=== PATIENT | male | born 1960 | race Caucasian/White ===

== ENCOUNTER 2016-11-04 05:18 | Emergency (ER) | payer OTHER ==
--- NOTE | 2016-11-04 05:33 | PD ---
HPI Chief Complaint: right arm pain Time Seen by Provider: 05:29 Travel History International Travel<30 days: No Contact w/Intl Traveler<30days: No Traveled to known affect area: No History of Present Illness HPI 56-year-old male with history of alcohol abuse, presents to the ER today brought in by EMS because he was found at a park bench by the boarder machine, he states that he had fallen 2 weeks ago and has been having right arm pain. He did hit his head but denies any loss of consciousness. He denies any other issues or injuries. Modifying Factors: None Associated Signs & Symptoms: Right arm pain, head injury Risk Factors: Alcoholic PFSH Past Medical History Chest Pain: Yes (04/06/08 NEG STRESS TEST) Diminished Hearing: No Myocardial Infarction: Yes (X2) Seizures: Yes (ETOH SEIZURES) Past Surgical History Genitourinary Surgery: Yes (STS KIDNEY SURGERY.) Other Surgery: Yes (renal surgery as a child) Social History Alcohol Use: Yes ([facility] DAILY) Tobacco Use: Yes (1 PPD) Substance Use: No Allergies-Medications (Allergen,Severity, Reaction): Coded Allergies: No Known Allergies (Verified , 11/04/16) Reported Meds & Prescriptions Reported Meds & Active Scripts Active No Active Prescriptions or Reported Medications Review of Systems Except as stated in HPI: all other systems reviewed are Neg Physical Exam Narrative GENERAL: Well-nourished, well-developed middle age white male patient in no acute distress. Awake, alert, oriented 3. SKIN: Warm and dry. HEAD: Normocephalic. EYES: No scleral icterus. No injection or drainage. NECK: Supple, trachea midline. CARDIOVASCULAR: Regular rate and rhythm without murmurs, gallops, or rubs. RESPIRATORY: Breath sounds equal bilaterally. No accessory muscle use. GASTROINTESTINAL: Abdomen soft, non-tender, nondistended. MUSCULOSKELETAL: No cyanosis, or edema. BACK: Nontender without obvious deformity. No CVA tenderness. Right arm: There is notable edema over the entire right arm and humeral area ecchymosis. Tender to palpation over the entire arm without obvious deformities. Neurovascularly intact. Data Data Last Documented VS Vital Signs Date Time Temp Pulse Resp B/P Pulse Ox O2 Delivery O2 Flow Rate FiO2 11/04/16 06:46 72 18 97/67 97 11/04/16 05:[address] Brain W/O Iv Contrast(Rout) (11/04/16 05:29) Forearm (2vws) (11/04/16 05:29) Humerus (Min 2vws) (11/04/16 05:29) MDM Medical Decision Making Medical Screen Exam Complete: Yes Emergency Medical Condition: Yes Medical Record Reviewed: Yes Interpretation(s) CT brain did not show any signs of acute injuries. X-ray shows a humeral fracture. Differential Diagnosis Right arm pain, injury, head injuryfractures versus contusions versus concussion versus intracranial injuries Narrative Course X-ray shows right humeral fracture. At this point, my plan would be to place him in a splint and sling and have her follow-up with orthopedics Dr. Return for any worsening in pain or new symptoms as needed. The plan has discussed with patient and he states understanding. Diagnosis Primary Impression: Right humeral fracture Med/Other Pt SpecificInfo: Prescription(s) given Scripts Hydrocodone-Acetaminophen (Lortab)5-325 Mg Tab1 Tab PO Q6H PRN (PAIN) #12 TAB Ref 0 Prov:Zahraa Limon MD 11/04/16 Disposition: 01 DISCHARGE HOME Condition: Stable Zahraa Limon MD Nov 04, 2016 05:33
[2016-11-04 05:34] VITALS: BP 90/61; PULSE 70; RESP 18; TEMP 97.8; O2SAT 96
--- NOTE | 2016-11-04 06:10 | RADRPT ---
EXAM DATE/TIME: 11/04/2016 05:44 [facility] COMPARISON: No previous studies available for comparison. INDICATIONS : Entire right arm pain from a fall two weeks ago. MEDICAL HISTORY : None. SURGICAL HISTORY : None. ENCOUNTER: Initial ACUITY: 2 weeks PAIN SCORE: 10/10 LOCATION: Right arm FINDINGS: Two view examination of the right forearm demonstrates no evidence of fracture or dislocation. Bony mineralization is normal. The soft tissue structures are intact. CONCLUSION: 1. There is no evidence of acute fracture. Roby Lopez MD on November 04, 2016 at 6:09 Board Certified Radiologist. This report was verified electronically.
--- NOTE | 2016-11-04 06:10 | RADRPT ---
EXAM DATE/TIME: 11/04/2016 05:39 [facility] COMPARISON: No previous studies available for comparison. INDICATIONS : Entire right arm pain from a fall two weeks ago. MEDICAL HISTORY : None. SURGICAL HISTORY : None. ENCOUNTER: Initial ACUITY: 2 weeks PAIN SCORE: 10/10 LOCATION: Right arm FINDINGS: There is a fracture of the right humeral neck with one shafts width anterior displacement. Humeral he ad is not dislocated. The acromioclavicular joint is intact. Osseous structures are osteopenic. CONCLUSION: 1. Right humeral neck fracture as above Roby Lopez MD on November 04, 2016 at 6:08 Board Certified Radiologist. This report was verified electronically.
[2016-11-04 06:46] VITALS: BP 97/67; PULSE 72; RESP 18; O2SAT 97
--- NOTE | 2016-11-04 06:50 | RADRPT ---
EXAM DATE/TIME: 11/04/2016 06:01 [facility] COMPARISON: CT BRAIN W/O CONTRAST, November 18, 2014, 22:21. INDICATIONS : Trauma; fall. RADIATION DOSE: 56.35 CTDIvol (mGy) MEDICAL HISTORY : Non-responsive. SURGICAL HISTORY : Non-responsive. ENCOUNTER: Initial ACUITY: 1 day PAIN SCALE: Non-responsive LOCATION: cranial TECHNIQUE: Multiple contiguous axial images were obtained of the head. Using automated exposure control and adj ustment of the mA and/or kV according to patient size, radiation dose was kept as low as reasonably a chievable to obtain optimal diagnostic quality images. FINDINGS: Noncontrast axial head CT demonstrates the ventricles to be enlarged with a prominent sulcal pattern compatible with atrophy. No acute intracranial hemorrhage, acute cortical infarction, mass or midline shift is seen. Posterior fossa structures are unremarkable. Bone windows demonstrate no abnormality. There is sinus disease involving the maxillary antra right e thmoid air cells and frontal sinuses CONCLUSION: Atrophy. No evidence of acute intracranial pathology. Roby Lopez MD on November 04, 2016 at 6:47 Board Certified Radiologist. This report was verified electronically.
[2016-11-04] MEDS ORDERED: HYDR-3533 PO (06:54)
[2016-11-04] MEDS ORDERED: ACETAMINOPHEN/HYDROcodone 325 MG/5 MG TAB PO ONE (07:00)
== END 2016-11-04 07:49 | disposition home or self-care (01) ==
LOC: NEPC 05:18
DX: S42.201A Unspecified fracture of upper end of right humerus, initial encounter for closed fracture (principal); F17.210 Nicotine dependence, cigarettes, uncomplicated; F10.220 Alcohol dependence with intoxication, uncomplicated; I25.2 Old myocardial infarction; W19.XXXA Unspecified fall, initial encounter; Y93.89 Activity, other specified; Y92.89 Other specified places as the place of occurrence of the external cause; Y99.8 Other external cause status; Y90.9 Presence of alcohol in blood, level not specified
CPT/HCPCS: 70450; 73060; 73090; 99284

== ENCOUNTER 2016-11-04 17:36 | Emergency (ER) | payer OTHER ==
[~2016-11-04 17:36] MED LIST: HYDR-3533 PO
[2016-11-04 17:40] VITALS: BP 124/62; PULSE 86; RESP 20; TEMP 98.3; O2SAT 95
--- NOTE | 2016-11-04 18:11 | PD ---
HPI Chief Complaint: Injury Time Seen by Provider: 18:00 Travel History International Travel<30 days: No Contact w/Intl Traveler<30days: No Traveled to known affect area: No History of Present Illness HPI 56-year-old male came to the emergency room for right shoulder pain. Patient is disheveled and in extremely poor hygienic situation. He is intoxicated and is homeless. He was in the emergency room last night for a fall and right upper extremity injury and pain. X-ray was suggestive of possible humerus fracture. He was discharged home and not given a sling and that's why he came back. [facility] Past Medical History Narrative Medical List of his past medical history reviewed from the nursing note. Chest Pain: Yes (04/06/08 NEG STRESS TEST) Diminished Hearing: No Myocardial Infarction: Yes (X2) Seizures: Yes (ETOH SEIZURES) Past Surgical History Genitourinary Surgery: Yes (STS KIDNEY SURGERY.) Other Surgery: Yes (renal surgery as a child) Social History Alcohol Use: Yes ([facility] DA[facility]) Tobacco Use: Yes (2 PPD) Substance Use: No Allergies-Medications (Allergen,Severity, Reaction): Coded Allergies: No Known Allergies (Verified , 11/04/16) Comments No known drug allergies. Reported Meds & Prescriptions Reported Meds & Active Scripts Active Lortab (Hydrocodone-Acetaminophen) 5-325 Mg Tab 1 Tab PO Q6H PRN Narrative Medication List of his home medications reviewed from the nursing note. Review of Systems Except as stated in HPI: all other systems reviewed are Neg Physical Exam Narrative GENERAL: Intoxicated, poor personal hygiene, disheveled SKIN: Warm and dry. HEAD: Atraumatic. Normocephalic. EYES: Pupils equal and round. No scleral icterus. No injection or drainage. ENT: No nasal bleeding or discharge. Mucous membranes pink and moist. NECK: Trachea midline. No JVD. CARDIOVASCULAR: Regular rate and rhythm. No murmur appreciated. RESPIRATORY: No accessory muscle use. Clear to auscultation. Breath sounds equal bilaterally. GASTROINTESTINAL: Abdomen soft, non-tender, nondistended. Hepatic and splenic margins not palpable. MUSCULOSKELETAL: No obvious deformities. No clubbing. No cyanosis. No edema. Right upper extremity swelling and decreased range of motion due to pain NEUROLOGICAL: Awake and alert. No obvious cranial nerve deficits. Motor grossly within normal limits. Normal speech. PSYCHIATRIC: Appropriate mood and affect; insight and judgment normal. Data Data Last Documented VS Vital Signs Date Time Temp Pulse Resp B/P Pulse Ox O2 Delivery O2 Flow Rate FiO2 11/04/16 20:28 88 20 120/61 94 11/04/16 17:40 98.3 Orders Humerus (Min 2vws) (11/04/16 ) Sling Cradle Arm (11/04/16 ) Sling Cradle Arm (11/04/16 ) MDM Medical Decision Making Medical Screen Exam Complete: Yes Emergency Medical Condition: Yes Medical Record Reviewed: Yes Differential Diagnosis Proximal shoulder fracture, shoulder dislocation Narrative Course 7:15 PM x-ray shows the same proximal fracture. Patient has been given the sling. He'll be discharged home. Procedures EKG Prior to Arrival: No Diagnosis Primary Impression: Humerus fracture Qualified Code: S42.201S - Closed fracture of proximal end of right humerus, unspecified fracture morphology, sequela Additional Impression: Chronic alcohol abuse Referrals: Ean Duron MD 2 days Additional Instructions: Follow-up with the orthopedist name and number been given to you. Keep the sling on until he is seen orthopedist. Disposition: 01 DISCHARGE HOME Condition: Stable Julio Pantoja MD Nov 04, 2016 18:11
--- NOTE | 2016-11-04 19:09 | RADRPT ---
EXAM DATE/TIME: 11/04/2016 18:23 [facility] COMPARISON: HUMERUS RIGHT (MIN 2VWS), November 04, 2016, 5:39. INDICATIONS : Right proximal humerus pain, fell MEDICAL HISTORY : Fracture humerus SURGICAL HISTORY : None. ENCOUNTER: Initial ACUITY: 1 day PAIN SCORE: 8/10 LOCATION: Right Humerus FINDINGS: There is a fracture of the surgical neck of the humerus with moderate impaction. The humeral head is aligned with the glenoid. The clavicle is intact. CONCLUSION: Fracture surgical neck proximal humerus. Huber Aguilar MD FACR on November 04, 2016 at 19:01 Board Certified Radiologist. This report was verified electronically.
[2016-11-04 20:28] VITALS: BP 120/61
== END 2016-11-04 20:28 | disposition home or self-care (01) ==
LOC: NEPE 17:36
DX: S42.201A Unspecified fracture of upper end of right humerus, initial encounter for closed fracture (principal); F10.220 Alcohol dependence with intoxication, uncomplicated; Z59.0 Homelessness; W19.XXXA Unspecified fall, initial encounter; Y99.9 Unspecified external cause status
CPT/HCPCS: 73060; 99283

== ENCOUNTER 2016-11-09 11:42 | Emergency (ER) | payer OTHER ==
[~2016-11-09] VITALS: Ht 180.3 cm; Wt 88.0 kg
[2016-11-09 11:51] VITALS: BP 131/71; PULSE 80; RESP 16; TEMP 98.1; O2SAT 97
--- NOTE | 2016-11-09 11:58 | PD ---
HPI Chief Complaint: Injury Time Seen by Provider: 11:50 Travel History International Travel<30 days: No Contact w/Intl Traveler<30days: No Traveled to known affect area: No History of Present Illness HPI 56 years old male complains of pain swelling right arm and right hand. Patient was seen in emergency room 5 days ago with diagnosis of fracture right surgical neck humerus. Patient was given a sling and discharged to follow-up with orthopedist. Patient states that he fell on the right shoulder and right arm several days after that. Patient states that he has increased in pain and swelling on the right arm and right hand since then. Patient was arrested and was sent to the ED for medical clearance. Patient does not have a sling with him on presentation today. Patient denies any other problem. PFSH Past Medical History Chest Pain: Yes (04/06/08 NEG STRESS TEST) Diminished Hearing: No Myocardial Infarction: Yes (X2) Seizures: Yes (ETOH SEIZURES) Past Surgical History Genitourinary Surgery: Yes (STS KIDNEY SURGERY.) Other Surgery: Yes (renal surgery as a child) Social History Alcohol Use: Yes ([facility] DAILY) Tobacco Use: Yes (2 PPD) Substance Use: No Allergies-Medications (Allergen,Severity, Reaction): Coded Allergies: No Known Allergies (Verified , 11/09/16) Reported Meds & Prescriptions Reported Meds & Active Scripts Active Lortab (Hydrocodone-Acetaminophen) 5-325 Mg Tab 1 Tab PO Q6H PRN Review of Systems General / Constitutional: No: Fever Eyes: No: Visual changes HENT: No: Headaches Cardiovascular: No: Chest Pain or Discomfort Respiratory: No: Shortness of Breath Gastrointestinal: No: Abdominal Pain Genitourinary: No: Dysuria Musculoskeletal: No: Pain Skin: No Rash Neurologic: No: Weakness Psychiatric: No: Depression Endocrine: No: Polydipsia Hematologic/Lymphatic: No: Easy Bruising Physical Exam Narrative GENERAL: Well-nourished, well-developed patient. SKIN: Warm and dry. HEAD: Normocephalic. EYES: No scleral icterus. No injection or drainage. NECK: Supple, trachea midline. No JVD or lymphadenopathy. CARDIOVASCULAR: Regular rate and rhythm without murmurs, gallops, or rubs. RESPIRATORY: Breath sounds equal bilaterally. No accessory muscle use. GASTROINTESTINAL: Abdomen soft, non-tender, nondistended. MUSCULOSKELETAL: Patient has moderate diffuse tenderness of the right shoulder, right upper arm, right forearm and right hand. +2 pitting edema right hand. No redness no heat noted. Sensory function intact. Decrease in range of motion the right shoulder right elbow. Patient had ecchymosis diffusely over the right upper chest. BACK: Nontender without obvious deformity. No CVA tenderness. Neurologic exam: Patient's awake and alert oriented 3. No obvious focal neurological deficit. Data Data Last Documented VS Vital Signs Date Time Temp Pulse Resp B/P Pulse Ox O2 Delivery O2 Flow Rate FiO2 11/09/16 11:51 98.1 80 16 131/71 97 Orders Complete Blood Count With Diff (11/09/16 11:52) Basic Metabolic Panel (Bmp) (11/09/16 11:52) Chest, Single Ap (11/09/16 11:52) Forearm (2vws) (11/09/16 11:52) Hand, Complete ([id number]) (11/09/16 11:52) Humerus (Min 2vws) (11/09/16 11:52) Labs Laboratory Tests Test 11/09/16 12:08 White Blood Count 4.1 TH/MM3 Red Blood Count 3.52 MIL/MM3 Hemoglobin 11.7 GM/DL Hematocrit 35.2 % Mean Corpuscular Volume 100.0 FL Mean Corpuscular Hemoglobin 33.3 PG Mean Corpuscular Hemoglobin 33.3 % Concent Red Cell Distribution Width 12.9 % Platelet Count 257 TH/MM3 Mean Platelet Volume 7.0 FL Neutrophils (%) (Auto) 44.5 % Lymphocytes (%) (Auto) 44.9 % Monocytes (%) (Auto) 6.2 % Eosinophils (%) (Auto) 3.2 % Basophils (%) (Auto) 1.2 % Neutrophils # (Auto) 1.8 TH/MM3 Lymphocytes # (Auto) 1.9 TH/MM3 Monocytes # (Auto) 0.3 TH/MM3 Eosinophils # (Auto) 0.1 TH/MM3 Basophils # (Auto) 0.1 TH/MM3 CBC Comment DIFF FINAL Differential Comment Sodium Level 134 MEQ/L Potassium Level 4.0 MEQ/L Chloride Level 100 MEQ/L Carbon Dioxide Level 24.8 MEQ/L Anion Gap 9 MEQ/L Blood Urea Nitrogen 4 MG/DL Creatinine 0.55 MG/DL Estimat Glomerular Filtration 154 ML/MIN Rate Random Glucose 74 MG/DL Calcium Level 8.1 MG/DL MDM Medical Decision Making Medical Screen Exam Complete: Yes Emergency Medical Condition: Yes Medical Record Reviewed: Yes Interpretation(s) Last Impressions Radius/Ulna X-Ray 11/09/16 1152 Signed Impressions: Service Date/Time: Wednesday, November 09, 2016 12:36 - CONCLUSION: Negative for fracture. Huber Aguilar MD FACR Hand X-Ray 11/09/16 1152 Signed Impressions: Service Date/Time: Wednesday, November 09, 2016 12:31 - CONCLUSION: Marked soft tissue swelling. Followup examination in 7-10 days may be of benefit. Huber Aguilar MD FACR Chest X-Ray 11/09/16 1152 Signed Impressions: Service Date/Time: Wednesday, November 09, 2016 12:20 - CONCLUSION: Minimal bibasilar parietal changes. Huber Aguilar MD FACR Differential Diagnosis Differential diagnosis including fracture, dislocation, dependent edema. Narrative Course 56 years old male with diffuse tenderness of the right arm and right hand. History of fracture surgical neck right humerus recently. X-ray retaken again today. Patient has persistent fracture displacement surgical neck right humerus. I spoke with orthopedist photonics engineering technologist. Advised sling and swath and outpatient follow-up. 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 Follow-up with orthopedist. Med/Other Pt SpecificInfo: No Change to Meds Disposition: [address] LAW ENFORCEMNT Condition: Stable Chong Rosa MD Nov 09, 2016 11:58
[2016-11-09 12:20] LABS: AUTOMATED NEUTROPHIL # 1.8 TH/MM3 (1.8-7.7); BASOPHIL # 0.1 TH/MM3 (0-0.2); BASOPHIL % 1.2 % (0.0-2.0); EOSINOPHIL # 0.1 TH/MM3 (0-0.4); EOSINOPHIL % 3.2 % (0.0-4.0); HEMATOCRIT 35.2 % (39.0-51.0); HEMO FLAGS DIFF FINAL; LYMPH % 44.9 % (9.0-44.0); LYMPHOCYTE # 1.9 TH/MM3 (1.0-4.8); MEAN CORPUSCULAR HEMOGLOBIN 33.3 PG (27.0-34.0); MEAN CORPUSCULAR HGB CONC 33.3 % (32.0-36.0); MONO % 6.2 % (0.0-8.0); NEUT % 44.5 % (16.0-70.0); PLATELET COUNT 257 TH/MM3 (150-450); RED BLOOD COUNT 3.52 MIL/MM3 (4.50-5.90); RED CELL DISTRIBUTION WIDTH 12.9 % (11.6-17.2); WHITE BLOOD COUNT 4.1 TH/MM3 (4.0-11.0)
[2016-11-09 12:37] LABS: BICARBONATE 24.8 MEQ/L (21.0-32.0)
--- NOTE | 2016-11-09 12:56 | RADRPT ---
EXAM DATE/TIME: 11/09/2016 12:31 [facility] COMPARISON: No previous studies available for comparison. INDICATIONS : Right hand pain, fall. MEDICAL HISTORY : None. SURGICAL HISTORY : None. ENCOUNTER: Initial ACUITY: 1 week PAIN SCORE: 10/10 LOCATION: Right hand FINDINGS: There is marked soft tissue swelling without displaced fracture. Alignment is anatomic.. CONCLUSION: Marked soft tissue swelling. Followup examination in 7-10 days may be of benefit. Huber Aguilar MD FACR on November 09, 2016 at 12:53 Board Certified Radiologist. This report was verified electronically.
--- NOTE | 2016-11-09 12:57 | RADRPT ---
EXAM DATE/TIME: 11/09/2016 12:36 [facility] COMPARISON: FOREARM RIGHT (2VWS), November 04, 2016, 5:44. INDICATIONS : Right arm pain, fall. MEDICAL HISTORY : None. SURGICAL HISTORY : None. ENCOUNTER: Initial ACUITY: 1 week PAIN SCORE: 10/10 LOCATION: Right posterior hand FINDINGS: Two view examination of the right forearm demonstrates no evidence of fracture or dislocation. Bony mineralization is normal. The soft tissue structures are intact. CONCLUSION: Negative for fracture. Huber Aguilar MD FACR on November 09, 2016 at 12:55 Board Certified Radiologist. This report was verified electronically.
--- NOTE | 2016-11-09 12:58 | RADRPT ---
EXAM DATE/TIME: 11/09/2016 12:20 [facility] COMPARISON: CHEST SINGLE AP, February 27, 2014, 22:56. INDICATIONS : Shortness of breath. MEDICAL HISTORY : None. SURGICAL HISTORY : None. ENCOUNTER: Initial ACUITY: 1 week PAIN SCORE: 0/10 LOCATION: Bilateral chest FINDINGS: Minimal bibasilar parenchymal changes are noted worse on the left than the right. The heart and pulmo nary vascularity are normal. Fracture of the right humerus is noted. CONCLUSION: Minimal bibasilar parietal changes. Huber Aguilar MD FACR on November 09, 2016 at 12:55 Board Certified Radiologist. This report was verified electronically.
--- NOTE | 2016-11-09 13:15 | RADRPT ---
EXAM DATE/TIME: 11/09/2016 12:22 [facility] COMPARISON: HUMERUS RIGHT (MIN 2VWS), November 04, 2016, 18:23. INDICATIONS: Right arm pain, fall. MEDICAL HISTORY: None. SURGICAL HISTORY: None. ENCOUNTER: Initial ACUITY: 1 day PAIN SCORE: 10/10 LOCATION: Right humerus FINDINGS: There is a fracture of the surgical neck of the humerus with moderate angulation. Humeral head is al igned with the glenoid. CONCLUSION: Proximal humeral fracture. Huber Aguilar MD FACR on November 09, 2016 at 12:53 Board Certified Radiologist. This report was verified electronically.
== END 2016-11-09 14:48 ==
LOC: NEDAMB 11:42
DX: S42.221D 2-part displaced fracture of surgical neck of right humerus, subsequent encounter for fracture with routine healing (principal); M79.641 Pain in right hand; R06.02 Shortness of breath; W18.30XD Fall on same level, unspecified, subsequent encounter
CPT/HCPCS: 71010; 73060; 73090; 73130; 80048; 85025; 99284

== ENCOUNTER 2016-11-12 12:32 | Emergency (ER) | payer SELFPAY ==
[~2016-11-12] VITALS: Ht 180.3 cm; Wt 95.0 kg
[2016-11-12 12:35] VITALS: BP 101/69; PULSE 90; RESP 20; TEMP 98.1; O2SAT 97
== END 2016-11-12 13:43 | disposition left against medical advice (07) ==
LOC: NED 12:32
DX: Z53.21 Procedure and treatment not carried out due to patient leaving prior to being seen by health care provider (principal)
CPT/HCPCS: 99281

== ENCOUNTER 2016-11-19 18:50 | Inpatient (IN) | payer OTHER ==
[~2016-11-19] VITALS: Ht 172.7 cm; Wt 78.6 kg
[2016-11-19 19:00] VITALS: BP 123/81; PULSE 72; RESP 19; TEMP 98.9; O2SAT 99
[2016-11-19] MEDS ORDERED: SODIUM CHLORIDE 0.9% FLUSH 5 ML FLUSH IVF PRN (19:15)
[2016-11-19] MEDS ORDERED: SODIUM CHLOR 0.9% 1000 ML INJ 1,000 ML IV ONE (19:15)
[2016-11-19 20:00] VITALS: BP 123/81; PULSE 80; RESP 16; O2SAT 96
[2016-11-19 20:18] LABS: AUTOMATED NEUTROPHIL # 5.3 TH/MM3 (1.8-7.7); BASOPHIL % 0.6 % (0.0-2.0); EOSINOPHIL % 0.2 % (0.0-4.0); HEMATOCRIT 33.8 % (39.0-51.0); LYMPH % 14.1 % (9.0-44.0); MEAN CELL VOLUME 95.5 FL (80.0-100.0); MEAN CORPUSCULAR HEMOGLOBIN 33.5 PG (27.0-34.0); MEAN CORPUSCULAR HGB CONC 35.1 % (32.0-36.0); MONO % 7.6 % (0.0-8.0); NEUT % 77.5 % (16.0-70.0); PLATELET COUNT 262 TH/MM3 (150-450); RED BLOOD COUNT 3.54 MIL/MM3 (4.50-5.90); RED CELL DISTRIBUTION WIDTH 12.8 % (11.6-17.2); WHITE BLOOD COUNT 6.8 TH/MM3 (4.0-11.0)
[2016-11-19 20:20] LABS: HEMO FLAGS DIFF FINAL
--- NOTE | 2016-11-19 20:24 | PD ---
HPI Chief Complaint: Fall Time Seen by Provider: 19:00 Travel History International Travel<30 days: No Contact w/Intl Traveler<30days: No Traveled to known affect area: No History of Present Illness HPI Patient is a 56-year-old male who presents most room with complaints of pain to his right arm. Patient was found by bystanders on the ground in the [place]. Reports the patient was complaining of right arm pain. Patient is alert and oriented 2 in the emergency room, patient reports that he broke his arm earlier in the month (he was diagnosed with a fracture to [facility] surgical neck of humerus) and reports increased pain to his right arm. Patient presents to emergency room with a sling in place with c/o of pain to his right shoulder. Patient does admit to alcohol abuse, reports that he is an alcoholic and does abuse alcohol daily. Reports that he just feels "weak all over." Reports that he has only had water and 3 beers to drink today - reports that he has not eaten anything PFSH Past Medical History Chest Pain: Yes (04/06/08 NEG STRESS TEST) Diminished Hearing: No Myocardial Infarction: Yes (X2) Seizures: Yes (ETOH SEIZURES) Past Surgical History Genitourinary Surgery: Yes (STS KIDNEY SURGERY.) Other Surgery: Yes (renal surgery as a child) Social History Alcohol Use: Yes ([employer] DAILY) Tobacco Use: Yes (/2 PPD) Substance Use: No Allergies-Medications (Allergen,Severity, Reaction): Coded Allergies: No Known Allergies (Verified , 11/19/16) Reported Meds & Prescriptions Reported Meds & Active Scripts Active Lortab (Hydrocodone-Acetaminophen) 5-325 Mg Tab 1 Tab PO Q6H PRN Review of Systems General / Constitutional: No: Fever Eyes: No: Visual changes HENT: No: Headaches Cardiovascular: No: Chest Pain or Discomfort Respiratory: No: Shortness of Breath Gastrointestinal: No: Abdominal Pain Genitourinary: No: Dysuria Musculoskeletal: Positive: Limited ROM (right arm pain), No: Pain Skin: No Rash Neurologic: No: Weakness Psychiatric: No: Depression Endocrine: No: Polydipsia Hematologic/Lymphatic: No: Easy Bruising Physical Exam Narrative GENERAL: Disheveled SKIN: Warm and dry. HEAD: Atraumatic. Normocephalic. EYES: Pupils equal and round. No scleral icterus. No injection or drainage. ENT: No nasal bleeding or discharge. Mucous membranes pink and moist. NECK: Trachea midline. No JVD. CARDIOVASCULAR: Regular rate and rhythm. No murmur appreciated. RESPIRATORY: No accessory muscle use. Clear to auscultation. Breath sounds equal bilaterally. GASTROINTESTINAL: Abdomen soft, non-tender, nondistended. Hepatic and splenic margins not palpable. MUSCULOSKELETAL: Right upper extremity with moderate tenderness to his right shoulder, humerus. Patient with mild edema to right hand, patient with no signs of open fracture. Neurovascularly intact. Patient with good range of motion to all fingers. Pulses intact. LUE: normal exam NEUROLOGICAL: Awake and alert. No obvious cranial nerve deficits. Motor grossly within normal limits. Normal speech. PSYCHIATRIC: Appropriate mood and affect; insight and judgment normal. Data Data Last Documented VS Vital Signs Date Time Temp Pulse Resp B/P Pulse Ox O2 Delivery O2 Flow Rate FiO2 11/19/16 19:05 Room Air 11/19/16 19:00 98.9 72 19 123/81 99 Orders Complete Blood Count With Diff (11/19/16 19:15) Comprehensive Metabolic Panel (11/19/16 19:15) Ct Brain W/O Iv Contrast(Rout) (11/19/16 19:15) Iv Access Insert/Monitor (11/19/16 19:15) Sodium Chloride 0.9% Flush (Ns Flush) (11/19/16 19:15) Sodium Chlor 0.9% 1000 Ml Inj (Ns 1000 M (11/19/16 19:15) Ct Cerv Spine W/O Contrast (11/19/16 19:15) Alcohol (Ethanol) (11/19/16 22:07) Osmolality, Urine (11/19/16 22:07) Sodium, Random Urine (11/19/16 22:07) Osmolality,Serum (11/19/16 22:07) Electrocardiogram (11/19/16 ) Labs Laboratory Tests Test 11/19/16 20:00 White Blood Count 6.8 TH/MM3 Red Blood Count 3.54 MIL/MM3 Hemoglobin 11.9 GM/DL Hematocrit 33.8 % Mean Corpuscular Volume 95.5 FL Mean Corpuscular Hemoglobin 33.5 PG Mean Corpuscular Hemoglobin 35.1 % Concent Red Cell Distribution Width 12.8 % Platelet Count 262 TH/MM3 Mean Platelet Volume 8.8 FL Neutrophils (%) (Auto) 77.5 % Lymphocytes (%) (Auto) 14.1 % Monocytes (%) (Auto) 7.6 % Eosinophils (%) (Auto) 0.2 % Basophils (%) (Auto) 0.6 % Neutrophils # (Auto) 5.3 TH/MM3 Lymphocytes # (Auto) 1.0 TH/MM3 Monocytes # (Auto) 0.5 TH/MM3 Eosinophils # (Auto) 0.0 TH/MM3 Basophils # (Auto) 0.0 TH/MM3 CBC Comment DIFF FINAL Differential Comment Sodium Level 127 MEQ/L Potassium Level 4.9 MEQ/L Chloride Level 95 MEQ/L Carbon Dioxide Level 23.4 MEQ/L Anion Gap 9 MEQ/L Blood Urea Nitrogen 3 MG/DL Creatinine 0.26 MG/DL Estimat Glomerular Filtration 366 ML/MIN Rate Random Glucose 77 MG/DL Calcium Level 8.1 MG/DL Total Bilirubin 0.5 MG/DL Aspartate Amino Transf 65 U/L (AST/SGOT) Alanine Aminotransferase 22 U/L (ALT/SGPT) Alkaline Phosphatase 145 U/L Total Protein 6.8 GM/DL Albumin 2.0 GM/DL MDM Medical Decision Making Medical Screen Exam Complete: Yes Emergency Medical Condition: Yes Interpretation(s) Vital Signs Date Time Temp Pulse Resp B/P Pulse Ox O2 Delivery O2 Flow Rate FiO2 11/19/16 19:00 98.9 72 19 123/81 99 ekg: nsr at 70bpm, qt/qtc: 448/468, 1st degree av block, nonspecific st seg changes CBC & BMP Diagram 11/19/16 20:00 Differential Diagnosis right sided humerus fracture, alcohol intoxication, intracranial hemorrhage, electrolyte abnormality Narrative Course Patient is a 56-year-old male who presents to emergency room for evaluation of right arm pain. Patient is an alcoholic, has known history of fracture of the surgical neck of his right humerus. Patient reports that he has increased pain to his arm, that he is not taking any medications for pain. Patient with no other complaints at this time. Diagnosis Primary Impression: Hyponatremia Admitting Information Admitting Physician Requests: Josy Parker DO Nov 19, 2016 20:24
[2016-11-19 20:35] LABS: ANION GAP 9 MEQ/L (5-15); AST (GOT) 65 U/L (15-37); BICARBONATE 23.4 MEQ/L (21.0-32.0); BLOOD UREA NITROGEN 3 MG/DL (7-18); CHLORIDE 95 MEQ/L (98-107); GLOMERULAR FILTRATION RATE 366 ML/MIN (>89); SODIUM (NA) 127 MEQ/L (136-145)
[2016-11-19 20:39] LABS: ALKALINE PHOSPHATASE 145 U/L (45-117); ALT (GPT) 22 U/L (12-78); TOTAL BILIRUBIN ADULT 0.5 MG/DL (0.2-1.0)
[2016-11-19 20:40] LABS: POTASSIUM 4.9 MEQ/L (3.5-5.1)
--- NOTE | 2016-11-19 20:45 | RADRPT ---
EXAM DATE/TIME: 11/19/2016 20:22 [facility] COMPARISON: CT BRAIN W/O CONTRAST, November 04, 2016, 6:01. INDICATIONS : Possible fall today. RADIATION DOSE: 32.14 CTDIvol (mGy) MEDICAL HISTORY : Seizures. SURGICAL HISTORY : None. ENCOUNTER: Initial ACUITY: 1 day PAIN SCALE: 4/10 LOCATION: Bilateral head TECHNIQUE: Multiple contiguous axial images were obtained of the head. Using automated exposure control and adj ustment of the mA and/or kV according to patient size, radiation dose was kept as low as reasonably a chievable to obtain optimal diagnostic quality images. FINDINGS: CEREBRUM: The ventricles are normal for age. No evidence of midline shift, mass lesion, hemorrhage or acute in farction. No extra-axial fluid collections are seen. POSTERIOR FOSSA: The cerebellum and brainstem are intact. The 4th ventricle is midline. The cerebellopontine angle i s unremarkable. EXTRACRANIAL: The visualized portion of the orbits is intact. SKULL: The calvaria is intact. No evidence of skull fracture. CONCLUSION: Normal examination for a patient of this age. No significant change has occurred. Trae Jarrett MD on November 19, 2016 at 20:41 Board Certified Radiologist. This report was verified electronically.
[2016-11-19 21:00] VITALS: BP 105/72; PULSE 64; RESP 17; O2SAT 97
--- NOTE | 2016-11-19 21:02 | RADRPT ---
EXAM DATE/TIME: 11/19/2016 20:22 [facility] COMPARISON: CT CERVICAL SPINE W/O CONTRAST, August 14, 2013, 18:22. INDICATIONS : Possible fall today. RADIATION DOSE: 20.84 CTDIvol (mGy) MEDICAL HISTORY : Seizures. SURGICAL HISTORY : None. ENCOUNTER: Initial ACUITY: 1 day PAIN SCALE: 3/10 LOCATION: Bilateral neck TECHNIQUE: Volumetric scanning of the cervical spine was performed. Multiplanar reconstructions in the sagittal, coronal and oblique axial planes were performed. Using automated exposure control and adjustment o f the mA and/or kV according to patient size, radiation dose was kept as low as reasonably achievable to obtain optimal diagnostic quality images. FINDINGS: No acute fracture or spondylolisthesis. There is moderate degenerative disc disease of the cervical s pine. No significant prevertebral soft tissue swelling is present. CONCLUSION: 1. Moderate degenerative disc disease. No acute bony abnormalities. Trae Jarrett MD on November 19, 2016 at 20:58 Board Certified Radiologist. This report was verified electronically.
[2016-11-19 22:00] VITALS: BP 91/60; PULSE 68; RESP 20; O2SAT 95
[2016-11-19] MEDS ORDERED: FLUMAZENIL 0.5 MG/5 ML VIAL IV PUSH PRN (23:30)
[2016-11-19] MEDS ORDERED: LORazepam 1 MG TAB PO PRN (23:30)
[2016-11-19] MEDS ORDERED: LORazepam 2 MG TAB PO PRN (23:30)
[2016-11-19] MEDS ORDERED: NALOXONE HCL 0.4 MG/ML AMP IV PRN (23:30)
[2016-11-19] MEDS ORDERED: LORazepam 2 MG/ML VIAL IV PUSH PRN (23:30)
[2016-11-19] MEDS ORDERED: THIAMINE INJ 100 MG in SODIUM CHLORIDE 0.9% INJ 100 ML IV ONE (23:45)
[2016-11-19] MEDS: SODIUM CHLOR 0.9% 1000 ML INJ 1,000 ML IV SCH (23:49)
[2016-11-20] VITALS (9 sets, daily range): BP systolic 90–138; BP diastolic 53–78; PULSE 68–106; RESP 16–20; TEMP 97.2–98.8; O2SAT 90–99
--- NOTE | 2016-11-20 03:32 | HHI.HP ---
[facility] Mady Osei MD Admission Diagnosis Symptomatic Hyponatremia Diagnoses: Chief Complaint: weakness, right arm pain Travel History International Travel<30 Days: No Contact w/Intl Traveler <30 Da: No Traveled to Known Affected Are: No History of Present Illness History taken from patient and ED physician. 56 y/o male with a history of ETOH abuse and [place] was brought in by [facility] after a bystander saw him crawling in the [place]. Patient is homeless. Patient states he was sitting on the side of a curb and a bystander call [facility] because he was feeling weak all over. He states he was having fevers and chills but did not take his temperature. He denies any chest pain, sob, nausea or vomiting. He states he does drink a 12 pack of beer a day, but today he was to week to drink. Patient does not have a pcp, and has not followed up with ortho for right humerus fracture. Review of Systems Constitutional: COMPLAINS OF: Fatigue, Fever, Chills Respiratory: DENIES: Cough, Sputum production, Shortness of breath Cardiovascular: COMPLAINS OF: Lower Extremity Edema, DENIES: Chest pain, Orthopnea Gastrointestinal: DENIES: Black stools, Bloody stools, Constipation, Nausea, Vomiting Genitourinary: COMPLAINS OF: Urinary incontinence Musculoskeletal: COMPLAINS OF: Joint pain (right humerus), DENIES: Back pain, Neck pain Integumentary: DENIES: Rash Hematologic/lymphatic: DENIES: Lymphadenopathy Immunologic/allergic: DENIES: Urticaria Neurologic: COMPLAINS OF: Localized weakness Past Family Social History Past Medical History ETOH abuse MIx2 Past Surgical History Kidney surgery Reported Medications Reported Meds & Active Scripts Active Lortab (Hydrocodone-Acetaminophen) 5-325 Mg Tab 1 Tab PO Q6H PRN Allergies: Coded Allergies: No Known Allergies (Verified , 11/19/16) Active Ordered Medications Current Medications Medications (Trade) Dose Ordered Sig/Mike Route Start Time Stop Time Status Last Admin IV Flush 2 ml 2 ml UNSCH PRN IVF 11/19/16 19:15 (NS 1000 ml Inj) 1,000 ml @ 100 mls/hr Q10H IV 11/19/16 23:24 11/19/16 23:49 (NS Flush) 2 ml UNSCH PRN FLUSH 11/19/16 23:30 (NS Flush) 2 ml BID FLUSH 11/20/16 09:00 (Narcan Inj) 0.4 mg UNSCH PRN IV 11/19/16 23:30 (Romazicon Inj) 0.2 mg Q1M PRN IV PUSH 11/19/16 23:30 (Ativan) 1 mg Q4H PRN PO 11/19/16 23:30 (Ativan Inj) 1 mg Q4H PRN IV PUSH 11/19/16 23:30 (Ativan) 2 mg Q2H PRN PO 11/19/16 23:30 (Ativan Inj) 2 mg Q2H PRN IV PUSH 11/19/16 23:30 (Ativan Inj) 2 mg Q1H PRN IV PUSH 11/19/16 23:30 (Ativan Inj) 2 mg Q15M PRN IV PUSH 11/19/16 23:30 (Vitamin B1) 100 mg DAILY PO 11/20/16 09:00 Family History Patient denies any family history Social History Tobacco use: 10/22 ppd Alcohol use: 12 pack of beer a day Illicit drug use: denies Physical Exam Vital Signs Vital Signs Date Time Temp Pulse Resp B/P Pulse Ox O2 Delivery O2 Flow Rate FiO2 11/20/16 01:50 98.8 87 18 138/78 97 11/19/16 22:00 68 20 91/60 95 Room Air 11/19/16 21:00 64 17 105/72 97 Room Air 11/19/16 20:00 80 16 123/81 96 Room Air 11/19/16 19:05 Room Air 11/19/16 19:00 98.9 72 19 123/81 99 Physical Exam GENERAL: This is a well-nourished, sleepy patient. SKIN: Shinny bilateral lower extremities HEAD: Atraumatic. Normocephalic. EYES: Pupils equal round and reactive. ENT: Nose without bleeding, purulent drainage or septal hematoma.Airway patent. NECK: Trachea midline. No JVD CARDIOVASCULAR: Regular rate and rhythm without murmurs, gallops, or rubs. RESPIRATORY: Clear to auscultation. Breath sounds equal bilaterally. No wheezes , rales, or rhonchi. GASTROINTESTINAL: Abdomen soft, non-tender, nondistended. Distended bladder. MUSCULOSKELETAL:Bilateral lower extremities +2 pitting edema with tenderness. No calf tenderness. NEUROLOGICAL: Awake and alert. Motor and sensory grossly within normal limits. Normal speech. Laboratory Laboratory Tests Test 11/19/16 11/19/16 11/19/16 20:00 22:34 23:20 White Blood Count 6.8 Red Blood Count 3.54 Hemoglobin 11.9 Hematocrit 33.8 Mean Corpuscular Volume 95.5 Mean Corpuscular Hemoglobin 33.5 Mean Corpuscular Hemoglobin 35.1 Concent Red Cell Distribution Width 12.8 Platelet Count 262 Mean Platelet Volume 8.8 Neutrophils (%) (Auto) 77.5 Lymphocytes (%) (Auto) 14.1 Monocytes (%) (Auto) 7.6 Eosinophils (%) (Auto) 0.2 Basophils (%) (Auto) 0.6 Neutrophils # (Auto) 5.3 Lymphocytes # (Auto) 1.0 Monocytes # (Auto) 0.5 Eosinophils # (Auto) 0.0 Basophils # (Auto) 0.0 CBC Comment DIFF FINAL Differential Comment Sodium Level 127 Potassium Level 4.9 Chloride Level 95 Carbon Dioxide Level 23.4 Anion Gap 9 Blood Urea Nitrogen 3 Creatinine 0.26 Estimat Glomerular Filtration 366 Rate Random Glucose 77 Calcium Level 8.1 Total Bilirubin 0.5 Aspartate Amino Transf 65 (AST/SGOT) Alanine Aminotransferase 22 (ALT/SGPT) Alkaline Phosphatase 145 Total Protein 6.8 Albumin 2.0 Ethyl Alcohol Level LESS THAN 3 Serum Osmolality 265 Urine Osmolality 114 Urine Random Sodium 24 Result Diagram: 11/19/16199911/19/161999 Imaging Last Impressions Head CT 11/19/161914 Signed Impressions: Service Date/Time: Saturday, November 19, 2016 20:22 - CONCLUSION: Normal examination for a patient of this age. No significant change has occurred. Trae Jarrett MD Cervical Spine CT 11/19/161914 Signed Impressions: Service Date/Time: Saturday, November 19, 2016 20:22 - CONCLUSION: 1. Moderate degenerative disc disease. No acute bony abnormalities. Trae Jarrett MD Assessment and Plan Problem List: (1) Hyponatremia ICD Code: E87.1 Status: Acute (2) Humerus fracture ICD Code: S42.309A Status: Chronic (3) Chronic alcohol abuse ICD Code: F10.10 Status: Chronic Assessment and Plan 56 y/o male with a history of etoh abuse and [place] presented with: Symptomatic Hyponatremia Labs: NA 127 -NS at 100ml/hr -BMP in AM Humerus fracture, chronic -Patient has been instructed to follow up with Dr. Duron outpatient ETOH abuse -Seizure precautions -CIWA protocol -Thiamine PO daily DVT prophylaxis: Lovenox Written by Rosemary WILLS, acting as scribe for Dr. Jansen on 11/20/16 at 0435. The documentation accurately reflects the work performed [id number] and decisions made by me and the physician Dr Jansen on 11/20/16. The documentation accurately reflects the work performed [id number] by me on at 0435 Discussed Condition With Patient and ED physician Rosemary Gustafson Nov 20, 2016 03:32 Carlie Jansen MD Nov 20, 2016 08:14
[2016-11-20 05:57] LABS: BICARBONATE 23.5 MEQ/L (21.0-32.0); POTASSIUM 3.5 MEQ/L (3.5-5.1)
[2016-11-20] MEDS: SODIUM CHLORIDE 0.9% FLUSH 5 ML FLUSH FLUSH SCH ×2 (09:00→21:00)
[2016-11-20] MEDS: ENOXAPARIN SODIUM 30 MG/0.3 ML SYRINGE SQ SCH (09:00)
[2016-11-20] MEDS: THIAMINE HCL 100 MG TAB PO SCH (09:00)
[2016-11-20] MEDS: SODIUM CHLOR 0.9% 1000 ML INJ 1,000 ML IV SCH ×2 (09:24→22:33)
--- NOTE | 2016-11-20 12:06 | HHI.PR ---
Subjective Remarks Follow-up for generalized weakness. Sleeping upon arrival, awakens easily to voice and light touch. The patient replies 'okay' when asked how he is doing. Otherwise he refuses to answer any additional questions, instead repeatedly feigns sleep. Objective Vitals Vital Signs Date Time Temp Pulse Resp B/P Pulse Ox O2 Delivery O2 Flow Rate FiO2 11/20/16 11:45 97.2 91 18 90/53 92 11/20/16 08:30 85 11/20/16 07:51 97.6 86 20 98/58 94 11/20/16 04:00 98.0 68 18 122/62 99 11/20/16 03:59 85 11/20/16 01:50 98.8 87 18 138/78 97 11/19/16 22:00 68 20 91/60 95 Room Air 11/19/16 21:00 64 17 105/72 97 Room Air 11/19/16 20:00 80 16 123/81 96 Room Air 11/19/16 19:05 Room Air 11/19/16 19:00 98.9 72 19 123/81 99 I/O 11/19/16 11/19/16 11/19/16 11/20/16 11/20/16 11/20/16 07:00 15:00 23:00 07:00 15:00 23:00 Output Total 500 ml Balance -500 ml Output Urine Total 500 ml Bladder Scan Volume Amount 38 ml # Voids 3 # Bowel Movements 1 Result Diagram: 11/19/16199911/20/16 0444 Imaging Last Impressions Head CT 11/19/161914 Signed Impressions: Service Date/Time: Saturday, November 19, 2016 20:22 - CONCLUSION: Normal examination for a patient of this age. No significant change has occurred. Trae Jarrett MD Cervical Spine CT 11/19/161914 Signed Impressions: Service Date/Time: Saturday, November 19, 2016 20:22 - CONCLUSION: 1. Moderate degenerative disc disease. No acute bony abnormalities. Trae Jarrett MD Objective Remarks GENERAL: Well-developed well-nourished. In no acute distress. SKIN: Warm and dry. No lesions noted. HEENT: Normocephalic. Pupils equal and round and reactive to light. Mucous membranes pink and moist. CARDIOVASCULAR: Regular rate and rhythm. No murmur appreciated. RESPIRATORY: No accessory muscle use. Clear to auscultation. Breath sounds equal bilaterally. GASTROINTESTINAL: Abdomen soft, non-tender, nondistended. Bowel sounds x4. MUSCULOSKELETAL: Right upper extremity in sling. No clubbing or cyanosis. No edema. NEUROLOGICAL: Awakens easily. Follows commands. No focal neurological deficits. Moves upper and lower extremities spontaneously. Normal speech. PSYCHIATRIC: Guarded mood and affect A/P Problem List: (1) Hyponatremia ICD Code: E87.1 Status: Acute (2) Humerus fracture ICD Code: S42.309A Status: Chronic (3) Chronic alcohol abuse ICD Code: F10.10 Status: Chronic Assessment and Plan 56 y/o male with a history of etoh abuse and [place] presented with: Hyponatremia, mild Labs: NA 127, previously 134 on 11/09. Improved 131 overnight. Urine and serum osmolality and serum sodium reviewed. -IVF -BMP in AM Generalized weakness: Possibly from hyponatremia as above. Imaging review: Head CT normal. -PT out of bed -Check UDS -Neuro checks Humerus fracture, chronic -Outpatient orthopedic follow-up as arranged ETOH abuse -Withdrawal precautions -CIWA protocol -Thiamine PO daily DVT prophylaxis: Lovenox Discharge Planning Disposition pending clinical course. Problem Qualifiers (1) Humerus fracture: Mario Cole Nov 20, 2016 12:06 Angela Caballero MD Nov 20, 2016 14:05
--- NOTE | 2016-11-20 14:15 | EKG ---
Date Performed: 11/19/2016 Time Performed: 22:39:20 PTAGE: 56 years EKG: Sinus rhythm WITH FIRST DEGREE AV BLOCK MODERATE ST DEPRESSION PROLONGED QT INTERVAL ABNORMAL ECG Diffuse ST segm ent elevation, new since prior tracing. May simply be repolarization change but pericarditis and poss ible myocardial ischemia should be considered and excluded clinically. PREVIOUS TRACING : 02/27/2014 23.23 DOCTOR: Sola Sykes Interpretating Date/Time 11/20/2016 14:15:03
[2016-11-20 16:10] LABS: AMPHETAMINE, URINE NEG (NEG); BARBITURATES, URINE NEG (NEG); COCAINE, URINE NEG (NEG)
[2016-11-20] MEDS ORDERED: RESP: ALBUTEROL 1.25 MG/3 ML NEB (SCH) NEB ONE (17:45)
[2016-11-21] VITALS (10 sets, daily range): BP systolic 98–132; BP diastolic 47–83; PULSE 64–114; RESP 18–24; TEMP 96.8–99.5; O2SAT 92–98
[2016-11-21] MEDS: THIAMINE HCL 100 MG TAB PO SCH (08:14)
[2016-11-21] MEDS: SODIUM CHLORIDE 0.9% FLUSH 5 ML FLUSH FLUSH SCH ×2 (08:14→20:37)
[2016-11-21] MEDS: ENOXAPARIN SODIUM 30 MG/0.3 ML SYRINGE SQ SCH (08:14)
[2016-11-21] MEDS: SODIUM CHLOR 0.9% 1000 ML INJ 1,000 ML IV SCH (08:15)
[2016-11-21 08:37] LABS: BICARBONATE 24.2 MEQ/L (21.0-32.0); POTASSIUM 3.9 MEQ/L (3.5-5.1)
--- NOTE | 2016-11-21 09:11 | HHI.PR ---
Subjective Remarks Follow-up for generalized weakness. The patient is more awake today. He complains of feeling generally weak, worse in his right leg. He states he is not able to walk, not sure why. He reports normal BM. He was noted to have erythema of his left lower leg. He states that this didn't present for the past 2 months. He denies any specific fevers, but states he's felt chilly. Objective Vitals Vital Signs Date Time Temp Pulse Resp B/P Pulse Ox O2 Delivery O2 Flow Rate FiO2 11/21/16 08:56 92 Nasal Cannula 3.00 11/21/16 07:04 98.3 114 19 98/47 97 11/21/16 05:13 99.5 114 20 117/50 94 11/21/16 00:20 96.8 108 22 98/56 96 11/20/16 19:30 93 21 11/20/16 18:07 106 16 97/63 95 11/20/16 14:51 97.4 95 18 95/55 90 11/20/16 11:45 97.2 91 18 90/53 92 I/O 11/20/16 11/20/16 11/20/16 11/21/16 11/21/16 11/21/16 07:00 15:00 23:00 07:00 15:00 23:00 Intake Total 1740 ml Balance 1740 ml Intake Oral 720 ml IV Total 1020 ml Bladder Scan Volume Amount 38 ml # Voids 5 Result Diagram: 11/19/16199911/21/16 0756 Imaging Last Impressions Head CT 11/19/161914 Signed Impressions: Service Date/Time: Saturday, November 19, 2016 20:22 - CONCLUSION: Normal examination for a patient of this age. No significant change has occurred. Trae Jarrett MD Cervical Spine CT 11/19/161914 Signed Impressions: Service Date/Time: Saturday, November 19, 2016 20:22 - CONCLUSION: 1. Moderate degenerative disc disease. No acute bony abnormalities. Trae Jarrett MD Objective Remarks GENERAL: Well-developed well-nourished. In no acute distress. SKIN: Warm and dry. Erythema of the left bray. HEENT: Normocephalic. Pupils equal and round and reactive to light. Mucous membranes pink and moist. CARDIOVASCULAR: Regular rate and rhythm. No murmur appreciated. RESPIRATORY: No accessory muscle use. Clear to auscultation. Breath sounds equal bilaterally. GASTROINTESTINAL: Abdomen soft, non-tender, nondistended. Bowel sounds x4. MUSCULOSKELETAL: Right upper extremity in sling. No clubbing or cyanosis. 1+ bilateral lower extremity edema. NEUROLOGICAL: Awake and alert. No focal neurological deficits. Moves upper and lower extremities spontaneously. Normal speech. PSYCHIATRIC: Guarded mood and affect; insight and judgment fair A/P Problem List: (1) Hyponatremia ICD Code: E87.1 Status: Acute (2) Humerus fracture ICD Code: S42.309A Status: Chronic (3) Chronic alcohol abuse ICD Code: F10.10 Status: Chronic Assessment and Plan 56 y/o male with a history of etoh abuse and [place] presented with: Hyponatremia, mild Labs: NA 127, previously 134 on 11/09. Continued improvement to 134. Urine and serum osmolality and serum sodium reviewed. -IVF Left lower extremity cellulitis: Tmax 99.5, no leukocytosis -IV vancomycin -Elevated lower extremity Generalized weakness: Possibly from hyponatremia or infection as above. Imaging/labs reviewed: Head CT normal. UDS positive for benzodiazepines. -PT out of bed -Neuro checks Humerus fracture, chronic -Outpatient orthopedic follow-up as arranged -Continue sling ETOH abuse -Withdrawal precautions -CIWA protocol -Thiamine PO daily DVT prophylaxis: Lovenox Written by Mario Cole, acting as scribe for Dr. Caballero on 11/21/16 at 09:11. The documentation accurately reflects the work performed [id number] by me Dr. Caballero on 11/21/16 at 09:11. Discharge Planning Disposition pending clinical improvement. Problem Qualifiers (1) Humerus fracture: Mario Cole Nov 21, 2016 09:11 Angela Caballero MD Nov 21, 2016 13:23
[2016-11-21] MEDS ORDERED: Vancomycin Consult Pharmacy 1 EA OTHER SCH (09:15)
[2016-11-21] MEDS ORDERED: VANCOMYCIN INJ 1,500 MG in SODIUM CHLORID 0.9% 500 ML INJ 500 ML IV ONE (10:00)
[2016-11-22] VITALS (8 sets, daily range): BP systolic 91–105; BP diastolic 50–68; PULSE 68–122; RESP 18–20; TEMP 97.5–99.7; O2SAT 91–98
[2016-11-22] MEDS: VANCOMYCIN INJ 1,500 MG in SODIUM CHLORID 0.9% 500 ML INJ 500 ML IV SCH ×3 (00:20→23:07)
[2016-11-22] MEDS: SODIUM CHLOR 0.9% 1000 ML INJ 1,000 ML IV SCH ×2 (03:08→17:27)
[2016-11-22 06:41] LABS: BICARBONATE 23.5 MEQ/L (21.0-32.0); POTASSIUM 3.5 MEQ/L (3.5-5.1)
[2016-11-22 06:43] LABS: AUTOMATED NEUTROPHIL # 5.7 TH/MM3 (1.8-7.7); BASOPHIL % 0.2 % (0.0-2.0); EOSINOPHIL # 0.1 TH/MM3 (0-0.4); EOSINOPHIL % 0.8 % (0.0-4.0); HEMATOCRIT 29.7 % (39.0-51.0); HEMO FLAGS DIFF FINAL; LYMPH % 14.5 % (9.0-44.0); LYMPHOCYTE # 1.1 TH/MM3 (1.0-4.8); MEAN CELL VOLUME 95.7 FL (80.0-100.0); MEAN CORPUSCULAR HEMOGLOBIN 33.2 PG (27.0-34.0); MEAN CORPUSCULAR HGB CONC 34.7 % (32.0-36.0); NEUT % 77.5 % (16.0-70.0); PLATELET COUNT 180 TH/MM3 (150-450); RED BLOOD COUNT 3.11 MIL/MM3 (4.50-5.90); RED CELL DISTRIBUTION WIDTH 13.2 % (11.6-17.2); WHITE BLOOD COUNT 7.3 TH/MM3 (4.0-11.0)
[2016-11-22] MEDS: SODIUM CHLORIDE 0.9% FLUSH 5 ML FLUSH FLUSH SCH ×2 (07:50→21:00)
[2016-11-22] MEDS: THIAMINE HCL 100 MG TAB PO SCH (08:01)
[2016-11-22] MEDS: ENOXAPARIN SODIUM 30 MG/0.3 ML SYRINGE SQ SCH (08:01)
--- NOTE | 2016-11-22 12:00 | HHI.PR ---
Subjective Remarks Follow up for cellulitis, weakness. The patient complains of pain at the RUQ today. Denies any nausea/vomiting/diarrhea. Still with cellulitis of the LLE, the patient reports unchanged compared to yesterday, with diffuse erythema/ edema and pain upon any movement or palpation. The patient complains of weakness. Also noted to have diffuse rhonchi on exam, patient does complain of cough. Objective Vitals Vital Signs Date Time Temp Pulse Resp B/P Pulse Ox O2 Delivery O2 Flow Rate FiO2 11/22/16 11:46 99.5 105 18 101/58 92 11/22/16 08:37 97.8 110 18 91/50 91 11/22/16 06:54 21 11/22/16 05:47 97.5 119 20 98/66 93 11/21/16 23:33 97.6 110 20 116/63 94 11/21/16 19:23 97.5 102 20 102/62 95 11/21/16 16:51 98.0 87 18 132/61 98 11/21/16 16:00 96.9 104 20 110/62 93 11/21/16 12:21 98.4 64 18 106/47 97 I/O 11/21/16 11/21/16 11/21/16 11/22/16 11/22/16 11/22/16 07:00 15:00 23:00 07:00 15:00 23:00 Intake Total 1800 ml Balance 1800 ml Intake Oral 960 ml IV Total 840 ml # Voids 9 Result Diagram: 11/22/16 0517 11/22/16 0517 Imaging Last Impressions Chest X-Ray 11/22/16 0000 Signed Impressions: Service Date/Time: November 12:09 - CONCLUSION: 1. Cardiomegaly and findings of congestive heart failure. This is new when compared with the prior exam. Roby Lopez MD Head CT 11/19/161914 Signed Impressions: Service Date/Time: Saturday, November 19, 2016 20:22 - CONCLUSION: Normal examination for a patient of this age. No significant change has occurred. Trae Jarrett MD Cervical Spine CT 11/19/161914 Signed Impressions: Service Date/Time: Saturday, November 19, 2016 20:22 - CONCLUSION: 1. Moderate degenerative disc disease. No acute bony abnormalities. Trae Jarrett MD Objective Remarks GENERAL: Well-nourished, well-developed unkempt appearing male patient in NAD. SKIN: Warm and dry. HEAD: Normocephalic. Atraumatic. EYES: Pupils equal and round. No scleral icterus. No injection or drainage. ENT: No nasal bleeding or discharge. Mucous membranes pink and moist. NECK: Supple. Trachea midline. CARDIOVASCULAR: Tachycardic, Regular rhythm. S1, S2 noted. No murmur appreciated. RESPIRATORY: No accessory muscle use. Scattered rhonchi, no wheezing. Breath sounds equal bilaterally. GASTROINTESTINAL: Abdomen soft, nondistended, RUQ TTP. Normoactive bowel sounds x4. MUSCULOSKELETAL: No obvious deformities. LLE with diffuse erythema, 2+ edema, tender to palpation. RLE nonedematous. NEUROLOGICAL: Awake and alert. No obvious cranial nerve deficits. Motor grossly within normal limits. Normal speech. Medications and IVs Current Medications Medications (Trade) Dose Ordered Sig/Mike Route Start Time Stop Time Status Last Admin (NS 1000 ml Inj) 1,000 ml @ 70 mls/hr [id number] IV 11/19/16 23:24 11/22/16 03:08 (NS Flush) 2 ml UNSCH PRN FLUSH 11/19/16 23:30 (NS Flush) 2 ml BID FLUSH 11/20/16 09:00 (Narcan Inj) 0.4 mg UNSCH PRN IV 11/19/16 23:30 (Romazicon Inj) 0.2 mg Q1M PRN IV PUSH 11/19/16 23:30 (Ativan) 1 mg Q4H PRN PO 11/19/16 23:30 (Ativan Inj) 1 mg Q4H PRN IV PUSH 11/19/16 23:30 (Ativan) 2 mg Q2H PRN PO 11/19/16 23:30 (Ativan Inj) 2 mg Q2H PRN IV PUSH 11/19/16 23:30 (Ativan Inj) 2 mg Q1H PRN IV PUSH 11/19/16 23:30 (Ativan Inj) 2 mg Q15M PRN IV PUSH 11/19/16 23:30 (Vitamin B1) 100 mg DAILY PO 11/20/16 09:00 11/22/16 08:01 Enoxaparin Sodium 30 mg 30 mg Q24H SQ 11/20/16 09:00 11/22/16 08:01 Pharmacy Profile Note 0 ml @ 0 mls/hr UNSCH OTHER 11/21/16 09:15 (Vancomycin Inj/ NS 500 ml Inj) 515 ml @ 250 mls/hr Q12H IV 11/21/16 23:00 11/22/16 11:25 Miscellaneous Information SPECIFIC LAB TO BE DRAWN:VANCOMYCIN TROUGH DATE TO... ONCE ONCE XX 11/23/16 10:45 11/23/16 10:46 Levofloxacin/ Dextrose 150 ml @ 100 mls/hr Q24H IV 11/22/16 12:00 11/22/16 14:17 (Zosyn 4.5 Gm Premix) 100 ml @ 200 mls/hr Q6H IV 11/22/16 12:00 11/22/16 13:40 Urinary Catheter: No Vascular Central Line Catheter: No A/P Problem List: (1) Hyponatremia ICD Code: E87.1 Status: Acute (2) Humerus fracture ICD Code: S42.309A Status: Chronic (3) Chronic alcohol abuse ICD Code: F10.10 Status: Chronic Assessment and Plan 56 y/o male with a history of etoh abuse and [place] presented with: Hyponatremia, mild: Labs reviewed showed NA 127, previously 134 on 11/09. Urine osmolality 114, urine Na 24, serum osmolality 265. Given IVF. Na now 138. Resolved. Continue to monitor. Left lower extremity cellulitis: Tmax 99.7, no leukocytosis. Started on IV Vanco however not much improvement overnight, added IV Levaquin and IV Zosyn. Elevate the leg. Plan to consult ID. Suspected Sepsis: Tmax 99.7, no leukocytosis however tachycardic and hypotensive. On IVF. Continue abx with IV Vanco, Zosyn, Levaquin. Cough/Rhonchi: suspect pneumonia. Check CXR. Started on abx with IV Levaquin as above. RUQ Abdominal Pain: LFTs minimally elevated. Check liver U/S. Monitor CMP. Generalized weakness: suspect secondary to hyponatremia or infection as above. Imaging/labs reviewed: Head CT normal. UDS positive for benzodiazepines. Consult PT. Neuro checks Humerus fracture, chronic: Outpatient orthopedic follow-up as arranged. Continue sling ETOH abuse: Withdrawal precautions. CIWA protocol. Thiamine/folate/MV PO daily. DVT prophylaxis: Lovenox I spent 35 minutes [id number] with the patient or on the [place] discussing the patient's disposition, prognosis, and plan of care with his caregivers. Over half the time spent was devoted to counseling the patient regarding placement in coordinating care with caregivers and case management Written by Nilda Cuevas, acting as scribe for Dr. Vargas on 11/22/16 at 12: 00. Attending Statement The documentation accurately reflects the work performed [id number] by me on at 12:00. Problem Qualifiers (1) Humerus fracture: Nilda Cuevas PA-C Nov 22, 2016 12:00 Babatunde Perales MD Nov 27, 2016 13:27
--- NOTE | 2016-11-22 12:38 | RADRPT ---
EXAM DATE/TIME: 11/22/2016 12:09 [facility] COMPARISON: CHEST SINGLE AP, November 09, 2016, 12:20. INDICATIONS : Cough. MEDICAL HISTORY : seizures SURGICAL HISTORY : None. ENCOUNTER: Initial ACUITY: 4 - 6 days PAIN SCORE: Non-responsive. LOCATION: Bilateral chest FINDINGS: The cardiac silhouette is enlarged in transverse diameter. There are findings of congestive heart carl lure with interstitial and alveolar opacity bilaterally. No pleural effusions are identified. Subacut e fracture the right humeral neck is identified. CONCLUSION: 1. Cardiomegaly and findings of congestive heart failure. This is new when compared with the prior ex am. Roby Lopez MD on November 22, 2016 at 12:35 Board Certified Radiologist. This report was verified electronically.
[2016-11-22] MEDS: PIPERACIL-TAZO 4.5 GM PREMIX 100 ML IV SCH ×2 (13:40→19:16)
[2016-11-22] MEDS: LEVOFLOXACIN 750 MG PREMIX INJ 150 ML IV SCH (14:17)
--- NOTE | 2016-11-22 18:46 | RADRPT ---
EXAM DATE/TIME: 11/22/2016 16:50 [facility] COMPARISON: No previous studies available for comparison. INDICATIONS : Cirrhosis. MEDICAL HISTORY : Myocardial infarction. ETOH seizures. Head trauma. Chest pain. SURGICAL HISTORY : Renal surgery as child. ENCOUNTER: Initial ACUITY: 1 day PAIN SCORE: 0/10 LOCATION: Bilateral upper quadrant MEASUREMENTS: LIVER: 18.4 cm length COMMON DUCT: 7 mm RIGHT KIDNEY: 12.7 x 6.0 x 4.7 cm SPLEEN: 12.0 cm length FINDINGS: LIVER: Liver is mildly enlarged and heterogeneous. No focal hepatic lesion seen. There is normal flow direct ion in the main portal vein. COMMON DUCT: No intraluminal mass or stone visualized. GALLBLADDER: Mild wall thickening an approximately 3.5 mm maximum. Also trace ascites in the gallbladder fossa. Ne gative sonographic Greenberg's sign. PANCREAS: The visualized portions are within normal limits. RIGHT KIDNEY: No hydronephrosis, stone or mass. SPLEEN: No focal lesion. Incidentally seen right pleural effusion. CONCLUSION: 1. Mildly enlarged and heterogeneous liver without a focal hepatic lesion. No perceptible hepatic nod ularity. 2. Trace pericholecystic fluid and borderline gallbladder wall thickening. These findings are demonst rated in the setting of no illicited sonographic Greenberg sign and presumably on the basis of right hea rt dysfunction or liver disease. No gallstones or ductal dilatation demonstrated. Jose Juan Santillan MD on November 22, 2016 at 18:42 Board Certified Radiologist. This report was verified electronically.
[2016-11-23] VITALS (11 sets, daily range): BP systolic 96–104; BP diastolic 54–60; PULSE 87–112; RESP 16–32; TEMP 97.7–101.4; O2SAT 86–97
[2016-11-23] MEDS: PIPERACIL-TAZO 4.5 GM PREMIX 100 ML IV SCH ×4 (01:53→16:37)
[2016-11-23 09:05] LABS: AUTOMATED NEUTROPHIL # 5.7 TH/MM3 (1.8-7.7); BASOPHIL % 0.4 % (0.0-2.0); EOSINOPHIL % 0.4 % (0.0-4.0); HEMO FLAGS DIFF FINAL; LYMPH % 17.4 % (9.0-44.0); LYMPHOCYTE # 1.4 TH/MM3 (1.0-4.8); MEAN CELL VOLUME 95.8 FL (80.0-100.0); MEAN CORPUSCULAR HEMOGLOBIN 32.6 PG (27.0-34.0); MONO % 10.3 % (0.0-8.0); NEUT % 71.5 % (16.0-70.0); PLATELET COUNT 174 TH/MM3 (150-450); RED BLOOD COUNT 3.03 MIL/MM3 (4.50-5.90)
[2016-11-23] MEDS: MULTIVITAMINS/MINERALS THERAPEUTIC TAB PO SCH (09:18)
[2016-11-23] MEDS: SODIUM CHLORIDE 0.9% FLUSH 5 ML FLUSH FLUSH SCH ×2 (09:18→23:30)
[2016-11-23] MEDS: THIAMINE HCL 100 MG TAB PO SCH (09:18)
[2016-11-23] MEDS: FOLIC ACID 1 MG TAB PO SCH (09:18)
[2016-11-23] MEDS: ENOXAPARIN SODIUM 30 MG/0.3 ML SYRINGE SQ SCH (09:18)
[2016-11-23 09:38] LABS: ALKALINE PHOSPHATASE 88 U/L (45-117); ALT (GPT) 14 U/L (12-78); ANION GAP 9 MEQ/L (5-15); AST (GOT) 30 U/L (15-37); BICARBONATE 24.5 MEQ/L (21.0-32.0); BLOOD UREA NITROGEN 8 MG/DL (7-18); CHLORIDE 104 MEQ/L (98-107); GLOMERULAR FILTRATION RATE 113 ML/MIN (>89); MAGNESIUM 1.9 MG/DL (1.5-2.5); POTASSIUM 3.6 MEQ/L (3.5-5.1); SODIUM (NA) 137 MEQ/L (136-145); TOTAL BILIRUBIN ADULT 0.4 MG/DL (0.2-1.0)
[2016-11-23] MEDS ORDERED: PHARMACY ORDERED LAB XX ONE (10:45)
[2016-11-23] MEDS: SODIUM CHLOR 0.9% 1000 ML INJ 1,000 ML IV SCH ×2 (10:47→22:03)
[2016-11-23] MEDS: LEVOFLOXACIN 750 MG PREMIX INJ 150 ML IV SCH (10:47)
[2016-11-23] MEDS ORDERED: RESP: ALBUTEROL 2.5 MG/IPRATROPIUM 0.5 MG NEB (SCH) NEB ONE (11:15)
[2016-11-23] MEDS: RESP: ALBUTEROL 2.5 MG/IPRATROPIUM 0.5 MG NEB (SCH) NEB ×2 (13:26→19:57)
[2016-11-23] MEDS ORDERED: SINCALIDE 5 MCG/5 ML VIAL IV ONE (14:27)
[2016-11-23] MEDS: VANCOMYCIN INJ 1,500 MG in SODIUM CHLORID 0.9% 500 ML INJ 500 ML IV SCH ×2 (15:44→23:30)
--- NOTE | 2016-11-23 16:15 | HHI.PR ---
Subjective Remarks Follow up for cellulitis, weakness. The patient reports some improvement of the left leg cellulitis, improved edema, still painful and erythematous. Patient febrile overnight, Tmax today 101.4. He also reports cough, wheezing, and shortness of breath today. He smokes tobacco, denies any formal diagnosis of COPD. Objective Vitals Vital Signs Date Time Temp Pulse Resp B/P Pulse Ox O2 Delivery O2 Flow Rate FiO2 11/23/16 15:50 93 11/23/16 15:23 98.9 109 18 96/54 91 11/23/16 11:38 108 11/23/16 11:33 91 11/23/16 11:26 101.4 110 16 99/54 86 11/23/16 08:30 Nasal Cannula 2.00 21 11/23/16 07:39 94 11/23/16 07:27 98.7 112 22 103/60 91 11/23/16 03:36 98.8 87 18 102/57 97 11/22/16 23:17 122 11/22/16 20:30 Nasal Cannula 2.00 21 11/22/16 20:00 97.8 68 18 105/68 98 11/22/16 19:15 96 11/22/16 16:53 99.7 109 18 94/50 95 Result Diagram: 11/23/16 0839 11/23/16 0839 Imaging Last Impressions Liver Ultrasound 11/22/16 0000 Signed Impressions: Service Date/Time: November 16:50 - CONCLUSION: 1. Mildly enlarged and heterogeneous liver without a focal hepatic lesion. No perceptible hepatic nodularity. 2. Trace pericholecystic fluid and borderline gallbladder wall thickening. These findings are demonstrated in the setting of no illicited sonographic Greenberg sign and presumably on the basis of right heart dysfunction or liver disease. No gallstones or ductal dilatation demonstrated. Jose Juan Santillan MD Chest X-Ray 11/22/16 0000 Signed Impressions: Service Date/Time: November 12:09 - CONCLUSION: 1. Cardiomegaly and findings of congestive heart failure. This is new when compared with the prior exam. Roby Lopez MD Head CT 11/19/16 1915 Signed Impressions: Service Date/Time: Saturday, November 19, 2016 20:22 - CONCLUSION: Normal examination for a patient of this age. No significant change has occurred. Trae Jarrett MD Cervical Spine CT 11/19/161914 Signed Impressions: Service Date/Time: Saturday, November 19, 2016 20:22 - CONCLUSION: 1. Moderate degenerative disc disease. No acute bony abnormalities. Trae Jarrett MD Objective Remarks GENERAL: Well-nourished, well-developed unkempt appearing male patient in NAD. SKIN: Warm and dry. HEAD: Normocephalic. Atraumatic. EYES: Pupils equal and round. No scleral icterus. No injection or drainage. ENT: No nasal bleeding or discharge. Mucous membranes pink and moist. NECK: Supple. Trachea midline. CARDIOVASCULAR: Tachycardic, Regular rhythm. S1, S2 noted. No murmur appreciated. RESPIRATORY: No accessory muscle use. Diffuse scattered wheezing. Breath sounds equal bilaterally. GASTROINTESTINAL: Abdomen soft, nondistended, nontender today. Normoactive bowel sounds x4. MUSCULOSKELETAL: No obvious deformities. LLE with diffuse erythema, 2+ edema, tender to palpation. RLE nonedematous. NEUROLOGICAL: Awake and alert. No obvious cranial nerve deficits. Motor grossly within normal limits. Normal speech. Medications and IVs Current Medications Medications (Trade) Dose Ordered Sig/Mike Route Start Time Stop Time Status Last Admin (NS 1000 ml Inj) 1,000 ml @ 70 mls/hr [id number] IV 11/19/16 23:24 11/23/16 10:47 (NS Flush) 2 ml UNSCH PRN FLUSH 11/19/16 23:30 (NS Flush) 2 ml BID FLUSH 11/20/16 09:00 11/23/16 09:18 (Narcan Inj) 0.4 mg UNSCH PRN IV 11/19/16 23:30 (Romazicon Inj) 0.2 mg Q1M PRN IV PUSH 11/19/16 23:30 (Ativan) 1 mg Q4H PRN PO 11/19/16 23:30 (Ativan Inj) 1 mg Q4H PRN IV PUSH 11/19/16 23:30 (Ativan) 2 mg Q2H PRN PO 11/19/16 23:30 (Ativan Inj) 2 mg Q2H PRN IV PUSH 11/19/16 23:30 (Ativan Inj) 2 mg Q1H PRN IV PUSH 11/19/16 23:30 (Ativan Inj) 2 mg Q15M PRN IV PUSH 11/19/16 23:30 (Vitamin B1) 100 mg DAILY PO 11/20/16 09:00 11/23/16 09:18 Enoxaparin Sodium 30 mg 30 mg Q24H SQ 11/20/16 09:00 11/23/16 09:18 Pharmacy Profile Note 0 ml @ 0 mls/hr UNSCH OTHER 11/21/16 09:15 Vancomycin HCl 1500 mg/Sodium Chloride 515 ml @ 250 mls/hr Q12H IV 11/21/16 23:00 11/23/16 15:44 (Zosyn 4.5 Gm Premix) 100 ml @ 200 mls/hr Q6H IV 11/22/16 12:00 11/23/16 15:12 (Folate) 1 mg DAILY PO 11/23/16 09:00 11/28/16 08:59 11/23/16 09:18 (Theragran M Tab) 1 tab DAILY PO 11/23/16 09:00 11/28/16 08:59 11/23/16 09:18 (SoluMEDROL INJ) 60 mg Q6H IV PUSH 11/23/16 23:00 A/P Problem List: (1) Hyponatremia ICD Code: E87.1 Status: Acute (2) Humerus fracture ICD Code: S42.309A Status: Chronic (3) Chronic alcohol abuse ICD Code: F10.10 Status: Chronic Assessment and Plan 56 y/o male with a history of etoh abuse and [place] presented with: Hyponatremia, mild: Labs reviewed showed NA 127, previously 134 on 11/09. Urine osmolality 114, urine Na 24, serum osmolality 265. Given IVF. Na now 138. Resolved. Continue to monitor. Left lower extremity cellulitis: Tmax 101.4, no leukocytosis. Started on IV Vanco however not much improvement, added IV Zosyn. Elevate the leg. Consulted ID. Suspected Sepsis: Tmax 101.4, no leukocytosis however tachycardic and hypotensive. On IVF. Continue abx with IV Vanco, Zosyn. Blood cultures collected. ID Consulted. Cough/Rhonchi: suspected pneumonia. CXR with findings consistent with CHF however symptoms more likely COPD/pneumonia, check Echo and Chest CT to clarify. Started on abx as above. COPD Exacerbation: patient with diffuse wheezing on exam. Give Solumedrol 125mg IV x1 now, and start on IV Solumedrol 60mg q6h, duonebs q6h mike. RUQ Abdominal Pain: LFTs minimally elevated. Liver U/S with trace pericholecystic fluid and borderline gallbladder wall thickening. LFTs wnl. Check HIDA scan. Generalized weakness: suspect secondary to hyponatremia or infection as above. Imaging/labs reviewed: Head CT normal. UDS positive for benzodiazepines. Consult PT. Neuro checks Humerus fracture, chronic: Outpatient orthopedic follow-up as arranged. Continue sling. ETOH abuse: Withdrawal precautions. CIWA protocol. Thiamine/folate/MV PO daily. DVT prophylaxis: Lovenox I spent 35 minutes [id number] with the patient or on the [place] discussing the patient's disposition, prognosis, and plan of care with his caregivers. Over half the time spent was devoted to counseling the patient regarding placement in coordinating care with caregivers and case management Written by Nilda Cuevas, acting as scribe for Dr. Vargas on 11/23/16 at 16: 15. Attending Statement The documentation accurately reflects the work performed [id number] by me on 11/23/16 at 16:15. Problem Qualifiers (1) Humerus fracture: Nilda Cuevas PA-C Nov 23, 2016 16:15 Babatunde Perales MD Nov 27, 2016 13:57
[2016-11-23] MEDS ORDERED: methylPREDNISolone SOD SUCC 125 MG/2 ML VIAL IV PUSH ONE (16:30)
--- NOTE | 2016-11-23 16:51 | RADRPT ---
EXAM DATE/TIME: 11/23/2016 12:49 [facility] COMPARISON: No previous studies available for comparison. INDICATIONS: Abdominal pain. DOSE: 4.1 mCi Tc99m Mebrofenin IV MEDICATION: 1.7 mcg Cholecystokinin IV; No symptomatic response. Cholecystokinin was administered by slow infusion over 8 minutes beginning at 90 minutes. MEDICAL HISTORY: Myocardial infarction. ETOH abuse. SURGICAL HISTORY: Kidney surgery. ENCOUNTER: Initial ACUITY: 1 day PAIN SCALE: 4/10 LOCATION: Right upper quadrant TECHNIQUE: Following the intravenous administration of radiotracer, dynamic sequential image were performed with continuous acquisition. Time-activity curves were generated. FINDINGS: There is excellent extraction of radiotracer activity seen in the common duct and small bowel in 10 m inutes. Gallbladder is visualized at 25 minutes. There is a brief response to CCK however there is moderate gastroenteric reflux. CONCLUSION: 1. There is no evidence for cystic duct or common duct obstruction. 2. Moderate biliary enteric reflux. Huber Aguilar MD FACR on November 23, 2016 at 15:07 Board Certified Radiologist. This report was verified electronically.
[2016-11-23] MEDS: methylPREDNISolone SOD SUCC 125 MG/2 ML VIAL IV PUSH SCH (23:31)
[2016-11-24] VITALS (13 sets, daily range): BP systolic 88–127; BP diastolic 52–74; PULSE 73–98; RESP 16–24; TEMP 97–98.8; O2SAT 90–94
[2016-11-24] MEDS: PIPERACIL-TAZO 4.5 GM PREMIX 100 ML IV SCH ×4 (01:41→17:31)
[2016-11-24] MEDS: methylPREDNISolone SOD SUCC 125 MG/2 ML VIAL IV PUSH SCH (06:17)
[2016-11-24] MEDS: RESP: ALBUTEROL 2.5 MG/IPRATROPIUM 0.5 MG NEB (SCH) NEB ×3 (07:54→19:31)
--- NOTE | 2016-11-24 09:03 | RADRPT ---
EXAM DATE/TIME: 11/24/2016 08:44 [facility] COMPARISON: CHEST SINGLE AP, November 22, 2016, 12:09. INDICATIONS : Shortness of breath, hypoxia; evaluate congestive heart failure verus pneumonia. RADIATION DOSE: 6.19 CTDIvol (mGy) MEDICAL HISTORY : Cardiovascular disease. SURGICAL HISTORY : None. ENCOUNTER: Initial ACUITY: 1 day PAIN SCALE: 0/10 LOCATION: chest TECHNIQUE: Volumetric scanning of the chest was performed. Using automated exposure control and adjustment of t he mA and/or kV according to patient size, radiation dose was kept as low as reasonably achievable to obtain optimal diagnostic quality images. FINDINGS: LUNGS: There is bilateral consolidation greater within the upper lobes, including air bronchograms. Minimal patchy densities in the lower lobes and consolidation right middle lobe. PLEURAE: There are bilateral small pleural effusions. MEDIASTINUM: The heart and great vessels demonstrate no acute abnormality. There are some scattered mediastinal l ymph nodes. Subcarinal lymphadenopathy. Coronary artery calcifications. Pulmonary trunk is prominent. AXILLAE: Within normal limits. No lymphadenopathy. MUSCULOSKELETAL: Within normal limits for patient age. MISCELLANEOUS: The visualized upper abdominal organs demonstrate no acute abnormality. CONCLUSION: 1. Diffuse bilateral airspace disease with air bronchograms greater within the upper lobes. This coul d be multilobar pneumonia versus edema. 2. Small bilateral pleural effusions. 3. Coronary artery calcifications and nonspecific mediastinal adenopathy. 4. Enlargement of the pulmonary trunk suggesting arterial hypertension. Johnson Riggins MD on November 24, 2016 at 8:57 Board Certified Radiologist. This report was verified electronically.
--- NOTE | 2016-11-24 09:46 | HHI.PR ---
Subjective Remarks Follow-up for her extremity cellulitis and COPD exacerbation. Patient feeling better today. Patient complains of pain in his lower extremities today. He feels like his lungs are clearing up. He decreased his breathing is likely that because of smoking, and plans to come back. Objective Vitals Vital Signs Date Time Temp Pulse Resp B/P Pulse Ox O2 Delivery O2 Flow Rate FiO2 11/24/16 08:25 97.4 86 22 90/53 90 11/24/16 07:54 91 Nasal Cannula 3.00 11/24/16 04:01 97.4 75 16 93/74 91 11/24/16 00:01 98.8 88 20 101/55 91 11/23/16 21:02 101 11/23/16 20:00 97.7 102 32 104/57 88 11/23/16 20:00 Nasal Cannula 3.00 21 11/23/16 19:58 93 Nasal Cannula 3.00 11/23/16 15:50 93 11/23/16 15:23 98.9 109 18 96/54 91 11/23/16 11:38 108 11/23/16 11:33 91 11/23/16 11:26 101.4 110 16 99/54 86 I/O 11/23/16 11/23/16 11/23/16 11/24/16 11/24/16 11/24/16 07:00 15:00 23:00 07:00 15:00 23:00 Intake Total 120 ml Balance 120 ml Intake Oral 120 ml # Voids 1 1 Result Diagram: 11/23/16 0839 11/23/16 0839 Imaging Last Impressions Chest CT 11/24/16 0824 Signed Impressions: Service Date/Time: Thursday, November 24, 2016 08:44 - CONCLUSION: 1. Diffuse bilateral airspace disease with air bronchograms greater within the upper lobes. This could be multilobar pneumonia versus edema. 2. Small bilateral pleural effusions. 3. Coronary artery calcifications and nonspecific mediastinal adenopathy. 4. Enlargement of the pulmonary trunk suggesting arterial hypertension. Johnson Riggins MD Liver Ultrasound 11/22/16 0000 Signed Impressions: Service Date/Time: November 16:50 - CONCLUSION: 1. Mildly enlarged and heterogeneous liver without a focal hepatic lesion. No perceptible hepatic nodularity. 2. Trace pericholecystic fluid and borderline gallbladder wall thickening. These findings are demonstrated in the setting of no illicited sonographic Greenberg sign and presumably on the basis of right heart dysfunction or liver disease. No gallstones or ductal dilatation demonstrated. Jose Juan Santillan MD Chest X-Ray 11/22/16 0000 Signed Impressions: Service Date/Time: November 12:09 - CONCLUSION: 1. Cardiomegaly and findings of congestive heart failure. This is new when compared with the prior exam. Roby Lopez MD Head CT 11/19/161914 Signed Impressions: Service Date/Time: Saturday, November 19, 2016 20:22 - CONCLUSION: Normal examination for a patient of this age. No significant change has occurred. Trae Jarrett MD Cervical Spine CT 11/19/161914 Signed Impressions: Service Date/Time: Saturday, November 19, 2016 20:22 - CONCLUSION: 1. Moderate degenerative disc disease. No acute bony abnormalities. Trae Jarrett MD Objective Remarks GENERAL: Well-developed well-nourished. In no acute distress. SKIN: Warm and dry. Erythema of the left bray. HEENT: Normocephalic. Pupils equal and round. Mucous membranes pink and moist. CARDIOVASCULAR: Regular rate and rhythm. No murmur appreciated. RESPIRATORY: No accessory muscle use. Improving expiratory wheezing. GASTROINTESTINAL: Abdomen soft, non-tender, nondistended. Bowel sounds x4. MUSCULOSKELETAL: LLE with diffuse erythema, 2+ edema, tender to palpation. RLE nonedematous. NEUROLOGICAL: Awake and alert. No focal neurological deficits. Moves upper and lower extremities spontaneously. Normal speech. 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 Urine osmolality 114, urine Na 24, serum osmolality 265. Given IVF. Sodium improved. Resolved. Continue to monitor. Left lower extremity cellulitis: Started on IV Vanco however not much improvement, added IV Zosyn. Elevate the leg. Consulted ID. pain control with oral and intravenous narcotics as needed. Suspected Sepsis: Tmax 101.4, no leukocytosis however tachycardic and hypotensive. On IVF. Continue abx with IV Vanco, Zosyn. Blood cultures pending. ID Consulted. Cough/Rhonchi: suspected pneumonia. CXR with findings consistent with CHF however symptoms more likely COPD/pneumonia. Chest CT with airspace disease in the upper lobes(multilobar pneumonia vs edema), small bilateral pleural effusions, nonspecific mediastinal adenopathy, enlargement of the pulmonary trunk suggesting arterial hypertension. Echocardiogram pending. Check sputum culture. COPD Exacerbation: patient with diffuse wheezing on exam. Given Solumedrol 125mg IV x1, continue on IV Solumedrol, taper dose. Scheduled as needed. RUQ Abdominal Pain: LFTs minimally elevated. Liver U/S with trace pericholecystic fluid and borderline gallbladder wall thickening. LFTs wnl. Check HIDA scan, essentially unremarkable. Generalized weakness: suspect secondary to hyponatremia or infection as above. Imaging/labs reviewed: Head CT normal. UDS positive for benzodiazepines. Consult PT. Neuro checks Humerus fracture, chronic: Outpatient orthopedic follow-up as arranged. Continue sling. ETOH abuse: Withdrawal precautions. CIWA protocol. Thiamine/folate/MV PO daily. Tobacco abuse: Counseled on cessation. Nicotine patch. DVT prophylaxis: Lovenox Written by Mario Cole, acting as scribe for Dr. Vargas on 11/24/16 at 09:46. Discharge Planning Disposition pending clinical improvement. Attending Statement The documentation accurately reflects the work performed [id number] by me on at 09:46.. Problem Qualifiers (1) Humerus fracture: Mario Cole Nov 24, 2016 09:46 aBbatunde Perales MD Nov 27, 2016 14:02
[2016-11-24] MEDS: ENOXAPARIN SODIUM 30 MG/0.3 ML SYRINGE SQ SCH (10:00)
[2016-11-24] MEDS: SODIUM CHLORIDE 0.9% FLUSH 5 ML FLUSH FLUSH SCH ×2 (10:00→21:00)
[2016-11-24] MEDS: FOLIC ACID 1 MG TAB PO SCH (10:00)
[2016-11-24] MEDS: MULTIVITAMINS/MINERALS THERAPEUTIC TAB PO SCH (10:00)
[2016-11-24] MEDS: THIAMINE HCL 100 MG TAB PO SCH (10:00)
[2016-11-24] MEDS ORDERED: MORPHINE SULFATE 4 MG/ML INJ IV PUSH PRN (10:30)
[2016-11-24] MEDS: VANCOMYCIN INJ 1,500 MG in SODIUM CHLORID 0.9% 500 ML INJ 500 ML IV SCH ×2 (10:32→22:19)
[2016-11-24] MEDS: NICOTINE 14 MG/24 HR PATCH TD SCH (10:37)
[2016-11-24] MEDS: methylPREDNISolone SOD SUCC 40 MG/1 ML VIAL IV PUSH SCH ×3 (10:38→22:20)
[2016-11-24] MEDS: SODIUM CHLOR 0.9% 1000 ML INJ 1,000 ML IV SCH (10:41)
[2016-11-24] MEDS: oxyCODONE/ACETAMINOPHEN 5 MG/325 MG TAB PO PRN (11:20)
--- NOTE | 2016-11-24 16:04 | EC ---
Study Study Date:11/24/2016 STUDY CONCLUSIONS SUMMARY - Left ventricle: The cavity size was normal. Wall thickness was normal. Systolic function was normal. The estimated ejection fraction was in the range of 55% to 60%. Wall motion was normal; there were no regional wall motion abnormalities. - Aortic valve: Valve area: 2.42cm^2(VTI). Valve area: 2.23cm^2 (Vmax). - Right ventricle: Systolic function was reduced. If LV function is below 40, please consider prescribing an ACEI or ARB or document rationale for non-use. PROCEDURE DATA STUDY STATUS: Elective. Procedure: Transthoracic echocardiography. Image quality was suboptimal. Scanning was performed from the parasternal, apical, and subcostal acoustic windows. Study completion: The patient tolerated the procedure well. Transthoracic echocardiography. M-mode, complete 2D, complete spectral Doppler, and color Doppler. Height: Height: 69in. Weight: Weight: 186.6lb. Body mass index: BMI: 27.6kg/m^2. Body surface area: BSA: 2.01m^2. Patient status: Inpatient. CARDIAC ANATOMY LEFT VENTRICLE: The cavity size was normal. Wall thickness was normal. Systolic function was normal. The estimated ejection fraction was in the range of 55% to 60%. Wall motion was normal; there were no regional wall motion abnormalities. AORTIC VALVE: Poorly visualized. Normal thickness leaflets. Doppler: Transvalvular velocity was within the normal range. There was no stenosis. No regurgitation. Valve area: 2.42cm^2(VTI). Indexed valve area: 1.2cm^2/m^2 (VTI). Valve area: 2.23cm^2 (Vmax). Indexed valve area: 1.11cm^2/m^2 (Vmax). Mean gradient: 7mm Hg (S). Peak gradient: 13mm Hg (S). AORTA: Aortic root: The aortic root was trivially dilated. MITRAL VALVE: Structurally normal valve. Doppler: Transvalvular velocity was within the normal range. There was no evidence for stenosis. Trace regurgitation. Peak gradient: 4mm Hg (D). LEFT ATRIUM: The atrium was normal in size. RIGHT VENTRICLE: Not well visualized. Systolic function was reduced. PULMONIC VALVE: Poorly visualized. Doppler: Transvalvular velocity was within the normal range. There was no evidence for stenosis. Trace regurgitation. TRICUSPID VALVE: Structurally normal valve. Doppler: Transvalvular velocity was within the normal range. Trace regurgitation. PULMONARY ARTERY: The main pulmonary artery was normal-sized. RIGHT ATRIUM: The atrium was normal in size. PERICARDIUM: There was no pericardial effusion. Patient weight: 186.6lb _Ejection fraction:_ 65-75% _Fractional shortening:_ 32% up to 5Kg 5-11.5Kg 11.6-22.9Kg 23-45Kg 45-57Kg Aortic Root 7-13 <17 13-22 17-27 17-27 LA diam 6-13 <23 24-38 33-47 37-40 RVID 10-17 7-15 7-15 7-18 8-17 LVIDd 12-22 <32 24-38 33-47 37-40 LVPW 2-4 3-6 5-7 6-8 7-8 IVS 2-4 3-6 5-7 6-8 7-8 BASIC MEASUREMENTS ADULT NORMAL Left ventricle LV internal dimension, ED, chordal 47.9 mm 43-52 level, PLAX LV internal dimension, ES, chordal 35.7 mm 23-38 level, PLAX Fractional shortening, chordal level, *25 % >29 PLAX LV posterior wall thickness, ED 9.44 mm IVS/LVPW ratio, ED 1 <1.3 Ventricular septum Septal thickness, ED 9.41 mm Aortic valve Leaflet separation 22 mm 15-26 Aorta Root diameter, ED 40 mm Left atrium Anterior-posterior dimension 31 mm Anterior-posterior dimension index 1.54 cm/m^2 <2.2 BASIC MEASUREMENTS ADULT NORMAL Aortic valve Leaflet separation 22 mm 15-26 DOPPLER MEASUREMENTS ADULT NORMAL Aortic valve Peak velocity, S 181 cm/s Mean velocity, S 118 cm/s VTI, S 31.5 cm Mean gradient, S 7 mm Hg Peak gradient, S 13 mm Hg Valve area, VTI 2.42 cm^2 Valve area index, VTI 1.2 cm^2/m^2 Valve area, Vmax 2.23 cm^2 Valve area index, Vmax 1.11 cm^2/m^2 Mitral valve Peak E-wave velocity 103 cm/s Peak A-wave velocity 73.5 cm/s Peak gradient, D 4 mm Hg Peak E/A ratio 1.4 Tricuspid valve Regurgitant peak velocity 229 cm/s Peak RV-RA gradient, S 21 mm Hg Maximal regurgitant velocity 229 cm/s Pulmonic valve Peak velocity, S 78.2 cm/s LEGEND: Mean values are shown as u=mean value. Asterisk (*) thayer values outside specified normal range. Prepared and signed by Sd Iverson [id number]
[2016-11-24] MEDS ORDERED: SODIUM CHLORID 0.9% 500 ML INJ 500 ML IV ONE (16:30)
[2016-11-24 17:27] LABS: BLOOD GAS BASE EXCESS -1.2 mmol/L (-2-2); BLOOD GAS CARBOXYHEMOGLOBIN 2.1 % (0-4); BLOOD GAS HCO3 23 mmol/L (22-26); BLOOD GAS METHEMOGLOBIN 1.7 % (0-2); BLOOD GAS O2 HGB SATURATION 92 % (90-100); BLOOD GAS OXYGEN CONTENT 13.6 Vol % (12.0-20.0); BLOOD GAS PCO2 39 mmHg (38-42); BLOOD GAS PO2 76 mmHG (61-120); BLOOD GAS TOTAL HGB 10.5 G/DL (12.0-16.0); CRITICAL VALUE NO; LITER FLOW 4.5 L/M; OXYGEN DEVICE NASAL CANNULA; TEMP CORR TO 98.6
[2016-11-24 17:28] LABS: DRAW SITE LT RADIAL; NUMBER OF ARTERIAL PUNCTURES 1; STAT NO; ULNAR PULSE PRESENT
[2016-11-24] MEDS ORDERED: SODIUM CHLOR 0.9% 1000 ML INJ 1,000 ML IV ONE (17:30)
--- NOTE | 2016-11-24 18:23 | MB ---
cc: GINA BUSTOS MD DATE OF CONSULTATION: 11/24/2016. REASON FOR CONSULTATION: Shortness breath and hypoxia. REQUESTING PHYSICIAN: Dr. Vargas. HISTORY OF PRESENT ILLNESS: Mr. Lopez is a 56-year-old male with history of nicotine use and alcohol use. He has lived in the [facility] for the last 40 years. The patient says that he has not been well for over the last three weeks or so. The patient was feeling very weak and he was sitting on the site of the curb and somebody called EVAC. The patient was brought to the emergency room. He had a workup done. He had a CT scan of the chest which shows diffuse bilateral airspace disease with air bronchogram greater in the upper lobes, which could be multilobar pneumonia versus pulmonary edema. He has a small pleural effusion. He has coronary calcification. His white blood cell count is 8.0, hemoglobin 9.19, hematocrit 29, MCV 95, platelet count 174,000. Sodium 137, potassium 3.6, chloride 104, carbon dioxide 25, BUN 8, creatinine 0.72. His blood cultures so far are negative. PAST MEDICAL HISTORY: His past medical history is significant for: 1. History of alcohol use. 2. He has not seen any doctor. MEDICATIONS: He does not take any medications at home. Currently he is takin. Solu-Medrol 40 milligrams q.6 hours. 2. Oxycodone for pain. 3. Morphine for pain. 4. Albuterol nebulizer treatment. 5. Zosyn IV. 6. Vancomycin IV. 7. Lovenox 30 milligrams q. 6 hours. ALLERGIES: NO KNOWN DRUG ALLERGIES. SOCIAL HISTORY: He is single. He lives in the [facility]. He used to work before in [facility] [employer]. He quit working. SOCIAL HISTORY: Continues smoking one pack of cigarettes a day and drinks eight to twelve beers a day. Denies any drug use. FAMILY HISTORY: He has three children who live up caret. REVIEW OF SYSTEMS: He denies any weight loss. No headache or dizziness. Does have swelling in legs. No DVT or pulmonary embolism. PHYSICAL EXAMINATION: GENERAL: A well-built and well-nourished male mild short of breath. VITAL SIGNS: Blood pressure 96/56, heart rate 98, respirations 24, temperature 98.5. HEAD, EYES, EARS, NOSE, THROAT: Pupils are equal and reactive to light. Oral mucosa and nasal mucosa are normal. NECK: The neck is supple. JVP not raised. CHEST: Air entry equal bilaterally. He has bilateral rales. CARDIOVASCULAR: S1 and S2 normal. ABDOMEN: Abdomen benign. EXTREMITIES: No edema. IMPRESSION: 1. Bilateral pneumonia, likely community-acquired pneumonia but need to rule out atypical pneumonia. 2. Pleural effusion. 3. Mild hypoxia. 4. Malnutrition with albumin level only 1.6. 5. Nicotine use. 6. Alcohol abuse. PLAN: 1. I will check his blood culture, Legionella and Pneumococcal urine antigen and Mycoplasma titer. 2. Continue Zosyn and Vancomycin. 3. I will also start him on Levaquin. 4. Give him 1.5 liters of normal saline. Further treatment will depend on the course in the hospital. Thank you, Dr. Vargas, for this consult. MD ZEB Lyles/JCC /5:15 PM /6:13 PM
--- NOTE | 2016-11-24 18:38 | MB ---
cc: RODRI MARQUEZ PA DONTFRAID, FRANKLYN F. MD DATE OF CONSULTATION: 11/24/2016 REQUESTING PAIGE Jain REASON FOR CONSULTATION Left lower extremity cellulitis. HISTORY OF PRESENT ILLNESS This is a 56-year-old white male who came to the emergency department after he fell and complained of right arm pain. The patient states that he sleeps outdoors in the [place]. He uses alcohol daily. After he was evaluated he was found to have erythema of his left lower extremity. He started coughing and a chest x-ray showed cardiomegaly and findings of congestive heart failure. CT scan of the chest was also performed and it showed diffuse bilateral airspace disease with air bronchograms greater within the upper lobe which could be multilobar pneumonia versus edema and small bilateral pleural effusions. Also coronary artery calcifications and nonspecific mediastinal adenopathy noted. The patient tells me that he has not been coughing before coming to the hospital. He denies chest pain. He had a temperature of 101.4 degrees on 12/27. This is the first elevated temperature since admission. His white blood cell count is normal. The patient states that he smokes half-a-pack of cigarettes a day. Sputum culture is pending. Blood culture is pending. It is reported also that the patient stated that he was sitting on the side of the curb and a bystander called EVAC. He reported to me that he walked into the hospital himself. The patient has been noted to have a right humerus fracture from prior. He was supposed to followup with orthopedics. Right humerus fracture was diagnosed in October,. The fracture is at the right humeral neck. The patient is a poor historian and I am unable to get any meaningful history from him. PAST MEDICAL HISTORY 1. Alcohol abuse. 2. Kidney surgery. 3. Myocardial infarction. ALLERGIES NO KNOWN DRUG ALLERGIES. MEDICATIONS 1. Vancomycin. 2. Piperacillin/tazobactam. 3. Folic acid. 4. Duo-Neb. 5. Multivitamin. 6. Nicotine patch. 7. Solu-Medrol. 8. Percocet 5 p.r.n. 9. Vitamin B1. 10. Lovenox. SOCIAL HISTORY The patient smokes one-half pack of cigarettes a day. Positive alcohol use daily. Denies illicit drugs. The patient is homeless. FAMILY HISTORY Noncontributory. REVIEW OF SYSTEMS Positive for coughing and generalized aches, otherwise negative. PHYSICAL EXAMINATION GENERAL: This is a disheveled appearing male who appears older than stated age. He is awake and alert and oriented. VITAL SIGNS: Temperature of 98.5, BP 96/56, respirations 24, heart rate 98. HEENT: The head is atraumatic. Extraocular movements grossly intact. No icterus. Oropharynx - very poor dentition with several erosions at the upper jaw and most of the teeth of the lower jaw are eroded leaving a couple standing teeth with black discoloration. The buccal mucosa is moist. NECK: Supple. No adenopathy LUNGS: Lungs have wheezing bilaterally and slight rhonchi at both lung schwartz. HEART: Regular rate and rhythm with normal S1 and S2. ABDOMEN: Bowel sounds present, soft, no tenderness appreciated. RECTAL: Not performed. EXTREMITIES: The left lower extremity has confluent erythema from the knee down to the ankle. There is 2+ edema at the left lower extremity as well. The left leg is warm to touch. There is an excoriated lesion at the anterior distal tibia, it is dried. The patient has multiple abrasions at the left forearm at the lateral aspect and he is wearing a sling on the right upper extremity. SKIN: No diffuse rash. The patient has an erythematous hue to the skin of his face and neck with a sunburned appearance. NEUROLOGIC: No focal findings. PSYCHIATRIC: The patient calm and cooperative. LABORATORY DATA WBC 8.0, platelets 174, 71% neutrophils, hemoglobin 9.9, creatinine 0.72, BUN 8, sodium 137, LFTs normal. The patient's sodium on admission was 127 and his LFTs were abnormal with AST of 65. IMPRESSION 1. Cellulitis of the left lower extremity. 2. Pneumonia versus CHF in a patient with abnormal CT scan of the chest showing diffuse bilateral airspace disease with air bronchograms greater within the upper lobes. RECOMMENDATIONS 1. Continue Vancomycin. 2. Continue piperacillin/tazobactam. 3. Monitor the leg cellulitis response to antibiotics. 4. Monitor clinical status. Thank you for this consultation. The patient's progress will be followed and further recommendations will be given upon followup if necessary. Juancarlos Ackerman MD FD/[place] /5:02 PM /6:07 PM
[2016-11-24] MEDS: REMOVE OLD NICODERM (NICOTINE) PATCH TD SCH (21:00)
[2016-11-25] VITALS (9 sets, daily range): BP systolic 100–117; BP diastolic 56–77; PULSE 84–99; RESP 18–26; TEMP 96–98.9; O2SAT 85–100
[2016-11-25] MEDS: PIPERACIL-TAZO 4.5 GM PREMIX 100 ML IV SCH ×4 (00:38→17:26)
[2016-11-25] MEDS: SODIUM CHLOR 0.9% 1000 ML INJ 1,000 ML IV SCH (05:26)
[2016-11-25] MEDS: methylPREDNISolone SOD SUCC 40 MG/1 ML VIAL IV PUSH SCH (05:31)
[2016-11-25] MEDS: oxyCODONE/ACETAMINOPHEN 5 MG/325 MG TAB PO PRN ×2 (06:07→21:36)
[2016-11-25] MEDS: RESP: ALBUTEROL 2.5 MG/IPRATROPIUM 0.5 MG NEB (SCH) NEB ×4 (08:27→20:00)
[2016-11-25] MEDS: SODIUM CHLORIDE 0.9% FLUSH 5 ML FLUSH FLUSH SCH ×2 (09:24→21:03)
[2016-11-25] MEDS: THIAMINE HCL 100 MG TAB PO SCH (09:24)
[2016-11-25] MEDS: MULTIVITAMINS/MINERALS THERAPEUTIC TAB PO SCH (09:24)
[2016-11-25] MEDS: FOLIC ACID 1 MG TAB PO SCH (09:24)
[2016-11-25] MEDS: NICOTINE 14 MG/24 HR PATCH TD SCH (09:25)
[2016-11-25] MEDS: ENOXAPARIN SODIUM 30 MG/0.3 ML SYRINGE SQ SCH (09:26)
--- NOTE | 2016-11-25 11:01 | RADRPT ---
EXAM DATE/TIME: 11/25/2016 10:39 [facility] COMPARISON: CHEST SINGLE AP, November 22, 2016, 12:09. INDICATIONS : Shortness of breath. MEDICAL HISTORY : Cardiovascular disease. SURGICAL HISTORY : None. ENCOUNTER: Subsequent ACUITY: 4 - 6 days PAIN SCORE: 0/10 LOCATION: Bilateral chest FINDINGS: A single view of the chest demonstrates worsening diffuse bilateral patchy airspace disease. Pleural thickening on the left. Heart and the upper limits of normal in size. Osseous structures are intact. CONCLUSION: Worsening bilateral airspace disease. Probable small left-sided pleural effusion. Johnson Riggins MD on November 25, 2016 at 10:57 Board Certified Radiologist. This report was verified electronically.
--- NOTE | 2016-11-25 11:40 | HHI.PR ---
Subjective Remarks Follow-up for pneumonia. Patient continues to report shortness of breath today , slightly worse than yesterday. He is requiring nonrebreather. Currently eating breakfast. Refusing nebs per RN. Objective Vitals Vital Signs Date Time Temp Pulse Resp B/P Pulse Ox O2 Delivery O2 Flow Rate FiO2 11/25/16 08:26 94 Non-Rebreather 15.00 11/25/16 08:16 98.5 95 22 100/56 85 11/25/16 08:00 Nasal Cannula 3.00 21 11/25/16 07:10 21 11/25/16 05:46 97.4 99 18 109/57 93 11/24/16 23:04 97.0 87 20 101/58 93 11/24/16 21:30 86 11/24/16 21:08 97.1 85 20 97/56 93 11/24/16 19:32 93 Nasal Cannula 5.00 11/24/16 16:25 98.5 98 24 96/56 93 11/24/16 16:17 91 11/24/16 12:06 98.2 88 22 88/52 94 I/O 11/24/16 11/24/16 11/24/16 11/25/16 11/25/16 11/25/16 06:59 14:59 22:59 06:59 14:59 22:59 Intake Total 500 ml Balance 500 ml IV Total 500 ml # Voids 1 3 Result Diagram: 11/23/16 0839 11/23/16 0839 Imaging Last Impressions Chest X-Ray 11/25/16 0000 Signed Impressions: Service Date/Time: Friday, November 25, 2016 10:39 - CONCLUSION: Worsening bilateral airspace disease. Probable small left-sided pleural effusion. Johnson Riggins MD Chest CT 11/24/16 0824 Signed Impressions: Service Date/Time: Thursday, November 24, 2016 08:44 - CONCLUSION: 1. Diffuse bilateral airspace disease with air bronchograms greater within the upper lobes. This could be multilobar pneumonia versus edema. 2. Small bilateral pleural effusions. 3. Coronary artery calcifications and nonspecific mediastinal adenopathy. 4. Enlargement of the pulmonary trunk suggesting arterial hypertension. Johnson Riggins MD Liver Ultrasound 11/22/16 0000 Signed Impressions: Service Date/Time: November 16:50 - CONCLUSION: 1. Mildly enlarged and heterogeneous liver without a focal hepatic lesion. No perceptible hepatic nodularity. 2. Trace pericholecystic fluid and borderline gallbladder wall thickening. These findings are demonstrated in the setting of no illicited sonographic Greenberg sign and presumably on the basis of right heart dysfunction or liver disease. No gallstones or ductal dilatation demonstrated. Jose Juan Santillan MD Head CT 11/19/161914 Signed Impressions: Service Date/Time: Saturday, November 19, 2016 20:22 - CONCLUSION: Normal examination for a patient of this age. No significant change has occurred. Trae Jarrett MD Cervical Spine CT 11/19/161914 Signed Impressions: Service Date/Time: Saturday, November 19, 2016 20:22 - CONCLUSION: 1. Moderate degenerative disc disease. No acute bony abnormalities. Trae Jarrett MD Objective Remarks GENERAL: Well-developed well-nourished. In no acute distress. SKIN: Warm and dry. Improving erythema of the left bray. HEENT: Normocephalic. Pupils equal and round. Mucous membranes pink and moist. CARDIOVASCULAR: Regular rate and rhythm. No murmur appreciated. RESPIRATORY: No accessory muscle use. Right basilar crackles. Expiratory wheezing. GASTROINTESTINAL: Abdomen soft, non-tender, nondistended. Bowel sounds x4. MUSCULOSKELETAL: Catalan AMS sling. LLE with diffuse erythema, 2+ edema. RLE nonedematous. NEUROLOGICAL: Awake and alert. No focal neurological deficits. Moves upper and lower extremities spontaneously. Normal speech. PSYCHIATRIC: Appropriate mood and affect; insight and judgment fair to normal A/P Problem List: (1) Hyponatremia ICD Code: E87.1 Status: Acute (2) Humerus fracture ICD Code: S42.309A Status: Chronic (3) Chronic alcohol abuse ICD Code: F10.10 Status: Chronic Assessment and Plan 56 y/o male with a history of etoh abuse and NH presented with: Hyponatremia, mild: Labs reviewed showed NA 127, previously 134 on 11/09. Urine osmolality 114, urine Na 24, serum osmolality 265. Given IVF. Sodium improved. Resolved. Continue to monitor. Left lower extremity cellulitis: Started on IV Vanco however not much improvement, added IV Zosyn. Elevate the leg. Consulted ID. Pain control with oral and intravenous narcotics as needed. Improving erythema, although still edematous, check ultrasound to rule out DVT. Suspected Sepsis: Tmax 101.4, no leukocytosis however tachycardic and hypotensive. On IVF. Continue abx with IV Vanco, Zosyn. Blood cultures with NGTD. ID Consulted. Pneumonia: CXR with findings consistent with CHF however symptoms more likely COPD/pneumonia. Chest CT with airspace disease in the upper lobes(multilobar pneumonia vs edema), small bilateral pleural effusions, nonspecific mediastinal adenopathy, enlargement of the pulmonary trunk suggesting arterial hypertension. Echocardiogram with normal EF and left systolic function. Sputum culture and Mycobacterium antigen pending. COPD Exacerbation: patient with diffuse wheezing on exam. Given Solumedrol 125mg IV x1, continue on IV Solumedrol. Scheduled and as needed nebs. Acute respiratory failure: Secondary to COPD and pneumonia as above. Requiring nonrebreather, continue supplemental oxygen as needed. Pulmonology consulted, appreciate specialists input. Continue steroids and antibiotics. RUQ Abdominal Pain: LFTs minimally elevated. Liver U/S with trace pericholecystic fluid and borderline gallbladder wall thickening. LFTs wnl. Checked HIDA scan, essentially unremarkable. Generalized weakness: suspect secondary to hyponatremia or infection as above. Imaging/labs reviewed: Head CT normal. UDS positive for benzodiazepines. Consulted PT. Neuro checks Humerus fracture, chronic: Outpatient orthopedic follow-up as arranged. Continue sling. ETOH abuse: Withdrawal precautions. CIWA protocol. Thiamine/folate/MV PO daily. Tobacco abuse: Counseled on cessation. Nicotine patch. DVT prophylaxis: Lovenox Written by Mario Cole, acting as scribe for Dr. Vargas on 11/25/16 at 11:40. Discharge Planning Disposition pending clinical improvement. Attending Statement The documentation accurately reflects the work performed [id number] by me on at 11:40. Problem Qualifiers (1) Humerus fracture: Mario Cole Nov 25, 2016 11:40 Babatunde Perales MD Dec 02, 2016 08:59
[2016-11-25] MEDS: VANCOMYCIN INJ 1,500 MG in SODIUM CHLORID 0.9% 500 ML INJ 500 ML IV SCH ×2 (12:15→22:41)
[2016-11-25 13:00] LABS: BASOPHIL % 0.1 % (0.0-2.0); HEMATOCRIT 30.4 % (39.0-51.0); HEMO FLAGS DIFF FINAL; LYMPHOCYTE # 1.3 TH/MM3 (1.0-4.8); MEAN CELL VOLUME 97.8 FL (80.0-100.0); MEAN CORPUSCULAR HEMOGLOBIN 32.1 PG (27.0-34.0); MEAN CORPUSCULAR HGB CONC 32.8 % (32.0-36.0); MONO % 5.6 % (0.0-8.0); NEUT % 86.3 % (16.0-70.0); PLATELET COUNT 157 TH/MM3 (150-450); RED BLOOD COUNT 3.11 MIL/MM3 (4.50-5.90); RED CELL DISTRIBUTION WIDTH 13.3 % (11.6-17.2); WHITE BLOOD COUNT 16.3 TH/MM3 (4.0-11.0)
[2016-11-25 13:19] LABS: BICARBONATE 27.5 MEQ/L (21.0-32.0); MAGNESIUM 2.3 MG/DL (1.5-2.5); POTASSIUM 3.2 MEQ/L (3.5-5.1)
--- NOTE | 2016-11-25 14:08 | RADRPT ---
EXAM DATE/TIME: 11/25/2016 13:42 [facility] COMPARISON: No previous studies available for comparison. INDICATIONS : Left leg swelling. MEDICAL HISTORY : Seizures. Myocardial infarction. Incontinence. Joint pain. Measles. SURGICAL HISTORY : Renal surgery. Stitches to forehead. ENCOUNTER: Initial ACUITY: 2 weeks PAIN SCORE: 5/10 LOCATION: Left leg. TECHNIQUE: Venous ultrasound of the leg was performed from the inguinal ligament to the proximal calf. Real-demian e, color Doppler and spectral tracing, compression and augmentation techniques were used. FINDINGS: There is normal compressibility of the deep venous system from the inguinal region to the proximal ca lf. No echogenic clot is seen in the lumen of the common femoral, femoral, popliteal, and posterior tibial veins. There is a normal response of the venous system to proximal and distal augmentation an d respiration. CONCLUSION: 1. No DVT. 2. Multiple large lymph nodes in the left groin the largest measuring 3.6 cm. Johnson Riggins MD on November 25, 2016 at 14:06 Board Certified Radiologist. This report was verified electronically.
--- NOTE | 2016-11-25 16:03 | HHI.PR ---
Subjective Remarks 56 YOWM with COPD,Bilat lung infilt On NRB, takes it off and desaturates Anxious Has cough and sp Refuses Nebs treatments Objective Vital Signs Vital Signs Date Time Temp Pulse Resp B/P Pulse Ox O2 Delivery O2 Flow Rate FiO2 11/25/16 12:12 96.0 93 24 111/65 95 11/25/16 08:26 94 Non-Rebreather 15.00 11/25/16 08:16 98.5 95 22 100/56 85 11/25/16 08:00 Nasal Cannula 3.00 21 11/25/16 07:10 21 11/25/16 05:46 97.4 99 18 109/57 93 11/24/16 23:04 97.0 87 20 101/58 93 11/24/16 21:30 86 11/24/16 21:08 97.1 85 20 97/56 93 11/24/16 19:32 93 Nasal Cannula 5.00 11/24/16 16:25 98.5 98 24 96/56 93 11/24/16 16:17 91 I/O 11/24/16 11/24/16 11/24/16 11/25/16 11/25/16 11/25/16 07:00 15:00 23:00 07:00 15:00 23:00 Intake Total 500 ml Balance 500 ml IV Total 500 ml # Voids 1 3 Result Diagram: 11/25/16 1225 11/25/16 1225 Objective Remarks GENERAL: WBWN Male mod sob SKIN: Warm and dry. HEAD: Normocephalic. EYES: No scleral icterus. No injection or drainage. NECK: Supple, trachea midline. No JVD or lymphadenopathy. CARDIOVASCULAR: Regular rate and rhythm without murmurs, gallops, or rubs. RESPIRATORY: Breath sounds equal bilaterally. No accessory muscle use. Exp rhonchi GASTROINTESTINAL: Abdomen soft, non-tender, nondistended. MUSCULOSKELETAL: No cyanosis, or edema. BACK: Nontender without obvious deformity. No CVA tenderness. A/P Assessment and Plan COPD Exac Resp Insuff Bilat Pn ETOH use Nicotine use PLAN: Pt being tr to IMC Cont NRB, keep sat >902% Aerosol nebs Abx Vanco and Zosyn IV Solumedrol Monty Crain MD Nov 25, 2016 16:03
[2016-11-25] MEDS: methylPREDNISolone SOD SUCC 125 MG/2 ML VIAL IV PUSH SCH ×2 (17:26→22:41)
[2016-11-25] MEDS: REMOVE OLD NICODERM (NICOTINE) PATCH TD SCH (21:00)
[2016-11-25] MEDS ORDERED: CHLORHEXIDINE GLUCONATE 2 % 1 PACK (2 CLOTHS)(extra cloths) TOP PRN (22:30)
[2016-11-25] MEDS ORDERED: diphenhydrAMINE HCL 25 MG CAP PO ONE (23:30)
[2016-11-26] VITALS (8 sets, daily range): BP systolic 100–119; BP diastolic 71–75; PULSE 7–97; RESP 24–28; TEMP 97.4; O2SAT 80–94
[2016-11-26] MEDS: guaiFENesin E.R. 600 MG TAB PO SCH ×3 (01:03→20:01)
[2016-11-26] MEDS: PIPERACIL-TAZO 4.5 GM PREMIX 100 ML IV SCH ×4 (01:52→18:24)
[2016-11-26] MEDS: CHLORHEXIDINE GLUCONATE 2 % 1 PACK (2 CLOTHS)(taper/protocol) TOP SCH ×2 (05:00→23:20)
[2016-11-26] MEDS: methylPREDNISolone SOD SUCC 125 MG/2 ML VIAL IV PUSH SCH ×4 (05:51→23:06)
[2016-11-26] MEDS: RESP: ALBUTEROL 2.5 MG/IPRATROPIUM 0.5 MG NEB (SCH) NEB ×4 (08:17→20:20)
[2016-11-26] MEDS: NICOTINE 14 MG/24 HR PATCH TD SCH (09:00)
[2016-11-26] MEDS: THIAMINE HCL 100 MG TAB PO SCH (09:00)
--- NOTE | 2016-11-26 09:00 | HHI.PR ---
Subjective Remarks with some sob- on six liters of oxygen via N/C. has occasional cough. no fever. denies pain. Objective Vitals Vital Signs Date Time Temp Pulse Resp B/P Pulse Ox O2 Delivery O2 Flow Rate FiO2 11/26/16 08:17 93 Nasal Cannula 6.00 11/26/16 06:00 89 11/26/16 04:00 79 11/26/16 04:00 79 24 119/71 80 11/26/16 04:00 79 11/26/16 04:00 7 24 100/73 94 11/26/16 02:00 89 11/26/16 01:58 24 11/26/16 00:00 94 24 119/71 80 11/26/16 00:00 94 11/25/16 22:36 32 11/25/16 22:00 91 11/25/16 20:10 88 Nasal Cannula 6.00 11/25/16 20:00 90 11/25/16 20:00 90 Nasal Cannula 6.00 11/25/16 20:00 90 22 109/77 90 11/25/16 18:32 Nasal Cannula 6.00 11/25/16 18:32 86 11/25/16 18:32 98.9 89 26 113/72 91 11/25/16 16:18 97.0 84 22 117/74 100 11/25/16 12:12 96.0 93 24 111/65 95 I/O 11/25/16 11/25/16 11/25/16 11/26/16 11/26/16 11/26/16 07:00 15:00 23:00 07:00 15:00 23:00 Intake Total 2260 ml 757 ml Output Total 225 ml 225 ml Balance 2035 ml 532 ml Intake Oral 1260 ml 120 ml IV Total 1000 ml 637 ml Output Urine Total 225 ml 225 ml Stool Total 0 ml # Voids 4 # Bowel Movements 0 Result Diagram: 11/25/16 1225 11/25/16 1225 Imaging Last Impressions Lower Extremity Ultrasound 11/25/16 0000 Signed Impressions: Service Date/Time: Friday, November 25, 2016 13:42 - CONCLUSION: 1. No DVT. 2. Multiple large lymph nodes in the left groin the largest measuring 3.6 cm. Johnson Riggins MD Chest X-Ray 11/25/16 0000 Signed Impressions: Service Date/Time: Friday, November 25, 2016 10:39 - CONCLUSION: Worsening bilateral airspace disease. Probable small left-sided pleural effusion. Johnson Riggins MD Chest CT 11/24/1624 Signed Impressions: Service Date/Time: Thursday, November 24, 2016 08:44 - CONCLUSION: 1. Diffuse bilateral airspace disease with air bronchograms greater within the upper lobes. This could be multilobar pneumonia versus edema. 2. Small bilateral pleural effusions. 3. Coronary artery calcifications and nonspecific mediastinal adenopathy. 4. Enlargement of the pulmonary trunk suggesting arterial hypertension. Johnson Riggins MD Hepatobiliary Scan Nuclear Medicine 11/23/16 0000 Signed Impressions: Service Date/Time: Wednesday, November 23, 2016 12:49 - CONCLUSION: 1. There is no evidence for cystic duct or common duct obstruction. 2. Moderate biliary enteric reflux. Huber Aguilar MD FACR Liver Ultrasound 11/22/16 0000 Signed Impressions: Service Date/Time: November 16:50 - CONCLUSION: 1. Mildly enlarged and heterogeneous liver without a focal hepatic lesion. No perceptible hepatic nodularity. 2. Trace pericholecystic fluid and borderline gallbladder wall thickening. These findings are demonstrated in the setting of no illicited sonographic Greenberg sign and presumably on the basis of right heart dysfunction or liver disease. No gallstones or ductal dilatation demonstrated. Jose Juan Santillan MD Head CT 11/19/161914 Signed Impressions: Service Date/Time: Saturday, November 19, 2016 20:22 - CONCLUSION: Normal examination for a patient of this age. No significant change has occurred. Trae Jarrett MD Cervical Spine CT 11/19/161914 Signed Impressions: Service Date/Time: Saturday, November 19, 2016 20:22 - CONCLUSION: 1. Moderate degenerative disc disease. No acute bony abnormalities. Trae Jarrett MD Objective Remarks GENERAL: This is a well-nourished, well-developed patient, in no apparent distress. CARDIOVASCULAR: Regular rate and regular rhythm without murmurs, gallops, or rubs. RESPIRATORY: bilateral rhonchi GASTROINTESTINAL: Abdomen soft, non-tender, nondistended. Normal, active bowel sounds MUSCULOSKELETAL: Extremities with mild bilateral pedal edema NEURO: awake and alert- oriented to person, place and partly to time. Medications and IVs Current Medications IV Flush 2 ml 2 ml UNSCH PRN IVF FLUSH AFTER USING IV ACCESS; Start 11/19/16 at 19:15; Stop 11/20/16 at 06:27; Status DC Sodium Chloride 1,000 ml @ 1,000 mls/hr Q1H ONCE IV Last administered on 20:39; Start 11/19/16 at 19:15; Stop 11/19/16 at 20:14; Status DC Sodium Chloride (NS 1000 ml Inj) 1,000 ml @ 70 mls/hr [id number] IV Last administered on 11/25/16 05:26; Start 11/19/16 at 23:24; Stop 11/25/16 at 10:23; Status DC IV Flush (NS Flush) 2 ml UNSCH PRN FLUSH FLUSH AFTER USING IV ACCESS; Start at 23:30 IV Flush (NS Flush) 2 ml BID FLUSH Last administered on 11/25/16 21:03; Start 11/20/16 at 09:00 Naloxone HCl (Narcan Inj) 0.4 mg UNSCH PRN IV SEE LABEL COMMENTS; Start at 23:30 Flumazenil (Romazicon Inj) 0.2 mg Q1M PRN IV PUSH SEE LABEL COMMENTS; Start at 23:30 Lorazepam (Ativan) 1 mg Q4H PRN PO CIWA 8 - 10; Start 11/19/16 at 23:30 Lorazepam (Ativan Inj) 1 mg Q4H PRN IV PUSH CIWA 8 - 10; Start 11/19/16 at 23: 30 Lorazepam (Ativan) 2 mg Q2H PRN PO CIWA 11-14; Start 11/19/16 at 23:30 Lorazepam (Ativan Inj) 2 mg Q2H PRN IV PUSH CIWA 11-14; Start 11/19/16 at 23:30 Lorazepam (Ativan Inj) 2 mg Q1H PRN IV PUSH CIWA 15-20; Start 11/19/16 at 23:30 Lorazepam (Ativan Inj) 2 mg Q15M PRN IV PUSH CIWA > 20; Start 11/19/16 at 23:30 Thiamine HCl 100 mg 100 mg DAILY PO Last administered on 11/25/16 09:24; Start 11/20/16 at 09:00 Thiamine HCl/ Sodium Chloride (Thiamine Inj/NS Inj) 101 ml @ 101 mls/hr ONCE ONCE IV Last administered on 11/19/16 23:49; Start 11/19/16 at 23:45; Stop at 00:44; Status DC Enoxaparin Sodium (Lovenox Inj) 30 mg Q24H SQ Last administered on 11/25/16 09: 26; Start 11/20/16 at 09:00 Albuterol Sulfate 1.25 mg 1.25 mg ONCE ONCE NEB Last administered on 19:17; Start 11/20/16 at 17:45; Stop 11/20/16 at 17:50; Status DC Vancomycin HCl 1500 mg/Sodium Chloride 515 ml @ 257.5 mls/ hr ONCE ONCE IV Last administered on 11/21/16 10:58; Start 11/21/16 at 10:00; Stop 11/21/16 at 11: 59; Status DC Pharmacy Profile Note 0 ml @ 0 mls/hr UNSCH OTHER ; Start 11/21/16 at 09:15 Vancomycin HCl/ Sodium Chloride (Vancomycin Inj/ NS 500 ml Inj) 515 ml @ 250 mls/hr Q12H IV Last administered on 11/25/16 22:41; Start 11/21/16 at 23:00 Miscellaneous Information SPECIFIC LAB TO BE DRAWN:VANCOMYCIN TROUGH DATE TO... ONCE ONCE XX Last administered on 11/23/16 10:45; Start 11/23/16 at 10:45; Stop 11/23/16 at 10:46; Status DC Levofloxacin/ Dextrose 150 ml @ 100 mls/hr Q24H IV Last administered on 10:47; Start 11/22/16 at 12:00; Stop 11/23/16 at 11:51; Status DC Piperacillin Sod/ Tazobactam Sod (Zosyn 4.5 Gm Premix) 100 ml @ 200 mls/hr Q6H IV Last administered on 11/26/16 05:51; Start 11/22/16 at 12:00 Folic Acid (Folate) 1 mg DAILY PO Last administered on 11/25/16 09:24; Start at 09:00; Stop 11/28/16 at 08:59 Multivitamins/ Minerals Therapeutic (Theragran M Tab) 1 tab DAILY PO Last administered on 11/25/16 09:24; Start 11/23/16 at 09:00; Stop 11/28/16 at 08:59 Albuterol/ Ipratropium (Duoneb Neb) 1 ampule ONCE ONCE NEB Last administered on 11/23/16 12:09; Start 11/23/16 at 11:15; Stop 11/23/16 at 11:16; Status DC Albuterol/ Ipratropium (Duoneb Neb) 1 ampule Q6HR WHILE AWAKE NEB NEB Last administered on 11/24/16 19:31; Start 11/23/16 at 14:00; Stop 11/25/16 at 11:17; Status DC Sincalide (Kinevac Inj) 1.7 mcg STK-MED ONCE IV Last administered on 11/23/16 14:27; Start 11/23/16 at 14:27; Stop 11/23/16 at 14:28; Status DC Methylprednisolone Sodium Succinate (SoluMEDROL INJ) 125 mg ONCE ONCE IV PUSH Last administered on 11/23/16 16:37; Start 11/23/16 at 16:30; Stop 11/23/16 at 16: 31; Status DC Methylprednisolone Sodium Succinate (SoluMEDROL INJ) 60 mg Q6H IV PUSH Last administered on 11/24/16 06:17; Start 11/23/16 at 23:00; Stop 11/24/16 at 09:46; Status DC Albuterol Sulfate (Albuterol Neb) 1.25 mg Q2HR NEB PRN NEB SOB/WHEEZING; Start 11/24/16 at 07:15 Nicotine (Habitrol 14 Mg Patch.24 Hr) 1 patch DAILY TD Last administered on 11/25 09:25; Start 11/24/16 at 09:45 Methylprednisolone Sodium Succinate (SoluMEDROL INJ) 40 mg Q6H IV PUSH Last administered on 11/25/16 05:31; Start 11/24/16 at 11:00; Stop 11/25/16 at 11:17; Status DC Miscellaneous Information 1 HS TD Last administered on 11/25/16 21:00; Start at 21:00 Oxycodone/ Acetaminophen (Percocet 5-325 Mg) 1 tab Q6H PRN PO PAIN SCALE 6 TO 10 Last administered on 11/25/16 21:36; Start 11/24/16 at 10:30 Morphine Sulfate 2 mg 2 mg Q3H PRN IV PUSH BREAKTHROUGH PAIN Last administered on 11/26/16 01:53; Start 11/24/16 at 10:30 Sodium Chloride 500 ml @ 500 mls/hr BOLUS ONCE IV Last administered on 17:20; Start 11/24/16 at 16:30; Stop 11/24/16 at 17:29; Status DC Sodium Chloride (NS 1000 ml Inj) 1,000 ml @ 999 mls/hr BOLUS ONCE IV Last administered on 11/24/16 19:02; Start 11/24/16 at 17:30; Stop 11/24/16 at 18:30; Status DC Albuterol/ Ipratropium (Duoneb Neb) 1 ampule Q4HR WHILE AWAKE NEB NEB Last administered on 11/26/16 08:17; Start 11/25/16 at 12:00 Methylprednisolone Sodium Succinate (SoluMEDROL INJ) 60 mg Q6H IV PUSH Last administered on 11/26/16 05:51; Start 11/25/16 at 17:00 Miscellaneous Information Patient in critical care unit? Ass... [id number] ; Start 11/25/16 at 22:15 Chlorhexidine Gluconate (Chlorhexidine 2% Cloth) 3 pack DAILY@04 TOP Last administered on 11/26/16 05:00; Start 11/26/16 at 04:00; Stop 11/30/16 at 04:01 Chlorhexidine Gluconate (Chlorhexidine 2% Cloth) 3 pack UNSCH PRN TOP HYGIENIC CARE; Start 11/25/16 at 22:30; Stop 11/30/16 at 22:15 Guaifenesin (Mucinex Er) 600 mg BID PO Last administered on 11/26/16 01:03; Start 11/25/16 at 23:30 Diphenhydramine HCl (Benadryl) 25 mg ONCE ONCE PO Last administered on 00:13; Start 11/25/16 at 23:30; Stop 11/25/16 at 23:31; Status DC A/P Assessment and Plan A/P Hyponatremia, mild: Resolved. Continue to monitor. sepsis due to Left lower extremity cellulitis and pneumonia: Started on IV Vanco however not much improvement, added IV Zosyn. Elevate the leg. Consulted ID. Pain control with oral and intravenous narcotics as needed. Improving erythema, although still edematous, venous doppler negative for DVT. Pneumonia: CXR with findings consistent with CHF however symptoms more likely COPD/pneumonia. Chest CT with airspace disease in the upper lobes(multilobar pneumonia vs edema), small bilateral pleural effusions, nonspecific mediastinal adenopathy, enlargement of the pulmonary trunk suggesting arterial hypertension. Echocardiogram with normal EF and left systolic function. Sputum culture with normal respiratory aaron. acute hypoxic respiratory failure: continue on IV Solumedrol. Scheduled and as needed nebs. pulmonary following. Acute respiratory failure: Secondary to COPD and pneumonia as above. Requiring nonrebreather, continue supplemental oxygen as needed. Pulmonology consulted, appreciate specialists input. Continue steroids and antibiotics. RUQ Abdominal Pain: LFTs minimally elevated. Liver U/S with trace pericholecystic fluid and borderline gallbladder wall thickening. LFTs wnl. Checked HIDA scan, essentially unremarkable. Generalized weakness: suspect secondary to hyponatremia or infection as above. Imaging/labs reviewed: Head CT normal. UDS positive for benzodiazepines. Consulted PT. Neuro checks Humerus fracture, chronic: Outpatient orthopedic follow-up as arranged. Continue sling. ETOH abuse: Withdrawal precautions. CIWA protocol. Thiamine/folate/MV PO daily. Tobacco abuse: Counseled on cessation. Nicotine patch. DVT prophylaxis: Lovenox will keep in ICU for close monitoring. Lilly Krause MD Nov 26, 2016 09:00
[2016-11-26] MEDS: ENOXAPARIN SODIUM 30 MG/0.3 ML SYRINGE SQ SCH (11:19)
[2016-11-26] MEDS: FOLIC ACID 1 MG TAB PO SCH (11:21)
[2016-11-26] MEDS: MULTIVITAMINS/MINERALS THERAPEUTIC TAB PO SCH (11:21)
[2016-11-26] MEDS: SODIUM CHLORIDE 0.9% FLUSH 5 ML FLUSH FLUSH SCH ×2 (11:22→20:02)
--- NOTE | 2016-11-26 12:27 | HHI.IDPN ---
Note Infectious Disease Note Patient is in stretcher. Notes reviewed. On 6L O2. he has no complaints. Appears confused. Still with cough. Seen for left lower extremity erythema. PAST MEDICAL HISTORY 1. Alcohol abuse. 2. Kidney surgery. 3. Myocardial infarction. ALLERGIES NO KNOWN DRUG ALLERGIES. ANTIBIOTICS 1. Vancomycin. 2. Piperacillin/tazobactam. SOCIAL HISTORY The patient smokes one-half pack of cigarettes a day. Positive alcohol use daily. Denies illicit drugs. The patient is homeless. OBJECTIVE: Vital Signs Date Time Temp Pulse Resp B/P Pulse Ox O2 Delivery O2 Flow Rate FiO2 11/26/16 08:17 93 Nasal Cannula 6.00 11/26/16 06:00 89 11/26/16 04:00 79 11/26/16 04:00 79 24 119/71 80 11/26/16 04:00 79 11/26/16 04:00 7 24 100/73 94 11/26/16 02:00 89 11/26/16 01:58 24 11/26/16 00:00 94 24 119/71 80 11/26/16 00:00 94 11/25/16 22:36 32 11/25/16 22:00 91 11/25/16 20:10 88 Nasal Cannula 6.00 11/25/16 20:00 90 11/25/16 20:00 90 Nasal Cannula 6.00 11/25/16 20:00 90 22 109/77 90 11/25/16 18:32 Nasal Cannula 6.00 11/25/16 18:32 86 11/25/16 18:32 98.9 89 26 113/72 91 11/25/16 16:18 97.0 84 22 117/74 100 11/25/16 11/25/16 11/26/16 15:00 23:00 07:00 Intake Total 2260 ml 757 ml Output Total 225 ml 225 ml Balance 2035 ml 532 ml Intake Oral 1260 ml 120 ml IV Total 1000 ml 637 ml Output Urine Total 225 ml 225 ml Stool Total 0 ml # Voids 4 # Bowel Movements 0 Laboratory Tests Test 11/25/16 12:25 White Blood Count 16.3 TH/MM3 Red Blood Count 3.11 MIL/MM3 Hemoglobin 10.0 GM/DL Hematocrit 30.4 % Mean Corpuscular Volume 97.8 FL Mean Corpuscular Hemoglobin 32.1 PG Mean Corpuscular Hemoglobin 32.8 % Concent Red Cell Distribution Width 13.3 % Platelet Count 157 TH/MM3 Mean Platelet Volume 7.9 FL Neutrophils (%) (Auto) 86.3 % Lymphocytes (%) (Auto) 8.0 % Monocytes (%) (Auto) 5.6 % Eosinophils (%) (Auto) 0.0 % Basophils (%) (Auto) 0.1 % Neutrophils # (Auto) 14.0 TH/MM3 Lymphocytes # (Auto) 1.3 TH/MM3 Monocytes # (Auto) 0.9 TH/MM3 Eosinophils # (Auto) 0.0 TH/MM3 Basophils # (Auto) 0.0 TH/MM3 CBC Comment DIFF FINAL Differential Comment Laboratory Tests Test 11/25/16 12:25 Sodium Level 133 MEQ/L Potassium Level 3.2 MEQ/L Chloride Level 99 MEQ/L Carbon Dioxide Level 27.5 MEQ/L Anion Gap 7 MEQ/L Blood Urea Nitrogen 17 MG/DL Creatinine 0.62 MG/DL Estimat Glomerular Filtration 134 ML/MIN Rate Random Glucose 149 MG/DL Calcium Level 8.1 MG/DL Magnesium Level 2.3 MG/DL Microbiology Date/Time Procedure Status Source Growth 11/24/16 11:20 Gram Stain - Final Complete Sputum Expectorated Sputum 11/24/16 11:20 Sputum Culture - Final Complete Sputum Expectorated Sputum LIGHT GROWTH NORMAL RESPIRATORY ELIZABETH 11/25/16 00:44 Influenza Types A,B Antigen (JAYNA) - Final Complete Nasal Washing NEGATIVE FOR FLU A AND B ANTIGEN.... IMAGING: Lower Extremity Ultrasound 11/25/16 0000 Signed Impressions: Service Date/Time: Friday, November 25, 2016 13:42 - CONCLUSION: 1. No DVT. 2. Multiple large lymph nodes in the left groin the largest measuring 3.6 cm. Johnson Riggins MD Chest X-Ray 11/25/16 0000 Signed Impressions: Service Date/Time: Friday, November 25, 2016 10:39 - CONCLUSION: Worsening bilateral airspace disease. Probable small left-sided pleural effusion. Johnson Riggins MD Chest CT 11/24/16 0824 Signed Impressions: Service Date/Time: Thursday, November 24, 2016 08:44 - CONCLUSION: 1. Diffuse bilateral airspace disease with air bronchograms greater within the upper lobes. This could be multilobar pneumonia versus edema. 2. Small bilateral pleural effusions. 3. Coronary artery calcifications and nonspecific mediastinal adenopathy. 4. Enlargement of the pulmonary trunk suggesting arterial hypertension. Johnson Riggins MD Hepatobiliary Scan Nuclear Medicine 11/23/16 0000 Signed Impressions: Service Date/Time: Wednesday, November 23, 2016 12:49 - CONCLUSION: 1. There is no evidence for cystic duct or common duct obstruction. 2. Moderate biliary enteric reflux. Huber Aguilar MD FACR Liver Ultrasound 11/22/16 0000 Signed Impressions: Service Date/Time: November 16:50 - CONCLUSION: 1. Mildly enlarged and heterogeneous liver without a focal hepatic lesion. No perceptible hepatic nodularity. 2. Trace pericholecystic fluid and borderline gallbladder wall thickening. These findings are demonstrated in the setting of no illicited sonographic Greenberg sign and presumably on the basis of right heart dysfunction or liver disease. No gallstones or ductal dilatation demonstrated. Jose Juan Santillan MD Head CT 11/19/161914 Signed Impressions: Service Date/Time: Saturday, November 19, 2016 20:22 - CONCLUSION: Normal examination for a patient of this age. No significant change has occurred. Trae Jarrett MD Cervical Spine CT 11/19/161914 Signed Impressions: Service Date/Time: Saturday, November 19, 2016 20:22 - CONCLUSION: 1. Moderate degenerative disc disease. No acute bony abnormalities. Trae Jarrett MD PHYSICAL EXAMINATION GENERAL: This is a disheveled appearing male who appears older than stated age. He is awake and alert and oriented. HEENT: The head is atraumatic. Extraocular movements grossly intact. No icterus. Oropharynx - very poor dentition with several erosions at the upper jaw and most of the teeth of the lower jaw are eroded leaving a couple standing teeth with black discoloration. The buccal mucosa is moist. NECK: Supple. No adenopathy LUNGS: Bilateral wheezing and rhonchi. HEART: Regular rate and rhythm with normal S1 and S2. ABDOMEN: Bowel sounds present, soft, no tenderness. EXTREMITIES: The left lower extremity has decreased erythema from the knee down to the ankle. There is 2+ edema at the left lower extremity. The left leg is warm to touch. There is an excoriated lesion at the anterior distal tibia, it is dried. The patient has multiple abrasions at the left forearm at the lateral aspect and he is wearing a sling on the right upper extremity. SKIN: No diffuse rash. NEUROLOGIC: No focal findings. PSYCHIATRIC: The patient calm and cooperative. IMPRESSION 1. Cellulitis of the left lower extremity. 2. Pneumonia versus CHF vs other cause in patient with abnormal CT scan of the chest showing diffuse bilateral airspace disease with air bronchograms greater within the upper lobes. Also with left inguinal adenopathy. RECOMMENDATIONS 1. Continue Vancomycin. 2. Continue piperacillin/tazobactam. 3. Add Zithromax. 4. Consider bronchoscopy. 5. Monitor clinical status. 6. Monitor the leg cellulitis response to antibiotics. Juancarlos Ackerman MD Nov 26, 2016 12:27
[2016-11-26] MEDS: VANCOMYCIN INJ 1,500 MG in SODIUM CHLORID 0.9% 500 ML INJ 500 ML IV SCH ×2 (12:36→23:06)
[2016-11-26] MEDS: AZITHROMYCIN INJ 500 MG in SODIUM CHLOR 0.9% 250 ML INJ 250 ML IV SCH (15:31)
--- NOTE | 2016-11-26 19:11 | HHI.PR ---
Subjective Remarks 56 YOWM with COPD,Bilat lung infilt Has cough and sp Refuses Nebs treatments On NC 6 lit Desaturates Objective Vital Signs Vital Signs Date Time Temp Pulse Resp B/P Pulse Ox O2 Delivery O2 Flow Rate FiO2 11/26/16 08:17 93 Nasal Cannula 6.00 11/26/16 06:00 89 11/26/16 04:00 79 11/26/16 04:00 79 24 119/71 80 11/26/16 04:00 79 11/26/16 04:00 7 24 100/73 94 11/26/16 02:00 89 11/26/16 01:58 24 11/26/16 00:00 94 24 119/71 80 11/26/16 00:00 94 11/25/16 22:36 32 11/25/16 22:00 91 11/25/16 20:10 88 Nasal Cannula 6.00 11/25/16 20:00 90 11/25/16 20:00 90 Nasal Cannula 6.00 11/25/16 20:00 90 22 109/77 90 I/O 11/25/16 11/25/16 11/25/16 11/26/16 11/26/16 11/26/16 07:00 15:00 23:00 07:00 15:00 23:00 Intake Total 2260 ml 757 ml 1222 ml Output Total 225 ml 225 ml Balance 2035 ml 532 ml 1222 ml Intake Oral 1260 ml 120 ml 480 ml IV Total 1000 ml 637 ml 742 ml Output Urine Total 225 ml 225 ml Stool Total 0 ml # Voids 4 1 # Bowel Movements 0 0 Result Diagram: 11/25/16 1225 11/25/16 1225 Objective Remarks GENERAL: WBWN Male mod sob SKIN: Warm and dry. HEAD: Normocephalic. EYES: No scleral icterus. No injection or drainage. NECK: Supple, trachea midline. No JVD or lymphadenopathy. CARDIOVASCULAR: Regular rate and rhythm without murmurs, gallops, or rubs. RESPIRATORY: Breath sounds equal bilaterally. No accessory muscle use. Exp rhonchi GASTROINTESTINAL: Abdomen soft, non-tender, nondistended. MUSCULOSKELETAL: No cyanosis, or edema. BACK: Nontender without obvious deformity. No CVA tenderness. A/P Assessment and Plan COPD Exac Resp Insuff Bilat Pn ETOH use Nicotine use PLAN: Supplement 02 to keep sat >90% Aerosol nebs Abx Vanco and Zosyn IV Solumedrol Acapella q 1 hr Monty Crain MD Nov 26, 2016 19:11
[2016-11-26] MEDS: oxyCODONE/ACETAMINOPHEN 5 MG/325 MG TAB PO PRN (20:01)
[2016-11-26] MEDS: REMOVE OLD NICODERM (NICOTINE) PATCH TD SCH (21:00)
[2016-11-26] MEDS: LORazepam 2 MG/ML VIAL IV PUSH PRN (23:27)
[2016-11-27] VITALS (8 sets, daily range): BP systolic 111–114; BP diastolic 57–80; PULSE 81–104; RESP 24–28; TEMP 97.8–98.9; O2SAT 92–96
[2016-11-27] MEDS: PIPERACIL-TAZO 4.5 GM PREMIX 100 ML IV SCH ×5 (00:57→23:13)
[2016-11-27] MEDS: RESP: ALBUTEROL 1.25 MG/3 ML NEB (PRN) NEB (05:25)
[2016-11-27] MEDS: methylPREDNISolone SOD SUCC 125 MG/2 ML VIAL IV PUSH SCH ×3 (06:51→20:36)
[2016-11-27 07:16] LABS: BLOOD GAS BASE EXCESS 4.3 mmol/L (-2-2); BLOOD GAS CARBOXYHEMOGLOBIN 1.6 % (0-4); BLOOD GAS HCO3 29 mmol/L (22-26); BLOOD GAS METHEMOGLOBIN 0.9 % (0-2); BLOOD GAS O2 HGB SATURATION 69 % (90-100); BLOOD GAS OXYGEN CONTENT 9.8 Vol % (12.0-20.0); BLOOD GAS PCO2 53 mmHg (38-42); BLOOD GAS PO2 41 mmHg (61-120); BLOOD GAS TOTAL HGB 10.2 G/DL (12.0-16.0); CRITICAL VALUE YES; DRAW SITE LT RADIAL; LITER FLOW 6 L/M; NUMBER OF ARTERIAL PUNCTURES 1; OXYGEN DEVICE NASAL CANNULA; TEMP CORR TO 98.6
[2016-11-27 07:17] LABS: STAT YES; ULNAR PULSE PRESENT
[2016-11-27 07:19] LABS: AUTOMATED NEUTROPHIL # 13.3 TH/MM3 (1.8-7.7); BASOPHIL % 0.1 % (0.0-2.0); HEMATOCRIT 30.1 % (39.0-51.0); HEMO FLAGS DIFF FINAL; LYMPH % 4.6 % (9.0-44.0); LYMPHOCYTE # 0.7 TH/MM3 (1.0-4.8); MEAN CELL VOLUME 97.8 FL (80.0-100.0); MEAN CORPUSCULAR HEMOGLOBIN 32.5 PG (27.0-34.0); MEAN CORPUSCULAR HGB CONC 33.2 % (32.0-36.0); MONO % 2.7 % (0.0-8.0); NEUT % 92.6 % (16.0-70.0); PLATELET COUNT 155 TH/MM3 (150-450); RED BLOOD COUNT 3.07 MIL/MM3 (4.50-5.90); RED CELL DISTRIBUTION WIDTH 13.4 % (11.6-17.2); WHITE BLOOD COUNT 14.4 TH/MM3 (4.0-11.0)
[2016-11-27 07:37] LABS: BICARBONATE 30.5 MEQ/L (21.0-32.0); POTASSIUM 3.8 MEQ/L (3.5-5.1)
[2016-11-27] MEDS ORDERED: BUMETANIDE INJ 1 MG/4 ML VIAL IV PUSH ONE (07:45)
--- NOTE | 2016-11-27 07:59 | HHI.PR ---
Subjective Remarks still with sob which is worse than yesterday. now on six liters of oxygen. afebrile. ABG noted. d/w the RN. Objective Vitals Vital Signs Date Time Temp Pulse Resp B/P Pulse Ox O2 Delivery O2 Flow Rate FiO2 11/26/16 22:00 92 11/26/16 21:01 24 11/26/16 20:24 92 Nasal Cannula 6.00 11/26/16 20:00 Nasal Cannula 6.00 11/26/16 20:00 97.4 97 28 115/75 11/26/16 20:00 97 11/26/16 08:17 93 Nasal Cannula 6.00 I/O 11/26/16 11/26/16 11/26/16 11/27/16 11/27/16 11/27/16 07:00 15:00 23:00 07:00 15:00 23:00 Intake Total 757 ml 1858 ml Output Total 225 ml 100 ml Balance 532 ml 1758 ml Intake Oral 120 ml 840 ml IV Total 637 ml 1018 ml Output Urine Total 225 ml 100 ml # Voids 2 # Bowel Movements 0 0 Result Diagram: 11/27/16 0513 11/27/16 0523 Imaging Last Impressions Lower Extremity Ultrasound 11/25/16 0000 Signed Impressions: Service Date/Time: Friday, November 25, 2016 13:42 - CONCLUSION: 1. No DVT. 2. Multiple large lymph nodes in the left groin the largest measuring 3.6 cm. Johnson Riggins MD Chest X-Ray 11/25/16 0000 Signed Impressions: Service Date/Time: Friday, November 25, 2016 10:39 - CONCLUSION: Worsening bilateral airspace disease. Probable small left-sided pleural effusion. Johnson Riggins MD Chest CT 11/24/16 0824 Signed Impressions: Service Date/Time: Thursday, November 24, 2016 08:44 - CONCLUSION: 1. Diffuse bilateral airspace disease with air bronchograms greater within the upper lobes. This could be multilobar pneumonia versus edema. 2. Small bilateral pleural effusions. 3. Coronary artery calcifications and nonspecific mediastinal adenopathy. 4. Enlargement of the pulmonary trunk suggesting arterial hypertension. Johnson Riggins MD Hepatobiliary Scan Nuclear Medicine 11/23/16 0000 Signed Impressions: Service Date/Time: Wednesday, November 23, 2016 12:49 - CONCLUSION: 1. There is no evidence for cystic duct or common duct obstruction. 2. Moderate biliary enteric reflux. Huber Aguilar MD FACR Liver Ultrasound 11/22/16 0000 Signed Impressions: Service Date/Time: November 16:50 - CONCLUSION: 1. Mildly enlarged and heterogeneous liver without a focal hepatic lesion. No perceptible hepatic nodularity. 2. Trace pericholecystic fluid and borderline gallbladder wall thickening. These findings are demonstrated in the setting of no illicited sonographic Greenberg sign and presumably on the basis of right heart dysfunction or liver disease. No gallstones or ductal dilatation demonstrated. Jose Juan Santillan MD Head CT 11/19/161914 Signed Impressions: Service Date/Time: Saturday, November 19, 2016 20:22 - CONCLUSION: Normal examination for a patient of this age. No significant change has occurred. Trae Jarrett MD Cervical Spine CT 11/19/161914 Signed Impressions: Service Date/Time: Saturday, November 19, 2016 20:22 - CONCLUSION: 1. Moderate degenerative disc disease. No acute bony abnormalities. Trae Jarrett MD Objective Remarks GENERAL: This is a well-nourished, well-developed patient, in no apparent distress. CARDIOVASCULAR: Regular rate and regular rhythm without murmurs, gallops, or rubs. RESPIRATORY: bilateral rhonchi GASTROINTESTINAL: Abdomen soft, non-tender, nondistended. Normal, active bowel sounds MUSCULOSKELETAL: Extremities with mild bilateral pedal edema NEURO: awake and alert- oriented to person, place and partly to time. Medications and IVs Current Medications IV Flush 2 ml 2 ml UNSCH PRN IVF FLUSH AFTER USING IV ACCESS; Start 11/19/16 at 19:15; Stop 11/20/16 at 06:27; Status DC Sodium Chloride 1,000 ml @ 1,000 mls/hr Q1H ONCE IV Last administered on 20:39; Start 11/19/16 at 19:15; Stop 11/19/16 at 20:14; Status DC Sodium Chloride (NS 1000 ml Inj) 1,000 ml @ 70 mls/hr [id number] IV Last administered on 11/25/16 05:26; Start 11/19/16 at 23:24; Stop 11/25/16 at 10:23; Status DC IV Flush (NS Flush) 2 ml UNSCH PRN FLUSH FLUSH AFTER USING IV ACCESS; Start at 23:30 IV Flush (NS Flush) 2 ml BID FLUSH Last administered on 11/26/16 20:02; Start 11/20/16 at 09:00 Naloxone HCl (Narcan Inj) 0.4 mg UNSCH PRN IV SEE LABEL COMMENTS; Start at 23:30 Flumazenil (Romazicon Inj) 0.2 mg Q1M PRN IV PUSH SEE LABEL COMMENTS; Start at 23:30 Lorazepam (Ativan) 1 mg Q4H PRN PO CIWA 8 - 10; Start 11/19/16 at 23:30 Lorazepam (Ativan Inj) 1 mg Q4H PRN IV PUSH CIWA 8 - 10 Last administered on 23:27; Start 11/19/16 at 23:30 Lorazepam (Ativan) 2 mg Q2H PRN PO CIWA 11-14; Start 11/19/16 at 23:30 Lorazepam (Ativan Inj) 2 mg Q2H PRN IV PUSH CIWA 11-14; Start 11/19/16 at 23:30 Lorazepam (Ativan Inj) 2 mg Q1H PRN IV PUSH CIWA 15-20; Start 11/19/16 at 23:30 Lorazepam (Ativan Inj) 2 mg Q15M PRN IV PUSH CIWA > 20; Start 11/19/16 at 23:30 Thiamine HCl 100 mg 100 mg DAILY PO Last administered on 11/26/16 09:00; Start 11/20/16 at 09:00 Thiamine HCl/ Sodium Chloride (Thiamine Inj/NS Inj) 101 ml @ 101 mls/hr ONCE ONCE IV Last administered on 11/19/16 23:49; Start 11/19/16 at 23:45; Stop at 00:44; Status DC Enoxaparin Sodium (Lovenox Inj) 30 mg Q24H SQ Last administered on 11/26/16 11: 19; Start 11/20/16 at 09:00 Albuterol Sulfate 1.25 mg 1.25 mg ONCE ONCE NEB Last administered on 19:17; Start 11/20/16 at 17:45; Stop 11/20/16 at 17:50; Status DC Vancomycin HCl 1500 mg/Sodium Chloride 515 ml @ 257.5 mls/ hr ONCE ONCE IV Last administered on 11/21/16 10:58; Start 11/21/16 at 10:00; Stop 11/21/16 at 11: 59; Status DC Pharmacy Profile Note 0 ml @ 0 mls/hr UNSCH OTHER ; Start 11/21/16 at 09:15 Vancomycin HCl/ Sodium Chloride (Vancomycin Inj/ NS 500 ml Inj) 515 ml @ 250 mls/hr Q12H IV Last administered on 11/26/16 23:06; Start 11/21/16 at 23:00 Miscellaneous Information SPECIFIC LAB TO BE DRAWN:VANCOMYCIN TROUGH DATE TO... ONCE ONCE XX Last administered on 11/23/16 10:45; Start 11/23/16 at 10:45; Stop 11/23/16 at 10:46; Status DC Levofloxacin/ Dextrose 150 ml @ 100 mls/hr Q24H IV Last administered on 10:47; Start 11/22/16 at 12:00; Stop 11/23/16 at 11:51; Status DC Piperacillin Sod/ Tazobactam Sod (Zosyn 4.5 Gm Premix) 100 ml @ 200 mls/hr Q6H IV Last administered on 11/27/16 06:51; Start 11/22/16 at 12:00 Folic Acid (Folate) 1 mg DAILY PO Last administered on 11/26/16 11:21; Start at 09:00; Stop 11/28/16 at 08:59 Multivitamins/ Minerals Therapeutic (Theragran M Tab) 1 tab DAILY PO Last administered on 11/26/16 11:21; Start 11/23/16 at 09:00; Stop 11/28/16 at 08:59 Albuterol/ Ipratropium (Duoneb Neb) 1 ampule ONCE ONCE NEB Last administered on 11/23/16 12:09; Start 11/23/16 at 11:15; Stop 11/23/16 at 11:16; Status DC Albuterol/ Ipratropium (Duoneb Neb) 1 ampule Q6HR WHILE AWAKE NEB NEB Last administered on 11/24/16 19:31; Start 11/23/16 at 14:00; Stop 11/25/16 at 11:17; Status DC Sincalide (Kinevac Inj) 1.7 mcg STK-MED ONCE IV Last administered on 11/23/16 14:27; Start 11/23/16 at 14:27; Stop 11/23/16 at 14:28; Status DC Methylprednisolone Sodium Succinate (SoluMEDROL INJ) 125 mg ONCE ONCE IV PUSH Last administered on 11/23/16 16:37; Start 11/23/16 at 16:30; Stop 11/23/16 at 16: 31; Status DC Methylprednisolone Sodium Succinate (SoluMEDROL INJ) 60 mg Q6H IV PUSH Last administered on 11/24/16 06:17; Start 11/23/16 at 23:00; Stop 11/24/16 at 09:46; Status DC Albuterol Sulfate (Albuterol Neb) 1.25 mg Q2HR NEB PRN NEB SOB/WHEEZING Last administered on 11/27/16 05:25; Start 11/24/16 at 07:15 Nicotine (Habitrol 14 Mg Patch.24 Hr) 1 patch DAILY TD Last administered on 11/26 09:00; Start 11/24/16 at 09:45 Methylprednisolone Sodium Succinate (SoluMEDROL INJ) 40 mg Q6H IV PUSH Last administered on 11/25/16 05:31; Start 11/24/16 at 11:00; Stop 11/25/16 at 11:17; Status DC Miscellaneous Information 1 HS TD Last administered on 11/26/16 21:00; Start at 21:00 Oxycodone/ Acetaminophen (Percocet 5-325 Mg) 1 tab Q6H PRN PO PAIN SCALE 6 TO 10 Last administered on 11/26/16 20:01; Start 11/24/16 at 10:30 Morphine Sulfate 2 mg 2 mg Q3H PRN IV PUSH BREAKTHROUGH PAIN Last administered on 11/26/16 01:53; Start 11/24/16 at 10:30 Sodium Chloride 500 ml @ 500 mls/hr BOLUS ONCE IV Last administered on 17:20; Start 11/24/16 at 16:30; Stop 11/24/16 at 17:29; Status DC Sodium Chloride (NS 1000 ml Inj) 1,000 ml @ 999 mls/hr BOLUS ONCE IV Last administered on 11/24/16 19:02; Start 11/24/16 at 17:30; Stop 11/24/16 at 18:30; Status DC Albuterol/ Ipratropium (Duoneb Neb) 1 ampule Q4HR WHILE AWAKE NEB NEB Last administered on 11/26/16 20:20; Start 11/25/16 at 12:00 Methylprednisolone Sodium Succinate (SoluMEDROL INJ) 60 mg Q6H IV PUSH Last administered on 11/27/16 06:51; Start 11/25/16 at 17:00 Miscellaneous Information Patient in critical care unit? Ass... [id number] ; Start 11/25/16 at 22:15 Chlorhexidine Gluconate (Chlorhexidine 2% Cloth) 3 pack DAILY@04 TOP Last administered on 11/26/16 23:20; Start 11/26/16 at 04:00; Stop 11/30/16 at 04:01 Chlorhexidine Gluconate (Chlorhexidine 2% Cloth) 3 pack UNSCH PRN TOP HYGIENIC CARE; Start 11/25/16 at 22:30; Stop 11/30/16 at 22:15 Guaifenesin (Mucinex Er) 600 mg BID PO Last administered on 11/26/16 20:01; Start 11/25/16 at 23:30 Diphenhydramine HCl (Benadryl) 25 mg ONCE ONCE PO Last administered on 00:13; Start 11/25/16 at 23:30; Stop 11/25/16 at 23:31; Status DC Miscellaneous Information SPECIFIC LAB TO BE DRAWN:VANCO TROUGH DATE... ONCE ONCE XX ; Start 11/27/16 at 10:45; Stop 11/27/16 at 10:46 Azithromycin/ Sodium Chloride (Zithromax Inj/ NS 250 ml Inj) 250 ml @ 250 mls/ hr Q24H IV Last administered on 11/26/16 15:31; Start 11/26/16 at 13:00 A/P Assessment and Plan A/P Hyponatremia, mild: Resolved. Continue to monitor. sepsis due to Left lower extremity cellulitis and pneumonia: Started on IV Vanco however not much improvement, added IV Zosyn. Elevate the leg. Consulted ID. Pain control with oral and intravenous narcotics as needed. Improving erythema, although still edematous, venous doppler negative for DVT. Pneumonia: CXR with findings consistent with CHF however symptoms more likely COPD/pneumonia. Chest CT with airspace disease in the upper lobes(multilobar pneumonia vs edema), small bilateral pleural effusions, nonspecific mediastinal adenopathy, enlargement of the pulmonary trunk suggesting arterial hypertension. Echocardiogram with normal EF and left systolic function. Sputum culture with normal respiratory aaron.. Acute respiratory failure: Secondary to COPD and pneumonia/ and fluid overload as above. Requiring nonrebreather, continue supplemental oxygen as needed. Pulmonology consulted, appreciate specialists input. Continue steroids and antibiotics.start on BiPaP.will start IV diuretic- ABG noted- CXR today. RUQ Abdominal Pain: LFTs minimally elevated. Liver U/S with trace pericholecystic fluid and borderline gallbladder wall thickening. LFTs wnl. Checked HIDA scan, essentially unremarkable. Generalized weakness: suspect secondary to hyponatremia or infection as above. Imaging/labs reviewed: Head CT normal. UDS positive for benzodiazepines. Consulted PT. Neuro checks Humerus fracture, chronic: Outpatient orthopedic follow-up as arranged. Continue sling. ETOH abuse: Withdrawal precautions. CIWA protocol. Thiamine/folate/MV PO daily. Tobacco abuse: Counseled on cessation. Nicotine patch. DVT prophylaxis: Lovenox continue to keep in ICU for close monitoring. 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 Lilly Krause MD Nov 27, 2016 07:59
[2016-11-27] MEDS: RESP: ALBUTEROL 2.5 MG/IPRATROPIUM 0.5 MG NEB (SCH) NEB ×4 (08:01→20:13)
[2016-11-27] MEDS: SODIUM CHLORIDE 0.9% FLUSH 5 ML FLUSH FLUSH SCH ×2 (08:44→20:36)
[2016-11-27] MEDS: FOLIC ACID 1 MG TAB PO SCH (08:44)
[2016-11-27] MEDS: MULTIVITAMINS/MINERALS THERAPEUTIC TAB PO SCH (08:44)
[2016-11-27] MEDS: ENOXAPARIN SODIUM 30 MG/0.3 ML SYRINGE SQ SCH (08:44)
[2016-11-27] MEDS: POTASSIUM CHLORIDE 20 MEQ CONTROLLED RELEASE TAB PO SCH (08:44)
[2016-11-27] MEDS: THIAMINE HCL 100 MG TAB PO SCH (08:45)
[2016-11-27] MEDS: guaiFENesin E.R. 600 MG TAB PO SCH ×2 (08:45→20:37)
--- NOTE | 2016-11-27 09:03 | RADRPT ---
EXAM DATE/TIME: 11/27/2016 08:06 [facility] COMPARISON: CHEST SINGLE AP, November 25, 2016, 10:39. INDICATIONS: Shortness of breath. MEDICAL HISTORY: Seizures. Myocardial infarction SURGICAL HISTORY: None. ENCOUNTER: Subsequent ACUITY: 4 - 6 days PAIN SCORE: 0/10 LOCATION: Bilateral chest FINDINGS: Extensive bilateral pulmonary infiltrates are worse than on the previous examination consistent with worsening severe pulmonary edema versus pneumonia. Clinical correlation is recommended. The heart i s enlarged. Degenerative changes and scoliosis of the thoracic spine are noted. Small bilateral ple ural effusions are noted. CONCLUSION: 1. Interval worsening severe bilateral pulmonary infiltrates consistent with worsening pulmonary patircia ma versus pneumonia. Clinical correlation is recommended. 2. Cardiomegaly. 3. Small bilateral pleural effusions. Abilio Pa MD on November 27, 2016 at 8:56 Board Certified Radiologist. This report was verified electronically.
[2016-11-27] MEDS: NICOTINE 14 MG/24 HR PATCH TD SCH (09:27)
[2016-11-27] MEDS: LORazepam 2 MG/ML VIAL IV PUSH PRN ×2 (09:28→12:59)
[2016-11-27] MEDS ORDERED: PHARMACY ORDERED LAB XX ONE (10:45)
[2016-11-27] MEDS: AZITHROMYCIN INJ 500 MG in SODIUM CHLOR 0.9% 250 ML INJ 250 ML IV SCH (13:00)
[2016-11-27] MEDS: VANCOMYCIN INJ 1,500 MG in SODIUM CHLORID 0.9% 500 ML INJ 500 ML IV SCH ×2 (13:08→16:26)
[2016-11-27] MEDS ORDERED: DEXTROSE 50% IN WATER 50 ML VIAL(D50) IV PUSH PRN (13:45)
[2016-11-27] MEDS ORDERED: GLUCAGON 1 MG/ML VIAL OTHER PRN (13:45)
--- NOTE | 2016-11-27 13:50 | HHI.PR ---
Addendum To [facility] Progress Not Reason for addendum: Additonal documentation (patient still with sob- CXR reviewed and case was d/w ; care will be transferred to hand candy dipper.) Lilly Krause MD Nov 27, 2016 13:50
[2016-11-27 13:54] LABS: BLOOD GAS BASE EXCESS 9.6 mmol/L (-2-2); BLOOD GAS CARBOXYHEMOGLOBIN 1.3 % (0-4); BLOOD GAS HCO3 35 mmol/L (22-26); BLOOD GAS METHEMOGLOBIN 0.9 % (0-2); BLOOD GAS O2 HGB SATURATION 97 % (90-100); BLOOD GAS OXYGEN CONTENT 13.3 Vol % (12.0-20.0); BLOOD GAS PCO2 63 mmHg (38-42); BLOOD GAS PO2 189 mmHg (61-120); BLOOD GAS TOTAL HGB 9.4 G/DL (12.0-16.0); TEMP CORR TO 98.6
[2016-11-27 13:55] LABS: CRITICAL VALUE YES; DRAW SITE LT RADIAL; LITER FLOW 15 L/M; NUMBER OF ARTERIAL PUNCTURES 1; OXYGEN DEVICE NRB; STAT NO; ULNAR PULSE PRESENT
--- NOTE | 2016-11-27 15:24 | MB ---
cc: LINH KRAUSE MD, ALAA M.D. DATE OF CONSULTATION: 11/27/2016 DATE OF : 1960 REASON FOR CONSULTATION Respiratory distress. REFERRING PHYSICIAN Dr. Krause HISTORY OF PRESENT ILLNESS The patient is a 56-year-old male with past medical history of nicotine and alcohol use. He was admitted to [facility] under the hospitalist service on November 20 for hyponatremia with a sodium level of 127 on admission. The patient had a CT scan of the brain on arrival which showed no evidence of any acute intracranial process. During his hospital course he was seen by the pulmonary and infectious disease services. His initial chest x-ray from November 22 showed cardiomegaly and findings of congestive heart failure. He subsequently underwent CT scan of the chest on November 24 which showed diffuse bilateral airspace disease with air bronchograms greater within the upper lobes. This could be multilobar pneumonia versus edema. The patient was started on broad-spectrum antibiotics and his blood cultures from November 23 showed no growth to date. In addition his sputum culture showed normal respiratory aaron, and his nasal washing for influenza A and B antigen was negative. Earlier today the patient was tachycardic and had an ABG on 6 liters oxygen which showed likely mixed venous blood gas, pH 7.36, CO2 53, PAO2 41, bicarb 29. A stat. chest x-ray showed severe bilateral pulmonary infiltrates consistent with worsening pulmonary edema versus pneumonia and small bilateral pleural effusions. He was given Bumex 2 mg IV push by the primary team and had approximately three liters of urine output since then. Critical care medicine was consulted for respiratory distress. When seen the patient is on a non-rebreather mask with saturation ranging between 96 and 100%. He is afebrile, however, is tachycardic with heart rate of 101-104 and afebrile. His laboratory data from today showed leukocytosis with a WBC of 14.4 which is down from 16.3 yesterday. His urine tox screen on arrival was positive for benzodiazepines and alcohol level less than 3. PAST MEDICAL HISTORY No history of hypertension or diabetes. Questionable seizures. PAST SURGICAL HISTORY Previous renal surgery as a child. SOCIAL HISTORY Smoker. Active drinker. No history of substance use. ALLERGIES No known drug allergies. MEDICATIONS Current medications: 1. Albuterol. 2. Azithromycin. 3. Zosyn. 4. Bumex. 5. Multivitamin. 6. Folic acid. 7. Thiamine. 8. Ativan p.r.n. FAMILY HISTORY Noncontributory. REVIEW OF SYSTEMS As per HPI. The rest of the review of systems is unremarkable. PHYSICAL EXAMINATION GENERAL: A 56-year-old male lying in bed in mild respiratory distress. VITAL SIGNS: Afebrile with temperature 97.8, pulse 101, respiratory rate 20s, blood pressure 114/57, saturation 96% on a non-rebreather. HEENT: Atraumatic, normocephalic. Pupils equal, round and reactive to light and accommodation. Extraocular muscles intact. Conjunctiva pink. Non-icteric sclera. Oral mucosa within normal. NECK: Supple. No JVD, adenopathy or thyromegaly. Trachea in the midline. CARDIOVASCULAR: Tachycardic. Normal S1, S2. No murmurs, rubs or gallops noted. PULMONARY: Bilateral equal entry with coarse breath sounds and rhonchi. ABDOMEN: Soft, nontender, no distension. Positive bowel sounds. EXTREMITIES: No clubbing, cyanosis or edema. NEUROLOGIC: No focal sensory deficit. LABORATORY DATA Sodium 138, potassium 3.5, chloride 105, CO2 23, BUN 5, creatinine 0.51, glucose 87. WBC 14.4, hemoglobin 10, hematocrit 30, platelet count 155. Urine drug screen positive for benzodiazepines. RADIOGRAPHIC STUDIES A chest x-ray from earlier today showed worsening bilateral pulmonary infiltrates. Doppler ultrasound of the lower extremity from November 25 showed no evidence of DVT. Multiple large lymph nodes in the left groin measuring 3.6 cm. CHEST: CT from November 24 showed diffuse bilateral airspace disease with air bronchograms greater within the upper lobes. HIDA scan from November 23 showed no evidence for cystic duct or common duct obstruction. IMPRESSION 1. Acute hypoxemic and hypercapnic respiratory failure. 2. Diffuse bilateral pulmonary infiltrates. Differential diagnosis fluid overload versus infectious process. 3. Leukocytosis, WBC trending down. 4. Anemia. 5. COPD. 6. ETOH and nicotine use. RECOMMENDATIONS 1. Monitor neuro status closely. Avoid any sedatives. 2. Wean down oxygen as tolerated and maintain sats above 92%. 3. Bronchodilators in the form of DuoNeb q.4h. plus q.2h. p.r.n. for shortness of breath. 4. Continue with IV steroids. The patient is on Solu-Medrol [address] Crain from the pulmonary service is following. 5. Non-invasive positive pressure ventilation p.r.n. for respiratory distress. Will repeat an ABG now. If there is any worsening in clinical condition will proceed with intubation and mechanical ventilation. 6. Monitor heart rate and blood pressure closely and maintain MAP greater than 65 mmHg. 7. Monitor renal function, I's and O's, and electrolyte replacement as needed. Continue with diuretics. The patient was given Bumex 2 mg IV push x1 and now on Bumex 1 mg IV daily. He had a good response with a urine output of three liters since diuretic was given. 8. Repeat a chest x-ray in the a.m. 9. Continue with antibiotics per ID. The patient is currently on azithromycin, vancomycin and Zosyn. Monitor for signs of infections which include fever and WBC. His blood cultures from November 23 and sputum culture from November 24 showed no growth to date. In addition his nasal washing for influenza is negative. 10.Monitor CBC. 11.Sliding scale insulin with Accu-Cheks if needed for glycemic control. 12.The patient is on a p.o. heart-healthy diet. 13.No indication for GI prophylaxis. 14.DVT prophylaxis with SCDs and Lovenox subcu daily. Doppler ultrasound of the lower extremity from November 25 showed no evidence of any DVT. Critical care time 40 minutes excluding procedures. Case discussed with Dr. Krause from [facility] and ICU nursing staff. MD SARAH Brown/MEET /1:28 PM /2:53 PM
--- NOTE | 2016-11-27 15:45 | HHI.IDPN ---
Note Infectious Disease Note Patient is in stretcher. Notes reviewed. On 100% NRM. Appears confused. Still with cough, no sputum. CXR still showing diffuse infiltrates. Afebrile. Seen for left lower extremity erythema. PAST MEDICAL HISTORY 1. Alcohol abuse. 2. Kidney surgery. 3. Myocardial infarction. ALLERGIES NO KNOWN DRUG ALLERGIES. ANTIBIOTICS 1. Vancomycin. 2. Piperacillin/tazobactam. 3. Azithromycin. SOCIAL HISTORY The patient smokes one-half pack of cigarettes a day. Positive alcohol use daily. Denies illicit drugs. The patient is homeless. OBJECTIVE: Vital Signs Date Time Temp Pulse Resp B/P Pulse Ox O2 Delivery O2 Flow Rate FiO2 11/27/16 08:01 96 Non-Rebreather 15.00 11/27/16 06:00 101 11/27/16 04:00 97.8 104 28 114/57 92 11/27/16 04:00 104 11/27/16 02:00 100 11/27/16 00:00 92 11/27/16 00:00 97.8 104 28 114/57 92 11/26/16 22:00 92 11/26/16 21:01 24 11/26/16 20:24 92 Nasal Cannula 6.00 11/26/16 20:00 Nasal Cannula 6.00 11/26/16 20:00 97.4 97 28 115/75 11/26/16 20:00 97 11/26/16 11/26/16 11/27/16 15:00 23:00 07:00 Intake Total 1858 ml 890 ml Output Total 100 ml 400 ml Balance 1758 ml 490 ml Intake Oral 840 ml 240 ml IV Total 1018 ml 650 ml Output Urine Total 100 ml 400 ml # Voids 2 # Bowel Movements 0 0 Laboratory Tests Test 11/27/16 05:13 White Blood Count 14.4 TH/MM3 Red Blood Count 3.07 MIL/MM3 Hemoglobin 10.0 GM/DL Hematocrit 30.1 % Mean Corpuscular Volume 97.8 FL Mean Corpuscular Hemoglobin 32.5 PG Mean Corpuscular Hemoglobin 33.2 % Concent Red Cell Distribution Width 13.4 % Platelet Count 155 TH/MM3 Mean Platelet Volume 7.9 FL Neutrophils (%) (Auto) 92.6 % Lymphocytes (%) (Auto) 4.6 % Monocytes (%) (Auto) 2.7 % Eosinophils (%) (Auto) 0.0 % Basophils (%) (Auto) 0.1 % Neutrophils # (Auto) 13.3 TH/MM3 Lymphocytes # (Auto) 0.7 TH/MM3 Monocytes # (Auto) 0.4 TH/MM3 Eosinophils # (Auto) 0.0 TH/MM3 Basophils # (Auto) 0.0 TH/MM3 CBC Comment DIFF FINAL Differential Comment Laboratory Tests Test 11/27/16 05:23 Sodium Level 143 MEQ/L Potassium Level 3.8 MEQ/L Chloride Level 106 MEQ/L Carbon Dioxide Level 30.5 MEQ/L Anion Gap 7 MEQ/L Blood Urea Nitrogen 14 MG/DL Creatinine 0.51 MG/DL Estimat Glomerular Filtration 168 ML/MIN Rate Random Glucose 119 MG/DL Calcium Level 8.4 MG/DL Microbiology Date/Time Procedure Status Source Growth 11/25/16 00:44 Influenza Types A,B Antigen (JAYNA) - Final Complete Nasal Washing NEGATIVE FOR FLU A AND B ANTIGEN.... IMAGING: Chest X-Ray 11/27/16 0000 Signed Impressions: Service Date/Time: Sunday, November 27, 2016 08:06 - CONCLUSION: 1. Interval worsening severe bilateral pulmonary infiltrates consistent with worsening pulmonary edema versus pneumonia. Clinical correlation is recommended. 2. Cardiomegaly. 3. Small bilateral pleural effusions. Abilio Pa MD Lower Extremity Ultrasound 11/25/16 0000 Signed Impressions: Service Date/Time: Friday, November 25, 2016 13:42 - CONCLUSION: 1. No DVT. 2. Multiple large lymph nodes in the left groin the largest measuring 3.6 cm. Jonhson Riggins MD Chest X-Ray 11/25/16 0000 Signed Impressions: Service Date/Time: Friday, November 25, 2016 10:39 - CONCLUSION: Worsening bilateral airspace disease. Probable small left-sided pleural effusion. Johnson Riggins MD Chest CT 11/24/16 0824 Signed Impressions: Service Date/Time: Thursday, November 24, 2016 08:44 - CONCLUSION: 1. Diffuse bilateral airspace disease with air bronchograms greater within the upper lobes. This could be multilobar pneumonia versus edema. 2. Small bilateral pleural effusions. 3. Coronary artery calcifications and nonspecific mediastinal adenopathy. 4. Enlargement of the pulmonary trunk suggesting arterial hypertension. Johnson Riggins MD Hepatobiliary Scan Nuclear Medicine 11/23/16 0000 Signed Impressions: Service Date/Time: Wednesday, November 23, 2016 12:49 - CONCLUSION: 1. There is no evidence for cystic duct or common duct obstruction. 2. Moderate biliary enteric reflux. Huber Aguilar MD FACR Liver Ultrasound 11/22/16 0000 Signed Impressions: Service Date/Time: November 16:50 - CONCLUSION: 1. Mildly enlarged and heterogeneous liver without a focal hepatic lesion. No perceptible hepatic nodularity. 2. Trace pericholecystic fluid and borderline gallbladder wall thickening. These findings are demonstrated in the setting of no illicited sonographic Greenberg sign and presumably on the basis of right heart dysfunction or liver disease. No gallstones or ductal dilatation demonstrated. Jose Juan Santillan MD Head CT 11/19/161914 Signed Impressions: Service Date/Time: Saturday, November 19, 2016 20:22 - CONCLUSION: Normal examination for a patient of this age. No significant change has occurred. Trae Jarrett MD Cervical Spine CT 11/19/161914 Signed Impressions: Service Date/Time: Saturday, November 19, 2016 20:22 - CONCLUSION: 1. Moderate degenerative disc disease. No acute bony abnormalities. Trae Jarrett MD PHYSICAL EXAMINATION GENERAL: Patient is awake and alert. On NRM. HEENT: No icterus. Oropharynx - very poor dentition with several erosions at the upper jaw and most of the teeth of the lower jaw are eroded leaving a couple standing teeth with black discoloration. The buccal mucosa is moist. NECK: Supple. No adenopathy LUNGS: diffuse bilateral wheezing and rhonchi. HEART: Regular rate and rhythm with normal S1 and S2. ABDOMEN: Bowel sounds present, soft, no tenderness. EXTREMITIES: The left lower extremity has decreased erythema from the knee down to the ankle. There is 1+ edema at the left lower extremity. The left leg is warm to touch. There is an excoriated lesion at the anterior distal tibia, it is dried. The patient has multiple abrasions at the left forearm at the lateral aspect and he is wearing a sling on the right upper extremity. 1- edema at extremities. SKIN: No diffuse rash. NEUROLOGIC: No focal findings. PSYCHIATRIC: The patient calm. IMPRESSION 1. Cellulitis of the left lower extremity. improving. 2. Pneumonia versus CHF vs other cause in patient with abnormal CT scan of the chest showing diffuse bilateral airspace disease with air bronchograms greater within the upper lobes. infiltrates worse. Also with left inguinal adenopathy. RECOMMENDATIONS 1. Continue Vancomycin. 2. Continue piperacillin/tazobactam. 3. Add Zithromax. 4. Add Levaquin. 5. Consider bronchoscopy. 6. HIV test. Patient agreeable. Counseled by myself. 7. Monitor clinical status. 8. Monitor the leg cellulitis response to antibiotics. Juancarlos Ackerman MD Nov 27, 2016 15:45
[2016-11-27] MEDS: LEVOFLOXACIN 750 MG PREMIX INJ 150 ML IV SCH (16:00)
[2016-11-27] MEDS ORDERED: VANCOMYCIN INJ 1,500 MG in SODIUM CHLORID 0.9% 500 ML INJ 500 ML IV SCH (17:00)
[2016-11-27 17:30] LABS: VANCOMYCIN TROUGH 18.1 MCG/ML (5.0-10.0)
[2016-11-27] MEDS: INSULIN NovoLIN REGULAR SUPPLEMENTAL SCALE SQ SCH (20:00)
--- NOTE | 2016-11-27 20:06 | HHI.PR ---
Subjective Remarks 56 YOWM with COPD,Bilat lung infilt Has cough and sp Refuses Nebs treatments On NRB Diureased 5 Lit Objective Vital Signs Vital Signs Date Time Temp Pulse Resp B/P Pulse Ox O2 Delivery O2 Flow Rate FiO2 11/27/16 08:01 96 Non-Rebreather 15.00 11/27/16 06:00 101 11/27/16 04:00 97.8 104 28 114/57 92 11/27/16 04:00 104 11/27/16 02:00 100 11/27/16 00:00 92 11/27/16 00:00 97.8 104 28 114/57 92 11/26/16 22:00 92 11/26/16 21:01 24 11/26/16 20:24 92 Nasal Cannula 6.00 I/O 11/26/16 11/26/16 11/26/16 11/27/16 11/27/16 11/27/16 07:00 15:00 23:00 07:00 15:00 23:00 Intake Total 757 ml 1858 ml 890 ml 202 ml Output Total 225 ml 100 ml 400 ml 3825 ml 800 ml Balance 532 ml 1758 ml 490 ml -3623 ml -800 ml Intake Oral 120 ml 840 ml 240 ml 30 ml IV Total 637 ml 1018 ml 650 ml 172 ml Output Urine Total 225 ml 100 ml 400 ml 3825 ml 800 ml # Voids 2 # Bowel Movements 0 0 0 0 Result Diagram: 11/27/1613 11/27/16 0523 Objective Remarks GENERAL: WBWN Male mod sob SKIN: Warm and dry. HEAD: Normocephalic. EYES: No scleral icterus. No injection or drainage. NECK: Supple, trachea midline. No JVD or lymphadenopathy. CARDIOVASCULAR: Regular rate and rhythm without murmurs, gallops, or rubs. RESPIRATORY: Breath sounds equal bilaterally. No accessory muscle use. Exp rhonchi GASTROINTESTINAL: Abdomen soft, non-tender, nondistended. MUSCULOSKELETAL: No cyanosis, or edema. BACK: Nontender without obvious deformity. No CVA tenderness. A/P Assessment and Plan COPD Exac Resp Insuff Bilat Pn ETOH use Nicotine use PLAN: Supplement 02 to keep sat >90% Aerosol nebs Abx Vanco and Zosyn IV Solumedrol Acapella q 1 hr Diurease Monitor lytes Aneja,Monty Dev MD Nov 27, 2016 20:06
[2016-11-27] MEDS: oxyCODONE/ACETAMINOPHEN 5 MG/325 MG TAB PO PRN (20:35)
[2016-11-27] MEDS: CHLORHEXIDINE GLUCONATE 2 % 1 PACK (2 CLOTHS)(taper/protocol) TOP SCH (20:37)
[2016-11-27] MEDS: REMOVE OLD NICODERM (NICOTINE) PATCH TD SCH (21:00)
[2016-11-28] VITALS (17 sets, daily range): BP systolic 106–130; BP diastolic 60–77; PULSE 74–101; RESP 20–27; TEMP 98.1–98.6; O2SAT 92–100
[2016-11-28] MEDS: LORazepam 2 MG/ML VIAL IV PUSH PRN ×3 (00:35→22:31)
[2016-11-28] MEDS: INSULIN NovoLIN REGULAR SUPPLEMENTAL SCALE SQ SCH ×4 (01:44→20:00)
[2016-11-28] MEDS: oxyCODONE/ACETAMINOPHEN 5 MG/325 MG TAB PO PRN (02:19)
[2016-11-28] MEDS: RESP: ALBUTEROL 1.25 MG/3 ML NEB (PRN) NEB (02:40)
[2016-11-28] MEDS: methylPREDNISolone SOD SUCC 125 MG/2 ML VIAL IV PUSH SCH ×4 (04:39→20:41)
[2016-11-28] MEDS: PIPERACIL-TAZO 4.5 GM PREMIX 100 ML IV SCH ×3 (04:40→16:55)
--- NOTE | 2016-11-28 05:27 | RADRPT ---
EXAM DATE/TIME: 11/28/2016 03:37 [facility] COMPARISON: CHEST SINGLE AP, November 27, 2016, 8:06. INDICATIONS : Shortness of breath. MEDICAL HISTORY : Myocardial infarction. Cardiovascular disease. Seizures SURGICAL HISTORY : None. ENCOUNTER: Subsequent ACUITY: 1 week PAIN SCORE: Non-responsive. LOCATION: Bilateral chest FINDINGS: Diffuse bilateral pulmonary consolidation is stable. Cardiomegaly. Degenerative changes of the spine. CONCLUSION: No significant change has occurred. Bar Sandhu MD on November 28, 2016 at 5:25 Board Certified Radiologist. This report was verified electronically.
[2016-11-28 06:10] LABS: AUTOMATED NEUTROPHIL # 10.6 TH/MM3 (1.8-7.7); BASOPHIL % 0.1 % (0.0-2.0); HEMATOCRIT 27.4 % (39.0-51.0); HEMO FLAGS DIFF FINAL; LYMPH % 7.5 % (9.0-44.0); LYMPHOCYTE # 0.9 TH/MM3 (1.0-4.8); MEAN CELL VOLUME 97.4 FL (80.0-100.0); MEAN CORPUSCULAR HEMOGLOBIN 32.9 PG (27.0-34.0); MEAN CORPUSCULAR HGB CONC 33.8 % (32.0-36.0); MONO % 3.8 % (0.0-8.0); NEUT % 88.6 % (16.0-70.0); PLATELET COUNT 169 TH/MM3 (150-450); RED BLOOD COUNT 2.81 MIL/MM3 (4.50-5.90); RED CELL DISTRIBUTION WIDTH 13.4 % (11.6-17.2)
[2016-11-28 06:41] LABS: BICARBONATE 33.7 MEQ/L (21.0-32.0); MAGNESIUM 2.3 MG/DL (1.5-2.5); POTASSIUM 3.5 MEQ/L (3.5-5.1)
[2016-11-28] MEDS: RESP: ALBUTEROL 2.5 MG/IPRATROPIUM 0.5 MG NEB (SCH) NEB ×4 (07:36→20:30)
[2016-11-28] MEDS: SODIUM CHLORIDE 0.9% FLUSH 5 ML FLUSH FLUSH SCH ×2 (09:00→20:40)
[2016-11-28] MEDS: NICOTINE 14 MG/24 HR PATCH TD SCH (09:22)
[2016-11-28] MEDS: ENOXAPARIN SODIUM 30 MG/0.3 ML SYRINGE SQ SCH (09:22)
[2016-11-28] MEDS: BUMETANIDE INJ 1 MG/4 ML VIAL IV PUSH SCH (09:23)
[2016-11-28] MEDS: guaiFENesin E.R. 600 MG TAB PO SCH ×2 (09:23→20:39)
[2016-11-28] MEDS: THIAMINE HCL 100 MG TAB PO SCH (09:23)
[2016-11-28] MEDS: POTASSIUM CHLORIDE 20 MEQ CONTROLLED RELEASE TAB PO SCH (09:24)
[2016-11-28] MEDS: VANCOMYCIN INJ 1,500 MG in SODIUM CHLORID 0.9% 500 ML INJ 500 ML IV SCH (12:00)
--- NOTE | 2016-11-28 13:08 | HHI.IDPN ---
Note Infectious Disease Note Patient in no distress. Notes reviewed. On 100% NRM. desaturates when O2 mask not on. Confused. Still with cough, no sputum. CXR continues to show diffuse infiltrates. Afebrile. HIV negative. Seen for left lower extremity erythema. PAST MEDICAL HISTORY 1. Alcohol abuse. 2. Kidney surgery. 3. Myocardial infarction. ALLERGIES NO KNOWN DRUG ALLERGIES. ANTIBIOTICS 1. Vancomycin. 2. Piperacillin/tazobactam. 3. Azithromycin. SOCIAL HISTORY The patient smokes one-half pack of cigarettes a day. Positive alcohol use daily. Denies illicit drugs. The patient is homeless. OBJECTIVE: Vital Signs Date Time Temp Pulse Resp B/P Pulse Ox O2 Delivery O2 Flow Rate FiO2 11/28/16 12:00 92 11/28/16 12:00 98.3 74 23 106/73 96 11/28/16 10:00 101 11/28/16 08:06 92 Non-Rebreather 15.00 11/28/16 08:00 98.2 74 24 114/72 97 11/28/16 08:00 82 11/28/16 07:36 94 BiPAP 60 11/28/16 07:36 94 60 11/28/16 07:00 93 Bi-Pap 11/28/16 06:00 77 11/28/16 04:22 92 60 11/28/16 04:00 75 11/28/16 04:00 98.6 75 20 107/66 97 11/28/16 02:51 92 80 11/28/16 02:00 89 11/28/16 00:00 98.4 80 27 119/77 96 11/28/16 00:00 80 11/27/16 22:00 88 11/27/16 20:35 94 Non-Rebreather 15.00 100 11/27/16 20:00 81 11/27/16 20:00 98.9 81 24 111/80 93 11/27/16 19:00 Non-Rebreather 11/27/16 11/27/16 11/28/16 15:00 23:00 07:00 Intake Total 202 ml 850 ml 855 ml Output Total 3825 ml 1300 ml 650 ml Balance -3623 ml -450 ml 205 ml Intake Oral 30 ml 500 ml IV Total 172 ml 850 ml 355 ml Output Urine Total 3825 ml 1300 ml 650 ml Bladder Scan Volume Amount 38 ml # Bowel Movements 0 Laboratory Tests Test 2/7/17 2/8/17 05:13 04:49 White Blood Count 14.4 TH/MM3 12.0 TH/MM3 Red Blood Count 3.07 MIL/MM3 2.81 MIL/MM3 Hemoglobin 10.0 GM/DL 9.3 GM/DL Hematocrit 30.1 % 27.4 % Mean Corpuscular Volume 97.8 FL 97.4 FL Mean Corpuscular Hemoglobin 32.5 PG 32.9 PG Mean Corpuscular Hemoglobin 33.2 % 33.8 % Concent Red Cell Distribution Width 13.4 % 13.4 % Platelet Count 155 TH/MM3 169 TH/MM3 Mean Platelet Volume 7.9 FL 7.9 FL Neutrophils (%) (Auto) 92.6 % 88.6 % Lymphocytes (%) (Auto) 4.6 % 7.5 % Monocytes (%) (Auto) 2.7 % 3.8 % Eosinophils (%) (Auto) 0.0 % 0.0 % Basophils (%) (Auto) 0.1 % 0.1 % Neutrophils # (Auto) 13.3 TH/MM3 10.6 TH/MM3 Lymphocytes # (Auto) 0.7 TH/MM3 0.9 TH/MM3 Monocytes # (Auto) 0.4 TH/MM3 0.4 TH/MM3 Eosinophils # (Auto) 0.0 TH/MM3 0.0 TH/MM3 Basophils # (Auto) 0.0 TH/MM3 0.0 TH/MM3 CBC Comment DIFF FINAL DIFF FINAL Differential Comment Laboratory Tests Test 11/27/16 11/27/16 11/28/16 05:23 14:45 04:48 Sodium Level 143 MEQ/L 144 MEQ/L Potassium Level 3.8 MEQ/L 3.5 MEQ/L Chloride Level 106 MEQ/L 103 MEQ/L Carbon Dioxide Level 30.5 MEQ/L 33.7 MEQ/L Anion Gap 7 MEQ/L 7 MEQ/L Blood Urea Nitrogen 14 MG/DL 12 MG/DL Creatinine 0.51 MG/DL 0.54 MG/DL Estimat Glomerular Filtration 168 ML/MIN 157 ML/MIN Rate Random Glucose 119 MG/DL 110 MG/DL Calcium Level 8.4 MG/DL 8.3 MG/DL Lactate Dehydrogenase 319 U/L Phosphorus Level 2.8 MG/DL Magnesium Level 2.3 MG/DL Microbiology Date/Time Procedure Status Source Growth 11/25/16 00:44 Influenza Types A,B Antigen (JAYNA) - Final Complete Nasal Washing NEGATIVE FOR FLU A AND B ANTIGEN.... IMAGING: Chest X-Ray 11/28/16 0000 Signed Impressions: Service Date/Time: Monday, November 28, 2016 03:37 - CONCLUSION: No significant change has occurred. Bar Sandhu MD Chest X-Ray 11/27/16 0000 Signed Impressions: Service Date/Time: Sunday, November 27, 2016 08:06 - CONCLUSION: 1. Interval worsening severe bilateral pulmonary infiltrates consistent with worsening pulmonary edema versus pneumonia. Clinical correlation is recommended. 2. Cardiomegaly. 3. Small bilateral pleural effusions. Abilio Pa MD Lower Extremity Ultrasound 11/25/16 0000 Signed Impressions: Service Date/Time: Friday, November 25, 2016 13:42 - CONCLUSION: 1. No DVT. 2. Multiple large lymph nodes in the left groin the largest measuring 3.6 cm. Johnson Riggins MD Chest X-Ray 11/25/16 0000 Signed Impressions: Service Date/Time: Friday, November 25, 2016 10:39 - CONCLUSION: Worsening bilateral airspace disease. Probable small left-sided pleural effusion. Johnson Riggins MD Chest CT 11/24/16 0824 Signed Impressions: Service Date/Time: Thursday, November 24, 2016 08:44 - CONCLUSION: 1. Diffuse bilateral airspace disease with air bronchograms greater within the upper lobes. This could be multilobar pneumonia versus edema. 2. Small bilateral pleural effusions. 3. Coronary artery calcifications and nonspecific mediastinal adenopathy. 4. Enlargement of the pulmonary trunk suggesting arterial hypertension. Johnson Riggins MD Hepatobiliary Scan Nuclear Medicine 11/23/16 0000 Signed Impressions: Service Date/Time: Wednesday, November 23, 2016 12:49 - CONCLUSION: 1. There is no evidence for cystic duct or common duct obstruction. 2. Moderate biliary enteric reflux. Huber Aguilar MD FACR Liver Ultrasound 11/22/16 0000 Signed Impressions: Service Date/Time: November 16:50 - CONCLUSION: 1. Mildly enlarged and heterogeneous liver without a focal hepatic lesion. No perceptible hepatic nodularity. 2. Trace pericholecystic fluid and borderline gallbladder wall thickening. These findings are demonstrated in the setting of no illicited sonographic Greenberg sign and presumably on the basis of right heart dysfunction or liver disease. No gallstones or ductal dilatation demonstrated. Jose Juan Santillan MD Head CT 11/19/161914 Signed Impressions: Service Date/Time: Saturday, November 19, 2016 20:22 - CONCLUSION: Normal examination for a patient of this age. No significant change has occurred. Trae Jarrett MD Cervical Spine CT 11/19/161914 Signed Impressions: Service Date/Time: Saturday, November 19, 2016 20:22 - CONCLUSION: 1. Moderate degenerative disc disease. No acute bony abnormalities. Trae Jarrett MD PHYSICAL EXAMINATION GENERAL: Patient is awake and alert. On NRM. HEENT: No icterus. Oropharynx - very poor dentition. The buccal mucosa is moist. NECK: Supple. No adenopathy LUNGS: Diffuse bilateral wheezing and rhonchi. HEART: Regular rate and rhythm with normal S1 and S2. ABDOMEN: Bowel sounds present, soft, no tenderness. EXTREMITIES: The left lower extremity erythema has significantly improved. Multiple abrasions at the left forearm at the lateral aspect and he is wearing a sling on the right upper extremity. 1- edema at extremities. SKIN: No diffuse rash. NEUROLOGIC: No focal findings. PSYCHIATRIC: The patient calm. IMPRESSION 1. Cellulitis of the left lower extremity. improving. 2. Pneumonia versus CHF vs other cause in patient with abnormal CT scan of the chest showing diffuse bilateral airspace disease with air bronchograms greater within the upper lobes. infiltrates worse. Also with left inguinal adenopathy. RECOMMENDATIONS 1. Continue Vancomycin. 2. Continue piperacillin/tazobactam. 3. Continue Zithromax. 4. Continue Levaquin. 5. Consider bronchoscopy. 6. Monitor clinical status. 7. Monitor the leg cellulitis response to antibiotics. Juancarlos Ackerman MD Nov 28, 2016 13:08
[2016-11-28 15:30] LABS: MYCOPLASMA PNEUMONIAE S BY IFA Positive (Negative)
--- NOTE | 2016-11-28 15:36 | HHI.CCPN ---
Objective Vital Signs Date Time Temp Pulse Resp B/P Pulse Ox O2 Delivery O2 Flow Rate FiO2 11/28/16 12:00 92 11/28/16 12:00 98.3 23 106/73 96 11/28/16 08:06 Non-Rebreather 15.00 11/28/16 07:36 60 Intake and Output 11/27/16 11/27/16 11/28/16 08:00 16:00 00:00 Intake Total 890 ml 202 ml 850 ml Output Total 400 ml 4625 ml 500 ml Balance 490 ml -4423 ml 350 ml Result Diagram: 11/28/16 0449 11/28/16 0448 A/P Problem List: (1) Hyponatremia ICD Code: E87.1 Status: Acute (2) Chronic alcohol abuse ICD Code: F10.10 Status: Chronic (3) Respiratory failure ICD Code: J96.90 Status: Acute Assessment and Plan 1. Monitor neuro status closely. Avoid any sedatives. 2. Wean off oxygen as tolerated and maintain sats above 92%. 3. Continue Bronchodilators in the form of DuoNeb q.4h. plus q.2h. p.r.n. for shortness of breath. 4. Continue with IV steroids. The patient is on Solu-Medrol [address] Crain from the pulmonary service is following. 5. Non-invasive positive pressure ventilation p.r.n. for respiratory distress. 6. Monitor heart rate and blood pressure closely and maintain MAP greater than 65 mmHg. 7. Monitor renal function, I's and O's, and electrolyte replacement as needed. Continue with diuretics. The patient was given Bumex 2 mg IV push x1 and now on Bumex 1 mg IV daily. He continues to have a good response with a urine output of three liters since diuretic was given. 8. Repeat a chest x-ray in the tomorrow a.m. 9. Continue with antibiotics per ID. The patient is currently on azithromycin, vancomycin and Zosyn. Monitor for signs of infections which include fever and WBC. His blood cultures from November 23 and sputum culture from November 24 showed no growth to date. In addition his nasal washing for influenza is negative. 10.Monitor CBC. 11.Sliding scale insulin with Accu-Cheks if needed for glycemic control. 12.The patient is on a p.o. heart-healthy diet. 13.No indication for GI prophylaxis. 14.DVT prophylaxis with SCDs and Lovenox subcu daily. Doppler ultrasound of the lower extremity from November 25 showed no evidence of any DVT. Patient has been comfortable on BiPAP HS and supplemental oxygen during a day. He is clinically improving and does not require intubation. He is already followed by pulmonary service for respiratory distress and infectious disease for antibiotic management. Patient is hemodynamically stable. Critical care medicine will sign off. Please reconsult us if needed. Thank you very much for allowing us to participate in care of this pleasant gentleman. Clemente Huang MD Nov 28, 2016 15:36
--- NOTE | 2016-11-28 16:45 | HHI.PR ---
Subjective Remarks 56 YOWM with COPD,Bilat lung infilt Has cough and sp Refuses Nebs treatments On NRB Desaturates Usd CPAP last night Objective Vital Signs Vital Signs Date Time Temp Pulse Resp B/P Pulse Ox O2 Delivery O2 Flow Rate FiO2 11/28/16 16:00 94 11/28/16 16:00 98.1 98 24 112/67 95 11/28/16 14:00 97 11/28/16 12:00 92 11/28/16 12:00 98.3 74 23 106/73 96 11/28/16 10:00 101 11/28/16 08:06 92 Non-Rebreather 15.00 11/28/16 08:00 98.2 74 24 114/72 97 11/28/16 08:00 82 11/28/16 07:36 94 BiPAP 60 11/28/16 07:36 94 60 11/28/16 07:00 93 Bi-Pap 11/28/16 06:00 77 11/28/16 04:22 92 60 11/28/16 04:00 75 11/28/16 04:00 98.6 75 20 107/66 97 11/28/16 02:51 92 80 11/28/16 02:00 89 11/28/16 00:00 98.4 80 27 119/77 96 11/28/16 00:00 80 11/27/16 22:00 88 11/27/16 20:35 94 Non-Rebreather 15.00 100 11/27/16 20:00 81 11/27/16 20:00 98.9 81 24 111/80 93 11/27/16 19:00 Non-Rebreather I/O 11/27/16 11/27/16 11/27/16 11/28/16 11/28/16 11/28/16 07:00 15:00 23:00 07:00 15:00 23:00 Intake Total 890 ml 202 ml 850 ml 855 ml Output Total 400 ml 3825 ml 1300 ml 650 ml Balance 490 ml -3623 ml -450 ml 205 ml Intake Oral 240 ml 30 ml 500 ml IV Total 650 ml 172 ml 850 ml 355 ml Output Urine Total 400 ml 3825 ml 1300 ml 650 ml Bladder Scan Volume Amount 38 ml 38 ml # Bowel Movements 0 0 Result Diagram: 11/28/16 0449 11/28/16 0448 Objective Remarks GENERAL: WBWN Male mod sob SKIN: Warm and dry. HEAD: Normocephalic. EYES: No scleral icterus. No injection or drainage. NECK: Supple, trachea midline. No JVD or lymphadenopathy. CARDIOVASCULAR: Regular rate and rhythm without murmurs, gallops, or rubs. RESPIRATORY: Breath sounds equal bilaterally. No accessory muscle use. Exp rhonchi GASTROINTESTINAL: Abdomen soft, non-tender, nondistended. MUSCULOSKELETAL: No cyanosis, or edema. BACK: Nontender without obvious deformity. No CVA tenderness. A/P Assessment and Plan COPD Exac Resp Insuff Bilat Pn ETOH use Nicotine use PLAN: Supplement 02 to keep sat >90% Aerosol nebs Abx Vanco and Zosyn IV Solumedrol Acapella q 1 hr Diurease Monitor lytes CPAP at night and PRN Monty Crain MD Nov 28, 2016 16:45
[2016-11-28] MEDS: AZITHROMYCIN INJ 500 MG in SODIUM CHLOR 0.9% 250 ML INJ 250 ML IV SCH (16:55)
[2016-11-28] MEDS: LEVOFLOXACIN 750 MG PREMIX INJ 150 ML IV SCH (16:55)
[2016-11-28] MEDS ORDERED: VANCOMYCIN INJ 1,500 MG in SODIUM CHLORID 0.9% 500 ML INJ 500 ML IV SCH (17:00)
[2016-11-28] MEDS: REMOVE OLD NICODERM (NICOTINE) PATCH TD SCH (20:40)
[2016-11-29] VITALS (12 sets, daily range): BP systolic 108–129; BP diastolic 56–64; PULSE 83–123; RESP 16–22; TEMP 98.2–98.7; O2SAT 92–100
[2016-11-29] MEDS: LORazepam 2 MG/ML VIAL IV PUSH PRN ×4 (00:10→21:02)
[2016-11-29] MEDS: INSULIN NovoLIN REGULAR SUPPLEMENTAL SCALE SQ SCH ×4 (02:00→20:00)
[2016-11-29] MEDS: CHLORHEXIDINE GLUCONATE 2 % 1 PACK (2 CLOTHS)(taper/protocol) TOP SCH (04:00)
[2016-11-29] MEDS: methylPREDNISolone SOD SUCC 125 MG/2 ML VIAL IV PUSH SCH ×3 (04:09→16:41)
[2016-11-29] MEDS: PIPERACIL-TAZO 4.5 GM PREMIX 100 ML IV SCH ×4 (04:10→16:41)
[2016-11-29] MEDS: VANCOMYCIN INJ 1,500 MG in SODIUM CHLORID 0.9% 500 ML INJ 500 ML IV SCH (04:50)
[2016-11-29] MEDS ORDERED: DEXMEDETOMIDINE INJ 50 ML IV SCH (05:15)
[2016-11-29 05:55] LABS: AUTOMATED NEUTROPHIL # 11.8 TH/MM3 (1.8-7.7); BASOPHIL % 0.2 % (0.0-2.0); EOSINOPHIL % 0.1 % (0.0-4.0); HEMATOCRIT 30.9 % (39.0-51.0); HEMO FLAGS DIFF FINAL; LYMPH % 11.6 % (9.0-44.0); LYMPHOCYTE # 1.6 TH/MM3 (1.0-4.8); MEAN CELL VOLUME 98.5 FL (80.0-100.0); MEAN CORPUSCULAR HEMOGLOBIN 31.8 PG (27.0-34.0); MEAN CORPUSCULAR HGB CONC 32.3 % (32.0-36.0); MONO % 3.2 % (0.0-8.0); NEUT % 84.9 % (16.0-70.0); PLATELET COUNT 203 TH/MM3 (150-450); RED BLOOD COUNT 3.14 MIL/MM3 (4.50-5.90); RED CELL DISTRIBUTION WIDTH 13.8 % (11.6-17.2); WHITE BLOOD COUNT 13.9 TH/MM3 (4.0-11.0)
[2016-11-29 06:03] LABS: ALT (GPT) 26 U/L (12-78); ANION GAP 6 MEQ/L (5-15); AST (GOT) 26 U/L (15-37); BICARBONATE 36.2 MEQ/L (21.0-32.0); BLOOD UREA NITROGEN 12 MG/DL (7-18); CHLORIDE 102 MEQ/L (98-107); GLOMERULAR FILTRATION RATE 168 ML/MIN (>89); MAGNESIUM 2.3 MG/DL (1.5-2.5); POTASSIUM 3.3 MEQ/L (3.5-5.1); SODIUM (NA) 144 MEQ/L (136-145)
[2016-11-29 06:05] LABS: ALKALINE PHOSPHATASE 77 U/L (45-117); TOTAL BILIRUBIN ADULT 0.3 MG/DL (0.2-1.0)
[2016-11-29] MEDS: chlordiazePOXIDE 25 MG CAP PO SCH ×2 (08:45→16:40)
[2016-11-29] MEDS: THIAMINE HCL 100 MG TAB PO SCH (08:45)
[2016-11-29] MEDS: guaiFENesin E.R. 600 MG TAB PO SCH ×2 (08:46→21:02)
[2016-11-29] MEDS: POTASSIUM CHLORIDE 20 MEQ CONTROLLED RELEASE TAB PO SCH (08:46)
[2016-11-29] MEDS: ENOXAPARIN SODIUM 30 MG/0.3 ML SYRINGE SQ SCH (08:46)
[2016-11-29] MEDS: BUMETANIDE INJ 1 MG/4 ML VIAL IV PUSH SCH (08:46)
[2016-11-29] MEDS: SODIUM CHLORIDE 0.9% FLUSH 5 ML FLUSH FLUSH SCH (08:47)
[2016-11-29] MEDS: NICOTINE 14 MG/24 HR PATCH TD SCH (09:08)
--- NOTE | 2016-11-29 09:14 | HHI.PR ---
Subjective Remarks f/u; respiratory failure still with some respiratory distress and bilateral wheezing. confused and on four-point restraints. no fever. d/w the RN. Objective Vitals Vital Signs Date Time Temp Pulse Resp B/P Pulse Ox O2 Delivery O2 Flow Rate FiO2 11/29/16 06:00 97 11/29/16 04:00 98.7 123 22 129/59 95 11/29/16 04:00 114 11/29/16 02:00 102 11/29/16 00:00 98.7 109 20 127/64 94 11/29/16 00:00 109 11/28/16 22:49 100 60 11/28/16 22:00 90 11/28/16 20:31 Non-Rebreather 11/28/16 20:00 98.6 83 20 130/60 93 11/28/16 20:00 83 11/28/16 19:00 93 Non-Rebreather 11/28/16 18:00 93 11/28/16 16:00 94 11/28/16 16:00 98.1 98 24 112/67 95 11/28/16 14:00 97 11/28/16 12:00 92 11/28/16 12:00 98.3 74 23 106/73 96 11/28/16 10:00 101 I/O 11/28/16 11/28/16 11/28/16 11/29/16 11/29/16 11/29/16 06:59 14:59 22:59 06:59 14:59 22:59 Intake Total 855 ml 590 ml 832 ml 562 ml Output Total 650 ml 2500 ml 300 ml 800 ml Balance 205 ml -1910 ml 532 ml -238 ml Intake Oral 500 ml 360 ml IV Total 355 ml 230 ml 472 ml 562 ml Other 360 ml Output Urine Total 650 ml 2500 ml 300 ml 800 ml Bladder Scan Volume Amount 38 ml 38 ml 38 ml # Bowel Movements 0 2 Result Diagram: 11/29/16 0413 11/29/16412 Imaging Last Impressions Chest X-Ray 11/28/16 0000 Signed Impressions: Service Date/Time: Monday, November 28, 2016 03:37 - CONCLUSION: No significant change has occurred. Bar Sandhu MD Lower Extremity Ultrasound 11/25/16 0000 Signed Impressions: Service Date/Time: Friday, November 25, 2016 13:42 - CONCLUSION: 1. No DVT. 2. Multiple large lymph nodes in the left groin the largest measuring 3.6 cm. Johnson Riggins MD Chest CT 11/24/1624 Signed Impressions: Service Date/Time: Thursday, November 24, 2016 08:44 - CONCLUSION: 1. Diffuse bilateral airspace disease with air bronchograms greater within the upper lobes. This could be multilobar pneumonia versus edema. 2. Small bilateral pleural effusions. 3. Coronary artery calcifications and nonspecific mediastinal adenopathy. 4. Enlargement of the pulmonary trunk suggesting arterial hypertension. Johnson Riggins MD Hepatobiliary Scan Nuclear Medicine 11/23/16 0000 Signed Impressions: Service Date/Time: Wednesday, November 23, 2016 12:49 - CONCLUSION: 1. There is no evidence for cystic duct or common duct obstruction. 2. Moderate biliary enteric reflux. Huber Aguilar MD FACR Liver Ultrasound 11/22/16 0000 Signed Impressions: Service Date/Time: November 16:50 - CONCLUSION: 1. Mildly enlarged and heterogeneous liver without a focal hepatic lesion. No perceptible hepatic nodularity. 2. Trace pericholecystic fluid and borderline gallbladder wall thickening. These findings are demonstrated in the setting of no illicited sonographic Greenberg sign and presumably on the basis of right heart dysfunction or liver disease. No gallstones or ductal dilatation demonstrated. Jose Juan Santillan MD Head CT 11/19/161914 Signed Impressions: Service Date/Time: Saturday, November 19, 2016 20:22 - CONCLUSION: Normal examination for a patient of this age. No significant change has occurred. Trae Jarrett MD Cervical Spine CT 11/19/161914 Signed Impressions: Service Date/Time: Saturday, November 19, 2016 20:22 - CONCLUSION: 1. Moderate degenerative disc disease. No acute bony abnormalities. Trae Jarrett MD Objective Remarks GENERAL: This is a well-nourished, well-developed patient, in no apparent distress. CARDIOVASCULAR: Regular rate and regular rhythm without murmurs, gallops, or rubs. RESPIRATORY: bilateral rhonchi GASTROINTESTINAL: Abdomen soft, non-tender, nondistended. Normal, active bowel sounds MUSCULOSKELETAL: Extremities with mild bilateral pedal edema NEURO: awake and alert- oriented to person, place and partly to time. Medications and IVs Current Medications IV Flush 2 ml 2 ml UNSCH PRN IVF FLUSH AFTER USING IV ACCESS; Start 11/19/16 at 19:15; Stop 11/20/16 at 06:27; Status DC Sodium Chloride 1,000 ml @ 1,000 mls/hr Q1H ONCE IV Last administered on 20:39; Start 11/19/16 at 19:15; Stop 11/19/16 at 20:14; Status DC Sodium Chloride (NS 1000 ml Inj) 1,000 ml @ 70 mls/hr [id number] IV Last administered on 11/25/16 05:26; Start 11/19/16 at 23:24; Stop 11/25/16 at 10:23; Status DC IV Flush (NS Flush) 2 ml UNSCH PRN FLUSH FLUSH AFTER USING IV ACCESS; Start at 23:30 IV Flush (NS Flush) 2 ml BID FLUSH Last administered on 11/29/16 08:47; Start 11/20/16 at 09:00 Naloxone HCl (Narcan Inj) 0.4 mg UNSCH PRN IV SEE LABEL COMMENTS; Start at 23:30 Flumazenil (Romazicon Inj) 0.2 mg Q1M PRN IV PUSH SEE LABEL COMMENTS; Start at 23:30 Lorazepam (Ativan) 1 mg Q4H PRN PO CIWA 8 - 10; Start 11/19/16 at 23:30 Lorazepam (Ativan Inj) 1 mg Q4H PRN IV PUSH CIWA 8 - 10 Last administered on 22:31; Start 11/19/16 at 23:30 Lorazepam (Ativan) 2 mg Q2H PRN PO CIWA 11-14; Start 11/19/16 at 23:30 Lorazepam (Ativan Inj) 2 mg Q2H PRN IV PUSH CIWA 11-14 Last administered on 11/27 12:59; Start 11/19/16 at 23:30 Lorazepam (Ativan Inj) 2 mg Q1H PRN IV PUSH CIWA 15-20 Last administered on 11/29 08:47; Start 11/19/16 at 23:30 Lorazepam (Ativan Inj) 2 mg Q15M PRN IV PUSH CIWA > 20; Start 11/19/16 at 23:30 Thiamine HCl 100 mg 100 mg DAILY PO Last administered on 11/29/16 08:45; Start 11/20/16 at 09:00 Thiamine HCl/ Sodium Chloride (Thiamine Inj/NS Inj) 101 ml @ 101 mls/hr ONCE ONCE IV Last administered on 11/19/16 23:49; Start 11/19/16 at 23:45; Stop at 00:44; Status DC Enoxaparin Sodium (Lovenox Inj) 30 mg Q24H SQ Last administered on 11/29/16 08: 46; Start 11/20/16 at 09:00 Albuterol Sulfate 1.25 mg 1.25 mg ONCE ONCE NEB Last administered on 19:17; Start 11/20/16 at 17:45; Stop 11/20/16 at 17:50; Status DC Vancomycin HCl 1500 mg/Sodium Chloride 515 ml @ 257.5 mls/ hr ONCE ONCE IV Last administered on 11/21/16 10:58; Start 11/21/16 at 10:00; Stop 11/21/16 at 11: 59; Status DC Pharmacy Profile Note 0 ml @ 0 mls/hr UNSCH OTHER ; Start 11/21/16 at 09:15 Vancomycin HCl/ Sodium Chloride (Vancomycin Inj/ NS 500 ml Inj) 515 ml @ 250 mls/hr Q12H IV Last administered on 11/27/16 16:26; Start 11/21/16 at 23:00; Stop 11/27/16 at 20:40; Status DC Miscellaneous Information SPECIFIC LAB TO BE DRAWN:VANCOMYCIN TROUGH DATE TO... ONCE ONCE XX Last administered on 11/23/16 10:45; Start 11/23/16 at 10:45; Stop 11/23/16 at 10:46; Status DC Levofloxacin/ Dextrose 150 ml @ 100 mls/hr Q24H IV Last administered on 10:47; Start 11/22/16 at 12:00; Stop 11/23/16 at 11:51; Status DC Piperacillin Sod/ Tazobactam Sod (Zosyn 4.5 Gm Premix) 100 ml @ 200 mls/hr Q6H IV Last administered on 11/29/16 04:50; Start 11/22/16 at 12:00 Folic Acid (Folate) 1 mg DAILY PO Last administered on 11/27/16 08:44; Start at 09:00; Stop 11/28/16 at 08:59; Status DC Multivitamins/ Minerals Therapeutic (Theragran M Tab) 1 tab DAILY PO Last administered on 11/27/16 08:44; Start 11/23/16 at 09:00; Stop 11/28/16 at 08:59; Status DC Albuterol/ Ipratropium (Duoneb Neb) 1 ampule ONCE ONCE NEB Last administered on 11/23/16 12:09; Start 11/23/16 at 11:15; Stop 11/23/16 at 11:16; Status DC Albuterol/ Ipratropium (Duoneb Neb) 1 ampule Q6HR WHILE AWAKE NEB NEB Last administered on 11/24/16 19:31; Start 11/23/16 at 14:00; Stop 11/25/16 at 11:17; Status DC Sincalide (Kinevac Inj) 1.7 mcg STK-MED ONCE IV Last administered on 11/23/16 14:27; Start 11/23/16 at 14:27; Stop 11/23/16 at 14:28; Status DC Methylprednisolone Sodium Succinate (SoluMEDROL INJ) 125 mg ONCE ONCE IV PUSH Last administered on 11/23/16 16:37; Start 11/23/16 at 16:30; Stop 11/23/16 at 16: 31; Status DC Methylprednisolone Sodium Succinate (SoluMEDROL INJ) 60 mg Q6H IV PUSH Last administered on 11/24/16 06:17; Start 11/23/16 at 23:00; Stop 11/24/16 at 09:46; Status DC Albuterol Sulfate (Albuterol Neb) 1.25 mg Q2HR NEB PRN NEB SOB/WHEEZING Last administered on 11/28/16 02:40; Start 11/24/16 at 07:15 Nicotine (Habitrol 14 Mg Patch.24 Hr) 1 patch DAILY TD Last administered on 11/28 09:22; Start 11/24/16 at 09:45 Methylprednisolone Sodium Succinate (SoluMEDROL INJ) 40 mg Q6H IV PUSH Last administered on 11/25/16 05:31; Start 11/24/16 at 11:00; Stop 11/25/16 at 11:17; Status DC Miscellaneous Information 1 HS TD Last administered on 11/28/16 20:40; Start at 21:00 Oxycodone/ Acetaminophen (Percocet 5-325 Mg) 1 tab Q6H PRN PO PAIN SCALE 6 TO 10 Last administered on 11/28/16 02:19; Start 11/24/16 at 10:30 Morphine Sulfate 2 mg 2 mg Q3H PRN IV PUSH BREAKTHROUGH PAIN Last administered on 11/26/16 01:53; Start 11/24/16 at 10:30 Sodium Chloride 500 ml @ 500 mls/hr BOLUS ONCE IV Last administered on 17:20; Start 11/24/16 at 16:30; Stop 11/24/16 at 17:29; Status DC Sodium Chloride (NS 1000 ml Inj) 1,000 ml @ 999 mls/hr BOLUS ONCE IV Last administered on 11/24/16 19:02; Start 11/24/16 at 17:30; Stop 11/24/16 at 18:30; Status DC Albuterol/ Ipratropium (Duoneb Neb) 1 ampule Q4HR WHILE AWAKE NEB NEB Last administered on 11/28/16 20:30; Start 11/25/16 at 12:00 Methylprednisolone Sodium Succinate (SoluMEDROL INJ) 60 mg Q6H IV PUSH Last administered on 11/29/16 04:09; Start 11/25/16 at 17:00 Miscellaneous Information Patient in critical care unit? Ass... [id number] ; Start 11/25/16 at 22:15 Chlorhexidine Gluconate (Chlorhexidine 2% Cloth) 3 pack DAILY@04 TOP Last administered on 11/29/16 04:00; Start 11/26/16 at 04:00; Stop 11/30/16 at 04:01 Chlorhexidine Gluconate (Chlorhexidine 2% Cloth) 3 pack UNSCH PRN TOP HYGIENIC CARE; Start 11/25/16 at 22:30; Stop 11/30/16 at 22:15 Guaifenesin (Mucinex Er) 600 mg BID PO Last administered on 11/29/16 08:46; Start 11/25/16 at 23:30 Diphenhydramine HCl (Benadryl) 25 mg ONCE ONCE PO Last administered on 00:13; Start 11/25/16 at 23:30; Stop 11/25/16 at 23:31; Status DC Miscellaneous Information SPECIFIC LAB TO BE DRAWN:VANCO TROUGH DATE... ONCE ONCE XX ; Start 11/27/16 at 10:45; Stop 11/27/16 at 10:46; Status DC Azithromycin/ Sodium Chloride (Zithromax Inj/ NS 250 ml Inj) 250 ml @ 250 mls/ hr Q24H IV Last administered on 11/28/16 16:55; Start 11/26/16 at 13:00 Bumetanide (Bumex Inj) 2 mg ONCE ONCE IV PUSH Last administered on 11/27/16 08 :44; Start 11/27/16 at 07:45; Stop 11/27/16 at 08:06; Status DC Bumetanide (Bumex Inj) 1 mg DAILY IV PUSH Last administered on 11/29/16 08:46; Start 11/28/16 at 09:00 Potassium Chloride (KCl) 20 meq DAILY PO Last administered on 11/29/16 08:46; Start 11/27/16 at 09:00 Dextrose (D50w (Vial) Inj) 25 ml UNSCH PRN IV PUSH HYPOGLYCEMIA-SEE COMMENTS; Start 11/27/16 at 13:45 Glucagon (Glucagon Inj) 1 mg UNSCH PRN OTHER HYPOGLYCEMIA-SEE COMMENTS; Start 11/27/16 at 13:45 Insulin Human Regular 1 1 Q6H SQ ; Start 11/27/16 at 14:00 Levofloxacin/ Dextrose 150 ml @ 100 mls/hr Q24H IV Last administered on 16:55; Start 11/27/16 at 16:00 Vancomycin HCl 1500 mg/Sodium Chloride 515 ml @ 250 mls/hr Q24H IV ; Start 11/27 at 17:00; Status Cancel Vancomycin HCl/ Sodium Chloride (Vancomycin Inj/ NS 500 ml Inj) 515 ml @ 250 mls/hr Q24H IV ; Start 11/28/16 at 17:00; Stop 11/28/16 at 17:00; Status DC Miscellaneous Information SPECIFIC LAB TO BE DRAWN:VANCO TROUGH DATE TO BE DR... ONCE ONCE XX ; Start 11/30/16 at 17:45; Stop 11/30/16 at 17:46 Vancomycin HCl 1500 mg/Sodium Chloride 515 ml @ 250 mls/hr Q18H IV Last administered on 11/29/16 04:50; Start 11/28/16 at 12:00 Dexmedetomidine HCl (Precedex Inj) 50 ml @ 0 mls/hr TITRATE IV ; Start 11/29/16 at 05:15 Chlordiazepoxide (Librium) 50 mg Taper Q8H PO Last administered on 11/29/16 08: 45; Start 11/29/16 at 07:00; Stop 12/03/16 at 06:59 Chlordiazepoxide (Librium) 10 mg Taper Q8H PO ; Start 12/03/16 at 07:00; Stop at 06:59 A/P Assessment and Plan A/P Acute respiratory failure: Secondary to COPD and pneumonia/ and fluid overload Requiring nonrebreather, continue supplemental oxygen as needed. continue antibiotics per ID. continue steroids and diuretics- pulmonary following- will repeat ABG today. sepsis due to Left lower extremity cellulitis and pneumonia: continue antibiotics per ID- Hyponatremia, mild: Resolved. Continue to monitor. RUQ Abdominal Pain: LFTs minimally elevated. Liver U/S with trace pericholecystic fluid and borderline gallbladder wall thickening. LFTs wnl. Checked HIDA scan, essentially unremarkable. Generalized weakness: suspect secondary to hyponatremia or infection as above. Imaging/labs reviewed: Head CT normal. UDS positive for benzodiazepines. Consulted PT. Neuro checks Humerus fracture, chronic: Outpatient orthopedic follow-up as arranged. Continue sling. ETOH abuse: Withdrawal precautions. continue librium/ ativan/ thiamine- restraints as needed. hypokalemia; replace as needed. Tobacco abuse: Nicotine patch. DVT prophylaxis: Lovenox continue to keep in ICU for close monitoring. 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
[2016-11-29] MEDS ORDERED: POTASSIUM PHOSPHATE MONOBASIC 500 MG TAB PO PRN (09:15)
[2016-11-29] MEDS ORDERED: POTASSIUM CHLOR 40 MEQ PREMIX 100 ML IV PRN ×2 (09:15)
[2016-11-29] MEDS ORDERED: MAGNESIUM SULFATE INJ 2 GM in SODIUM CHLORIDE 0.9% INJ 96 ML IV PRN (09:15)
[2016-11-29] MEDS ORDERED: MAGNESIUM SULFATE INJ 4 GM in SODIUM CHLORIDE 0.9% INJ 92 ML IV PRN (09:15)
[2016-11-29] MEDS ORDERED: SODIUM PHOSPHATE INJ 30 MMOL in SODIUM CHLOR 0.9% 250 ML INJ 240 ML IV PRN (09:15)
[2016-11-29] MEDS ORDERED: POTASSIUM CHLOR 20 MEQ PREMIX 100 ML IV PRN ×2 (09:15)
[2016-11-29] MEDS ORDERED: POTASSIUM CL 40 MEQ/30 ML LIQ UDC PO/TUBE PRN ×2 (09:15)
[2016-11-29] MEDS ORDERED: POTASSIUM PHOSPHATE MONOBASIC 500 MG TAB PO/TUBE PRN (09:15)
[2016-11-29] MEDS ORDERED: POTASSIUM PHOSPHATE INJ 30 MMOL in SODIUM CHLOR 0.9% 250 ML INJ 250 ML IV PRN (09:15)
[2016-11-29] MEDS ORDERED: MAGNESIUM OXIDE 400 MG TAB PO PRN (09:15)
[2016-11-29] MEDS ORDERED: diphenhydrAMINE HCL 50 MG/ML VIAL IV PUSH ONE (10:00)
[2016-11-29] MEDS ORDERED: HALOPERIDOL LACTATE 5 MG/ML AMP IV ONE (10:00)
[2016-11-29] MEDS: AZITHROMYCIN INJ 500 MG in SODIUM CHLOR 0.9% 250 ML INJ 250 ML IV SCH (12:51)
[2016-11-29 13:32] LABS: BLOOD GAS BASE EXCESS 14.7 mmol/L (-2-2); BLOOD GAS CARBOXYHEMOGLOBIN 1.6 % (0-4); BLOOD GAS HCO3 40 mmol/L (22-26); BLOOD GAS METHEMOGLOBIN 1.4 % (0-2); BLOOD GAS O2 HGB SATURATION 88 % (90-100); BLOOD GAS OXYGEN CONTENT 12.2 Vol % (12.0-20.0); BLOOD GAS PCO2 64 mmHg (38-42); BLOOD GAS PO2 62 mmHg (61-120); BLOOD GAS TOTAL HGB 9.8 G/DL (12.0-16.0); CRITICAL VALUE YES; DRAW SITE LT RADIAL; LITER FLOW 15 L/M; NUMBER OF ARTERIAL PUNCTURES 1; STAT NO; TEMP CORR TO 98.6; ULNAR PULSE PRESENT
--- NOTE | 2016-11-29 13:39 | HHI.IDPN ---
Note Infectious Disease Note Patient in no distress. More somnolent. On 100% NRM. desaturates when O2 mask not on. Confused. Still with cough, no sputum. CXR continues to show diffuse infiltrates. Afebrile. Mycoplasma IgM and IgG elevated titers. HIV negative. Seen for left lower extremity erythema. PAST MEDICAL HISTORY 1. Alcohol abuse. 2. Kidney surgery. 3. Myocardial infarction. ALLERGIES NO KNOWN DRUG ALLERGIES. ANTIBIOTICS 1. Vancomycin. 2. Piperacillin/tazobactam. 3. Azithromycin. SOCIAL HISTORY The patient smokes one-half pack of cigarettes a day. Positive alcohol use daily. Denies illicit drugs. The patient is homeless. OBJECTIVE: Vital Signs Date Time Temp Pulse Resp B/P Pulse Ox O2 Delivery O2 Flow Rate FiO2 11/29/16 12:00 93 11/29/16 10:00 85 11/29/16 08:00 98.2 93 18 120/57 93 11/29/16 08:00 93 Non-Rebreather 11/29/16 08:00 108 11/29/16 06:00 97 11/29/16 04:00 98.7 123 22 129/59 95 11/29/16 04:00 114 11/29/16 02:00 102 11/29/16 00:00 98.7 109 20 127/64 94 11/29/16 00:00 109 11/28/16 22:49 100 60 11/28/16 22:00 90 11/28/16 20:31 Non-Rebreather 11/28/16 20:00 98.6 83 20 130/60 93 11/28/16 20:00 83 11/28/16 19:00 93 Non-Rebreather 11/28/16 18:00 93 11/28/16 16:00 94 11/28/16 16:00 98.1 98 24 112/67 95 11/28/16 14:00 97 11/28/16 11/28/16 11/29/16 15:00 23:00 07:00 Intake Total 590 ml 832 ml 562 ml Output Total 2500 ml 300 ml 800 ml Balance -1910 ml 532 ml -238 ml Intake Oral 360 ml IV Total 230 ml 472 ml 562 ml Other 360 ml Output Urine Total 2500 ml 300 ml 800 ml Bladder Scan Volume Amount 38 ml 38 ml # Bowel Movements 0 2 Laboratory Tests Test 11/28/16 11/29/16 04:49 04:13 White Blood Count 12.0 TH/MM3 13.9 TH/MM3 Red Blood Count 2.81 MIL/MM3 3.14 MIL/MM3 Hemoglobin 9.3 GM/DL 10.0 GM/DL Hematocrit 27.4 % 30.9 % Mean Corpuscular Volume 97.4 FL 98.5 FL Mean Corpuscular Hemoglobin 32.9 PG 31.8 PG Mean Corpuscular Hemoglobin 33.8 % 32.3 % Concent Red Cell Distribution Width 13.4 % 13.8 % Platelet Count 169 TH/MM3 203 TH/MM3 Mean Platelet Volume 7.9 FL 7.8 FL Neutrophils (%) (Auto) 88.6 % 84.9 % Lymphocytes (%) (Auto) 7.5 % 11.6 % Monocytes (%) (Auto) 3.8 % 3.2 % Eosinophils (%) (Auto) 0.0 % 0.1 % Basophils (%) (Auto) 0.1 % 0.2 % Neutrophils # (Auto) 10.6 TH/MM3 11.8 TH/MM3 Lymphocytes # (Auto) 0.9 TH/MM3 1.6 TH/MM3 Monocytes # (Auto) 0.4 TH/MM3 0.4 TH/MM3 Eosinophils # (Auto) 0.0 TH/MM3 0.0 TH/MM3 Basophils # (Auto) 0.0 TH/MM3 0.0 TH/MM3 CBC Comment DIFF FINAL DIFF FINAL Differential Comment Laboratory Tests Test 11/27/16 11/28/16 11/29/16 11/29/16 14:45 04:48 04:13 10:27 Lactate Dehydrogenase 319 U/L Sodium Level 144 MEQ/L 144 MEQ/L Potassium Level 3.5 MEQ/L 3.3 MEQ/L Chloride Level 103 MEQ/L 102 MEQ/L Carbon Dioxide Level 33.7 MEQ/L 36.2 MEQ/L Anion Gap 7 MEQ/L 6 MEQ/L Blood Urea Nitrogen 12 MG/DL 12 MG/DL Creatinine 0.54 MG/DL 0.51 MG/DL Estimat Glomerular Filtration 157 ML/MIN 168 ML/MIN Rate Random Glucose 110 MG/DL 97 MG/DL Calcium Level 8.3 MG/DL 8.5 MG/DL Phosphorus Level 2.8 MG/DL 2.3 MG/DL 3.1 MG/DL Magnesium Level 2.3 MG/DL 2.3 MG/DL Total Bilirubin 0.3 MG/DL Aspartate Amino Transf 26 U/L (AST/SGOT) Alanine Aminotransferase 26 U/L (ALT/SGPT) Alkaline Phosphatase 77 U/L Total Protein 6.4 GM/DL Albumin 2.0 GM/DL Microbiology Date/Time Procedure Status Source Growth 11/25/16 00:44 Influenza Types A,B Antigen (JAYNA) - Final Complete Nasal Washing NEGATIVE FOR FLU A AND B ANTIGEN.... IMAGING: Chest X-Ray 11/28/16 0000 Signed Impressions: Service Date/Time: Monday, November 28, 2016 03:37 - CONCLUSION: No significant change has occurred. Bar Sandhu MD Chest X-Ray 11/27/16 0000 Signed Impressions: Service Date/Time: Sunday, November 27, 2016 08:06 - CONCLUSION: 1. Interval worsening severe bilateral pulmonary infiltrates consistent with worsening pulmonary edema versus pneumonia. Clinical correlation is recommended. 2. Cardiomegaly. 3. Small bilateral pleural effusions. Abilio Pa MD Lower Extremity Ultrasound 11/25/16 0000 Signed Impressions: Service Date/Time: Friday, November 25, 2016 13:42 - CONCLUSION: 1. No DVT. 2. Multiple large lymph nodes in the left groin the largest measuring 3.6 cm. Johnson Riggins MD Chest X-Ray 11/25/16 0000 Signed Impressions: Service Date/Time: Friday, November 25, 2016 10:39 - CONCLUSION: Worsening bilateral airspace disease. Probable small left-sided pleural effusion. Johnson Riggins MD Chest CT 11/24/16 0824 Signed Impressions: Service Date/Time: Thursday, November 24, 2016 08:44 - CONCLUSION: 1. Diffuse bilateral airspace disease with air bronchograms greater within the upper lobes. This could be multilobar pneumonia versus edema. 2. Small bilateral pleural effusions. 3. Coronary artery calcifications and nonspecific mediastinal adenopathy. 4. Enlargement of the pulmonary trunk suggesting arterial hypertension. Johnson Riggins MD Hepatobiliary Scan Nuclear Medicine 11/23/16 0000 Signed Impressions: Service Date/Time: Wednesday, November 23, 2016 12:49 - CONCLUSION: 1. There is no evidence for cystic duct or common duct obstruction. 2. Moderate biliary enteric reflux. Huber Aguilar MD FACR Liver Ultrasound 11/22/16 0000 Signed Impressions: Service Date/Time: November 16:50 - CONCLUSION: 1. Mildly enlarged and heterogeneous liver without a focal hepatic lesion. No perceptible hepatic nodularity. 2. Trace pericholecystic fluid and borderline gallbladder wall thickening. These findings are demonstrated in the setting of no illicited sonographic Greenberg sign and presumably on the basis of right heart dysfunction or liver disease. No gallstones or ductal dilatation demonstrated. Jose Juan Santillan MD Head CT 11/19/161914 Signed Impressions: Service Date/Time: Saturday, November 19, 2016 20:22 - CONCLUSION: Normal examination for a patient of this age. No significant change has occurred. Trae Jarrett MD Cervical Spine CT 11/19/161914 Signed Impressions: Service Date/Time: Saturday, November 19, 2016 20:22 - CONCLUSION: 1. Moderate degenerative disc disease. No acute bony abnormalities. Trae Jarrett MD PHYSICAL EXAMINATION GENERAL: Patient is awake and alert. On NRM. HEENT: No icterus. Oropharynx - very poor dentition. The buccal mucosa is moist. NECK: Supple. No adenopathy LUNGS: Diffuse bilateral wheezing and coarse rhonchi persist. HEART: Regular rate and rhythm with normal S1 and S2. ABDOMEN: Bowel sounds present, soft, no tenderness. EXTREMITIES: The left lower extremity erythema has significantly improved. Multiple abrasions at the left forearm at the lateral aspect and he is wearing a sling on the right upper extremity. 1- edema at extremities. SKIN: No diffuse rash. NEUROLOGIC: No focal findings. IMPRESSION 1. Cellulitis of the left lower extremity. improved. 2. Pneumonia - Atypical. Mycoplasma. 3. Abnormal CT scan of the chest showing diffuse bilateral airspace disease with air bronchograms. ? underlying pulmonary disease. RECOMMENDATIONS 1. Stop Vancomycin. 2. Continue piperacillin/tazobactam. 3. Continue Zithromax. 4. Continue Levaquin. 5. Consider bronchoscopy. 6. Monitor clinical status. Juancarlos Ackerman MD Nov 29, 2016 13:39
[2016-11-29] MEDS: LEVOFLOXACIN 750 MG PREMIX INJ 150 ML IV SCH (16:41)
--- NOTE | 2016-11-29 18:15 | HHI.PR ---
Subjective Remarks 56 YOWM with COPD,Bilat lung infilt Has cough and sp Refuses Nebs treatments On NRB Desaturates ABG showes compensated resp acidosis Objective Vital Signs Vital Signs Date Time Temp Pulse Resp B/P Pulse Ox O2 Delivery O2 Flow Rate FiO2 11/29/16 16:00 88 11/29/16 12:00 93 11/29/16 10:00 85 11/29/16 08:00 98.2 93 18 120/57 93 11/29/16 08:00 93 Non-Rebreather 11/29/16 08:00 108 11/29/16 06:00 97 11/29/16 04:00 98.7 123 22 129/59 95 11/29/16 04:00 114 11/29/16 02:00 102 11/29/16 00:00 98.7 109 20 127/64 94 11/29/16 00:00 109 11/28/16 22:49 100 60 11/28/16 22:00 90 11/28/16 20:31 Non-Rebreather 11/28/16 20:00 98.6 83 20 130/60 93 11/28/16 20:00 83 11/28/16 19:00 93 Non-Rebreather I/O 11/28/16 11/28/16 11/28/16 11/29/16 11/29/16 11/29/16 07:00 15:00 23:00 07:00 15:00 23:00 Intake Total 855 ml 590 ml 832 ml 562 ml Output Total 650 ml 2500 ml 300 ml 800 ml 2000 ml Balance 205 ml -1910 ml 532 ml -238 ml -2000 ml Intake Oral 500 ml 360 ml IV Total 355 ml 230 ml 472 ml 562 ml Other 360 ml Output Urine Total 650 ml 2500 ml 300 ml 800 ml 2000 ml Bladder Scan Volume Amount 38 ml 38 ml 38 ml 38 ml 38 ml # Bowel Movements 0 2 Result Diagram: 11/29/1641211/29/16412 Objective Remarks GENERAL: WBWN Male mod sob SKIN: Warm and dry. HEAD: Normocephalic. EYES: No scleral icterus. No injection or drainage. NECK: Supple, trachea midline. No JVD or lymphadenopathy. CARDIOVASCULAR: Regular rate and rhythm without murmurs, gallops, or rubs. RESPIRATORY: Breath sounds equal bilaterally. No accessory muscle use. Exp rhonchi GASTROINTESTINAL: Abdomen soft, non-tender, nondistended. MUSCULOSKELETAL: No cyanosis, or edema. BACK: Nontender without obvious deformity. No CVA tenderness. A/P Assessment and Plan COPD Exac Resp Insuff Bilat Pn ETOH use Nicotine use PLAN: Supplement 02 to keep sat >90% Aerosol nebs Abx Vanco and Zosyn IV Solumedrol Acapella q 1 hr Diurease Monitor lytes CPAP at night and PRN Diamox 250 mg daily Monty Crain MD Nov 29, 2016 18:15
[2016-11-29] MEDS: REMOVE OLD NICODERM (NICOTINE) PATCH TD SCH (21:00)
[2016-11-30] VITALS (14 sets, daily range): BP systolic 91–111; BP diastolic 49–83; PULSE 80–154; RESP 17–20; TEMP 98.1–98.9; O2SAT 95–100
[2016-11-30] MEDS: CHLORHEXIDINE GLUCONATE 2 % 1 PACK (2 CLOTHS)(taper/protocol) TOP SCH (04:00)
[2016-11-30] MEDS: chlordiazePOXIDE 25 MG CAP PO SCH ×4 (04:30→22:45)
[2016-11-30] MEDS: methylPREDNISolone SOD SUCC 125 MG/2 ML VIAL IV PUSH SCH ×3 (04:30→11:27)
[2016-11-30] MEDS: SODIUM CHLORIDE 0.9% FLUSH 5 ML FLUSH FLUSH SCH ×3 (04:31→19:56)
[2016-11-30] MEDS: VANCOMYCIN INJ 1,500 MG in SODIUM CHLORID 0.9% 500 ML INJ 500 ML IV SCH (04:31)
[2016-11-30] MEDS: PIPERACIL-TAZO 4.5 GM PREMIX 100 ML IV SCH ×4 (04:31→18:23)
[2016-11-30] MEDS: INSULIN NovoLIN REGULAR SUPPLEMENTAL SCALE SQ SCH ×3 (06:00→18:00)
[2016-11-30] MEDS ORDERED: diphenhydrAMINE HCL 50 MG/ML VIAL IV ONE (07:30)
[2016-11-30] MEDS ORDERED: HALOPERIDOL LACTATE 5 MG/ML AMP IV ONE (07:30)
[2016-11-30] MEDS: LORazepam 2 MG/ML VIAL IV PUSH PRN (08:05)
[2016-11-30] MEDS: ENOXAPARIN SODIUM 30 MG/0.3 ML SYRINGE SQ SCH (08:06)
[2016-11-30] MEDS: NICOTINE 14 MG/24 HR PATCH TD SCH (08:06)
[2016-11-30] MEDS: BUMETANIDE INJ 1 MG/4 ML VIAL IV PUSH SCH (08:07)
[2016-11-30] MEDS: THIAMINE HCL 100 MG TAB PO SCH (08:07)
[2016-11-30] MEDS: guaiFENesin E.R. 600 MG TAB PO SCH ×2 (08:07→19:56)
[2016-11-30] MEDS: POTASSIUM CHLORIDE 20 MEQ CONTROLLED RELEASE TAB PO SCH (08:08)
[2016-11-30 08:15] LABS: AUTOMATED NEUTROPHIL # 13.6 TH/MM3 (1.8-7.7); BASOPHIL % 0.1 % (0.0-2.0); HEMATOCRIT 30.3 % (39.0-51.0); HEMO FLAGS DIFF FINAL; LYMPH % 5.4 % (9.0-44.0); LYMPHOCYTE # 0.8 TH/MM3 (1.0-4.8); MEAN CORPUSCULAR HEMOGLOBIN 33.2 PG (27.0-34.0); MEAN CORPUSCULAR HGB CONC 33.9 % (32.0-36.0); MONO % 3.8 % (0.0-8.0); NEUT % 90.7 % (16.0-70.0); PLATELET COUNT 203 TH/MM3 (150-450); RED CELL DISTRIBUTION WIDTH 13.8 % (11.6-17.2)
[2016-11-30 08:44] LABS: BICARBONATE 36.2 MEQ/L (21.0-32.0); MAGNESIUM 2.3 MG/DL (1.5-2.5); POTASSIUM 3.7 MEQ/L (3.5-5.1)
[2016-11-30] MEDS: NS + KCL 20 MEQ INJ 1,000 ML IV SCH (09:00)
[2016-11-30] MEDS: RESP: ALBUTEROL 2.5 MG/IPRATROPIUM 0.5 MG NEB (SCH) NEB ×4 (09:05→20:00)
[2016-11-30] MEDS ORDERED: METOPROLOL TARTRATE 5 MG/5 ML VIAL ONE (09:45)
[2016-11-30] MEDS ORDERED: SODIUM CHLOR 0.9% 1000 ML INJ 1,000 ML IV ONE (10:15)
[2016-11-30] MEDS: METOPROLOL SUCCINATE 25 MG EXTENDED RELEASE TAB PO SCH (11:26)
[2016-11-30] MEDS: AZITHROMYCIN INJ 500 MG in SODIUM CHLOR 0.9% 250 ML INJ 250 ML IV SCH (11:34)
--- NOTE | 2016-11-30 12:09 | HHI.IDPN ---
Note Infectious Disease Note Patient in no distress. More awake. Developed sinus tachycardia last night. Still tachycardic. On 100% NRM. desaturates when O2 mask not on. Confused. Still with cough, sounds congested. Afebrile. Mycoplasma IgM and IgG elevated titers. HIV negative. Seen for left lower extremity erythema. PAST MEDICAL HISTORY 1. Alcohol abuse. 2. Kidney surgery. 3. Myocardial infarction. ALLERGIES NO KNOWN DRUG ALLERGIES. ANTIBIOTICS 1. Vancomycin. 2. Piperacillin/tazobactam. 3. Azithromycin. 4. Levaquin. SOCIAL HISTORY The patient smokes one-half pack of cigarettes a day. Positive alcohol use daily. Denies illicit drugs. The patient is homeless. OBJECTIVE: Vital Signs Date Time Temp Pulse Resp B/P Pulse Ox O2 Delivery O2 Flow Rate FiO2 11/30/16 10:00 132 11/30/16 08:00 96 Non-Rebreather 11/30/16 08:00 150 11/30/16 06:00 140 11/30/16 04:00 142 11/30/16 04:00 98.9 142 20 96/49 95 11/30/16 02:00 135 11/30/16 00:00 98.3 114 20 91/49 95 11/30/16 00:00 142 11/29/16 22:00 98 11/29/16 21:29 92 Non-Rebreather 15.00 100 11/29/16 20:00 98.5 98 20 116/64 95 11/29/16 20:00 98 11/29/16 19:00 95 Non-Rebreather 11/29/16 18:00 85 11/29/16 16:00 98.3 87 18 108/56 93 11/29/16 16:00 88 11/29/16 11/29/16 11/30/16 15:00 23:00 07:00 Intake Total 598 ml 563 ml 410 ml Output Total 3000 ml 1050 ml 600 ml Balance -2402 ml -487 ml -190 ml IV Total 598 ml 563 ml 410 ml Output Urine Total 3000 ml 1050 ml 600 ml Bladder Scan Volume Amount 38 ml 38 ml 38 ml # Bowel Movements 1 1 Laboratory Tests Test 11/29/16 11/30/16 04:13 07:40 White Blood Count 13.9 TH/MM3 15.0 TH/MM3 Red Blood Count 3.14 MIL/MM3 3.10 MIL/MM3 Hemoglobin 10.0 GM/DL 10.3 GM/DL Hematocrit 30.9 % 30.3 % Mean Corpuscular Volume 98.5 FL 98.0 FL Mean Corpuscular Hemoglobin 31.8 PG 33.2 PG Mean Corpuscular Hemoglobin 32.3 % 33.9 % Concent Red Cell Distribution Width 13.8 % 13.8 % Platelet Count 203 TH/MM3 203 TH/MM3 Mean Platelet Volume 7.8 FL 7.6 FL Neutrophils (%) (Auto) 84.9 % 90.7 % Lymphocytes (%) (Auto) 11.6 % 5.4 % Monocytes (%) (Auto) 3.2 % 3.8 % Eosinophils (%) (Auto) 0.1 % 0.0 % Basophils (%) (Auto) 0.2 % 0.1 % Neutrophils # (Auto) 11.8 TH/MM3 13.6 TH/MM3 Lymphocytes # (Auto) 1.6 TH/MM3 0.8 TH/MM3 Monocytes # (Auto) 0.4 TH/MM3 0.6 TH/MM3 Eosinophils # (Auto) 0.0 TH/MM3 0.0 TH/MM3 Basophils # (Auto) 0.0 TH/MM3 0.0 TH/MM3 CBC Comment DIFF FINAL DIFF FINAL Differential Comment Laboratory Tests Test 11/29/16 11/29/16 11/30/16 04:13 10:27 07:40 Sodium Level 144 MEQ/L 144 MEQ/L Potassium Level 3.3 MEQ/L 3.7 MEQ/L Chloride Level 102 MEQ/L 103 MEQ/L Carbon Dioxide Level 36.2 MEQ/L 36.2 MEQ/L Anion Gap 6 MEQ/L 5 MEQ/L Blood Urea Nitrogen 12 MG/DL 13 MG/DL Creatinine 0.51 MG/DL 0.52 MG/DL Estimat Glomerular Filtration 168 ML/MIN 164 ML/MIN Rate Random Glucose 97 MG/DL 118 MG/DL Calcium Level 8.5 MG/DL 8.1 MG/DL Phosphorus Level 2.3 MG/DL 3.1 MG/DL Magnesium Level 2.3 MG/DL 2.3 MG/DL Total Bilirubin 0.3 MG/DL Aspartate Amino Transf 26 U/L (AST/SGOT) Alanine Aminotransferase 26 U/L (ALT/SGPT) Alkaline Phosphatase 77 U/L Total Protein 6.4 GM/DL Albumin 2.0 GM/DL B-Type Natriuretic Peptide 616 PG/ML IMAGING: Chest X-Ray 11/28/16 Signed Impressions: Service Date/Time: Monday, November 28, 2016 03:37 - CONCLUSION: No significant change has occurred. Bar Sandhu MD Chest X-Ray 11/27/16 Signed Impressions: Service Date/Time: Sunday, November 27, 2016 08:06 - CONCLUSION: 1. Interval worsening severe bilateral pulmonary infiltrates consistent with worsening pulmonary edema versus pneumonia. Clinical correlation is recommended. 2. Cardiomegaly. 3. Small bilateral pleural effusions. Abilio Pa MD Lower Extremity Ultrasound 11/25/16 Signed Impressions: Service Date/Time: Friday, November 25, 2016 13:42 - CONCLUSION: 1. No DVT. 2. Multiple large lymph nodes in the left groin the largest measuring 3.6 cm. Johnson Riggins MD Chest X-Ray 11/25/16 Signed Impressions: Service Date/Time: Friday, November 25, 2016 10:39 - CONCLUSION: Worsening bilateral airspace disease. Probable small left-sided pleural effusion. Johnson Riggins MD Chest CT 11/24/16 0824 Signed Impressions: Service Date/Time: Thursday, November 24, 2016 08:44 - CONCLUSION: 1. Diffuse bilateral airspace disease with air bronchograms greater within the upper lobes. This could be multilobar pneumonia versus edema. 2. Small bilateral pleural effusions. 3. Coronary artery calcifications and nonspecific mediastinal adenopathy. 4. Enlargement of the pulmonary trunk suggesting arterial hypertension. Johnson Riggins MD Hepatobiliary Scan Nuclear Medicine 11/23/16 Signed Impressions: Service Date/Time: Wednesday, November 23, 2016 12:49 - CONCLUSION: 1. There is no evidence for cystic duct or common duct obstruction. 2. Moderate biliary enteric reflux. Huber Aguilar MD FACR Liver Ultrasound 11/22/16 Signed Impressions: Service Date/Time: November 16:50 - CONCLUSION: 1. Mildly enlarged and heterogeneous liver without a focal hepatic lesion. No perceptible hepatic nodularity. 2. Trace pericholecystic fluid and borderline gallbladder wall thickening. These findings are demonstrated in the setting of no illicited sonographic Greenberg sign and presumably on the basis of right heart dysfunction or liver disease. No gallstones or ductal dilatation demonstrated. Jose Juan Santillan MD Head CT 11/19/161914 Signed Impressions: Service Date/Time: Saturday, November 19, 2016 20:22 - CONCLUSION: Normal examination for a patient of this age. No significant change has occurred. Trae Jarrett MD Cervical Spine CT 11/19/161914 Signed Impressions: Service Date/Time: Saturday, November 19, 2016 20:22 - CONCLUSION: 1. Moderate degenerative disc disease. No acute bony abnormalities. Trae Jarrett MD PHYSICAL EXAMINATION GENERAL: No acure distress. On NRM. HEENT: No icterus. Oropharynx - very poor dentition. The buccal mucosa is moist. NECK: Supple. No adenopathy LUNGS: Diffuse bilateral wheezing and coarse rhonchi persist. HEART: Regular rate and rhythm with normal S1 and S2. ABDOMEN: Bowel sounds present, soft, no tenderness. EXTREMITIES: The left lower extremity erythema has significantly improved. Multiple abrasions at the left forearm at the lateral aspect and he is wearing a sling on the right upper extremity. 1+ edema at extremities. SKIN: No diffuse rash. NEUROLOGIC: No focal findings. IMPRESSION 1. Cellulitis of the left lower extremity. improved. 2. Pneumonia - Atypical. Mycoplasma. 3. Abnormal CT scan of the chest showing diffuse bilateral airspace disease with air bronchograms. ? underlying severe pulmonary disease. 4. Hypotension and tachycardia. ? volume depletion/diuresis. RECOMMENDATIONS 1. Continue Levaquin. 2. Continue piperacillin/tazobactam. 3. Continue Zithromax. 4. Consider bronchoscopy. 5. Send sputum for AFb and fungal eval. 6. Repeat CXR. 7. Monitor clinical status. Juancarlos Ackerman MD Nov 30, 2016 12:09
--- NOTE | 2016-11-30 13:38 | RADRPT ---
EXAM DATE/TIME: 11/30/2016 12:04 [facility] COMPARISON: CHEST SINGLE AP, November 28, 2016, 3:37. INDICATIONS : Shortness of breath. MEDICAL HISTORY : Myocardial infarction. Cardiovascular disease. Seizures. SURGICAL HISTORY : None. ENCOUNTER: Subsequent ACUITY: 1 week PAIN SCORE: 0/10 LOCATION: Bilateral chest FINDINGS: Patchy air space disease is seen in both right and left lungs, stable in the interval. Heart and pul monary vascularity are normal. Portion of bony skeleton visualized unremarkable. CONCLUSION: Stable patchy air space disease as descried above. Huber Aguilar MD FACR on November 30, 2016 at 13:29 Board Certified Radiologist. This report was verified electronically.
--- NOTE | 2016-11-30 14:00 | HHI.PR ---
Subjective Remarks F/u tachycardia. Tele shows sustained ST in the 140s with sbp in the 90s. Denies any complains but he is confused. Discussed with RN Objective Vitals Vital Signs Date Time Temp Pulse Resp B/P Pulse Ox O2 Delivery O2 Flow Rate FiO2 11/30/16 12:00 141 11/30/16 10:00 132 11/30/16 09:05 97 Non-Rebreather 15.00 11/30/16 08:00 96 Non-Rebreather 11/30/16 08:00 150 11/30/16 06:00 140 11/30/16 04:00 142 11/30/16 04:00 98.9 142 20 96/49 95 11/30/16 02:00 135 11/30/16 00:00 98.3 114 20 91/49 95 11/30/16 00:00 142 11/29/16 22:00 98 11/29/16 21:29 92 Non-Rebreather 15.00 100 11/29/16 20:00 98.5 98 20 116/64 95 11/29/16 20:00 98 11/29/16 19:00 95 Non-Rebreather 11/29/16 18:00 85 11/29/16 16:00 98.3 87 18 108/56 93 11/29/16 16:00 88 I/O 11/29/16 11/29/16 11/29/16 11/30/16 11/30/16 11/30/16 07:00 15:00 23:00 07:00 15:00 23:00 Intake Total 562 ml 598 ml 563 ml 410 ml Output Total 800 ml 3000 ml 1050 ml 600 ml 1500 ml Balance -238 ml -2402 ml -487 ml -190 ml -1500 ml IV Total 562 ml 598 ml 563 ml 410 ml Output Urine Total 800 ml 3000 ml 1050 ml 600 ml 1500 ml Bladder Scan Volume Amount 38 ml 38 ml 38 ml 38 ml # Bowel Movements 2 1 1 Result Diagram: 11/30/1640 11/30/1640 Imaging Last Impressions Chest X-Ray 11/28/16 0000 Signed Impressions: Service Date/Time: Monday, November 28, 2016 03:37 - CONCLUSION: No significant change has occurred. Bar Sandhu MD Lower Extremity Ultrasound 11/25/16 0000 Signed Impressions: Service Date/Time: Friday, November 25, 2016 13:42 - CONCLUSION: 1. No DVT. 2. Multiple large lymph nodes in the left groin the largest measuring 3.6 cm. Johnson Riggins MD Chest CT 11/24/1624 Signed Impressions: Service Date/Time: Thursday, November 24, 2016 08:44 - CONCLUSION: 1. Diffuse bilateral airspace disease with air bronchograms greater within the upper lobes. This could be multilobar pneumonia versus edema. 2. Small bilateral pleural effusions. 3. Coronary artery calcifications and nonspecific mediastinal adenopathy. 4. Enlargement of the pulmonary trunk suggesting arterial hypertension. Johnson Riggins MD Hepatobiliary Scan Nuclear Medicine 11/23/16 0000 Signed Impressions: Service Date/Time: Wednesday, November 23, 2016 12:49 - CONCLUSION: 1. There is no evidence for cystic duct or common duct obstruction. 2. Moderate biliary enteric reflux. Huber Aguilar MD FACR Liver Ultrasound 11/22/16 0000 Signed Impressions: Service Date/Time: November 16:50 - CONCLUSION: 1. Mildly enlarged and heterogeneous liver without a focal hepatic lesion. No perceptible hepatic nodularity. 2. Trace pericholecystic fluid and borderline gallbladder wall thickening. These findings are demonstrated in the setting of no illicited sonographic Greenberg sign and presumably on the basis of right heart dysfunction or liver disease. No gallstones or ductal dilatation demonstrated. Jose Juan Santillan MD Head CT 11/19/161914 Signed Impressions: Service Date/Time: Saturday, November 19, 2016 20:22 - CONCLUSION: Normal examination for a patient of this age. No significant change has occurred. Trae Jarrett MD Cervical Spine CT 11/19/161914 Signed Impressions: Service Date/Time: Saturday, November 19, 2016 20:22 - CONCLUSION: 1. Moderate degenerative disc disease. No acute bony abnormalities. Trae Jarrett MD Objective Remarks GENERAL: This is a well-nourished, well-developed patient, on nonrebreather. He looks dry Skin: Dry with decreased skin turgor CARDIOVASCULAR: Tachycardic RESPIRATORY: bilateral rhonchi GASTROINTESTINAL: Abdomen soft, non-tender, nondistended. Normal, active bowel sounds MUSCULOSKELETAL: Extremities with mild bilateral pedal edema NEURO: awake and alert- oriented to person, place and partly to time. A/P Problem List: (1) Hyponatremia ICD Code: E87.1 Status: Acute (2) Humerus fracture ICD Code: S42.309A Status: Chronic (3) Chronic alcohol abuse ICD Code: F10.10 Status: Chronic Assessment and Plan Acute respiratory failure: Secondary to COPD and mycoplasma pneumonia/ and fluid overload Requiring nonrebreather, continue supplemental oxygen as needed. continue antibiotics Zosyn, Zithromax and Levaquin decrease steroids and continue diuretics. Bettencourt for accurate I's/O sepsis due to Left lower extremity cellulitis and pneumonia: continue antibiotics Hyponatremia, mild: Resolved. Continue to monitor. RUQ Abdominal Pain: LFTs minimally elevated. Liver U/S with trace pericholecystic fluid and borderline gallbladder wall thickening. LFTs wnl. Checked HIDA scan, essentially unremarkable. Generalized weakness: suspect secondary to hyponatremia or infection as above. Imaging/labs reviewed: Head CT normal. UDS positive for benzodiazepines. Consulted PT. Neuro checks Humerus fracture, chronic: Outpatient orthopedic follow-up as arranged. Continue sling. ETOH abuse: Withdrawal precautions. continue librium/ ativan/ thiamine- restraints as needed. hypokalemia; replace as needed. Tobacco abuse: Nicotine patch. Sinus tachycardia likely secondary to pulmonary status and dehydration. Continue IV hydration and keep saturation at least 92%. Obtain EKG. Consider digoxin. We will consult critical care medicine Metabolic encephalopathy secondary to above. Continue to monitor DVT prophylaxis: Lovenox Problem Qualifiers (1) Humerus fracture: Ken Schuster MD Nov 30, 2016 14:00
[2016-11-30] MEDS: methylPREDNISolone SOD SUCC 40 MG/1 ML VIAL IV PUSH SCH ×2 (15:55→22:44)
[2016-11-30] MEDS: LEVOFLOXACIN 750 MG PREMIX INJ 150 ML IV SCH (15:55)
[2016-11-30] MEDS ORDERED: PHARMACY ORDERED LAB XX ONE (17:45)
--- NOTE | 2016-11-30 18:01 | HHI.PR ---
Subjective Remarks 56 YOWM with COPD,Bilat lung infilt Has cough and sp Refuses Nebs treatments On NRB Desaturates has sinus Techycardia Started Cardizem drip Objective Vital Signs Vital Signs Date Time Temp Pulse Resp B/P Pulse Ox O2 Delivery O2 Flow Rate FiO2 11/30/16 14:00 136 11/30/16 12:00 141 11/30/16 10:00 132 11/30/16 09:05 97 Non-Rebreather 15.00 11/30/16 08:00 96 Non-Rebreather 11/30/16 08:00 150 11/30/16 06:00 140 11/30/16 04:00 142 11/30/16 04:00 98.9 142 20 96/49 95 11/30/16 02:00 135 11/30/16 00:00 98.3 114 20 91/49 95 11/30/16 00:00 142 11/29/16 22:00 98 11/29/16 21:29 92 Non-Rebreather 15.00 100 11/29/16 20:00 98.5 98 20 116/64 95 11/29/16 20:00 98 11/29/16 19:00 95 Non-Rebreather I/O 11/29/16 11/29/16 11/29/16 11/30/16 11/30/16 11/30/16 07:00 15:00 23:00 07:00 15:00 23:00 Intake Total 562 ml 598 ml 563 ml 410 ml 2751 ml Output Total 800 ml 3000 ml 1050 ml 600 ml 1900 ml Balance -238 ml -2402 ml -487 ml -190 ml 851 ml IV Total 562 ml 598 ml 563 ml 410 ml 2751 ml Output Urine Total 800 ml 3000 ml 1050 ml 600 ml 1900 ml Bladder Scan Volume Amount 38 ml 38 ml 38 ml 38 ml 38 ml # Bowel Movements 2 1 1 Result Diagram: 11/30/1673911/30/16739 Objective Remarks GENERAL: WBWN Male mod sob SKIN: Warm and dry. HEAD: Normocephalic. EYES: No scleral icterus. No injection or drainage. NECK: Supple, trachea midline. No JVD or lymphadenopathy. CARDIOVASCULAR: Regular rate and rhythm without murmurs, gallops, or rubs. RESPIRATORY: Breath sounds equal bilaterally. No accessory muscle use. Exp rhonchi GASTROINTESTINAL: Abdomen soft, non-tender, nondistended. MUSCULOSKELETAL: No cyanosis, or edema. BACK: Nontender without obvious deformity. No CVA tenderness. A/P Assessment and Plan COPD Exac Resp Insuff Bilat Pn ETOH use Nicotine use PLAN: Supplement 02 to keep sat >90% Aerosol nebs Abx per ID IV Solumedrol Acapella q 1 hr Diurease Monitor lytes CPAP at night and PRN Diamox 250 mg daily Cardizem drip for rate controll Monty Crain MD Nov 30, 2016 18:01
[2016-11-30] MEDS ORDERED: DIGOXIN 0.5 MG/2 ML VIAL IV PUSH ONE (19:00)
[2016-11-30] MEDS: METOPROLOL TARTRATE 5 MG/5 ML VIAL IV PUSH SCH (19:18)
[2016-11-30] MEDS: oxyCODONE/ACETAMINOPHEN 5 MG/325 MG TAB PO PRN (19:56)
[2016-11-30] MEDS: REMOVE OLD NICODERM (NICOTINE) PATCH TD SCH (19:57)
[2016-11-30] MEDS: ALBUMIN HUMAN 5% 25 GM/500 ML BOTTLE IV SCH (19:57)
[2016-11-30] MEDS: LACTIC ACID (AMMONIUM LACTATE) 12% LOTION 225 GM BTL TOPICAL SCH (22:45)
[2016-11-30] MEDS: DILTIAZEM INJ 125 MG in SODIUM CHLORIDE 0.9% INJ 100 ML IV SCH (22:47)
[2016-12-01] VITALS (12 sets, daily range): BP systolic 89–117; BP diastolic 51–66; PULSE 78–151; RESP 12–23; TEMP 95–98.8; O2SAT 93–100
[2016-12-01] MEDS: PIPERACIL-TAZO 4.5 GM PREMIX 100 ML IV SCH ×4 (00:30→18:05)
[2016-12-01] MEDS: METOPROLOL TARTRATE 5 MG/5 ML VIAL IV PUSH SCH ×2 (00:30→06:37)
[2016-12-01] MEDS: INSULIN NovoLIN REGULAR SUPPLEMENTAL SCALE SQ SCH ×4 (06:00→18:00)
[2016-12-01] MEDS: methylPREDNISolone SOD SUCC 40 MG/1 ML VIAL IV PUSH SCH ×3 (06:36→21:14)
[2016-12-01] MEDS: chlordiazePOXIDE 25 MG CAP PO SCH ×2 (06:45→14:58)
[2016-12-01] MEDS: NICOTINE 14 MG/24 HR PATCH TD SCH (07:51)
[2016-12-01] MEDS: LACTIC ACID (AMMONIUM LACTATE) 12% LOTION 225 GM BTL TOPICAL SCH ×2 (07:52→21:17)
[2016-12-01] MEDS: SODIUM CHLORIDE 0.9% FLUSH 5 ML FLUSH FLUSH SCH ×2 (07:53→21:13)
[2016-12-01] MEDS: THIAMINE HCL 100 MG TAB PO SCH (07:53)
[2016-12-01] MEDS: ALBUMIN HUMAN 5% 25 GM/500 ML BOTTLE IV SCH ×2 (07:53→21:14)
[2016-12-01] MEDS: BUMETANIDE INJ 1 MG/4 ML VIAL IV PUSH SCH (07:53)
[2016-12-01] MEDS: guaiFENesin E.R. 600 MG TAB PO SCH ×2 (07:53→21:13)
[2016-12-01] MEDS: POTASSIUM CHLORIDE 20 MEQ CONTROLLED RELEASE TAB PO SCH (07:54)
[2016-12-01] MEDS: NS + KCL 20 MEQ INJ 1,000 ML IV SCH ×2 (07:54→21:13)
[2016-12-01] MEDS: ENOXAPARIN SODIUM 30 MG/0.3 ML SYRINGE SQ SCH (07:54)
[2016-12-01] MEDS: RESP: ALBUTEROL 2.5 MG/IPRATROPIUM 0.5 MG NEB (SCH) NEB ×4 (08:12→20:00)
[2016-12-01] MEDS: METOPROLOL SUCCINATE 25 MG EXTENDED RELEASE TAB PO SCH (08:50)
[2016-12-01] MEDS: AZITHROMYCIN INJ 500 MG in SODIUM CHLOR 0.9% 250 ML INJ 250 ML IV SCH (13:06)
--- NOTE | 2016-12-01 14:44 | HHI.CCPN ---
Subjective Remarks/Hospital Course 56-year-old male with past medical history of nicotine and alcohol use. He was admitted to [facility] under the hospitalist service on November 20 for hyponatremia with a sodium level of 127 on admission. The patient had a CT scan of the brain on arrival which showed no evidence of any acute intracranial process. During his hospital course he was seen by the pulmonary and infectious disease services. His initial chest x-ray from November 22 showed cardiomegaly and findings of congestive heart failure. He subsequently underwent CT scan of the chest on November 24 which showed diffuse bilateral airspace disease with air bronchograms greater within the upper lobes. This could be multilobar pneumonia versus edema. The patient was started on broad- spectrum antibiotics and his blood cultures from November 23 showed no growth to date. In addition his sputum culture showed normal respiratory aaron, and his nasal washing for influenza A and B antigen was negative. Earlier today the patient was tachycardic and had an ABG on 6 liters oxygen which showed likely mixed venous blood gas, pH 7.36, CO2 53, PAO2 41, bicarb 29. A stat. chest x-ray showed severe bilateral pulmonary infiltrates consistent with worsening pulmonary edema versus pneumonia and small bilateral pleural effusions. He was given Bumex 2 mg IV push by the primary team and had approximately three liters of urine output since then. Critical care medicine was consulted for respiratory distress. When seen the patient is on a non- rebreather mask with saturation ranging between 96 and 100%. He is afebrile, however, is tachycardic with heart rate of 101-104 and afebrile. His laboratory data from today showed leukocytosis with a WBC of 14.4 which is down from 16.3 yesterday. His urine tox screen on arrival was positive for benzodiazepines and alcohol level less than 3. Objective Vital Signs Date Time Temp Pulse Resp B/P Pulse Ox O2 Delivery O2 Flow Rate FiO2 12/01/16 08:13 96 Non-Rebreather 15.00 12/01/16 07:00 100 12/01/16 06:00 80 12/01/16 04:00 97.7 16 103/57 Intake and Output 11/30/16 11/30/16 12/01/16 08:00 16:00 00:00 Intake Total 410 ml 2751 ml 1902 ml Output Total 600 ml 1900 ml 300 ml Balance -190 ml 851 ml 1602 ml Result Diagram: 11/30/1640 11/30/1640 A/P Problem List: (1) Hyponatremia ICD Code: E87.1 Status: Acute (2) Chronic alcohol abuse ICD Code: F10.10 Status: Chronic (3) Respiratory failure ICD Code: J96.90 Status: Acute Assessment and Plan 1. Monitor neuro status closely. Avoid any sedatives. 2. Wean off oxygen as tolerated and maintain sats above 92%. 3. Continue Bronchodilators in the form of DuoNeb q.4h. plus q.2h. p.r.n. for shortness of breath. 4. Continue with IV steroids. The patient is on Solu-Medrol [address] Crain from the pulmonary service is following. 5. Non-invasive positive pressure ventilation p.r.n. for respiratory distress. 6. Monitor heart rate and blood pressure closely and maintain MAP greater than 65 mmHg. 7. Monitor renal function, I's and O's, and electrolyte replacement as needed. Hold diuretics. 8. Repeat a chest x-ray in the tomorrow a.m. 9. Continue with antibiotics per ID. The patient is currently on azithromycin, vancomycin and Zosyn. Monitor for signs of infections which include fever and WBC. His blood cultures from November 23 and sputum culture from November 24 showed no growth to date. In addition his nasal washing for influenza is negative. 10.Monitor CBC. 11.Sliding scale insulin with Accu-Cheks if needed for glycemic control. 12.The patient is on a p.o. heart-healthy diet. 13.No indication for GI prophylaxis. 14.DVT prophylaxis with SCDs and Lovenox subcu daily. Doppler ultrasound of the lower extremity from November 25 showed no evidence of any DVT. Level III VoClemente pink MD Dec 01, 2016 14:44
[2016-12-01] MEDS ORDERED: SODIUM CHLOR 0.9% 1000 ML INJ 1,000 ML IV ONE ×2 (14:45)
[2016-12-01] MEDS: LEVOFLOXACIN 750 MG PREMIX INJ 150 ML IV SCH (14:58)
[2016-12-01] MEDS: NICOTINE 21 MG/24 HR PATCH TD SCH (15:54)
[2016-12-01] MEDS: METOPROLOL TARTRATE 5 MG/5 ML VIAL IV PUSH PRN (18:05)
[2016-12-02] VITALS (11 sets, daily range): BP systolic 105–141; BP diastolic 55–63; PULSE 80–148; RESP 18–24; TEMP 97.5–98.9; O2SAT 93–100
[2016-12-02] MEDS: PIPERACIL-TAZO 4.5 GM PREMIX 100 ML IV SCH ×5 (00:25→23:32)
[2016-12-02] MEDS: DILTIAZEM INJ 125 MG in SODIUM CHLORIDE 0.9% INJ 100 ML IV SCH ×3 (00:25→23:33)
[2016-12-02] MEDS: chlordiazePOXIDE 25 MG CAP PO SCH ×4 (00:25→23:32)
[2016-12-02] MEDS: METOPROLOL TARTRATE 5 MG/5 ML VIAL IV PUSH PRN ×4 (00:26→13:29)
[2016-12-02] MEDS: INSULIN NovoLIN REGULAR SUPPLEMENTAL SCALE SQ SCH ×5 (06:00→23:32)
[2016-12-02] MEDS: methylPREDNISolone SOD SUCC 40 MG/1 ML VIAL IV PUSH SCH ×3 (06:06→21:43)
[2016-12-02] MEDS: ALBUMIN HUMAN 5% 25 GM/500 ML BOTTLE IV SCH ×2 (07:20→21:43)
[2016-12-02] MEDS: POTASSIUM CHLORIDE 20 MEQ CONTROLLED RELEASE TAB PO SCH (07:21)
[2016-12-02] MEDS: METOPROLOL SUCCINATE 25 MG EXTENDED RELEASE TAB PO SCH (07:21)
[2016-12-02] MEDS: guaiFENesin E.R. 600 MG TAB PO SCH ×2 (07:21→21:43)
[2016-12-02] MEDS: ENOXAPARIN SODIUM 30 MG/0.3 ML SYRINGE SQ SCH (07:21)
[2016-12-02] MEDS: THIAMINE HCL 100 MG TAB PO SCH (07:21)
[2016-12-02] MEDS: NICOTINE 21 MG/24 HR PATCH TD SCH (07:22)
[2016-12-02] MEDS: SODIUM CHLORIDE 0.9% FLUSH 5 ML FLUSH FLUSH SCH ×2 (07:22→21:43)
[2016-12-02] MEDS: LACTIC ACID (AMMONIUM LACTATE) 12% LOTION 225 GM BTL TOPICAL SCH ×2 (07:22→21:43)
[2016-12-02] MEDS: RESP: ALBUTEROL 2.5 MG/IPRATROPIUM 0.5 MG NEB (SCH) NEB ×4 (08:09→19:39)
[2016-12-02] MEDS ORDERED: METOPROLOL TARTRATE 5 MG/5 ML VIAL IV PUSH ONE (12:00)
[2016-12-02] MEDS: AZITHROMYCIN INJ 500 MG in SODIUM CHLOR 0.9% 250 ML INJ 250 ML IV SCH (12:10)
--- NOTE | 2016-12-02 12:52 | EKG ---
Date Performed: 11/30/2016 Time Performed: 14:21:39 PTAGE: 56 years EKG: ATRIAL FLUTTER/TACHYCARDIA WITH RAPID VENTRICULAR RESPONSE NONSPECIFIC ST & T-WAVE ABNORMAL ITY Compared to previous tracing, atrial flutter with RVR has replaced Sinus rhythm . Previously seen diffuse ST changes are not as prominent, with the exception of the flutter waves. A BNORMAL RHYTHM ECG PREVIOUS TRACING : 11/19/2016 22.39 DOCTOR: Garrett Russo Interpretating Date/Time 12/02/2016 12:49:25
--- NOTE | 2016-12-02 14:52 | HHI.IDPN ---
Subjective Subjective Remarks ID Xcover for Dr Bates chart was reviewed 56 yo male tob + with PNA resp insufficiency remains on part NRB, but cant get weaned fertther A flutter with RVR (150s) borderline temps + productive cough no diarrhea no rash Antibiotics azithro levaquine pip tazo Allergies: Coded Allergies: *MDRO Multi-Drug Resistant Organism (Verified Adverse Reaction, Unknown, MRSA, 11/26/16) MRSA PCR screen POSITIVE - 11/25/16 Objective . Vital Signs Date Time Temp Pulse Resp B/P Pulse Ox O2 Delivery O2 Flow Rate FiO2 12/02/16 12:00 98.8 83 19 141/56 93 12/02/16 08:10 99 Non-Rebreather 15.00 12/02/16 08:00 98.5 80 21 120/63 98 12/02/16 07:00 Non-Rebreather 15.00 100 12/02/16 06:00 148 12/02/16 04:00 97.5 80 18 114/56 96 12/02/16 04:00 80 12/02/16 02:00 105 12/02/16 00:00 145 12/02/16 00:00 98.0 145 21 106/59 98 12/01/16 23:02 100 Non-Rebreather 15.00 12/01/16 22:00 149 12/01/16 20:16 95 Non-Rebreather 15.00 12/01/16 20:00 151 12/01/16 20:00 97.5 151 23 89/51 94 12/01/16 19:00 96 Non-Rebreather 100 12/01/16 16:00 98.2 144 21 89/55 100 12/01/16 12/01/16 12/02/16 15:00 23:00 07:00 Intake Total 1495 ml 4090 ml 1048 ml Output Total 650 ml 300 ml 700 ml Balance 845 ml 3790 ml 348 ml Intake Oral 400 ml 1050 ml 400 ml IV Total 595 ml 2540 ml 648 ml Albumin 500 ml 500 ml Output Urine Total 650 ml 300 ml 700 ml # Bowel Movements 1 1 0 . Microbiology Date/Time Procedure Status Source Growth 11/30/16 16:20 Acid Fast Stain Received Sputum Expectorated Sputum Pending 11/30/16 16:20 Mycobacterial Culture Received Sputum Expectorated Sputum Pending 11/30/16 16:20 Fungal Smear - Final Resulted Sputum Expectorated Sputum FEW BUDDING YEAST WITH PSEUDOHYPHAE 11/30/16 16:20 Fungal Culture Resulted Sputum Expectorated Sputum Pending Imaging Last Impressions Chest X-Ray 11/30/16 0000 Signed Impressions: Service Date/Time: Wednesday, November 30, 2016 12:04 - CONCLUSION: Stable patchy air space disease as descried above. Huber Aguilar MD FACR Lower Extremity Ultrasound 11/25/16 0000 Signed Impressions: Service Date/Time: Friday, November 25, 2016 13:42 - CONCLUSION: 1. No DVT. 2. Multiple large lymph nodes in the left groin the largest measuring 3.6 cm. Johnson Riggins MD Chest CT 11/24/1624 Signed Impressions: Service Date/Time: Thursday, November 24, 2016 08:44 - CONCLUSION: 1. Diffuse bilateral airspace disease with air bronchograms greater within the upper lobes. This could be multilobar pneumonia versus edema. 2. Small bilateral pleural effusions. 3. Coronary artery calcifications and nonspecific mediastinal adenopathy. 4. Enlargement of the pulmonary trunk suggesting arterial hypertension. Johnson Riggins MD Hepatobiliary Scan Nuclear Medicine 11/23/16 0000 Signed Impressions: Service Date/Time: Wednesday, November 23, 2016 12:49 - CONCLUSION: 1. There is no evidence for cystic duct or common duct obstruction. 2. Moderate biliary enteric reflux. Huber Aguilar MD FACR Liver Ultrasound 11/22/16 0000 Signed Impressions: Service Date/Time: November 16:50 - CONCLUSION: 1. Mildly enlarged and heterogeneous liver without a focal hepatic lesion. No perceptible hepatic nodularity. 2. Trace pericholecystic fluid and borderline gallbladder wall thickening. These findings are demonstrated in the setting of no illicited sonographic Greenberg sign and presumably on the basis of right heart dysfunction or liver disease. No gallstones or ductal dilatation demonstrated. Jose Juan Santillan MD Head CT 11/19/161914 Signed Impressions: Service Date/Time: Saturday, November 19, 2016 20:22 - CONCLUSION: Normal examination for a patient of this age. No significant change has occurred. Trae Jarrett MD Cervical Spine CT 11/19/161914 Signed Impressions: Service Date/Time: Saturday, November 19, 2016 20:22 - CONCLUSION: 1. Moderate degenerative disc disease. No acute bony abnormalities. Trae Jarrett MD Physical Exam GENERAL: No acure distress. On NRM. HEENT: No icterus. Oropharynx - very poor dentition. The buccal mucosa is moist. NECK: Supple. No adenopathy LUNGS: Diffuse bilateral coarse rhonchi persist. No wheezing HEART: Regular rate and rhythm with normal S1 and S2. ABDOMEN: Bowel sounds present, soft, no tenderness. EXTREMITIES: extremities with tarce edema, no rash, no erythema SKIN: No diffuse rash. NEUROLOGIC: No focal findings. Assessment & Plan Remarks IMPRESSION 1. Cellulitis of the left lower extremity. improved. 2. Pneumonia - Atypical. Mycoplasma + 3. Abnormal CT scan of the chest showing diffuse bilateral airspace disease with air bronchograms. ? underlying severe pulmonary disease. 4. Hypotension and tachycardia. ? volume depletion/diuresis. RECOMMENDATIONS 1. dc Levaquin. 2. Continue piperacillin/tazobactam. 3. Continue Zithromax. 4. Consider bronchoscopy. 5. fu sputum for AFb and fungal eval. 6. Repeat CXR. 7. Monitor clinical status. 8. repeat sputum dw Saima Bailey MD Dec 02, 2016 14:52
[2016-12-02] MEDS: NS + KCL 20 MEQ INJ 1,000 ML IV SCH (17:25)
[2016-12-03] VITALS (14 sets, daily range): BP systolic 103–128; BP diastolic 56–66; PULSE 79–154; RESP 16–27; TEMP 97.5–99.4; O2SAT 90–98
[2016-12-03] MEDS: NS + KCL 20 MEQ INJ 1,000 ML IV SCH (03:40)
[2016-12-03] MEDS: PIPERACIL-TAZO 4.5 GM PREMIX 100 ML IV SCH ×3 (06:00→17:51)
[2016-12-03] MEDS: methylPREDNISolone SOD SUCC 40 MG/1 ML VIAL IV PUSH SCH ×3 (06:01→22:00)
[2016-12-03] MEDS: DILTIAZEM INJ 125 MG in SODIUM CHLORIDE 0.9% INJ 100 ML IV SCH (06:01)
[2016-12-03] MEDS: LORazepam 2 MG/ML VIAL IV PUSH PRN (06:02)
[2016-12-03] MEDS: INSULIN NovoLIN REGULAR SUPPLEMENTAL SCALE SQ SCH ×3 (06:26→17:51)
[2016-12-03] MEDS: RESP: ALBUTEROL 2.5 MG/IPRATROPIUM 0.5 MG NEB (SCH) NEB ×4 (08:00→20:06)
[2016-12-03] MEDS: POTASSIUM CHLORIDE 20 MEQ CONTROLLED RELEASE TAB PO SCH (09:00)
[2016-12-03] MEDS: LACTIC ACID (AMMONIUM LACTATE) 12% LOTION 225 GM BTL TOPICAL SCH ×2 (09:00→21:12)
[2016-12-03] MEDS: SODIUM CHLORIDE 0.9% FLUSH 5 ML FLUSH FLUSH SCH ×2 (09:00→21:12)
[2016-12-03] MEDS: guaiFENesin E.R. 600 MG TAB PO SCH ×2 (09:32→21:12)
[2016-12-03] MEDS: ENOXAPARIN SODIUM 30 MG/0.3 ML SYRINGE SQ SCH (09:32)
[2016-12-03] MEDS: THIAMINE HCL 100 MG TAB PO SCH (09:32)
[2016-12-03] MEDS: ALBUMIN HUMAN 5% 25 GM/500 ML BOTTLE IV SCH (09:32)
[2016-12-03] MEDS: METOPROLOL SUCCINATE 25 MG EXTENDED RELEASE TAB PO SCH (09:32)
[2016-12-03] MEDS: NICOTINE 21 MG/24 HR PATCH TD SCH (09:32)
--- NOTE | 2016-12-03 09:33 | RADRPT ---
EXAM DATE/TIME: 12/03/2016 08:50 [facility] COMPARISON: CHEST SINGLE AP, November 30, 2016, 12:04. INDICATIONS : Shortness of breath. Possible pneumonia. MEDICAL HISTORY : Myocardial infarction. Cardiovascular disease. Seizures. SURGICAL HISTORY : None. ENCOUNTER: Subsequent ACUITY: 1 week PAIN SCORE: 0/10 LOCATION: Bilateral chest FINDINGS: The heart is enlarged. There is diffuse bilateral infiltrate. There is small bibasilar effusions. Thi s is unchanged compared to previous examination dated 11/30/16. CONCLUSION: 1. Continued diffuse airspace disease bilaterally with small effusions and cardiomegaly. Differential considerations would include predominantly pneumonia however, there is likely some degree of congest ana luisa failure as well. Nikhil Aguilar MD on December 03, 2016 at 9:30 Board Certified Radiologist. This report was verified electronically.
--- NOTE | 2016-12-03 10:32 | HHI.CCPN ---
Subjective Remarks/Hospital Course 56-year-old male with past medical history of nicotine and alcohol use. He was admitted to [facility] under the hospitalist service on November 20 for hyponatremia with a sodium level of 127 on admission. The patient had a CT scan of the brain on arrival which showed no evidence of any acute intracranial process. During his hospital course he was seen by the pulmonary and infectious disease services. His initial chest x-ray from November 22 showed cardiomegaly and findings of congestive heart failure. He subsequently underwent CT scan of the chest on November 24 which showed diffuse bilateral airspace disease with air bronchograms greater within the upper lobes. This could be multilobar pneumonia versus edema. The patient was started on broad- spectrum antibiotics and his blood cultures from November 23 showed no growth to date. In addition his sputum culture showed normal respiratory aaron, and his nasal washing for influenza A and B antigen was negative. Earlier today the patient was tachycardic and had an ABG on 6 liters oxygen which showed likely mixed venous blood gas, pH 7.36, CO2 53, PAO2 41, bicarb 29. A stat. chest x-ray showed severe bilateral pulmonary infiltrates consistent with worsening pulmonary edema versus pneumonia and small bilateral pleural effusions. He was given Bumex 2 mg IV push by the primary team and had approximately three liters of urine output since then. Critical care medicine was consulted for respiratory distress. When seen the patient is on a non- rebreather mask with saturation ranging between 96 and 100%. He is afebrile, however, is tachycardic with heart rate of 101-104 and afebrile. His laboratory data from today showed leukocytosis with a WBC of 14.4 which is down from 16.3 yesterday. His urine tox screen on arrival was positive for benzodiazepines and alcohol level less than 3. 12/03 Patient is on partial rebreather, afebrile. Objective Vital Signs Date Time Temp Pulse Resp B/P Pulse Ox O2 Delivery O2 Flow Rate FiO2 12/03/16 09:02 93 Partial Rebreather 12/03/16 08:00 80 12/03/16 08:00 97.6 20 124/66 12/03/16 07:00 15.00 12/02/16 07:00 100 Intake and Output 12/02/16 12/02/16 12/03/16 08:00 16:00 00:00 Intake Total 1048 ml 2000 ml 2245 ml Output Total 700 ml 600 ml 500 ml Balance 348 ml 1400 ml 1745 ml Result Diagram: 11/30/16 0740 11/30/16 0740 Imaging Last Impressions Chest X-Ray 12/03/16 0900 Signed Impressions: Service Date/Time: Saturday, December 03, 2016 08:50 - CONCLUSION: 1. Continued diffuse airspace disease bilaterally with small effusions and cardiomegaly. Differential considerations would include predominantly pneumonia however, there is likely some degree of congestive failure as well. Nikhil Aguilar MD Lower Extremity Ultrasound 11/25/16 0000 Signed Impressions: Service Date/Time: Friday, November 25, 2016 13:42 - CONCLUSION: 1. No DVT. 2. Multiple large lymph nodes in the left groin the largest measuring 3.6 cm. Johnson Riggins MD Chest CT 11/24/16 0824 Signed Impressions: Service Date/Time: Thursday, November 24, 2016 08:44 - CONCLUSION: 1. Diffuse bilateral airspace disease with air bronchograms greater within the upper lobes. This could be multilobar pneumonia versus edema. 2. Small bilateral pleural effusions. 3. Coronary artery calcifications and nonspecific mediastinal adenopathy. 4. Enlargement of the pulmonary trunk suggesting arterial hypertension. Johnson Riggins MD Hepatobiliary Scan Nuclear Medicine 11/23/16 0000 Signed Impressions: Service Date/Time: Wednesday, November 23, 2016 12:49 - CONCLUSION: 1. There is no evidence for cystic duct or common duct obstruction. 2. Moderate biliary enteric reflux. Huber Aguilar MD FACR Liver Ultrasound 11/22/16 0000 Signed Impressions: Service Date/Time: November 16:50 - CONCLUSION: 1. Mildly enlarged and heterogeneous liver without a focal hepatic lesion. No perceptible hepatic nodularity. 2. Trace pericholecystic fluid and borderline gallbladder wall thickening. These findings are demonstrated in the setting of no illicited sonographic Greenberg sign and presumably on the basis of right heart dysfunction or liver disease. No gallstones or ductal dilatation demonstrated. Jose Juan Santillan MD Head CT 11/19/16 191 Signed Impressions: Service Date/Time: Saturday, November 19, 2016 20:22 - CONCLUSION: Normal examination for a patient of this age. No significant change has occurred. Trae Jarrett MD Cervical Spine CT 11/19/161914 Signed Impressions: Service Date/Time: Saturday, November 19, 2016 20:22 - CONCLUSION: 1. Moderate degenerative disc disease. No acute bony abnormalities. Trae Jarrett MD Objective Remarks GENERAL: Patient is 56yo on partial rebreather SKIN: Warm and dry. HEAD: Normocephalic. EYES: No scleral icterus. No injection or drainage. NECK: Supple, trachea midline. No JVD or lymphadenopathy. CARDIOVASCULAR: Regular rate and rhythm without murmurs, gallops, or rubs. RESPIRATORY: Breath sounds equal bilaterally. Coarse BS GASTROINTESTINAL: Abdomen soft, non-tender, nondistended. MUSCULOSKELETAL: No cyanosis, or edema. Neuro: Awake and alert A/P Problem List: (1) Hyponatremia ICD Code: E87.1 Status: Acute (2) Chronic alcohol abuse ICD Code: F10.10 Status: Chronic (3) Respiratory failure ICD Code: J96.90 Status: Acute Assessment and Plan 1. Acute hypoxemic and hypercapnic respiratory failure. 2. Diffuse bilateral pulmonary infiltrates. Differential diagnosis fluid overload versus infectious process. 3. Leukocytosis. 4. Anemia. 5. COPD. 6. ETOH and nicotine use. Plan Neuro: Monitor neuro status closely. Avoid any sedatives. On Librium 10mg Q8, Thiamine 100mg daily Pulm: Wean down oxygen as tolerated and maintain sats > 92%. Bronchodilators, Solu-Medrol 40 mg IV q.8h. Pulm is following- Dr. Paras BONDSPV PRN for resp distress. CV: Wean off Cardizem drip and place on PO Cardizem 60mg QID monitor HR and BP keep MAP>65mmHg : Monitor renal function, I's and O's, and electrolyte replacement d/c IVF, d/c Albumin and diurese with Bumex 1mg x1 GI: On PO diet ID: Continue with abx per ID ( Zithromax and Zosyn)Monitor for signs of infections (fever and WBC) Nasal washing negative for influenza Heme: Monitor CBC. Endo:Sliding scale insulin with Accu-Cheks if needed for glycemic control. No indication for GI prophylaxis. DVT prophylaxis with SCDs and Lovenox subcu daily. Doppler US LE on 11/25 negative for DVT. Check labs today Level 3 Miguel,Alaa MD Dec 03, 2016 10:32
[2016-12-03] MEDS ORDERED: BUMETANIDE INJ 1 MG/4 ML VIAL IV PUSH ONE ×2 (10:45→12:30)
[2016-12-03 11:54] LABS: BASOPHIL % 0.2 % (0.0-2.0); HEMATOCRIT 29.6 % (39.0-51.0); HEMO FLAGS DIFF FINAL; LYMPH % 4.2 % (9.0-44.0); LYMPHOCYTE # 0.5 TH/MM3 (1.0-4.8); MEAN CORPUSCULAR HEMOGLOBIN 32.8 PG (27.0-34.0); MEAN CORPUSCULAR HGB CONC 32.8 % (32.0-36.0); MONO % 4.5 % (0.0-8.0); NEUT % 91.1 % (16.0-70.0); PLATELET COUNT 176 TH/MM3 (150-450); RED BLOOD COUNT 2.96 MIL/MM3 (4.50-5.90); RED CELL DISTRIBUTION WIDTH 14.3 % (11.6-17.2)
[2016-12-03 12:26] LABS: BICARBONATE 30.1 MEQ/L (21.0-32.0); MAGNESIUM 2.2 MG/DL (1.5-2.5); POTASSIUM 4.8 MEQ/L (3.5-5.1)
[2016-12-03] MEDS: AZITHROMYCIN INJ 500 MG in SODIUM CHLOR 0.9% 250 ML INJ 250 ML IV SCH (12:48)
[2016-12-03] MEDS: DILTIAZEM HCL 60 MG TAB PO SCH ×3 (12:49→21:12)
--- NOTE | 2016-12-03 14:38 | HHI.IDPN ---
Note Infectious Disease Note Patient in no distress. Tachycardic. On NRM. Desaturates when O2 mask not on. No cough. Being diuresed and has good UO. Afebrile. Mycoplasma IgM and IgG elevated titers. HIV negative. Seen for left lower extremity erythema. PAST MEDICAL HISTORY 1. Alcohol abuse. 2. Kidney surgery. 3. Myocardial infarction. ALLERGIES NO KNOWN DRUG ALLERGIES. ANTIBIOTICS 1. Vancomycin. 2. Piperacillin/tazobactam. 3. Azithromycin. 4. Levaquin. SOCIAL HISTORY The patient smokes one-half pack of cigarettes a day. Positive alcohol use daily. Denies illicit drugs. The patient is homeless. OBJECTIVE: Vital Signs Date Time Temp Pulse Resp B/P Pulse Ox O2 Delivery O2 Flow Rate FiO2 12/03/16 12:00 80 12/03/16 12:00 97.5 80 25 103/59 98 12/03/16 10:00 80 12/03/16 09:02 93 Partial Rebreather 12/03/16 08:00 80 12/03/16 08:00 97.6 80 20 124/66 90 12/03/16 07:00 94 Partial Non-Rebreather 15.00 12/03/16 06:00 80 12/03/16 04:00 79 12/03/16 04:00 97.7 79 20 128/61 94 12/03/16 02:00 81 12/03/16 00:00 99.4 82 27 108/64 97 12/03/16 00:00 82 12/02/16 22:00 83 12/02/16 20:00 83 12/02/16 20:00 98.9 83 24 105/55 100 12/02/16 19:44 97 Partial Rebreather 11.00 12/02/16 19:00 97 Partial Non-Rebreather 15.00 12/02/16 16:00 98.9 82 24 105/58 94 12/02/16 12/02/16 12/03/16 15:00 23:00 07:00 Intake Total 2000 ml 2245 ml 1531 ml Output Total 600 ml 500 ml 1250 ml Balance 1400 ml 1745 ml 281 ml Intake Oral 720 ml 1000 ml 800 ml IV Total 780 ml 745 ml 731 ml Albumin 500 ml 500 ml Output Urine Total 600 ml 500 ml 1250 ml # Bowel Movements 3 1 2 Laboratory Tests Test 12/03/16 11:17 White Blood Count 12.0 TH/MM3 Red Blood Count 2.96 MIL/MM3 Hemoglobin 9.7 GM/DL Hematocrit 29.6 % Mean Corpuscular Volume 100.0 FL Mean Corpuscular Hemoglobin 32.8 PG Mean Corpuscular Hemoglobin 32.8 % Concent Red Cell Distribution Width 14.3 % Platelet Count 176 TH/MM3 Mean Platelet Volume 8.3 FL Neutrophils (%) (Auto) 91.1 % Lymphocytes (%) (Auto) 4.2 % Monocytes (%) (Auto) 4.5 % Eosinophils (%) (Auto) 0.0 % Basophils (%) (Auto) 0.2 % Neutrophils # (Auto) 11.0 TH/MM3 Lymphocytes # (Auto) 0.5 TH/MM3 Monocytes # (Auto) 0.5 TH/MM3 Eosinophils # (Auto) 0.0 TH/MM3 Basophils # (Auto) 0.0 TH/MM3 CBC Comment DIFF FINAL Differential Comment Laboratory Tests Test 12/03/16 11:17 Sodium Level 141 MEQ/L Potassium Level 4.8 MEQ/L Chloride Level 107 MEQ/L Carbon Dioxide Level 30.1 MEQ/L Anion Gap 4 MEQ/L Blood Urea Nitrogen 16 MG/DL Creatinine 0.55 MG/DL Estimat Glomerular Filtration 154 ML/MIN Rate Random Glucose 132 MG/DL Calcium Level 8.8 MG/DL Phosphorus Level 2.9 MG/DL Magnesium Level 2.2 MG/DL Microbiology Date/Time Procedure Status Source Growth 11/30/16 16:20 Acid Fast Stain - Final Resulted Sputum Expectorated Sputum NO ACID FAST BACILLI SEEN 11/30/16 16:20 Mycobacterial Culture Resulted Sputum Expectorated Sputum Pending 11/30/16 16:20 Fungal Smear - Final Resulted Sputum Expectorated Sputum FEW BUDDING YEAST WITH PSEUDOHYPHAE 11/30/16 16:20 Fungal Culture - Preliminary Resulted Yeast-Id To Follow IMAGING: Chest X-Ray 12/03/16 0900 Signed Impressions: Service Date/Time: Saturday, December 03, 2016 08:50 - CONCLUSION: 1. Continued diffuse airspace disease bilaterally with small effusions and cardiomegaly. Differential considerations would include predominantly pneumonia however, there is likely some degree of congestive failure as well. Nikhil Aguilar MD Chest X-Ray 11/27/16 0000 Signed Impressions: Service Date/Time: Sunday, November 27, 2016 08:06 - CONCLUSION: 1. Interval worsening severe bilateral pulmonary infiltrates consistent with worsening pulmonary edema versus pneumonia. Clinical correlation is recommended. 2. Cardiomegaly. 3. Small bilateral pleural effusions. Abilio Pa MD Lower Extremity Ultrasound 11/25/16 Signed Impressions: Service Date/Time: Friday, November 25, 2016 13:42 - CONCLUSION: 1. No DVT. 2. Multiple large lymph nodes in the left groin the largest measuring 3.6 cm. Johnson Riggins MD Chest X-Ray 11/25/16 Signed Impressions: Service Date/Time: Friday, November 25, 2016 10:39 - CONCLUSION: Worsening bilateral airspace disease. Probable small left-sided pleural effusion. Johnson Riggins MD Chest CT 11/24/16823 Signed Impressions: Service Date/Time: Thursday, November 24, 2016 08:44 - CONCLUSION: 1. Diffuse bilateral airspace disease with air bronchograms greater within the upper lobes. This could be multilobar pneumonia versus edema. 2. Small bilateral pleural effusions. 3. Coronary artery calcifications and nonspecific mediastinal adenopathy. 4. Enlargement of the pulmonary trunk suggesting arterial hypertension. Johnson Riggins MD Hepatobiliary Scan Nuclear Medicine 11/23/16 Signed Impressions: Service Date/Time: Wednesday, November 23, 2016 12:49 - CONCLUSION: 1. There is no evidence for cystic duct or common duct obstruction. 2. Moderate biliary enteric reflux. Huber Aguilar MD FACR Liver Ultrasound 11/22/16 Signed Impressions: Service Date/Time: November 16:50 - CONCLUSION: 1. Mildly enlarged and heterogeneous liver without a focal hepatic lesion. No perceptible hepatic nodularity. 2. Trace pericholecystic fluid and borderline gallbladder wall thickening. These findings are demonstrated in the setting of no illicited sonographic Greenberg sign and presumably on the basis of right heart dysfunction or liver disease. No gallstones or ductal dilatation demonstrated. Jose Juan Santillan MD Head CT 11/19/161914 Signed Impressions: Service Date/Time: Saturday, November 19, 2016 20:22 - CONCLUSION: Normal examination for a patient of this age. No significant change has occurred. Trae Jarrett MD Cervical Spine CT 11/19/161914 Signed Impressions: Service Date/Time: Saturday, November 19, 2016 20:22 - CONCLUSION: 1. Moderate degenerative disc disease. No acute bony abnormalities. Trae Jarrett MD PHYSICAL EXAMINATION GENERAL: No acute distress. On NRM. HEENT: No icterus. Oropharynx - very poor dentition. The buccal mucosa is moist. NECK: Supple. No adenopathy LUNGS: Diffuse bilateral wheezing and coarse rhonchi. HEART: Regular rate and rhythm with normal S1 and S2. ABDOMEN: Bowel sounds present, soft, no tenderness. EXTREMITIES: No clubbing or cyanosis. 1+ edema at extremities. SKIN: No diffuse rash. NEUROLOGIC: No focal findings. IMPRESSION 1. Cellulitis of the left lower extremity. improved. 2. Pneumonia - Atypical. Mycoplasma. Still O2 dependent. 3. Abnormal CT scan of the chest showing diffuse bilateral airspace disease with air bronchograms. ? underlying severe pulmonary disease. 4. Tachycardia. RECOMMENDATIONS 1. Continue Zithromax. 2. Continue piperacillin/tazobactam. 3. Consider bronchoscopy. 4. Monitor clinical status. 5. Follow sputum culture. Prelim. yeast. Juancarlos Ackerman MD Dec 03, 2016 14:38
[2016-12-03] MEDS: METOPROLOL TARTRATE 5 MG/5 ML VIAL IV PUSH PRN (18:48)
--- NOTE | 2016-12-03 20:31 | HHI.PR ---
Subjective Remarks 56 YOWM with COPD,Bilat lung infilt Has cough and sp Refuses Nebs treatments Desaturates On Cardiazem Weaned to NC Objective Vital Signs Vital Signs Date Time Temp Pulse Resp B/P Pulse Ox O2 Delivery O2 Flow Rate FiO2 12/03/16 20:06 94 Nasal Cannula 6.00 12/03/16 18:00 154 12/03/16 16:00 109 12/03/16 16:00 97.9 109 20 121/59 90 12/03/16 14:00 83 12/03/16 12:00 80 12/03/16 12:00 97.5 80 25 103/59 98 12/03/16 10:00 80 12/03/16 09:02 93 Partial Rebreather 12/03/16 08:00 80 12/03/16 08:00 97.6 80 20 124/66 90 12/03/16 07:00 94 Partial Non-Rebreather 15.00 12/03/16 06:00 80 12/03/16 04:00 79 12/03/16 04:00 97.7 79 20 128/61 94 12/03/16 02:00 81 12/03/16 00:00 99.4 82 27 108/64 97 12/03/16 00:00 82 12/02/16 22:00 83 I/O 12/02/16 12/02/16 12/02/16 12/03/16 12/03/16 12/03/16 07:00 15:00 23:00 07:00 15:00 23:00 Intake Total 1048 ml 2000 ml 2245 ml 1531 ml 814 ml Output Total 700 ml 600 ml 500 ml 1250 ml 2500 ml 1350 ml Balance 348 ml 1400 ml 1745 ml 281 ml -1686 ml -1350 ml Intake Oral 400 ml 720 ml 1000 ml 800 ml 240 ml IV Total 648 ml 780 ml 745 ml 731 ml 574 ml Albumin 500 ml 500 ml Output Urine Total 700 ml 600 ml 500 ml 1250 ml 2500 ml 1350 ml # Bowel Movements 0 3 1 2 1 Result Diagram: 12/03/16 1117 12/03/16 1117 Objective Remarks GENERAL: WBWN Male mod sob SKIN: Warm and dry. HEAD: Normocephalic. EYES: No scleral icterus. No injection or drainage. NECK: Supple, trachea midline. No JVD or lymphadenopathy. CARDIOVASCULAR: Regular rate and rhythm without murmurs, gallops, or rubs. RESPIRATORY: Breath sounds equal bilaterally. No accessory muscle use. Exp rhonchi GASTROINTESTINAL: Abdomen soft, non-tender, nondistended. MUSCULOSKELETAL: No cyanosis, or edema. BACK: Nontender without obvious deformity. No CVA tenderness. A/P Assessment and Plan COPD Exac Resp Insuff Bilat Pn ETOH use Nicotine use PLAN: Supplement 02 to keep sat >90% Aerosol nebs Abx per ID IV Solumedrol Acapella q 1 hr Diurease Monitor lytes CPAP at night and PRN Diamox 250 mg daily Monty Crain MD Dec 03, 2016 20:31
[2016-12-04] VITALS (14 sets, daily range): BP systolic 101–136; BP diastolic 55–81; PULSE 74–153; RESP 12–24; TEMP 97.5–98.1; O2SAT 90–96
[2016-12-04] MEDS: oxyCODONE/ACETAMINOPHEN 5 MG/325 MG TAB PO PRN ×2 (00:12→20:47)
[2016-12-04] MEDS: PIPERACIL-TAZO 4.5 GM PREMIX 100 ML IV SCH ×4 (00:12→18:24)
[2016-12-04] MEDS: INSULIN NovoLIN REGULAR SUPPLEMENTAL SCALE SQ SCH ×4 (06:00→18:00)
[2016-12-04] MEDS: methylPREDNISolone SOD SUCC 40 MG/1 ML VIAL IV PUSH SCH ×2 (06:38→18:24)
--- NOTE | 2016-12-04 07:37 | HHI.CCPN ---
Subjective Remarks/Hospital Course 56-year-old male with past medical history of nicotine and alcohol use. He was admitted to [facility] under the hospitalist service on November 20 for hyponatremia with a sodium level of 127 on admission. The patient had a CT scan of the brain on arrival which showed no evidence of any acute intracranial process. During his hospital course he was seen by the pulmonary and infectious disease services. His initial chest x-ray from November 22 showed cardiomegaly and findings of congestive heart failure. He subsequently underwent CT scan of the chest on November 24 which showed diffuse bilateral airspace disease with air bronchograms greater within the upper lobes. This could be multilobar pneumonia versus edema. The patient was started on broad- spectrum antibiotics and his blood cultures from November 23 showed no growth to date. In addition his sputum culture showed normal respiratory aaron, and his nasal washing for influenza A and B antigen was negative. Earlier today the patient was tachycardic and had an ABG on 6 liters oxygen which showed likely mixed venous blood gas, pH 7.36, CO2 53, PAO2 41, bicarb 29. A stat. chest x-ray showed severe bilateral pulmonary infiltrates consistent with worsening pulmonary edema versus pneumonia and small bilateral pleural effusions. He was given Bumex 2 mg IV push by the primary team and had approximately three liters of urine output since then. Critical care medicine was consulted for respiratory distress. When seen the patient is on a non- rebreather mask with saturation ranging between 96 and 100%. He is afebrile, however, is tachycardic with heart rate of 101-104 and afebrile. His laboratory data from today showed leukocytosis with a WBC of 14.4 which is down from 16.3 yesterday. His urine tox screen on arrival was positive for benzodiazepines and alcohol level less than 3. 12/03 Patient is on partial rebreather, afebrile. 12/04 No acute events overnight. On Cardizem drip 10mg/hr. Afebrile, down to 6L oxygen. Afebrile. Objective Vital Signs Date Time Temp Pulse Resp B/P Pulse Ox O2 Delivery O2 Flow Rate FiO2 12/04/16 04:00 97.7 80 18 114/55 94 12/03/16 20:06 Nasal Cannula 6.00 12/02/16 07:00 100 Intake and Output 212/03/16 12/04/16 08:00 16:00 00:00 Intake Total 1531 ml 814 ml 686 ml Output Total 1250 ml 3850 ml 800 ml Balance 281 ml -3036 ml -114 ml Result Diagram: 12/03/16 1117 12/03/16 1117 Other Results Laboratory Tests Test 12/03/16 11:17 White Blood Count 12.0 TH/MM3 Red Blood Count 2.96 MIL/MM3 Hemoglobin 9.7 GM/DL Hematocrit 29.6 % Mean Corpuscular Volume 100.0 FL Mean Corpuscular Hemoglobin 32.8 PG Mean Corpuscular Hemoglobin 32.8 % Concent Red Cell Distribution Width 14.3 % Platelet Count 176 TH/MM3 Mean Platelet Volume 8.3 FL Neutrophils (%) (Auto) 91.1 % Lymphocytes (%) (Auto) 4.2 % Monocytes (%) (Auto) 4.5 % Eosinophils (%) (Auto) 0.0 % Basophils (%) (Auto) 0.2 % Neutrophils # (Auto) 11.0 TH/MM3 Lymphocytes # (Auto) 0.5 TH/MM3 Monocytes # (Auto) 0.5 TH/MM3 Eosinophils # (Auto) 0.0 TH/MM3 Basophils # (Auto) 0.0 TH/MM3 CBC Comment DIFF FINAL Differential Comment Sodium Level 141 MEQ/L Potassium Level 4.8 MEQ/L Chloride Level 107 MEQ/L Carbon Dioxide Level 30.1 MEQ/L Anion Gap 4 MEQ/L Blood Urea Nitrogen 16 MG/DL Creatinine 0.55 MG/DL Estimat Glomerular Filtration 154 ML/MIN Rate Random Glucose 132 MG/DL Calcium Level 8.8 MG/DL Phosphorus Level 2.9 MG/DL Magnesium Level 2.2 MG/DL Imaging Last Impressions Chest X-Ray 12/03/16 0900 Signed Impressions: Service Date/Time: Saturday, December 03, 2016 08:50 - CONCLUSION: 1. Continued diffuse airspace disease bilaterally with small effusions and cardiomegaly. Differential considerations would include predominantly pneumonia however, there is likely some degree of congestive failure as well. Nikhil Aguilar MD Lower Extremity Ultrasound 11/25/16 0000 Signed Impressions: Service Date/Time: Friday, November 25, 2016 13:42 - CONCLUSION: 1. No DVT. 2. Multiple large lymph nodes in the left groin the largest measuring 3.6 cm. Johnson Riggins MD Chest CT 11/24/16 0824 Signed Impressions: Service Date/Time: Thursday, November 24, 2016 08:44 - CONCLUSION: 1. Diffuse bilateral airspace disease with air bronchograms greater within the upper lobes. This could be multilobar pneumonia versus edema. 2. Small bilateral pleural effusions. 3. Coronary artery calcifications and nonspecific mediastinal adenopathy. 4. Enlargement of the pulmonary trunk suggesting arterial hypertension. Johnson Riggins MD Hepatobiliary Scan Nuclear Medicine 11/23/16 0000 Signed Impressions: Service Date/Time: Wednesday, November 23, 2016 12:49 - CONCLUSION: 1. There is no evidence for cystic duct or common duct obstruction. 2. Moderate biliary enteric reflux. Huber Aguilar MD FACR Liver Ultrasound 11/22/16 0000 Signed Impressions: Service Date/Time: November 16:50 - CONCLUSION: 1. Mildly enlarged and heterogeneous liver without a focal hepatic lesion. No perceptible hepatic nodularity. 2. Trace pericholecystic fluid and borderline gallbladder wall thickening. These findings are demonstrated in the setting of no illicited sonographic Greenberg sign and presumably on the basis of right heart dysfunction or liver disease. No gallstones or ductal dilatation demonstrated. Jose Juan Santillan MD Head CT 11/19/161914 Signed Impressions: Service Date/Time: Saturday, November 19, 2016 20:22 - CONCLUSION: Normal examination for a patient of this age. No significant change has occurred. Trae Jarrett MD Cervical Spine CT 11/19/161914 Signed Impressions: Service Date/Time: Saturday, November 19, 2016 20:22 - CONCLUSION: 1. Moderate degenerative disc disease. No acute bony abnormalities. Trae Jarrett MD Objective Remarks GENERAL: Patient is 56yo on 6L oxygen with good sats. SKIN: Warm and dry. HEAD: Normocephalic. EYES: No scleral icterus. No injection or drainage. NECK: Supple, trachea midline. No JVD or lymphadenopathy. CARDIOVASCULAR: Regular rate and rhythm without murmurs, gallops, or rubs. RESPIRATORY: Breath sounds equal bilaterally. Few Coarse BS GASTROINTESTINAL: Abdomen soft, non-tender, nondistended. MUSCULOSKELETAL: No cyanosis, or edema. Neuro: Awake and alert A/P Problem List: (1) Hyponatremia ICD Code: E87.1 Status: Acute (2) Chronic alcohol abuse ICD Code: F10.10 Status: Chronic (3) Respiratory failure ICD Code: J96.90 Status: Acute Assessment and Plan 1. Acute hypoxemic and hypercapnic respiratory failure. 2. Diffuse bilateral pulmonary infiltrates. Differential diagnosis fluid overload versus infectious process. 3. Leukocytosis...trending down 4. Anemia. 5. COPD. 6. ETOH and nicotine use. Plan Neuro: Monitor neuro status closely. Avoid any sedatives. On Librium 10mg Q8 toper dose, Thiamine 100mg daily Pulm: Continue to wean down oxygen as tolerated and maintain sats > 92%. Bronchodilators, decrease Solu-Medrol 40 mg IV q.12h. Pulm is following - Dr. Crain NIPPV PRN for resp distress. CV: Wean off Cardizem drip, on PO Cardizem 60mg QID monitor HR and BP keep MAP> 65mmHg Echo showed EF 55-60% : Monitor renal function, I's and O's, and electrolyte replacement Diurese with Bumex 2mg x1 GI: On PO diet ID: Continue with abx per ID ( Zithromax and Zosyn)Monitor for signs of infections (fever and WBC) Nasal washing negative for influenza Heme: Monitor CBC. Endo:Sliding scale insulin with Accu-Cheks if needed for glycemic control. No indication for GI prophylaxis. DVT prophylaxis with SCDs and Lovenox subcu daily. Doppler US LE on 11/25 negative for DVT. Will sign off and transfer acre to [facility] Level 3 Yohan Rivera MD Dec 04, 2016 07:37
[2016-12-04] MEDS: RESP: ALBUTEROL 2.5 MG/IPRATROPIUM 0.5 MG NEB (SCH) NEB (07:59)
[2016-12-04] MEDS: guaiFENesin E.R. 600 MG TAB PO SCH ×2 (08:27→20:47)
[2016-12-04] MEDS: NICOTINE 21 MG/24 HR PATCH TD SCH (08:27)
[2016-12-04] MEDS: DILTIAZEM HCL 60 MG TAB PO SCH ×4 (08:27→20:47)
[2016-12-04] MEDS: ENOXAPARIN SODIUM 30 MG/0.3 ML SYRINGE SQ SCH (08:27)
[2016-12-04] MEDS: THIAMINE HCL 100 MG TAB PO SCH (08:27)
[2016-12-04] MEDS: LACTIC ACID (AMMONIUM LACTATE) 12% LOTION 225 GM BTL TOPICAL SCH ×2 (08:28→21:00)
[2016-12-04] MEDS: SODIUM CHLORIDE 0.9% FLUSH 5 ML FLUSH FLUSH SCH ×2 (08:28→20:46)
[2016-12-04 08:36] LABS: AUTOMATED NEUTROPHIL # 8.1 TH/MM3 (1.8-7.7); BASOPHIL % 0.1 % (0.0-2.0); HEMATOCRIT 30.3 % (39.0-51.0); HEMO FLAGS DIFF FINAL; LYMPH % 7.1 % (9.0-44.0); LYMPHOCYTE # 0.7 TH/MM3 (1.0-4.8); MEAN CELL VOLUME 98.8 FL (80.0-100.0); MEAN CORPUSCULAR HGB CONC 33.4 % (32.0-36.0); MONO % 5.1 % (0.0-8.0); NEUT % 87.7 % (16.0-70.0); PLATELET COUNT 175 TH/MM3 (150-450); RED BLOOD COUNT 3.06 MIL/MM3 (4.50-5.90); RED CELL DISTRIBUTION WIDTH 14.3 % (11.6-17.2); WHITE BLOOD COUNT 9.3 TH/MM3 (4.0-11.0)
[2016-12-04 08:59] LABS: BICARBONATE 34.6 MEQ/L (21.0-32.0); MAGNESIUM 2.3 MG/DL (1.5-2.5); POTASSIUM 4.5 MEQ/L (3.5-5.1)
[2016-12-04] MEDS ORDERED: BUMETANIDE INJ 1 MG/4 ML VIAL IV PUSH ONE (11:00)
[2016-12-04] MEDS: METOPROLOL TARTRATE 5 MG/5 ML VIAL IV PUSH PRN ×2 (12:38→18:35)
[2016-12-04] MEDS: SODIUM CHLORIDE 0.9% FLUSH 5 ML FLUSH FLUSH PRN (12:38)
[2016-12-04] MEDS: AZITHROMYCIN INJ 500 MG in SODIUM CHLOR 0.9% 250 ML INJ 250 ML IV SCH (12:38)
--- NOTE | 2016-12-04 14:56 | HHI.IDPN ---
Note Infectious Disease Note Patient is more awake and alert. Off Cardizem drip. On O2 via nasal canula. Breathing is okay. No cough. Being diuresed and has good UO. Afebrile. Mycoplasma IgM and IgG elevated titers. PAST MEDICAL HISTORY 1. Alcohol abuse. 2. Kidney surgery. 3. Myocardial infarction. ALLERGIES NO KNOWN DRUG ALLERGIES. ANTIBIOTICS 1. Piperacillin/tazobactam. 2. Azithromycin. SOCIAL HISTORY The patient smokes half pack of cigarettes a day. Positive alcohol use daily. Denies illicit drugs. The patient is homeless. OBJECTIVE: Vital Signs Date Time Temp Pulse Resp B/P Pulse Ox O2 Delivery O2 Flow Rate FiO2 12/04/16 14:00 80 12/04/16 12:00 74 12/04/16 12:00 97.7 81 12 136/81 94 12/04/16 10:00 81 12/04/16 08:01 96 Nasal Cannula 4.00 12/04/16 08:00 97.9 79 20 123/63 92 12/04/16 08:00 79 12/04/16 07:00 94 Nasal Cannula 7.00 12/04/16 06:00 79 12/04/16 04:00 97.7 80 18 114/55 94 12/04/16 04:00 80 12/04/16 02:00 80 12/04/16 01:12 16 12/04/16 00:00 81 12/04/16 00:00 97.9 81 16 103/56 95 12/03/16 22:00 82 12/03/16 20:06 94 Nasal Cannula 6.00 12/03/16 20:00 109 12/03/16 20:00 94 Nasal Cannula 9.00 12/03/16 20:00 98.3 109 16 103/56 95 12/03/16 18:00 154 12/03/16 16:00 109 12/03/16 16:00 97.9 109 20 121/59 90 12/03/16 12/03/16 12/04/16 15:00 23:00 07:00 Intake Total 814 ml 686 ml 914 ml Output Total 2500 ml 2150 ml 750 ml Balance -1686 ml -1464 ml 164 ml Intake Oral 240 ml 300 ml 360 ml IV Total 574 ml 386 ml 554 ml Output Urine Total 2500 ml 2150 ml 750 ml # Bowel Movements 1 0 0 Laboratory Tests Test 12/03/16 12/04/16 11:17 08:10 White Blood Count 12.0 TH/MM3 9.3 TH/MM3 Red Blood Count 2.96 MIL/MM3 3.06 MIL/MM3 Hemoglobin 9.7 GM/DL 10.1 GM/DL Hematocrit 29.6 % 30.3 % Mean Corpuscular Volume 100.0 FL 98.8 FL Mean Corpuscular Hemoglobin 32.8 PG 33.0 PG Mean Corpuscular Hemoglobin 32.8 % 33.4 % Concent Red Cell Distribution Width 14.3 % 14.3 % Platelet Count 176 TH/MM3 175 TH/MM3 Mean Platelet Volume 8.3 FL 8.2 FL Neutrophils (%) (Auto) 91.1 % 87.7 % Lymphocytes (%) (Auto) 4.2 % 7.1 % Monocytes (%) (Auto) 4.5 % 5.1 % Eosinophils (%) (Auto) 0.0 % 0.0 % Basophils (%) (Auto) 0.2 % 0.1 % Neutrophils # (Auto) 11.0 TH/MM3 8.1 TH/MM3 Lymphocytes # (Auto) 0.5 TH/MM3 0.7 TH/MM3 Monocytes # (Auto) 0.5 TH/MM3 0.5 TH/MM3 Eosinophils # (Auto) 0.0 TH/MM3 0.0 TH/MM3 Basophils # (Auto) 0.0 TH/MM3 0.0 TH/MM3 CBC Comment DIFF FINAL DIFF FINAL Differential Comment Laboratory Tests Test 12/03/16 12/04/16 11:17 08:10 Sodium Level 141 MEQ/L 141 MEQ/L Potassium Level 4.8 MEQ/L 4.5 MEQ/L Chloride Level 107 MEQ/L 102 MEQ/L Carbon Dioxide Level 30.1 MEQ/L 34.6 MEQ/L Anion Gap 4 MEQ/L 4 MEQ/L Blood Urea Nitrogen 16 MG/DL 17 MG/DL Creatinine 0.55 MG/DL 0.60 MG/DL Estimat Glomerular Filtration 154 ML/MIN 139 ML/MIN Rate Random Glucose 132 MG/DL 144 MG/DL Calcium Level 8.8 MG/DL 8.7 MG/DL Phosphorus Level 2.9 MG/DL 2.7 MG/DL Magnesium Level 2.2 MG/DL 2.3 MG/DL Microbiology Date/Time Procedure Status Source Growth 11/30/16 16:20 Acid Fast Stain - Final Resulted Sputum Expectorated Sputum NO ACID FAST BACILLI SEEN 11/30/16 16:20 Mycobacterial Culture Resulted Sputum Expectorated Sputum Pending 11/30/16 16:20 Fungal Smear - Final Resulted Sputum Expectorated Sputum FEW BUDDING YEAST WITH PSEUDOHYPHAE 11/30/16 16:20 Fungal Culture - Preliminary Resulted Yeast-Id To Follow IMAGING: Chest X-Ray 12/03/16 0900 Signed Impressions: Service Date/Time: Saturday, December 03, 2016 08:50 - CONCLUSION: 1. Continued diffuse airspace disease bilaterally with small effusions and cardiomegaly. Differential considerations would include predominantly pneumonia however, there is likely some degree of congestive failure as well. Nikhil Aguilar MD Chest X-Ray 11/27/16 0000 Signed Impressions: Service Date/Time: Sunday, November 27, 2016 08:06 - CONCLUSION: 1. Interval worsening severe bilateral pulmonary infiltrates consistent with worsening pulmonary edema versus pneumonia. Clinical correlation is recommended. 2. Cardiomegaly. 3. Small bilateral pleural effusions. Abilio Pa MD Lower Extremity Ultrasound 11/25/16 0000 Signed Impressions: Service Date/Time: Friday, November 25, 2016 13:42 - CONCLUSION: 1. No DVT. 2. Multiple large lymph nodes in the left groin the largest measuring 3.6 cm. Johnson Riggins MD Chest X-Ray 11/25/16 0000 Signed Impressions: Service Date/Time: Friday, November 25, 2016 10:39 - CONCLUSION: Worsening bilateral airspace disease. Probable small left-sided pleural effusion. Johnson Riggins MD Chest CT 11/24/16 0824 Signed Impressions: Service Date/Time: Thursday, November 24, 2016 08:44 - CONCLUSION: 1. Diffuse bilateral airspace disease with air bronchograms greater within the upper lobes. This could be multilobar pneumonia versus edema. 2. Small bilateral pleural effusions. 3. Coronary artery calcifications and nonspecific mediastinal adenopathy. 4. Enlargement of the pulmonary trunk suggesting arterial hypertension. Johnson Riggins MD Hepatobiliary Scan Nuclear Medicine 11/23/16 0000 Signed Impressions: Service Date/Time: Wednesday, November 23, 2016 12:49 - CONCLUSION: 1. There is no evidence for cystic duct or common duct obstruction. 2. Moderate biliary enteric reflux. Huber Aguilar MD FACR Liver Ultrasound 11/22/16 0000 Signed Impressions: Service Date/Time: November 16:50 - CONCLUSION: 1. Mildly enlarged and heterogeneous liver without a focal hepatic lesion. No perceptible hepatic nodularity. 2. Trace pericholecystic fluid and borderline gallbladder wall thickening. These findings are demonstrated in the setting of no illicited sonographic Greenberg sign and presumably on the basis of right heart dysfunction or liver disease. No gallstones or ductal dilatation demonstrated. Jose Juan Santillan MD Head CT 11/19/161914 Signed Impressions: Service Date/Time: Saturday, November 19, 2016 20:22 - CONCLUSION: Normal examination for a patient of this age. No significant change has occurred. Trae Jarrett MD Cervical Spine CT 11/19/161914 Signed Impressions: Service Date/Time: Saturday, November 19, 2016 20:22 - CONCLUSION: 1. Moderate degenerative disc disease. No acute bony abnormalities. Trae Jarrett MD PHYSICAL EXAMINATION GENERAL: No acute distress. On nasal canula. HEENT: No icterus. Oropharynx - very poor dentition. NECK: Supple. No adenopathy LUNGS: Diffuse bilateral wheezing and coarse rhonchi. HEART: Regular rate and rhythm, normal S1 and S2. ABDOMEN: Bowel sounds present, soft, no tenderness. EXTREMITIES: No clubbing or cyanosis. 1+ edema at extremities. SKIN: No rash. NEUROLOGIC: Alert and awake. No focal findings. IMPRESSION 1. Cellulitis of the left lower extremity. Resolved. 2. Pneumonia - Atypical. Mycoplasma. Still O2 dependent. 3. Abnormal CT scan of the chest showing diffuse bilateral airspace disease with air bronchograms. ? underlying severe pulmonary disease. CXR still abnormal ? component of CHF. 4. Tachycardia. Improved. RECOMMENDATIONS 1. Continue Zithromax. 2. Continue piperacillin/tazobactam. 3. Monitor clinical status and CXR. 4. Follow sputum culture. Prelim. yeast. Probably not significant. Juancarlos Ackerman MD Dec 04, 2016 14:56
--- NOTE | 2016-12-04 19:04 | HHI.PR ---
Subjective Remarks 56 YOWM with COPD,Bilat lung infilt Has cough and sp Refuses Nebs treatments Desaturates On Cardiazem po Required dose of lopressor to controll HR Weaned to NC Objective Vital Signs Vital Signs Date Time Temp Pulse Resp B/P Pulse Ox O2 Delivery O2 Flow Rate FiO2 12/04/16 18:00 87 12/04/16 16:00 98.1 83 17 104/57 93 12/04/16 16:00 83 12/04/16 14:00 80 12/04/16 12:00 74 12/04/16 12:00 97.7 81 12 136/81 94 12/04/16 10:00 81 12/04/16 08:01 96 Nasal Cannula 4.00 12/04/16 08:00 97.9 79 20 123/63 92 12/04/16 08:00 79 12/04/16 07:00 94 Nasal Cannula 7.00 12/04/16 06:00 79 12/04/16 04:00 97.7 80 18 114/55 94 12/04/16 04:00 80 12/04/16 02:00 80 12/04/16 01:12 16 12/04/16 00:00 81 12/04/16 00:00 97.9 81 16 103/56 95 12/03/16 22:00 82 12/03/16 20:06 94 Nasal Cannula 6.00 12/03/16 20:00 109 12/03/16 20:00 94 Nasal Cannula 9.00 12/03/16 20:00 98.3 109 16 103/56 95 I/O 12/03/16 12/03/16 12/03/16 12/04/16 12/04/16 12/04/16 07:00 15:00 23:00 07:00 15:00 23:00 Intake Total 1531 ml 814 ml 686 ml 914 ml 783 ml Output Total 1250 ml 2500 ml 2150 ml 750 ml 2150 ml Balance 281 ml -1686 ml -1464 ml 164 ml -1367 ml Intake Oral 800 ml 240 ml 300 ml 360 ml 420 ml IV Total 731 ml 574 ml 386 ml 554 ml 363 ml Output Urine Total 1250 ml 2500 ml 2150 ml 750 ml 2150 ml # Bowel Movements 2 1 0 0 1 Result Diagram: 12/04/16 0810 12/04/16 0810 Objective Remarks GENERAL: WBWN Male mod sob SKIN: Warm and dry. HEAD: Normocephalic. EYES: No scleral icterus. No injection or drainage. NECK: Supple, trachea midline. No JVD or lymphadenopathy. CARDIOVASCULAR: Regular rate and rhythm without murmurs, gallops, or rubs. RESPIRATORY: Breath sounds equal bilaterally. No accessory muscle use. Exp rhonchi GASTROINTESTINAL: Abdomen soft, non-tender, nondistended. MUSCULOSKELETAL: No cyanosis, or edema. BACK: Nontender without obvious deformity. No CVA tenderness. A/P Assessment and Plan COPD Exac Resp Insuff Bilat Pn ETOH use Nicotine use PLAN: Supplement 02 to keep sat >90% Aerosol nebs Abx per ID IV Solumedrol Acapella q 1 hr Diurease Monitor lytes Diamox 250 mg daily Cardiazem for rate controll Monty Crain MD Dec 04, 2016 19:04
[2016-12-04] MEDS ORDERED: DILTIAZEM HCL 25 MG/5 ML VIAL IV ONE ×2 (20:30→23:30)
[2016-12-05] VITALS (12 sets, daily range): BP systolic 109–126; BP diastolic 58–72; PULSE 80–153; RESP 13–20; TEMP 97.5–98.6; O2SAT 92–96
[2016-12-05] MEDS: METOPROLOL TARTRATE 25 MG TAB PO SCH ×5 (00:16→23:18)
[2016-12-05] MEDS: PIPERACIL-TAZO 4.5 GM PREMIX 100 ML IV SCH ×5 (00:17→23:18)
--- NOTE | 2016-12-05 05:05 | RADRPT ---
EXAM DATE/TIME: 12/05/2016 04:00 [place] COMPARISON: CHEST SINGLE AP, December 03, 2016, 8:50. INDICATIONS : Shortness of breath, possible pulmonary disease. MEDICAL HISTORY : Myocardial infarction. Cardiovascular disease. seizures SURGICAL HISTORY : None. ENCOUNTER: Subsequent ACUITY: 1 week PAIN SCORE: 0/10 LOCATION: Bilateral chest FINDINGS: The cardiac silhouette is enlarged in transverse diameter. There are findings of congestive heart carl lure with interstitial and alveolar opacity bilaterally. There has been no significant change when co mpared to the prior exam. Bilateral pleural effusions are identified. CONCLUSION: 1. Cardiomegaly and findings of congestive heart failure. There has been no significant change when c ompared to the prior exam. Roby Lopez MD on December 05, 2016 at 5:03 Board Certified Radiologist. This report was verified electronically.
[2016-12-05] MEDS: oxyCODONE/ACETAMINOPHEN 5 MG/325 MG TAB PO PRN (05:48)
[2016-12-05] MEDS: INSULIN NovoLIN REGULAR SUPPLEMENTAL SCALE SQ SCH ×5 (06:00→23:34)
[2016-12-05] MEDS: methylPREDNISolone SOD SUCC 40 MG/1 ML VIAL IV PUSH SCH ×2 (06:44→17:12)
[2016-12-05 06:58] LABS: AUTOMATED NEUTROPHIL # 7.7 TH/MM3 (1.8-7.7); BASOPHIL % 0.2 % (0.0-2.0); HEMATOCRIT 30.7 % (39.0-51.0); HEMO FLAGS DIFF FINAL; LYMPH % 9.9 % (9.0-44.0); LYMPHOCYTE # 0.9 TH/MM3 (1.0-4.8); MEAN CORPUSCULAR HEMOGLOBIN 32.3 PG (27.0-34.0); MEAN CORPUSCULAR HGB CONC 32.6 % (32.0-36.0); MONO % 7.4 % (0.0-8.0); NEUT % 82.5 % (16.0-70.0); PLATELET COUNT 160 TH/MM3 (150-450); RED CELL DISTRIBUTION WIDTH 14.2 % (11.6-17.2); WHITE BLOOD COUNT 9.3 TH/MM3 (4.0-11.0)
[2016-12-05 07:07] LABS: BICARBONATE 34.8 MEQ/L (21.0-32.0); POTASSIUM 4.5 MEQ/L (3.5-5.1)
[2016-12-05] MEDS: DILTIAZEM HCL 90 MG TAB PO SCH ×4 (08:52→20:02)
[2016-12-05] MEDS: ENOXAPARIN SODIUM 30 MG/0.3 ML SYRINGE SQ SCH (08:52)
[2016-12-05] MEDS: NICOTINE 21 MG/24 HR PATCH TD SCH (08:52)
[2016-12-05] MEDS: THIAMINE HCL 100 MG TAB PO SCH (08:52)
[2016-12-05] MEDS: guaiFENesin E.R. 600 MG TAB PO SCH ×2 (08:52→20:02)
[2016-12-05] MEDS: SODIUM CHLORIDE 0.9% FLUSH 5 ML FLUSH FLUSH SCH ×2 (08:53→20:02)
[2016-12-05] MEDS: LACTIC ACID (AMMONIUM LACTATE) 12% LOTION 225 GM BTL TOPICAL SCH ×2 (08:54→20:02)
[2016-12-05] MEDS: METOPROLOL TARTRATE 5 MG/5 ML VIAL IV PUSH PRN (09:48)
[2016-12-05] MEDS: DILTIAZEM INJ 125 MG in SODIUM CHLORIDE 0.9% INJ 100 ML IV PRN (12:11)
--- NOTE | 2016-12-05 12:50 | HHI.PR ---
Subjective Remarks Follow-up respiratory failure and atrial flutter. I was called by nurse patient in RVR despite 2 boluses of Cardizem IV. Ordered to start Cardizem drip. Patient is awake denies palpitations, chest pain and shortness of breath. Objective Vitals Vital Signs Date Time Temp Pulse Resp B/P Pulse Ox O2 Delivery O2 Flow Rate FiO2 12/05/16 06:00 80 12/05/16 04:00 81 12/05/16 04:00 97.8 81 20 115/58 94 12/05/16 02:00 80 12/05/16 00:00 81 12/05/16 00:00 98.0 81 16 116/60 94 12/04/16 22:00 86 12/04/16 21:47 16 12/04/16 20:33 91 Nasal Cannula 4.00 12/04/16 20:00 153 12/04/16 20:00 Nasal Cannula 4.00 12/04/16 20:00 97.5 153 24 101/73 90 12/04/16 18:00 87 12/04/16 16:00 98.1 83 17 104/57 93 12/04/16 16:00 83 12/04/16 14:00 80 I/O 12/04/16 12/04/16 12/04/16 12/05/16 12/05/16 12/05/16 07:00 15:00 23:00 07:00 15:00 23:00 Intake Total 914 ml 783 ml 833 ml 458 ml Output Total 750 ml 2150 ml 1125 ml 2175 ml Balance 164 ml -1367 ml -292 ml -1717 ml Intake Oral 360 ml 420 ml 600 ml 360 ml IV Total 554 ml 363 ml 233 ml 98 ml Output Urine Total 750 ml 2150 ml 1125 ml 2175 ml Bladder Scan Volume Amount 38 ml 38 ml # Bowel Movements 0 1 0 0 Result Diagram: 12/05/1618 12/05/16617 Imaging Last Impressions Chest X-Ray 12/05/16599 Signed Impressions: Service Date/Time: Monday, December 05, 2016 04:00 - CONCLUSION: 1. Cardiomegaly and findings of congestive heart failure. There has been no significant change when compared to the prior exam. Roby Lopez MD Lower Extremity Ultrasound 11/25/16 0000 Signed Impressions: Service Date/Time: Friday, November 25, 2016 13:42 - CONCLUSION: 1. No DVT. 2. Multiple large lymph nodes in the left groin the largest measuring 3.6 cm. Johnson Riggins MD Chest CT 11/24/1624 Signed Impressions: Service Date/Time: Thursday, November 24, 2016 08:44 - CONCLUSION: 1. Diffuse bilateral airspace disease with air bronchograms greater within the upper lobes. This could be multilobar pneumonia versus edema. 2. Small bilateral pleural effusions. 3. Coronary artery calcifications and nonspecific mediastinal adenopathy. 4. Enlargement of the pulmonary trunk suggesting arterial hypertension. Johnson Riggins MD Hepatobiliary Scan Nuclear Medicine 11/23/16 0000 Signed Impressions: Service Date/Time: Wednesday, November 23, 2016 12:49 - CONCLUSION: 1. There is no evidence for cystic duct or common duct obstruction. 2. Moderate biliary enteric reflux. Huber Aguilar MD FACR Liver Ultrasound 11/22/16 0000 Signed Impressions: Service Date/Time: November 16:50 - CONCLUSION: 1. Mildly enlarged and heterogeneous liver without a focal hepatic lesion. No perceptible hepatic nodularity. 2. Trace pericholecystic fluid and borderline gallbladder wall thickening. These findings are demonstrated in the setting of no illicited sonographic Greenberg sign and presumably on the basis of right heart dysfunction or liver disease. No gallstones or ductal dilatation demonstrated. Jose Juan Santillan MD Head CT 11/19/161914 Signed Impressions: Service Date/Time: Saturday, November 19, 2016 20:22 - CONCLUSION: Normal examination for a patient of this age. No significant change has occurred. Trae Jarrett MD Cervical Spine CT 11/19/161914 Signed Impressions: Service Date/Time: Saturday, November 19, 2016 20:22 - CONCLUSION: 1. Moderate degenerative disc disease. No acute bony abnormalities. Trae Jarrett MD Objective Remarks GENERAL: Patient is 56yo on 6L oxygen. He looks critically ill SKIN: Warm and dry. HEAD: Normocephalic. EYES: No scleral icterus. No injection or drainage. NECK: Supple, trachea midline. No JVD or lymphadenopathy. CARDIOVASCULAR: Tachycardic without murmur RESPIRATORY: Decreased breath sounds right lung GASTROINTESTINAL: Abdomen soft, non-tender, nondistended. MUSCULOSKELETAL: No cyanosis but with trace leg edema. Neuro: Awake and alert. Oriented to person and place Procedures none A/P Problem List: (1) Hyponatremia ICD Code: E87.1 Status: Acute (2) Humerus fracture ICD Code: S42.309A Status: Chronic (3) Chronic alcohol abuse ICD Code: F10.10 Status: Chronic Assessment and Plan Acute respiratory failure: Secondary to COPD and mycoplasma pneumonia/ and fluid overload improving continue supplemental oxygen as needed. continue antibiotics Zosyn and Zithromax, steroids (switch to by mouth in the morning) status post diuretics which she did not tolerate causing hypotension. Discontinue Bettencourt catheter sepsis due to Left lower extremity cellulitis and pneumonia: Continue antibiotics Hyponatremia, mild: Resolved. Continue to monitor. RUQ Abdominal Pain: LFTs minimally elevated. Liver U/S with trace pericholecystic fluid and borderline gallbladder wall thickening. LFTs wnl. Checked HIDA scan, essentially unremarkable. Generalized weakness: suspect secondary to hyponatremia or infection as above. Imaging/labs reviewed: Head CT normal. UDS positive for benzodiazepines. Consulted PT. Neuro checks Humerus fracture, chronic: Outpatient orthopedic follow-up as arranged. Continue sling. ETOH abuse: Withdrawal precautions. continue librium/ ativan/ thiamine- restraints as needed. hypokalemia; replace as needed. Tobacco abuse: Nicotine patch. Atrial flutter with RVR. Restart Cardizem drip and continue by mouth Cardizem and beta vincenzo. [id number] score is low. Will start Asa . Not a good candidate for anticoagulation anyway secondary to alcohol use Metabolic encephalopathy secondary to above. Improving. Continue to monitor DVT prophylaxis: Lovenox Discharge Planning Keep in ICU he remains critically ill and needs close monitoring of his cardiopulmonary and neuro status Problem Qualifiers (1) Humerus fracture: Ken Schuster MD Dec 05, 2016 12:50 Acute respiratory failure: Secondary to COPD and mycoplasma pneumonia/ and fluid overload Requiring nonrebreather, continue supplemental oxygen as needed. continue antibiotics Zosyn, Zithromax and Levaquin decrease steroids and continue diuretics. Bettencourt for accurate I's/O sepsis due to Left lower extremity cellulitis and pneumonia: continue antibiotics Hyponatremia, mild: Resolved. Continue to monitor. RUQ Abdominal Pain: LFTs minimally elevated. Liver U/S with trace pericholecystic fluid and borderline gallbladder wall thickening. LFTs wnl. Checked HIDA scan, essentially unremarkable. Generalized weakness: suspect secondary to hyponatremia or infection as above. Imaging/labs reviewed: Head CT normal. UDS positive for benzodiazepines. Consulted PT. Neuro checks Humerus fracture, chronic: Outpatient orthopedic follow-up as arranged. Continue sling. ETOH abuse: Withdrawal precautions. continue librium/ ativan/ thiamine- restraints as needed. hypokalemia; replace as needed. Tobacco abuse: Nicotine patch. Sinus tachycardia likely secondary to pulmonary status and dehydration. Continue IV hydration and keep saturation at least 92%. Obtain EKG. Consider digoxin. We will consult critical care medicine Metabolic encephalopathy secondary to above. Continue to monitor DVT prophylaxis: Lovenox Problem Qualifiers (1) Humerus fracture: Ken Schuster MD Dec 05, 2016 12:50
[2016-12-05 13:29] LABS: MAGNESIUM 2.3 MG/DL (1.5-2.5)
[2016-12-05] MEDS: AZITHROMYCIN INJ 500 MG in SODIUM CHLOR 0.9% 250 ML INJ 250 ML IV SCH (14:35)
[2016-12-05] MEDS ORDERED: BUMETANIDE INJ 1 MG/4 ML VIAL IV PUSH ONE (18:45)
--- NOTE | 2016-12-05 19:40 | HHI.PR ---
Subjective Remarks 56 YOWM with COPD,Bilat lung infilt Has cough and sp Refuses Nebs treatments Desaturates Weaned to NC Back on Cardiazem drip Objective Vital Signs Vital Signs Date Time Temp Pulse Resp B/P Pulse Ox O2 Delivery O2 Flow Rate FiO2 12/05/16 18:00 83 12/05/16 16:00 83 12/05/16 16:00 97.6 83 20 109/59 92 12/05/16 16:00 92 Nasal Cannula 4.00 12/05/16 14:00 86 12/05/16 12:00 97.6 153 15 109/65 92 12/05/16 12:00 153 12/05/16 12:00 90 Nasal Cannula 4.00 12/05/16 10:00 147 12/05/16 08:00 81 12/05/16 08:00 96 Nasal Cannula 4.00 12/05/16 08:00 97.5 81 13 126/72 96 12/05/16 06:00 80 12/05/16 04:00 81 12/05/16 04:00 97.8 81 20 115/58 94 12/05/16 02:00 80 12/05/16 00:00 81 12/05/16 00:00 98.0 81 16 116/60 94 12/04/16 22:00 86 12/04/16 21:47 16 12/04/16 20:33 91 Nasal Cannula 4.00 12/04/16 20:00 153 12/04/16 20:00 Nasal Cannula 4.00 12/04/16 20:00 97.5 153 24 101/73 90 I/O 12/04/16 12/04/16 12/04/16 12/05/16 12/05/16 12/05/16 07:00 15:00 23:00 07:00 15:00 23:00 Intake Total 914 ml 783 ml 833 ml 458 ml 1184 ml Output Total 750 ml 2150 ml 1125 ml 2175 ml 500 ml Balance 164 ml -1367 ml -292 ml -1717 ml 684 ml Intake Oral 360 ml 420 ml 600 ml 360 ml 940 ml IV Total 554 ml 363 ml 233 ml 98 ml 244 ml Output Urine Total 750 ml 2150 ml 1125 ml 2175 ml 500 ml Bladder Scan Volume Amount 38 ml 38 ml # Bowel Movements 0 1 0 0 1 Result Diagram: 12/05/1661712/05/16617 Objective Remarks GENERAL: WBWN Male mod sob SKIN: Warm and dry. HEAD: Normocephalic. EYES: No scleral icterus. No injection or drainage. NECK: Supple, trachea midline. No JVD or lymphadenopathy. CARDIOVASCULAR: Regular rate and rhythm without murmurs, gallops, or rubs. RESPIRATORY: Breath sounds equal bilaterally. No accessory muscle use. Exp rhonchi GASTROINTESTINAL: Abdomen soft, non-tender, nondistended. MUSCULOSKELETAL: No cyanosis, or edema. BACK: Nontender without obvious deformity. No CVA tenderness. A/P Assessment and Plan COPD Exac Resp Insuff Bilat Pn ETOH use Nicotine use PLAN: Supplement 02 to keep sat >90% Aerosol nebs Abx per ID IV Solumedrol Acapella q 1 hr Diurease Monitor lytes Diamox 250 mg daily Cardiazem for rate controll Bumex 1 mg IVP x 1 Monty Crain MD Dec 05, 2016 19:40
[2016-12-06] VITALS (14 sets, daily range): BP systolic 106–147; BP diastolic 58–95; PULSE 69–88; RESP 17–20; TEMP 97.4–98.4; O2SAT 90–99
[2016-12-06] MEDS: methylPREDNISolone SOD SUCC 40 MG/1 ML VIAL IV PUSH SCH (05:56)
[2016-12-06] MEDS: INSULIN NovoLIN REGULAR SUPPLEMENTAL SCALE SQ SCH ×3 (05:56→18:00)
[2016-12-06] MEDS: METOPROLOL TARTRATE 25 MG TAB PO SCH ×4 (05:56→18:12)
[2016-12-06] MEDS: PIPERACIL-TAZO 4.5 GM PREMIX 100 ML IV SCH ×4 (05:57→23:05)
--- NOTE | 2016-12-06 09:11 | HHI.PR ---
Subjective Remarks Follow-up atrial flutter. CVR on telemetry. Discussed with RN, discontinue Cardizem drip. Patient is confused seems to be hallucinating. Objective Vitals Vital Signs Date Time Temp Pulse Resp B/P Pulse Ox O2 Delivery O2 Flow Rate FiO2 12/06/16 08:42 97 Nasal Cannula 5.00 12/06/16 06:00 80 12/06/16 04:00 98.3 81 18 122/67 92 12/06/16 04:00 81 12/06/16 02:00 83 12/06/16 00:00 98.3 83 20 117/58 90 12/06/16 00:00 83 12/05/16 22:00 83 12/05/16 20:00 92 Nasal Cannula 5.00 12/05/16 20:00 98.6 83 18 109/61 92 12/05/16 20:00 83 12/05/16 18:00 83 12/05/16 16:00 83 12/05/16 16:00 97.6 83 20 109/59 92 12/05/16 16:00 92 Nasal Cannula 4.00 12/05/16 14:00 86 12/05/16 12:00 97.6 153 15 109/65 92 12/05/16 12:00 153 12/05/16 12:00 90 Nasal Cannula 4.00 12/05/16 10:00 147 I/O 12/05/16 12/05/16 12/05/16 12/06/16 12/06/16 12/06/16 07:00 15:00 23:00 07:00 15:00 23:00 Intake Total 458 ml 1184 ml 1020 ml 650 ml Output Total 2175 ml 500 ml 2500 ml 500 ml Balance -1717 ml 684 ml -1480 ml 150 ml Intake Oral 360 ml 940 ml 600 ml 480 ml IV Total 98 ml 244 ml 420 ml 170 ml Output Urine Total 2175 ml 500 ml 2500 ml 500 ml Bladder Scan Volume Amount 38 ml # Bowel Movements 0 1 1 Result Diagram: 12/05/1661712/05/16617 Imaging Last Impressions Chest X-Ray 12/05/16599 Signed Impressions: Service Date/Time: Monday, December 05, 2016 04:00 - CONCLUSION: 1. Cardiomegaly and findings of congestive heart failure. There has been no significant change when compared to the prior exam. Roby Lopez MD Lower Extremity Ultrasound 11/25/16 Signed Impressions: Service Date/Time: Friday, November 25, 2016 13:42 - CONCLUSION: 1. No DVT. 2. Multiple large lymph nodes in the left groin the largest measuring 3.6 cm. Johnson Riggins MD Chest CT 11/24/1624 Signed Impressions: Service Date/Time: Thursday, November 24, 2016 08:44 - CONCLUSION: 1. Diffuse bilateral airspace disease with air bronchograms greater within the upper lobes. This could be multilobar pneumonia versus edema. 2. Small bilateral pleural effusions. 3. Coronary artery calcifications and nonspecific mediastinal adenopathy. 4. Enlargement of the pulmonary trunk suggesting arterial hypertension. Johnson Riggins MD Hepatobiliary Scan Nuclear Medicine 11/23/16 0000 Signed Impressions: Service Date/Time: Wednesday, November 23, 2016 12:49 - CONCLUSION: 1. There is no evidence for cystic duct or common duct obstruction. 2. Moderate biliary enteric reflux. Huber Aguilar MD FACR Liver Ultrasound 11/22/16 0000 Signed Impressions: Service Date/Time: November 16:50 - CONCLUSION: 1. Mildly enlarged and heterogeneous liver without a focal hepatic lesion. No perceptible hepatic nodularity. 2. Trace pericholecystic fluid and borderline gallbladder wall thickening. These findings are demonstrated in the setting of no illicited sonographic Greenberg sign and presumably on the basis of right heart dysfunction or liver disease. No gallstones or ductal dilatation demonstrated. Jose Juan Santillan MD Head CT 11/19/161914 Signed Impressions: Service Date/Time: Saturday, November 19, 2016 20:22 - CONCLUSION: Normal examination for a patient of this age. No significant change has occurred. Trae Jarrett MD Cervical Spine CT 11/19/161914 Signed Impressions: Service Date/Time: Saturday, November 19, 2016 20:22 - CONCLUSION: 1. Moderate degenerative disc disease. No acute bony abnormalities. Trae Jarrett MD Objective Remarks GENERAL: Patient is 56yo on 4L oxygen. SKIN: Warm and dry. HEAD: Normocephalic. EYES: No scleral icterus. No injection or drainage. NECK: Supple, trachea midline. No JVD or lymphadenopathy. CARDIOVASCULAR: Controlled ventricular response without murmur RESPIRATORY: Decreased breath sounds with rhonchi GASTROINTESTINAL: Abdomen soft, non-tender, nondistended. MUSCULOSKELETAL: No cyanosis but with trace leg edema. Neuro: Awake and alert. Confused Procedures none A/P Problem List: (1) Hyponatremia ICD Code: E87.1 Status: Acute (2) Humerus fracture ICD Code: S42.309A Status: Chronic (3) Chronic alcohol abuse ICD Code: F10.10 Status: Chronic Assessment and Plan Acute respiratory failure: Secondary to COPD and mycoplasma pneumonia/ and fluid overload improving continue supplemental oxygen as needed. continue antibiotics Zosyn and Zithromax, steroids (switch to by mouth today) status post diuretics which he did not tolerate causing hypotension. Discontinued Bettencourt catheter sepsis due to Left lower extremity cellulitis and pneumonia: Continue antibiotics Hyponatremia, mild: Resolved. Continue to monitor. RUQ Abdominal Pain: LFTs minimally elevated. Liver U/S with trace pericholecystic fluid and borderline gallbladder wall thickening. LFTs wnl. Checked HIDA scan, essentially unremarkable. Generalized weakness: suspect secondary to hyponatremia or infection as above. Imaging/labs reviewed: Head CT normal. UDS positive for benzodiazepines. Consulted PT. Neuro checks Humerus fracture, chronic: Outpatient orthopedic follow-up as arranged. Continue sling. ETOH abuse: Withdrawal precautions. continue librium/ ativan/ thiamine- restraints as needed. hypokalemia; replace as needed. Tobacco abuse: Nicotine patch. Atrial flutter with RVR. Now with CVR is discontinue Cardizem drip and continue by mouth Cardizem and beta vincenzo. [id number] score is low. Will start Asa . Not a good candidate for anticoagulation anyway secondary to alcohol use Metabolic encephalopathy secondary to above. Worse. Start Haldol. EKG reviewed QTc not prolonged. Continue to monitor DVT prophylaxis: Lovenox Discharge Planning Keep in ICU for today consider transfer to floor if stable in the morning Problem Qualifiers (1) Humerus fracture: Ken Schuster MD Dec 06, 2016 09:11
[2016-12-06] MEDS: THIAMINE HCL 100 MG TAB PO SCH (10:05)
[2016-12-06] MEDS: NICOTINE 21 MG/24 HR PATCH TD SCH (10:05)
[2016-12-06] MEDS: ASPIRIN EC 81 MG TABEC PO SCH (10:06)
[2016-12-06] MEDS: ENOXAPARIN SODIUM 30 MG/0.3 ML SYRINGE SQ SCH (10:06)
[2016-12-06] MEDS: LACTIC ACID (AMMONIUM LACTATE) 12% LOTION 225 GM BTL TOPICAL SCH ×2 (10:06→19:57)
[2016-12-06] MEDS: SODIUM CHLORIDE 0.9% FLUSH 5 ML FLUSH FLUSH SCH ×2 (10:06→19:53)
[2016-12-06] MEDS: DILTIAZEM HCL 90 MG TAB PO SCH ×4 (10:06→19:52)
[2016-12-06] MEDS: guaiFENesin E.R. 600 MG TAB PO SCH ×2 (10:06→19:52)
[2016-12-06] MEDS: LORazepam 2 MG/ML VIAL IV PUSH PRN ×2 (10:07→19:56)
[2016-12-06] MEDS: RESP: ALBUTEROL 1.25 MG/3 ML NEB (PRN) NEB ×2 (12:15→17:51)
--- NOTE | 2016-12-06 12:17 | HHI.IDPN ---
Note Infectious Disease Note Patient is awake but confused. Back on Cardizem drip. On O2 via nasal canula. 6L. Afebrile. Mycoplasma IgM and IgG elevated titers. PAST MEDICAL HISTORY 1. Alcohol abuse. 2. Kidney surgery. 3. Myocardial infarction. ALLERGIES NO KNOWN DRUG ALLERGIES. ANTIBIOTICS 1. Piperacillin/tazobactam. 2. Azithromycin. OBJECTIVE: Vital Signs Date Time Temp Pulse Resp B/P Pulse Ox O2 Delivery O2 Flow Rate FiO2 12/06/16 10:00 82 12/06/16 08:42 97 Nasal Cannula 5.00 12/06/16 08:00 92 Nasal Cannula 6.00 12/06/16 08:00 88 12/06/16 06:00 80 12/06/16 04:00 98.3 81 18 122/67 92 12/06/16 04:00 81 12/06/16 02:00 83 12/06/16 00:00 98.3 83 20 117/58 90 12/06/16 00:00 83 12/05/16 22:00 83 12/05/16 20:00 92 Nasal Cannula 5.00 12/05/16 20:00 98.6 83 18 109/61 92 12/05/16 20:00 83 12/05/16 18:00 83 12/05/16 16:00 83 12/05/16 16:00 97.6 83 20 109/59 92 12/05/16 16:00 92 Nasal Cannula 4.00 12/05/16 14:00 86 12/05/16 12/05/16 12/06/16 15:00 23:00 07:00 Intake Total 1184 ml 1020 ml 650 ml Output Total 500 ml 2500 ml 500 ml Balance 684 ml -1480 ml 150 ml Intake Oral 940 ml 600 ml 480 ml IV Total 244 ml 420 ml 170 ml Output Urine Total 500 ml 2500 ml 500 ml # Bowel Movements 1 1 12/05/16 12/05/16 12/06/16 15:00 23:00 07:00 Intake Total 1184 ml 1020 ml 650 ml Output Total 500 ml 2500 ml 500 ml Balance 684 ml -1480 ml 150 ml Intake Oral 940 ml 600 ml 480 ml IV Total 244 ml 420 ml 170 ml Output Urine Total 500 ml 2500 ml 500 ml # Bowel Movements 1 1 Laboratory Tests Test 12/05/16 06:18 White Blood Count 9.3 TH/MM3 Red Blood Count 3.10 MIL/MM3 Hemoglobin 10.0 GM/DL Hematocrit 30.7 % Mean Corpuscular Volume 99.0 FL Mean Corpuscular Hemoglobin 32.3 PG Mean Corpuscular Hemoglobin 32.6 % Concent Red Cell Distribution Width 14.2 % Platelet Count 160 TH/MM3 Mean Platelet Volume 8.0 FL Neutrophils (%) (Auto) 82.5 % Lymphocytes (%) (Auto) 9.9 % Monocytes (%) (Auto) 7.4 % Eosinophils (%) (Auto) 0.0 % Basophils (%) (Auto) 0.2 % Neutrophils # (Auto) 7.7 TH/MM3 Lymphocytes # (Auto) 0.9 TH/MM3 Monocytes # (Auto) 0.7 TH/MM3 Eosinophils # (Auto) 0.0 TH/MM3 Basophils # (Auto) 0.0 TH/MM3 CBC Comment DIFF FINAL Differential Comment Laboratory Tests Test 12/05/16 06:18 Sodium Level 141 MEQ/L Potassium Level 4.5 MEQ/L Chloride Level 101 MEQ/L Carbon Dioxide Level 34.8 MEQ/L Anion Gap 5 MEQ/L Blood Urea Nitrogen 19 MG/DL Creatinine 0.57 MG/DL Estimat Glomerular Filtration 148 ML/MIN Rate Random Glucose 117 MG/DL Calcium Level 8.7 MG/DL Phosphorus Level 3.1 MG/DL Magnesium Level 2.3 MG/DL Thyroid Stimulating Hormone 4.200 uIU/ML 3rd Gen Microbiology Date/Time Procedure Status Source Growth 11/30/16 16:20 Acid Fast Stain - Final Resulted Sputum Expectorated Sputum NO ACID FAST BACILLI SEEN 11/30/16 16:20 Mycobacterial Culture Resulted Sputum Expectorated Sputum Pending 11/30/16 16:20 Fungal Smear - Final Resulted Sputum Expectorated Sputum FEW BUDDING YEAST WITH PSEUDOHYPHAE 11/30/16 16:20 Fungal Culture - Preliminary Resulted Yeast-Id To Follow IMAGING: Chest X-Ray 12/05/16 0600 Signed Impressions: Service Date/Time: Monday, December 05, 2016 04:00 - CONCLUSION: 1. Cardiomegaly and findings of congestive heart failure. There has been no significant change when compared to the prior exam. Roby Lopez MD Chest X-Ray 12/03/16 0900 Signed Impressions: Service Date/Time: Saturday, December 03, 2016 08:50 - CONCLUSION: 1. Continued diffuse airspace disease bilaterally with small effusions and cardiomegaly. Differential considerations would include predominantly pneumonia however, there is likely some degree of congestive failure as well. Nikhil Aguilar MD Lower Extremity Ultrasound 11/25/16 0000 Signed Impressions: Service Date/Time: Friday, November 25, 2016 13:42 - CONCLUSION: 1. No DVT. 2. Multiple large lymph nodes in the left groin the largest measuring 3.6 cm. Johnson Riggins MD Chest X-Ray 11/25/16 Signed Impressions: Service Date/Time: Friday, November 25, 2016 10:39 - CONCLUSION: Worsening bilateral airspace disease. Probable small left-sided pleural effusion. Johnson Riggins MD Chest CT 11/24/16823 Signed Impressions: Service Date/Time: Thursday, November 24, 2016 08:44 - CONCLUSION: 1. Diffuse bilateral airspace disease with air bronchograms greater within the upper lobes. This could be multilobar pneumonia versus edema. 2. Small bilateral pleural effusions. 3. Coronary artery calcifications and nonspecific mediastinal adenopathy. 4. Enlargement of the pulmonary trunk suggesting arterial hypertension. Johnson Riggins MD Hepatobiliary Scan Nuclear Medicine 11/23/16 Signed Impressions: Service Date/Time: Wednesday, November 23, 2016 12:49 - CONCLUSION: 1. There is no evidence for cystic duct or common duct obstruction. 2. Moderate biliary enteric reflux. Huber Aguilar MD FACR Liver Ultrasound 11/22/16 Signed Impressions: Service Date/Time: November 16:50 - CONCLUSION: 1. Mildly enlarged and heterogeneous liver without a focal hepatic lesion. No perceptible hepatic nodularity. 2. Trace pericholecystic fluid and borderline gallbladder wall thickening. These findings are demonstrated in the setting of no illicited sonographic Greenberg sign and presumably on the basis of right heart dysfunction or liver disease. No gallstones or ductal dilatation demonstrated. Jose Juan Santillan MD Head CT 11/19/161914 Signed Impressions: Service Date/Time: Saturday, November 19, 2016 20:22 - CONCLUSION: Normal examination for a patient of this age. No significant change has occurred. Trae Jarrett MD Cervical Spine CT 11/19/161914 Signed Impressions: Service Date/Time: Saturday, November 19, 2016 20:22 - CONCLUSION: 1. Moderate degenerative disc disease. No acute bony abnormalities. Trae Jarrett MD PHYSICAL EXAMINATION GENERAL: No acute distress. On nasal canula. HEENT: No icterus. Oropharynx - very poor dentition. NECK: Supple. No adenopathy LUNGS: Diffuse bilateral wheezing and coarse rhonchi persist. HEART: Regular rate and rhythm, normal S1 and S2. ABDOMEN: Bowel sounds present, soft, no tenderness. EXTREMITIES: No clubbing or cyanosis. No edema. SKIN: No rash. NEUROLOGIC: Confused. No focal findings. IMPRESSION 1. Cellulitis of the left lower extremity. Resolved. 2. Pneumonia - Atypical. Mycoplasma. Still O2 dependent. 3. Abnormal CT scan of the chest showing diffuse bilateral airspace disease with air bronchograms. ? underlying severe pulmonary disease. CXR still abnormal. 4. Tachycardia. Now in atrial flutter. RECOMMENDATIONS 1. Continue Zithromax. 2. Continue piperacillin/tazobactam. 3. Monitor clinical status. 4. Follow sputum culture. Prelim. yeast. Probably not significant. Juancarlos Ackerman MD Dec 06, 2016 12:17
[2016-12-06 13:11] LABS: HEMOGLOBIN A1a 1.6 %; HEMOGLOBIN A1b 0.9 %; HEMOGLOBIN Ao 85.4 %; HEMOGLOBIN F 0.9 %; HEMOGLOBIN P3 3.6 %
[2016-12-06] MEDS: predniSONE 20 MG TAB PO SCH (15:43)
[2016-12-06] MEDS: HALOPERIDOL 1 MG TAB PO SCH ×2 (15:43→19:52)
[2016-12-06] MEDS: AZITHROMYCIN INJ 500 MG in SODIUM CHLOR 0.9% 250 ML INJ 250 ML IV SCH (15:44)
--- NOTE | 2016-12-06 17:26 | HHI.PR ---
Subjective Remarks 56 YOWM with COPD,Bilat lung infilt Has cough and sp Desaturates Weaned to NC On PO cardiazem and Metoprolol Objective Vital Signs Vital Signs Date Time Temp Pulse Resp B/P Pulse Ox O2 Delivery O2 Flow Rate FiO2 12/06/16 16:00 98.4 79 18 121/95 95 12/06/16 16:00 82 12/06/16 14:00 85 12/06/16 12:00 79 12/06/16 12:00 98.3 83 17 125/72 95 12/06/16 10:00 82 12/06/16 08:42 97 Nasal Cannula 5.00 12/06/16 08:00 92 Nasal Cannula 6.00 12/06/16 08:00 98.2 81 17 147/81 99 12/06/16 08:00 88 12/06/16 06:00 80 12/06/16 04:00 98.3 81 18 122/67 92 12/06/16 04:00 81 12/06/16 02:00 83 12/06/16 00:00 98.3 83 20 117/58 90 12/06/16 00:00 83 12/05/16 22:00 83 12/05/16 20:00 92 Nasal Cannula 5.00 12/05/16 20:00 98.6 83 18 109/61 92 12/05/16 20:00 83 12/05/16 18:00 83 I/O 12/05/16 12/05/16 12/05/16 12/06/16 12/06/16 12/06/16 07:00 15:00 23:00 07:00 15:00 23:00 Intake Total 458 ml 1184 ml 1020 ml 650 ml 229 ml Output Total 2175 ml 500 ml 2500 ml 500 ml 800 ml Balance -1717 ml 684 ml -1480 ml 150 ml -571 ml Intake Oral 360 ml 940 ml 600 ml 480 ml IV Total 98 ml 244 ml 420 ml 170 ml 229 ml Output Urine Total 2175 ml 500 ml 2500 ml 500 ml 800 ml Bladder Scan Volume Amount 38 ml # Bowel Movements 0 1 1 Result Diagram: 12/05/1661712/05/1618 Objective Remarks GENERAL: WBWN Male mod sob SKIN: Warm and dry. HEAD: Normocephalic. EYES: No scleral icterus. No injection or drainage. NECK: Supple, trachea midline. No JVD or lymphadenopathy. CARDIOVASCULAR: Regular rate and rhythm without murmurs, gallops, or rubs. RESPIRATORY: Breath sounds equal bilaterally. No accessory muscle use. Exp rhonchi GASTROINTESTINAL: Abdomen soft, non-tender, nondistended. MUSCULOSKELETAL: No cyanosis, or edema. BACK: Nontender without obvious deformity. No CVA tenderness. A/P Assessment and Plan COPD Exac Resp Insuff Bilat Pn ETOH use Nicotine use PLAN: Supplement 02 to keep sat >90% Aerosol nebs Abx per ID Pred 40 mg daily Acapella q 1 hr Diurease Monitor lytes Diamox 250 mg daily Cardiazem 90 mg q 6 hrs metoprolol 25 mg po q 6 hrs Monty Crain MD Dec 06, 2016 17:26
[2016-12-07] VITALS (14 sets, daily range): BP systolic 100–133; BP diastolic 56–90; PULSE 57–90; RESP 16–18; TEMP 97.9–98.5; O2SAT 93–100
[2016-12-07] MEDS: INSULIN NovoLIN REGULAR SUPPLEMENTAL SCALE SQ SCH ×4 (00:31→18:00)
[2016-12-07] MEDS: LORazepam 2 MG/ML VIAL IV PUSH PRN ×3 (00:35→06:44)
[2016-12-07] MEDS: PIPERACIL-TAZO 4.5 GM PREMIX 100 ML IV SCH ×3 (05:35→18:00)
[2016-12-07] MEDS: METOPROLOL TARTRATE 25 MG TAB PO SCH ×4 (05:35→18:10)
[2016-12-07 07:46] LABS: BICARBONATE 35.1 MEQ/L (21.0-32.0); MAGNESIUM 2.6 MG/DL (1.5-2.5); POTASSIUM 4.3 MEQ/L (3.5-5.1)
[2016-12-07] MEDS: DILTIAZEM HCL 90 MG TAB PO SCH ×4 (08:20→20:32)
[2016-12-07] MEDS: THIAMINE HCL 100 MG TAB PO SCH (08:20)
[2016-12-07] MEDS: guaiFENesin E.R. 600 MG TAB PO SCH ×2 (08:20→20:32)
[2016-12-07] MEDS: HALOPERIDOL 1 MG TAB PO SCH ×2 (08:20→20:32)
[2016-12-07] MEDS: predniSONE 20 MG TAB PO SCH (08:20)
[2016-12-07] MEDS: ASPIRIN EC 81 MG TABEC PO SCH (08:20)
[2016-12-07] MEDS: HALOPERIDOL LACTATE 5 MG/ML AMP IM PRN ×2 (08:21→18:10)
[2016-12-07] MEDS: LACTIC ACID (AMMONIUM LACTATE) 12% LOTION 225 GM BTL TOPICAL SCH ×2 (08:21→20:32)
[2016-12-07] MEDS: SODIUM CHLORIDE 0.9% FLUSH 5 ML FLUSH FLUSH SCH ×2 (08:21→20:32)
[2016-12-07] MEDS: ENOXAPARIN SODIUM 30 MG/0.3 ML SYRINGE SQ SCH (08:21)
[2016-12-07] MEDS: NICOTINE 21 MG/24 HR PATCH TD SCH (08:21)
--- NOTE | 2016-12-07 11:58 | HHI.PR ---
Subjective Remarks Follow-up encephalopathy. He is more confused today required IV Haldol and restraints. His heart rate is improved with controlled ventricular response. Discussed with RN Objective Vitals Vital Signs Date Time Temp Pulse Resp B/P Pulse Ox O2 Delivery O2 Flow Rate FiO2 12/07/16 10:00 85 12/07/16 08:00 93 Nasal Cannula 5.00 12/07/16 08:00 74 12/07/16 06:00 81 12/07/16 04:00 78 12/07/16 04:00 97.9 78 16 110/59 100 12/07/16 02:00 79 12/07/16 00:30 98.2 84 16 100/56 96 12/07/16 00:00 90 12/06/16 22:00 75 12/06/16 21:10 98 Nasal Cannula 4.00 12/06/16 20:00 97.4 69 18 106/60 95 12/06/16 20:00 69 12/06/16 19:00 94 Nasal Cannula 5.00 12/06/16 18:00 80 12/06/16 16:00 98.4 79 18 121/95 95 12/06/16 16:00 82 12/06/16 14:00 85 12/06/16 12:00 79 12/06/16 12:00 98.3 83 17 125/72 95 I/O 12/06/16 12/06/16 12/06/16 12/07/16 12/07/16 12/07/16 07:00 15:00 23:00 07:00 15:00 23:00 Intake Total 650 ml 229 ml 1518 ml Output Total 500 ml 800 ml Balance 150 ml -571 ml 1518 ml Intake Oral 480 ml 911 ml IV Total 170 ml 229 ml 607 ml Output Urine Total 500 ml 800 ml # Voids 2 # Bowel Movements 1 1 Result Diagram: 12/05/1618 12/07/16 0625 Imaging Last Impressions Chest X-Ray 12/05/16 06 Signed Impressions: Service Date/Time: Monday, December 05, 2016 04:00 - CONCLUSION: 1. Cardiomegaly and findings of congestive heart failure. There has been no significant change when compared to the prior exam. Roby Lopez MD Lower Extremity Ultrasound 11/25/16 0000 Signed Impressions: Service Date/Time: Friday, November 25, 2016 13:42 - CONCLUSION: 1. No DVT. 2. Multiple large lymph nodes in the left groin the largest measuring 3.6 cm. Johnson Riggins MD Chest CT 11/24/1624 Signed Impressions: Service Date/Time: Thursday, November 24, 2016 08:44 - CONCLUSION: 1. Diffuse bilateral airspace disease with air bronchograms greater within the upper lobes. This could be multilobar pneumonia versus edema. 2. Small bilateral pleural effusions. 3. Coronary artery calcifications and nonspecific mediastinal adenopathy. 4. Enlargement of the pulmonary trunk suggesting arterial hypertension. Johnson Riggins MD Hepatobiliary Scan Nuclear Medicine 11/23/16 0000 Signed Impressions: Service Date/Time: Wednesday, November 23, 2016 12:49 - CONCLUSION: 1. There is no evidence for cystic duct or common duct obstruction. 2. Moderate biliary enteric reflux. Hubre Aguilar MD FACR Liver Ultrasound 11/22/16 0000 Signed Impressions: Service Date/Time: November 16:50 - CONCLUSION: 1. Mildly enlarged and heterogeneous liver without a focal hepatic lesion. No perceptible hepatic nodularity. 2. Trace pericholecystic fluid and borderline gallbladder wall thickening. These findings are demonstrated in the setting of no illicited sonographic Greenberg sign and presumably on the basis of right heart dysfunction or liver disease. No gallstones or ductal dilatation demonstrated. Jose Juan Santillan MD Head CT 11/19/161914 Signed Impressions: Service Date/Time: Saturday, November 19, 2016 20:22 - CONCLUSION: Normal examination for a patient of this age. No significant change has occurred. Trae Jarrett MD Cervical Spine CT 11/19/161914 Signed Impressions: Service Date/Time: Saturday, November 19, 2016 20:22 - CONCLUSION: 1. Moderate degenerative disc disease. No acute bony abnormalities. Trae Jarrett MD Objective Remarks GENERAL: Patient is 56yo on 4L oxygen. SKIN: Warm and dry. HEAD: Normocephalic. EYES: No scleral icterus. No injection or drainage. NECK: Supple, trachea midline. No JVD or lymphadenopathy. CARDIOVASCULAR: Controlled ventricular response without murmur RESPIRATORY: Decreased breath sounds with rhonchi GASTROINTESTINAL: Abdomen soft, non-tender, nondistended. MUSCULOSKELETAL: No cyanosis but with trace leg edema. Neuro: Awake and alert. Confused on restraints Procedures none A/P Problem List: (1) Hyponatremia ICD Code: E87.1 Status: Acute (2) Humerus fracture ICD Code: S42.309A Status: Chronic (3) Chronic alcohol abuse ICD Code: F10.10 Status: Chronic Assessment and Plan Acute respiratory failure: Secondary to COPD and mycoplasma pneumonia/ and fluid overload improving continue supplemental oxygen as needed. Improving continue antibiotics Zosyn and Zithromax per ID, steroids (switch to by mouth) because of positive fluid balance and rhonchi, will give 1 dose of IV Bumex repeat BMP and magnesium in the morning sepsis due to Left lower extremity cellulitis and pneumonia: Stable. Continue antibiotics Hyponatremia, mild: Resolved. Continue to monitor. RUQ Abdominal Pain: LFTs minimally elevated. Liver U/S with trace pericholecystic fluid and borderline gallbladder wall thickening. LFTs wnl. Checked HIDA scan, essentially unremarkable. Generalized weakness: suspect secondary to hyponatremia or infection as above. Imaging/labs reviewed: Head CT normal. UDS positive for benzodiazepines. Consulted PT. Neuro checks Humerus fracture, chronic: Outpatient orthopedic follow-up as arranged. Continue sling. ETOH abuse: Withdrawal precautions. continue librium/ ativan/ thiamine- restraints as needed. hypokalemia; replace as needed. Tobacco abuse: Nicotine patch. Atrial flutter with RVR. Now with CVR is discontinue Cardizem drip and continue by mouth Cardizem and beta vincenzo. [id number] score is low. Will start Asa . Not a good candidate for anticoagulation anyway secondary to alcohol use Metabolic encephalopathy secondary to above. Worse. Continue Haldol. EKG reviewed QTc not prolonged. Consult psychiatry DVT prophylaxis: Lovenox Discharge Planning Keep in ICU for today secondary to increased agitation requiring IV Haldol and restraints, consider transfer to floor if stable in the morning Problem Qualifiers (1) Humerus fracture: Ken Schuster MD Dec 07, 2016 11:58
[2016-12-07] MEDS ORDERED: BUMETANIDE INJ 1 MG/4 ML VIAL IV PUSH ONE (12:15)
[2016-12-07] MEDS: AZITHROMYCIN INJ 500 MG in SODIUM CHLOR 0.9% 250 ML INJ 250 ML IV SCH (12:35)
--- NOTE | 2016-12-07 16:08 | HHI.IDPN ---
Note Infectious Disease Note Patient is awake but confused. now agitated. Wants to get up from bed. HR better controlled. On O2 via nasal canula. Afebrile. Mycoplasma IgM and IgG elevated titers. PAST MEDICAL HISTORY 1. Alcohol abuse. 2. Kidney surgery. 3. Myocardial infarction. ALLERGIES NO KNOWN DRUG ALLERGIES. ANTIBIOTICS 1. Piperacillin/tazobactam. 2. Azithromycin. OBJECTIVE: Vital Signs Date Time Temp Pulse Resp B/P Pulse Ox O2 Delivery O2 Flow Rate FiO2 12/07/16 10:00 85 12/07/16 09:10 93 Nasal Cannula 5.00 12/07/16 08:00 93 Nasal Cannula 5.00 12/07/16 08:00 74 12/07/16 06:00 81 12/07/16 04:00 78 12/07/16 04:00 97.9 78 16 110/59 100 12/07/16 02:00 79 12/07/16 00:30 98.2 84 16 100/56 96 12/07/16 00:00 90 12/06/16 22:00 75 12/06/16 21:10 98 Nasal Cannula 4.00 12/06/16 20:00 97.4 69 18 106/60 95 12/06/16 20:00 69 12/06/16 19:00 94 Nasal Cannula 5.00 12/06/16 18:00 80 12/06/16 12/06/16 12/07/16 15:00 23:00 07:00 Intake Total 229 ml 1518 ml Output Total 800 ml Balance -571 ml 1518 ml Intake Oral 911 ml IV Total 229 ml 607 ml Output Urine Total 800 ml # Voids 2 # Bowel Movements 1 Laboratory Tests Test 12/06/16 12/07/16 09:15 06:25 Hemoglobin A1c 5.4 % Sodium Level 143 MEQ/L Potassium Level 4.3 MEQ/L Chloride Level 101 MEQ/L Carbon Dioxide Level 35.1 MEQ/L Anion Gap 7 MEQ/L Blood Urea Nitrogen 24 MG/DL Creatinine 0.68 MG/DL Estimat Glomerular Filtration 121 ML/MIN Rate Random Glucose 109 MG/DL Calcium Level 8.3 MG/DL Magnesium Level 2.6 MG/DL Microbiology Date/Time Procedure Status Source Growth 11/30/16 16:20 Acid Fast Stain - Final Resulted Sputum Expectorated Sputum NO ACID FAST BACILLI SEEN 11/30/16 16:20 Mycobacterial Culture Resulted Sputum Expectorated Sputum Pending 11/30/16 16:20 Fungal Smear - Final Resulted Sputum Expectorated Sputum FEW BUDDING YEAST WITH PSEUDOHYPHAE 11/30/16 16:20 Fungal Culture - Preliminary Resulted Yeast-Id To Follow IMAGING: Chest X-Ray 12/05/16 0600 Signed Impressions: Service Date/Time: Monday, December 05, 2016 04:00 - CONCLUSION: 1. Cardiomegaly and findings of congestive heart failure. There has been no significant change when compared to the prior exam. Roby Lopez MD Chest X-Ray 12/03/16 0900 Signed Impressions: Service Date/Time: Saturday, December 03, 2016 08:50 - CONCLUSION: 1. Continued diffuse airspace disease bilaterally with small effusions and cardiomegaly. Differential considerations would include predominantly pneumonia however, there is likely some degree of congestive failure as well. Nikhil Aguilar MD Lower Extremity Ultrasound 11/25/16 0000 Signed Impressions: Service Date/Time: Friday, November 25, 2016 13:42 - CONCLUSION: 1. No DVT. 2. Multiple large lymph nodes in the left groin the largest measuring 3.6 cm. Johnson Riggins MD Chest X-Ray 11/25/16 0000 Signed Impressions: Service Date/Time: Friday, November 25, 2016 10:39 - CONCLUSION: Worsening bilateral airspace disease. Probable small left-sided pleural effusion. Johnson Riggins MD Chest CT 11/24/16 0824 Signed Impressions: Service Date/Time: Thursday, November 24, 2016 08:44 - CONCLUSION: 1. Diffuse bilateral airspace disease with air bronchograms greater within the upper lobes. This could be multilobar pneumonia versus edema. 2. Small bilateral pleural effusions. 3. Coronary artery calcifications and nonspecific mediastinal adenopathy. 4. Enlargement of the pulmonary trunk suggesting arterial hypertension. Johnson Riggins MD Hepatobiliary Scan Nuclear Medicine 11/23/16 0000 Signed Impressions: Service Date/Time: Wednesday, November 23, 2016 12:49 - CONCLUSION: 1. There is no evidence for cystic duct or common duct obstruction. 2. Moderate biliary enteric reflux. Huber Aguilar MD FACR Liver Ultrasound 11/22/16 0000 Signed Impressions: Service Date/Time: November 16:50 - CONCLUSION: 1. Mildly enlarged and heterogeneous liver without a focal hepatic lesion. No perceptible hepatic nodularity. 2. Trace pericholecystic fluid and borderline gallbladder wall thickening. These findings are demonstrated in the setting of no illicited sonographic Greenberg sign and presumably on the basis of right heart dysfunction or liver disease. No gallstones or ductal dilatation demonstrated. Jose Juan Santillan MD Head CT 11/19/161914 Signed Impressions: Service Date/Time: Saturday, November 19, 2016 20:22 - CONCLUSION: Normal examination for a patient of this age. No significant change has occurred. Trae Jarrett MD Cervical Spine CT 11/19/161914 Signed Impressions: Service Date/Time: Saturday, November 19, 2016 20:22 - CONCLUSION: 1. Moderate degenerative disc disease. No acute bony abnormalities. Trae Jarrett MD PHYSICAL EXAMINATION GENERAL: No acute distress. On nasal canula. HEENT: No icterus. Oropharynx - very poor dentition. NECK: Supple. No adenopathy LUNGS: Diffuse bilateral wheezing and coarse rhonchi. HEART: Regular rate and rhythm, normal S1 and S2. ABDOMEN: Bowel sounds present, soft, no tenderness. EXTREMITIES: No clubbing or cyanosis. No edema. SKIN: No rash. NEUROLOGIC: Confused. No focal findings. IMPRESSION 1. Cellulitis of the left lower extremity. Resolved. 2. Pneumonia - Atypical. Mycoplasma. Still O2 dependent. 3. Abnormal CT scan of the chest showing diffuse bilateral airspace disease with air bronchograms. ? underlying severe pulmonary disease. 4. Tachycardia. Now in atrial flutter. Improved. RECOMMENDATIONS 1. Continue Zithromax. 2. Continue piperacillin/tazobactam. 3. Monitor clinical status. 4. Follow sputum culture. Prelim. yeast. Probably not significant. Juancarlos Ackerman MD Dec 07, 2016 16:08
--- NOTE | 2016-12-07 18:48 | HHI.PR ---
Subjective Remarks 56 YOWM with COPD,Bilat lung infilt Has cough and sp Desaturates Weaned to NC On PO cardiazem and Metoprolol. Awake and intermittentaly confused Objective Vital Signs Vital Signs Date Time Temp Pulse Resp B/P Pulse Ox O2 Delivery O2 Flow Rate FiO2 12/07/16 18:00 84 12/07/16 16:00 98.2 68 18 133/72 95 12/07/16 16:00 72 12/07/16 14:00 80 12/07/16 12:00 98.3 71 17 130/90 96 12/07/16 12:00 80 12/07/16 10:00 85 12/07/16 09:10 93 Nasal Cannula 5.00 12/07/16 08:00 93 Nasal Cannula 5.00 12/07/16 08:00 74 12/07/16 08:00 98.3 78 18 126/86 97 12/07/16 06:00 81 12/07/16 04:00 78 12/07/16 04:00 97.9 78 16 110/59 100 12/07/16 02:00 79 12/07/16 00:30 98.2 84 16 100/56 96 12/07/16 00:00 90 12/06/16 22:00 75 12/06/16 21:10 98 Nasal Cannula 4.00 12/06/16 20:00 97.4 69 18 106/60 95 12/06/16 20:00 69 12/06/16 19:00 94 Nasal Cannula 5.00 I/O 12/06/16 12/06/16 12/06/16 12/07/16 12/07/16 12/07/16 07:00 15:00 23:00 07:00 15:00 23:00 Intake Total 650 ml 229 ml 1518 ml 492 ml Output Total 500 ml 800 ml Balance 150 ml -571 ml 1518 ml 492 ml Intake Oral 480 ml 911 ml IV Total 170 ml 229 ml 607 ml 492 ml Output Urine Total 500 ml 800 ml # Voids 2 7 # Bowel Movements 1 1 3 Result Diagram: 12/05/1618 12/07/16 0625 Objective Remarks GENERAL: WBWN Male mod sob SKIN: Warm and dry. HEAD: Normocephalic. EYES: No scleral icterus. No injection or drainage. NECK: Supple, trachea midline. No JVD or lymphadenopathy. CARDIOVASCULAR: Regular rate and rhythm without murmurs, gallops, or rubs. RESPIRATORY: Breath sounds equal bilaterally. No accessory muscle use. Exp rhonchi GASTROINTESTINAL: Abdomen soft, non-tender, nondistended. MUSCULOSKELETAL: No cyanosis, or edema. BACK: Nontender without obvious deformity. No CVA tenderness. A/P Assessment and Plan COPD Exac Resp Insuff Bilat Pn ETOH use Nicotine use PLAN: Supplement 02 to keep sat >90% Aerosol nebs Abx per ID Pred 40 mg daily Acapella q 1 hr Monitor lytes Diamox 250 mg daily Cardiazem 90 mg q 6 hrs metoprolol 25 mg po q 6 hrs Monty Crain MD Dec 07, 2016 18:48
[2016-12-08] VITALS (11 sets, daily range): BP systolic 99–121; BP diastolic 51–59; PULSE 58–91; RESP 14–22; TEMP 97.3–98.5; O2SAT 93–96
[2016-12-08] MEDS: HALOPERIDOL LACTATE 5 MG/ML AMP IM PRN (03:43)
[2016-12-08] MEDS: RESP: ALBUTEROL 1.25 MG/3 ML NEB (PRN) NEB (03:48)
[2016-12-08] MEDS: PIPERACIL-TAZO 4.5 GM PREMIX 100 ML IV SCH ×5 (05:32→23:04)
[2016-12-08] MEDS: METOPROLOL TARTRATE 25 MG TAB PO SCH ×5 (05:33→23:03)
[2016-12-08] MEDS: INSULIN NovoLIN REGULAR SUPPLEMENTAL SCALE SQ SCH ×2 (05:37)
[2016-12-08 08:04] LABS: BICARBONATE 34.9 MEQ/L (21.0-32.0); MAGNESIUM 2.3 MG/DL (1.5-2.5); POTASSIUM 3.9 MEQ/L (3.5-5.1)
[2016-12-08] MEDS: LACTIC ACID (AMMONIUM LACTATE) 12% LOTION 225 GM BTL TOPICAL SCH ×2 (09:00→20:17)
[2016-12-08] MEDS: DILTIAZEM HCL 90 MG TAB PO SCH ×4 (09:59→23:03)
[2016-12-08] MEDS: ASPIRIN EC 81 MG TABEC PO SCH (09:59)
[2016-12-08] MEDS: predniSONE 20 MG TAB PO SCH (09:59)
[2016-12-08] MEDS: ENOXAPARIN SODIUM 30 MG/0.3 ML SYRINGE SQ SCH (09:59)
[2016-12-08] MEDS: guaiFENesin E.R. 600 MG TAB PO SCH ×2 (09:59→20:15)
[2016-12-08] MEDS: HALOPERIDOL 1 MG TAB PO SCH ×3 (09:59→18:00)
[2016-12-08] MEDS: THIAMINE HCL 100 MG TAB PO SCH (09:59)
[2016-12-08] MEDS: SODIUM CHLORIDE 0.9% FLUSH 5 ML FLUSH FLUSH SCH ×2 (10:01→20:17)
--- NOTE | 2016-12-08 10:07 | PD.CONS ---
Provisional Diagnosis Admission Date Nov 22, 2016 at 18:19 [place]. Altered mental status r 41.82, history alcohol abuse Z 87.898 History of Present Illness Service Psychiatry Consult Requested By Attending Duran Reason for Consult Behavior issues Primary Care Physician Mady Osei MD HPI Patient is a 56-year-old white male was admitted to the hospital after bystander noted the patient crawling out of the [place] sitting on a curb. Patient is seen screened in the ED admitted to the intensive care unit. Patient did not have episodes of irritability and behavioral issues. Necessitating use of scheduled and when necessary Haldol. At the present time patient resting quietly in his room he is calm and cooperative with me he does note 2017, is an [facility], and he is in [facility]. He does not his birthday, he was born in [facility]. He denies any prior psychiatric contact hospitalization her psychotropic medications. Review of our EMR shows no prior psychiatric contact. No other strong history of significant alcohol abuse with high levels intoxication of number of years ago. The urine toxicology is positive only for benzodiazepines and negative for alcohol. In any event at the present time the patient does denies suicidality homicidality voices or visions. He is showing some anxiety concern about his future when he is discharged from here. Patient states he has been homeless for a number of years that time she has been employed in the past. We did discuss medications. I feel a scheduled dose of Haldol of patient maintain some control issues been on this. At this time and appears to be responding fairly well to it. Would suggest Haldol 1 mg 8 AM 1 PM and 6 PM and and Haldol 2 mg at 10 PM. At the present time patient does not meet criteria for acute psychiatric hospitalization. I feel he would be better treated with perhaps referral to a assisted facility or rehabilitation facility. Thanks a consult will continue to follow Dr. Cabrera will be available during the week Review of Systems ROS Limitations: Clinical Condition, Altered Mental Status Constitutional: DENIES: Diaphoretic episodes, Fatigue, Fever, Weight gain, Weight loss, Chills, Dizziness, Change in appetite, Night Sweats Endocrine: DENIES: Heat/cold intolerance, Polydipsia, Polyuria, Polyphagia Eyes: DENIES: Blurred vision, Diplopia, Eye inflammation, Eye pain, Vision loss , Photosensitivity, Double Vision Ears, nose, mouth, throat: DENIES: Tinnitus, Hearing loss, Vertigo, Nasal discharge, Oral lesions, Throat pain, Hoarseness, Ear Pain, Running Nose, Epistaxis, Sinus Pain, Toothache, Odynophagia Respiratory: DENIES: Apneas, Cough, Snoring, Wheezing, Hemoptysis, Sputum production, Shortness of breath Cardiovascular: DENIES: Chest pain, Palpitations, Syncope, Dyspnea on Exertion , PND, Lower Extremity Edema, Orthopnea, Claudication Gastrointestinal: DENIES: Abdominal pain, Black stools, Bloody stools, Constipation, Diarrhea, Nausea, Vomiting, Difficulty Swallowing, Anorexia Genitourinary: DENIES: Sexual dysfunction, Urinary frequency, Urinary incontinence, Urgency, Hematuria, Dysuria, Nocturia, Penile Discharge, Testicular Pain, Testicular Swelling Musculoskeletal: COMPLAINS OF: Joint pain (pain left arm) Integumentary: DENIES: Abnormal pigmentation, Nail changes, Pruritus, Rash Hematologic/lymphatic: DENIES: Bruising, Lymphadenopathy Immunologic/allergic: DENIES: Eczema, Urticaria Psychiatric: COMPLAINS OF: Anxiety (irritability) Past Family Social History Coded Allergies: *MDRO Multi-Drug Resistant Organism (Verified Adverse Reaction, Unknown, MRSA, 11/26/16) MRSA PCR screen POSITIVE - 11/25/16 Past Medical History C MedSurg assessment Active Scripts Hydrocodone-Acetaminophen (Lortab)5-325 Mg Tab1 Tab PO Q6H PRN (PAIN) #12 TAB Ref 0 Prov:Zahraa Limon MD 11/04/16 Current Medications Medications (Trade) Dose Ordered Sig/Mike Route Start Time Stop Time Status Last Admin (NS Flush) 2 ml UNSCH PRN FLUSH 11/19/16 23:30 12/04/16 12:38 (NS Flush) 2 ml BID FLUSH 11/20/16 09:00 12/07/16 20:32 (Narcan Inj) 0.4 mg UNSCH PRN IV 11/19/16 23:30 (Romazicon Inj) 0.2 mg Q1M PRN IV PUSH 11/19/16 23:30 (Ativan) 1 mg Q4H PRN PO 11/19/16 23:30 (Ativan Inj) 1 mg Q4H PRN IV PUSH 11/19/16 23:30 12/07/16 00:35 (Ativan) 2 mg Q2H PRN PO 11/19/16 23:30 (Ativan Inj) 2 mg Q2H PRN IV PUSH 11/19/16 23:30 12/07/16 06:44 (Ativan Inj) 2 mg Q1H PRN IV PUSH 11/19/16 23:30 11/29/16 21:02 (Ativan Inj) 2 mg Q15M PRN IV PUSH 11/19/16 23:30 (Vitamin B1) 100 mg DAILY PO 11/20/16 09:00 12/07/16 08:20 Enoxaparin Sodium 30 mg 30 mg Q24H SQ 11/20/16 09:00 12/07/16 08:21 (Zosyn 4.5 Gm Premix) 100 ml @ 200 mls/hr Q6H IV 11/22/16 12:00 12/08/16 05:32 (Percocet 5-325 Mg) 1 tab Q6H PRN PO 11/24/16 10:30 12/05/16 05:48 (Morphine Inj) 2 mg Q3H PRN IV PUSH 11/24/16 10:30 11/26/16 01:53 Miscellaneous Information Patient in critical care unit? Ass... Q361D XX 11/25/16 22:15 Guaifenesin 600 mg 600 mg BID PO 11/25/16 23:30 12/07/16 20:32 (Zithromax Inj/ NS 250 ml Inj) 250 ml @ 250 mls/hr Q24H IV 11/26/16 13:00 12/07/16 12:35 (Bumex Inj) 1 mg DAILY IV PUSH 11/28/16 09:00 Hold 12/01/16 07:53 (D50w (Vial) Inj) 25 ml UNSCH PRN IV PUSH 11/27/16 13:45 Glucagon 1 mg 1 mg UNSCH PRN OTHER 11/27/16 13:45 Potassium Chloride 100 ml @ 50 mls/hr Q2H PRN IV 11/29/16 09:15 (KCl 20 Meq Premix Inj) 100 ml @ 50 mls/hr Q2H PRN IV 11/29/16 09:15 Potassium Chloride 40 meq 40 meq UNSCH PRN PO/TUBE 11/29/16 09:15 11/29/16 14:19 Potassium Chloride 100 ml @ 25 mls/hr UNSCH PRN IV 11/29/16 09:15 Potassium Chloride 100 ml @ 50 mls/hr Q2H PRN IV 11/29/16 09:15 (Magnesium Sulfate Inj/NS Inj) 100 ml @ 50 mls/hr UNSCH PRN IV 11/29/16 09:15 Magnesium Oxide 800 mg 800 mg UNSCH PRN PO 11/29/16 09:15 (Magnesium Sulfate Inj/NS Inj) 100 ml @ 50 mls/hr UNSCH PRN IV 11/29/16 09:15 Potassium Phosphate 2000 mg 2,000 mg Q4H PRN PO 11/29/16 09:15 (Sodium Phosphate Inj/NS 250 ml Inj) 250 ml @ 42 mls/hr UNSCH PRN IV 11/29/16 09:15 (KCl 40 Meq/30 ml Liq) 40 meq UNSCH PRN PO/TUBE 11/29/16 09:15 Potassium Phosphate 2000 mg 2,000 mg UNSCH PRN PO/TUBE 11/29/16 09:15 (Potassium Phosphate Inj/NS 250 ml Inj) 260 ml @ 42 mls/hr UNSCH PRN IV 11/29/16 09:15 (Lac-Hydrin 12% Lotion) 1 applic BID TOPICAL 11/30/16 21:00 12/07/16 20:32 (Lopressor Inj) 2.5 mg Q6H PRN IV PUSH 12/01/16 19:00 12/05/16 09:48 (Cardizem) 90 mg QID PO 12/05/16 09:00 12/07/16 20:32 Metoprolol Tartrate 25 mg 25 mg Q6HR PO 12/05/16 00:00 12/08/16 05:33 (Cardizem Inj/NS Inj) 125 ml @ 0 mls/hr TITRATE PRN IV 12/05/16 11:45 12/05/16 12:11 (Ecotrin Ec) 81 mg DAILY PO 12/06/16 09:00 12/07/16 08:20 (Haldol Inj) 2 mg Q6H PRN IM 12/06/16 09:45 12/08/16 03:43 (Haldol) 1 mg BID PO 12/06/16 09:45 12/07/16 20:32 (Deltasone) 40 mg DAILY PO 12/06/16 15:00 12/07/16 08:20 Family History Unknown at this time Social History Patient homelessness living and was his history of alcohol abuse Patient's Strengths (min. 2) Patient verbal cooperative Physical Exam Please see attending assessment Vital Signs Vital Signs Date Time Temp Pulse Resp B/P Pulse Ox O2 Delivery O2 Flow Rate FiO2 12/08/16 06:00 74 12/08/16 04:00 97.3 14 116/55 94 12/07/16 23:50 Nasal Cannula 5.00 I/O 12/07/16 12/07/16 12/08/16 08:00 16:00 00:00 Intake Total 1518 ml 492 ml Balance 1518 ml 492 ml Mental Status Examination Alert fairly well oriented so disheveled white male lying calmly in his bed he is cooperative with me with fair eye contact Appearance Somewhat disheveled Speech: Unremarkable, Tangential (mildly) Orientation: x3 Memory: Unremarkable Thought Process: Linear Thought Content: Unremarkable Hallucination Type: None (denies) Attention and Concentration: Other (fair) Suicidal Ideation: No Previous Suicide Attempts: No Homicidal Ideation: No Previous Homicide Attempts: No Insight: Poor Judgement: Poor Affect: Other (decreased range and intensity) Mood: Euthymic (to somewhat restricted) Motor Activity: Normal gait (difficult to ascertain patient bedridden) Assessment & Plan Problem List: (1) Altered mental status ICD Code: R41.82 (2) History of alcohol abuse ICD Code: Z87.898 Assessment & Plan Estimated LOS: days. At this time patient does not meet criteria for acute psychiatric hospitalization, see medication recommendations above, perhaps he would be best benefited by when medically stable to assisted facility or rehabilitation facility Consul will continue to follow on a when necessary basis Discharge Planning To be determined Request HC Surrog/Guard Advoc?: No Jose Juan Bowie MD Dec 08, 2016 10:07
--- NOTE | 2016-12-08 11:58 | HHI.PR ---
Subjective Remarks Follow-up agitation. He is a alert, oriented, calm and cooperative today. Discussed with RN he can be transferred to the floor. Objective Vitals Vital Signs Date Time Temp Pulse Resp B/P Pulse Ox O2 Delivery O2 Flow Rate FiO2 12/08/16 09:55 94 Nasal Cannula 5.00 12/08/16 08:00 Nasal Cannula 5.00 12/08/16 08:00 70 12/08/16 08:00 98.4 70 21 121/59 93 12/08/16 06:00 74 12/08/16 04:00 97.3 75 14 116/55 94 12/08/16 04:00 75 12/08/16 02:00 62 12/08/16 00:00 97.5 58 14 100/51 94 12/08/16 00:00 58 12/07/16 23:50 95 Nasal Cannula 5.00 12/07/16 22:00 57 12/07/16 20:00 98.5 65 16 129/61 12/07/16 20:00 65 12/07/16 18:00 84 12/07/16 16:00 98.2 68 18 133/72 95 12/07/16 16:00 72 12/07/16 14:00 80 12/07/16 12:00 98.3 71 17 130/90 96 12/07/16 12:00 80 I/O 12/07/16 12/07/16 12/07/16 12/08/16 12/08/16 12/08/16 07:00 15:00 23:00 07:00 15:00 23:00 Intake Total 1518 ml 492 ml 1552 ml Output Total 300 ml Balance 1518 ml 492 ml 1252 ml Intake Oral 911 ml 987 ml IV Total 607 ml 492 ml 565 ml Output Urine Total 300 ml # Voids 2 7 5 # Bowel Movements 1 3 1 Result Diagram: 12/05/16 0618 12/08/16 0636 Objective Remarks GENERAL: Patient is 56yo on 5L oxygen. SKIN: Warm and dry. HEAD: Normocephalic. EYES: No scleral icterus. No injection or drainage. NECK: Supple, trachea midline. No JVD or lymphadenopathy. CARDIOVASCULAR: Controlled ventricular response without murmur RESPIRATORY: Decreased breath sounds with rhonchi GASTROINTESTINAL: Abdomen soft, non-tender, nondistended. MUSCULOSKELETAL: No cyanosis but with trace leg edema. Neuro: Awake and alert. Procedures none A/P Problem List: (1) Hyponatremia ICD Code: E87.1 Status: Acute (2) Humerus fracture ICD Code: S42.309A Status: Chronic (3) Chronic alcohol abuse ICD Code: F10.10 Status: Chronic Assessment and Plan Acute respiratory failure: Secondary to COPD and mycoplasma pneumonia/ and fluid overload improving continue supplemental oxygen as needed. Improving continue antibiotics Zosyn and Zithromax per ID, steroids (switch to by mouth) because of positive fluid balance and rhonchi, will give another dose of IV Bumex repeat BMP and magnesium in the morning sepsis due to Left lower extremity cellulitis and pneumonia: Stable. Continue antibiotics Hyponatremia, mild: Resolved. Continue to monitor. RUQ Abdominal Pain: LFTs minimally elevated. Liver U/S with trace pericholecystic fluid and borderline gallbladder wall thickening. LFTs wnl. Checked HIDA scan, essentially unremarkable. Generalized weakness: suspect secondary to hyponatremia or infection as above. Imaging/labs reviewed: Head CT normal. UDS positive for benzodiazepines. Consulted PT. Neuro checks Humerus fracture, chronic: Outpatient orthopedic follow-up as arranged. Continue sling. ETOH abuse: Withdrawal precautions. continue librium/ ativan/ thiamine- restraints as needed. hypokalemia; replace as needed. Tobacco abuse: Nicotine patch. Atrial flutter with RVR. Now with CVR is discontinue Cardizem drip and continue by mouth Cardizem and beta vincenzo. [id number] score is low. Will start Asa . Not a good candidate for anticoagulation anyway secondary to alcohol use Metabolic encephalopathy secondary to above. Improving. Continue Haldol. EKG reviewed QTc not prolonged. Consulted psychiatry DVT prophylaxis: Lovenox Discharge Planning Stable for transfer to telemetry Problem Qualifiers (1) Humerus fracture: Ken Schuster MD Dec 08, 2016 11:58
[2016-12-08] MEDS ORDERED: BUMETANIDE INJ 1 MG/4 ML VIAL IV PUSH ONE (12:15)
[2016-12-08] MEDS: HALOPERIDOL 2 MG TAB PO SCH (23:03)
[2016-12-09] VITALS (14 sets, daily range): BP systolic 94–128; BP diastolic 46–58; PULSE 54–150; RESP 16–22; TEMP 98–98.8; O2SAT 92–98
[2016-12-09] MEDS: oxyCODONE/ACETAMINOPHEN 5 MG/325 MG TAB PO PRN (01:17)
[2016-12-09] MEDS: METOPROLOL TARTRATE 25 MG TAB PO SCH ×3 (05:13→17:50)
[2016-12-09] MEDS: PIPERACIL-TAZO 4.5 GM PREMIX 100 ML IV SCH ×3 (05:13→17:50)
[2016-12-09 08:19] LABS: BICARBONATE 32.4 MEQ/L (21.0-32.0); MAGNESIUM 2.3 MG/DL (1.5-2.5); POTASSIUM 4.5 MEQ/L (3.5-5.1)
[2016-12-09] MEDS: THIAMINE HCL 100 MG TAB PO SCH (09:03)
[2016-12-09] MEDS: DILTIAZEM HCL 90 MG TAB PO SCH ×4 (09:04→20:21)
[2016-12-09] MEDS: HALOPERIDOL 1 MG TAB PO SCH ×3 (09:04→17:50)
[2016-12-09] MEDS: predniSONE 20 MG TAB PO SCH (09:04)
[2016-12-09] MEDS: SODIUM CHLORIDE 0.9% FLUSH 5 ML FLUSH FLUSH SCH ×2 (09:04→20:21)
[2016-12-09] MEDS: guaiFENesin E.R. 600 MG TAB PO SCH ×2 (09:04→20:21)
[2016-12-09] MEDS: ASPIRIN EC 81 MG TABEC PO SCH (09:04)
[2016-12-09] MEDS: ENOXAPARIN SODIUM 30 MG/0.3 ML SYRINGE SQ SCH (09:05)
[2016-12-09] MEDS: LACTIC ACID (AMMONIUM LACTATE) 12% LOTION 225 GM BTL TOPICAL SCH ×2 (09:06→20:21)
--- NOTE | 2016-12-09 09:38 | HHI.PR ---
Subjective Remarks Follow-up encephalopathy. Patient awake and alert to person and place. He has no complaints on 4 L nasal cannula. One hour after seeing the patient, patient went into RVR status post IV metoprolol. Gave order to produce Cardizem 10 mg IV 1 and start drip if still in RVR. Objective Vitals Vital Signs Date Time Temp Pulse Resp B/P Pulse Ox O2 Delivery O2 Flow Rate FiO2 12/09/16 07:00 97 Nasal Cannula 5.00 12/09/16 06:00 61 12/09/16 04:00 68 12/09/16 04:00 98.5 69 16 128/58 98 12/09/16 02:00 76 12/09/16 00:00 80 12/09/16 00:00 98.8 80 22 113/53 96 12/08/16 22:00 80 12/08/16 21:35 96 Nasal Cannula 5.00 12/08/16 20:00 98.3 80 22 113/53 96 12/08/16 20:00 85 12/08/16 19:00 94 Nasal Cannula 5.00 12/08/16 16:00 98.5 91 21 99/58 93 12/08/16 12:00 98.0 86 20 120/58 93 12/08/16 09:55 94 Nasal Cannula 5.00 I/O 12/08/16 12/08/16 12/08/16 12/09/16 12/09/16 12/09/16 07:00 15:00 23:00 07:00 15:00 23:00 Intake Total 1552 ml 1218 ml 802 ml 3086 ml Output Total 300 ml 2100 ml 500 ml 1000 ml Balance 1252 ml -882 ml 302 ml 2086 ml Intake Oral 987 ml 960 ml 700 ml 2950 ml IV Total 565 ml 258 ml 102 ml 136 ml Output Urine Total 300 ml 2100 ml 500 ml 1000 ml # Voids 5 1 # Bowel Movements 1 1 0 1 Result Diagram: 12/05/1618 12/09/16624 Objective Remarks GENERAL: Patient is 56yo on 5L oxygen. SKIN: Warm and dry. HEAD: Normocephalic. EYES: No scleral icterus. No injection or drainage. NECK: Supple, trachea midline. No JVD or lymphadenopathy. CARDIOVASCULAR: Rapid ventricular response without murmur RESPIRATORY: Decreased breath sounds with rhonchi GASTROINTESTINAL: Abdomen soft, non-tender, nondistended. MUSCULOSKELETAL: No cyanosis but with trace leg edema. Neuro: Awake and alert. Procedures none A/P Problem List: (1) Hyponatremia ICD Code: E87.1 Status: Acute (2) Humerus fracture ICD Code: S42.309A Status: Chronic (3) Chronic alcohol abuse ICD Code: F10.10 Status: Chronic Assessment and Plan Acute respiratory failure: Secondary to COPD and mycoplasma pneumonia/ and fluid overload improving continue supplemental oxygen as needed. Improving continue antibiotics Zosyn and Zithromax per ID, steroids (switch to by mouth) because of positive fluid balance and rhonchi, will give another dose of IV Bumex repeat BMP and magnesium in the morning sepsis due to Left lower extremity cellulitis and pneumonia: Stable. Continue antibiotics Hyponatremia, mild: Resolved. Continue to monitor. RUQ Abdominal Pain: LFTs minimally elevated. Liver U/S with trace pericholecystic fluid and borderline gallbladder wall thickening. LFTs wnl. Checked HIDA scan, essentially unremarkable. Generalized weakness: suspect secondary to hyponatremia or infection as above. Imaging/labs reviewed: Head CT normal. UDS positive for benzodiazepines. Consulted PT. Neuro checks Humerus fracture, chronic: Outpatient orthopedic follow-up as arranged. Continue sling. ETOH abuse: Withdrawal precautions. continue librium/ ativan/ thiamine- restraints as needed. hypokalemia; replace as needed. Tobacco abuse: Nicotine patch. Atrial flutter with RVR. Preserved ejection fraction. Recurrent on Cardizem and beta vincenzo. Status post IV metoprolol. We'll give IV Cardizem and then start drip if needed. [id number] score is low. Continue Asa . Not a good candidate for anticoagulation anyway secondary to alcohol use. Consult cardiology Metabolic encephalopathy secondary to above. Improving. Continue Haldol. EKG reviewed QTc not prolonged. Consulted psychiatry DVT prophylaxis: Lovenox Discharge Planning Stable for transfer to telemetry Problem Qualifiers (1) Humerus fracture: Ken Schuster MD Dec 09, 2016 09:37
[2016-12-09] MEDS: METOPROLOL TARTRATE 5 MG/5 ML VIAL IV PUSH PRN (10:35)
[2016-12-09] MEDS ORDERED: DILTIAZEM HCL 25 MG/5 ML VIAL ONE (12:19)
[2016-12-09] MEDS: AZITHROMYCIN INJ 500 MG in SODIUM CHLOR 0.9% 250 ML INJ 250 ML IV SCH ×2 (12:25→12:26)
[2016-12-09] MEDS ORDERED: DILTIAZEM HCL 25 MG/5 ML VIAL IV ONE (13:15)
[2016-12-09] MEDS: DILTIAZEM INJ 125 MG in SODIUM CHLORIDE 0.9% INJ 100 ML IV PRN (14:10)
--- NOTE | 2016-12-09 15:29 | MB ---
cc: JOAQUINA SHABAZZ M.D. DATE OF CONSULTATION: 12/09/2016. REASON FOR CONSULTATION: Electrophysiology consult for atrial flutter with fast ventricular response. HISTORY OF PRESENT ILLNESS: Mr. Lopez is a 56-year-old gentleman with a history of being a chronic smoker. He drinks at least 16 to 18 ounces of beer a day. He smokes half-a-pack of cigarettes a day. He was recently admitted due to respiratory distress on November 27, 2015. He received IV antibiotics. The patient's condition continued to improve. He developed alcohol withdrawal syndrome and delirium. Yesterday night the gentleman became with atrial flutter with fast ventricular response. IV Cardizem was initiated. I was consulted for further evaluation and management. The chart was reviewed. The patient was evaluated. ALLERGIES: MULTIDRUG-RESISTANT ORGANISMS. SOCIAL HISTORY: As mentioned before, the gentleman is drinking heavily and smokes half-a-pack of cigarettes a day. FAMILY HISTORY: Noncontributory to his current medical condition. MEDICATIONS: Currently he is on: 1. Zithromax. 2. Cardizem IV. 3. Magnesium. 4. Zosyn. 5. Potassium. 6. Albuterol inhaler. 7. Bumex. 8. Cardizem p.o. 90 q. 6 hours. 9. Lorazepam. 10. Thiamine. 11. A multivitamin. REVIEW OF SYSTEMS: He refers feeling better. No chest pain. No shortness of breath. No vomiting. No fever. PHYSICAL EXAMINATION: GENERAL: Alert, fully oriented, in bed. The patient is asking for "a cold one". VITAL SIGNS: Blood pressure 122/54, pulse in telemetry is 81, respiratory rate 20. LUNGS: Ventilated. CARDIOVASCULAR: S1 and S2. Regular. No gallop. ABDOMEN: Abdomen soft, no mass. EXTREMITIES: No edema. EKGS: Electrocardiogram shows on hospitalization sinus rhythm. Currently the gentleman is in atrial flutter. LABS: White blood cells 9.3, coming down. Hemoglobin 10.0. Potassium 4.5, creatinine 0.55. ASSESSMENT AND RECOMMENDATIONS: Mr. Abdi heart rate is controlled. His condition has improved. He is doing well on Cardizem. Cardizem IV can be discontinued and the patient will continue on Cardizem p.o. There is apparently some issue about anticoagulation. Aspirin was initiated. The risks of bleeding from aspirin any other anticoagulation is basically the same. If aspirin cannot be used, we can use other anticoagulation also. He may need a GI evaluation before any medication initiated, but hemoglobin is stable since hospitalization. RECOMMENDATIONS: 1. At this point my recommendation is to continue with current management. 2. He may need a 2-D echo to evaluate wall motion and valvular function. I will follow him during hospitalization. Joaquina Shabazz MD /BANDAR /2:45 PM /3:20 PM
[2016-12-09] MEDS ORDERED: BUMETANIDE INJ 1 MG/4 ML VIAL IV PUSH ONE (15:30)
[2016-12-09] MEDS: HALOPERIDOL 2 MG TAB PO SCH (20:21)
[2016-12-10] VITALS (13 sets, daily range): BP systolic 96–126; BP diastolic 53–68; PULSE 53–86; RESP 15–20; TEMP 97.8–98.2; O2SAT 96–99
[2016-12-10] MEDS: METOPROLOL TARTRATE 25 MG TAB PO SCH ×5 (05:25→22:47)
[2016-12-10] MEDS: PIPERACIL-TAZO 4.5 GM PREMIX 100 ML IV SCH ×2 (05:25)
[2016-12-10 07:07] LABS: AUTOMATED NEUTROPHIL # 6.2 TH/MM3 (1.8-7.7); BASOPHIL # 0.1 TH/MM3 (0-0.2); BASOPHIL % 0.6 % (0.0-2.0); EOSINOPHIL # 0.1 TH/MM3 (0-0.4); EOSINOPHIL % 1.4 % (0.0-4.0); HEMO FLAGS DIFF FINAL; LYMPH % 20.9 % (9.0-44.0); LYMPHOCYTE # 1.9 TH/MM3 (1.0-4.8); MEAN CELL VOLUME 99.2 FL (80.0-100.0); MEAN CORPUSCULAR HEMOGLOBIN 32.6 PG (27.0-34.0); MEAN CORPUSCULAR HGB CONC 32.9 % (32.0-36.0); MONO % 8.6 % (0.0-8.0); NEUT % 68.5 % (16.0-70.0); PLATELET COUNT 150 TH/MM3 (150-450); RED BLOOD COUNT 3.13 MIL/MM3 (4.50-5.90)
[2016-12-10 07:41] LABS: BICARBONATE 32.3 MEQ/L (21.0-32.0); MAGNESIUM 2.1 MG/DL (1.5-2.5)
[2016-12-10] MEDS: HALOPERIDOL 1 MG TAB PO SCH ×3 (08:00→18:22)
[2016-12-10] MEDS: ASPIRIN EC 81 MG TABEC PO SCH (08:13)
[2016-12-10] MEDS: DILTIAZEM HCL 90 MG TAB PO SCH ×4 (08:13→19:40)
[2016-12-10] MEDS: guaiFENesin E.R. 600 MG TAB PO SCH ×2 (08:13→19:40)
[2016-12-10] MEDS: THIAMINE HCL 100 MG TAB PO SCH (08:13)
[2016-12-10] MEDS: oxyCODONE/ACETAMINOPHEN 5 MG/325 MG TAB PO PRN ×4 (08:13→23:12)
[2016-12-10] MEDS: predniSONE 20 MG TAB PO SCH (08:13)
[2016-12-10] MEDS: ENOXAPARIN SODIUM 30 MG/0.3 ML SYRINGE SQ SCH (08:21)
[2016-12-10] MEDS: LACTIC ACID (AMMONIUM LACTATE) 12% LOTION 225 GM BTL TOPICAL SCH ×2 (08:21→19:41)
[2016-12-10] MEDS: SODIUM CHLORIDE 0.9% FLUSH 5 ML FLUSH FLUSH SCH ×2 (08:21→19:40)
--- NOTE | 2016-12-10 09:35 | HHI.IDPN ---
Note Infectious Disease Note Patient is awake but not confused. Clear mentation. Episode of afib with rapid response noted yesterday. On O2 via nasal canula. No complaints. Afebrile. PAST MEDICAL HISTORY 1. Alcohol abuse. 2. Kidney surgery. 3. Myocardial infarction. ALLERGIES NO KNOWN DRUG ALLERGIES. ANTIBIOTICS 1. Piperacillin/tazobactam. 2. Azithromycin. OBJECTIVE: Vital Signs Date Time Temp Pulse Resp B/P Pulse Ox O2 Delivery O2 Flow Rate FiO2 12/10/16 08:25 96 Nasal Cannula 3.50 12/10/16 08:00 76 12/10/16 07:00 99 Nasal Cannula 5.00 12/10/16 06:00 70 12/10/16 04:00 77 12/10/16 04:00 77 17 96/68 96 12/10/16 02:00 53 12/10/16 00:00 56 12/10/16 00:00 98.2 56 15 103/53 97 12/09/16 22:00 63 12/09/16 20:00 94 Nasal Cannula 4.00 12/09/16 20:00 98.3 76 21 118/53 98 12/09/16 20:00 76 12/09/16 19:00 98 Nasal Cannula 5.00 12/09/16 18:00 80 12/09/16 16:00 98.0 81 18 94/46 94 12/09/16 16:00 81 12/09/16 14:00 150 12/09/16 12:00 145 12/09/16 12:00 98.5 145 18 115/55 96 12/09/16 10:00 150 12/09/16 12/09/16 12/10/16 15:00 23:00 07:00 Intake Total 1708 ml 1227 ml 160 ml Output Total 1950 ml 650 ml 1500 ml Balance -242 ml 577 ml -1340 ml Intake Oral 1560 ml 1050 ml 100 ml IV Total 148 ml 177 ml 60 ml Output Urine Total 1950 ml 650 ml 1500 ml # Bowel Movements 2 1 0 Laboratory Tests Test 12/10/16 06:13 White Blood Count 9.0 TH/MM3 Red Blood Count 3.13 MIL/MM3 Hemoglobin 10.2 GM/DL Hematocrit 31.0 % Mean Corpuscular Volume 99.2 FL Mean Corpuscular Hemoglobin 32.6 PG Mean Corpuscular Hemoglobin 32.9 % Concent Red Cell Distribution Width 16.0 % Platelet Count 150 TH/MM3 Mean Platelet Volume 8.2 FL Neutrophils (%) (Auto) 68.5 % Lymphocytes (%) (Auto) 20.9 % Monocytes (%) (Auto) 8.6 % Eosinophils (%) (Auto) 1.4 % Basophils (%) (Auto) 0.6 % Neutrophils # (Auto) 6.2 TH/MM3 Lymphocytes # (Auto) 1.9 TH/MM3 Monocytes # (Auto) 0.8 TH/MM3 Eosinophils # (Auto) 0.1 TH/MM3 Basophils # (Auto) 0.1 TH/MM3 CBC Comment DIFF FINAL Differential Comment Laboratory Tests Test 12/09/16 12/10/16 06:25 06:13 Sodium Level 141 MEQ/L 141 MEQ/L Potassium Level 4.5 MEQ/L 4.0 MEQ/L Chloride Level 103 MEQ/L 102 MEQ/L Carbon Dioxide Level 32.4 MEQ/L 32.3 MEQ/L Anion Gap 6 MEQ/L 7 MEQ/L Blood Urea Nitrogen 22 MG/DL 21 MG/DL Creatinine 0.55 MG/DL 0.57 MG/DL Estimat Glomerular Filtration 154 ML/MIN 148 ML/MIN Rate Random Glucose 86 MG/DL 92 MG/DL Calcium Level 8.5 MG/DL 8.2 MG/DL Magnesium Level 2.3 MG/DL 2.1 MG/DL IMAGING: Chest X-Ray 12/05/16 0600 Signed Impressions: Service Date/Time: Monday, December 05, 2016 04:00 - CONCLUSION: 1. Cardiomegaly and findings of congestive heart failure. There has been no significant change when compared to the prior exam. Roby Lopez MD Chest X-Ray 12/03/16 0900 Signed Impressions: Service Date/Time: Saturday, December 03, 2016 08:50 - CONCLUSION: 1. Continued diffuse airspace disease bilaterally with small effusions and cardiomegaly. Differential considerations would include predominantly pneumonia however, there is likely some degree of congestive failure as well. Nikhil Aguilar MD Lower Extremity Ultrasound 11/25/16 0000 Signed Impressions: Service Date/Time: Friday, November 25, 2016 13:42 - CONCLUSION: 1. No DVT. 2. Multiple large lymph nodes in the left groin the largest measuring 3.6 cm. Johnson Riggins MD Chest X-Ray 11/25/16 0000 Signed Impressions: Service Date/Time: Friday, November 25, 2016 10:39 - CONCLUSION: Worsening bilateral airspace disease. Probable small left-sided pleural effusion. Johnson Riggins MD Chest CT 11/24/16 0824 Signed Impressions: Service Date/Time: Thursday, November 24, 2016 08:44 - CONCLUSION: 1. Diffuse bilateral airspace disease with air bronchograms greater within the upper lobes. This could be multilobar pneumonia versus edema. 2. Small bilateral pleural effusions. 3. Coronary artery calcifications and nonspecific mediastinal adenopathy. 4. Enlargement of the pulmonary trunk suggesting arterial hypertension. Johnson Riggins MD Hepatobiliary Scan Nuclear Medicine 11/23/16 0000 Signed Impressions: Service Date/Time: Wednesday, November 23, 2016 12:49 - CONCLUSION: 1. There is no evidence for cystic duct or common duct obstruction. 2. Moderate biliary enteric reflux. Huber Aguilar MD FACR Liver Ultrasound 11/22/16 0000 Signed Impressions: Service Date/Time: November 16:50 - CONCLUSION: 1. Mildly enlarged and heterogeneous liver without a focal hepatic lesion. No perceptible hepatic nodularity. 2. Trace pericholecystic fluid and borderline gallbladder wall thickening. These findings are demonstrated in the setting of no illicited sonographic Greenberg sign and presumably on the basis of right heart dysfunction or liver disease. No gallstones or ductal dilatation demonstrated. Jose Juan Santillan MD Head CT 11/19/161914 Signed Impressions: Service Date/Time: Saturday, November 19, 2016 20:22 - CONCLUSION: Normal examination for a patient of this age. No significant change has occurred. Trae Jarrett MD Cervical Spine CT 11/19/161914 Signed Impressions: Service Date/Time: Saturday, November 19, 2016 20:22 - CONCLUSION: 1. Moderate degenerative disc disease. No acute bony abnormalities. Trae Jarrett MD PHYSICAL EXAMINATION GENERAL: No acute distress. On nasal canula. HEENT: No icterus. Oropharynx - very poor dentition. NECK: Supple. No adenopathy LUNGS: Diffuse bilateral wheezing and coarse rhonchi decreased. HEART: Regular rate and rhythm, normal S1 and S2. ABDOMEN: Bowel sounds present, soft, no tenderness. EXTREMITIES: No clubbing or cyanosis. No edema. SKIN: No rash. NEUROLOGIC: Non focal. IMPRESSION 1. Cellulitis of the left lower extremity. Resolved. 2. Pneumonia - Atypical. Mycoplasma. Still O2 dependent. Mycoplasma IgM and IgG elevated titers. Clinically improving. 3. Abnormal CT scan of the chest showing diffuse bilateral airspace disease with air bronchograms. ? underlying severe pulmonary disease. RECOMMENDATIONS 1. Continue Zithromax change to PO. 2. Stop piperacillin/tazobactam. 3. Monitor clinical status. Follow up CXR. 4. Rehab exercises. Juancarlos Ackerman MD Dec 10, 2016 09:35
--- NOTE | 2016-12-10 10:08 | RADRPT ---
EXAM DATE/TIME: 12/10/2016 09:25 [facility] COMPARISON: CHEST SINGLE AP, December 05, 2016, 4:00. INDICATIONS : Pneumonia. MEDICAL HISTORY : Myocardial infarction. Cardiovascular disease. Siezures. SURGICAL HISTORY : None. ENCOUNTER: Subsequent ACUITY: 2 weeks PAIN SCORE: 0/10 LOCATION: Bilateral chest FINDINGS: There has been interval improvement in aeration with some clearing of diffuse infiltrates in the righ t lung and slight improvement in multifocal infiltrate on the left. No significant effusion is suspec cesar. Cardiomediastinal contours are grossly stable. CONCLUSION: Improving aeration Jose Juan Walden MD on December 10, 2016 at 10:06 Board Certified Radiologist. This report was verified electronically.
--- NOTE | 2016-12-10 11:31 | HHI.PR ---
Subjective Remarks F/u atrial flutter. Events noted Cardizem drip restarted yesterday discontinued after converting to sinus rhythm. Discussed with cardiology may need ablation if recurrent. Today patient has no complaints on nasal cannula. Also discussed with ID regarding IV antibiotics Objective Vitals Vital Signs Date Time Temp Pulse Resp B/P Pulse Ox O2 Delivery O2 Flow Rate FiO2 12/10/16 10:00 70 12/10/16 09:13 18 12/10/16 08:25 96 Nasal Cannula 3.50 12/10/16 08:00 97.9 70 18 115/66 98 12/10/16 08:00 76 12/10/16 07:00 99 Nasal Cannula 5.00 12/10/16 06:00 70 12/10/16 04:00 77 12/10/16 04:00 77 17 96/68 96 12/10/16 02:00 53 12/10/16 00:00 56 12/10/16 00:00 98.2 56 15 103/53 97 12/09/16 22:00 63 12/09/16 20:00 94 Nasal Cannula 4.00 12/09/16 20:00 98.3 76 21 118/53 98 12/09/16 20:00 76 12/09/16 19:00 98 Nasal Cannula 5.00 12/09/16 18:00 80 12/09/16 16:00 98.0 81 18 94/46 94 12/09/16 16:00 81 12/09/16 14:00 150 12/09/16 12:00 145 12/09/16 12:00 98.5 145 18 115/55 96 I/O 12/09/16 12/09/16 12/09/16 12/10/16 12/10/16 12/10/16 07:00 15:00 23:00 07:00 15:00 23:00 Intake Total 3086 ml 1708 ml 1227 ml 160 ml Output Total 1000 ml 1950 ml 650 ml 1500 ml Balance 2086 ml -242 ml 577 ml -1340 ml Intake Oral 2950 ml 1560 ml 1050 ml 100 ml IV Total 136 ml 148 ml 177 ml 60 ml Output Urine Total 1000 ml 1950 ml 650 ml 1500 ml # Voids 1 # Bowel Movements 1 2 1 0 Result Diagram: 12/10/1661212/10/16 06 Imaging Last Impressions Chest X-Ray 12/10/16 0000 Signed Impressions: Service Date/Time: Saturday, December 10, 2016 09:25 - CONCLUSION: Improving aeration Jose Juan Walden MD Lower Extremity Ultrasound 11/25/16 Signed Impressions: Service Date/Time: Friday, November 25, 2016 13:42 - CONCLUSION: 1. No DVT. 2. Multiple large lymph nodes in the left groin the largest measuring 3.6 cm. Johnson Riggins MD Chest CT 11/24/1624 Signed Impressions: Service Date/Time: Thursday, November 24, 2016 08:44 - CONCLUSION: 1. Diffuse bilateral airspace disease with air bronchograms greater within the upper lobes. This could be multilobar pneumonia versus edema. 2. Small bilateral pleural effusions. 3. Coronary artery calcifications and nonspecific mediastinal adenopathy. 4. Enlargement of the pulmonary trunk suggesting arterial hypertension. Johnson Riggins MD Hepatobiliary Scan Nuclear Medicine 11/23/16 Signed Impressions: Service Date/Time: Wednesday, November 23, 2016 12:49 - CONCLUSION: 1. There is no evidence for cystic duct or common duct obstruction. 2. Moderate biliary enteric reflux. Huber Aguilar MD FACR Liver Ultrasound 11/22/16 Signed Impressions: Service Date/Time: November 16:50 - CONCLUSION: 1. Mildly enlarged and heterogeneous liver without a focal hepatic lesion. No perceptible hepatic nodularity. 2. Trace pericholecystic fluid and borderline gallbladder wall thickening. These findings are demonstrated in the setting of no illicited sonographic Greenberg sign and presumably on the basis of right heart dysfunction or liver disease. No gallstones or ductal dilatation demonstrated. Jose Juan Santillan MD Head CT 11/19/161914 Signed Impressions: Service Date/Time: Saturday, November 19, 2016 20:22 - CONCLUSION: Normal examination for a patient of this age. No significant change has occurred. Trae Jarrett MD Cervical Spine CT 11/19/161914 Signed Impressions: Service Date/Time: Saturday, November 19, 2016 20:22 - CONCLUSION: 1. Moderate degenerative disc disease. No acute bony abnormalities. Trae Jarrett MD Objective Remarks GENERAL: Patient is 56yo on 4L oxygen. SKIN: Warm and dry. HEAD: Normocephalic. EYES: No scleral icterus. No injection or drainage. NECK: Supple, trachea midline. No JVD or lymphadenopathy. CARDIOVASCULAR: Regular rate and rhythm without murmur RESPIRATORY: Decreased breath sounds with rhonchi GASTROINTESTINAL: Abdomen soft, non-tender, nondistended. MUSCULOSKELETAL: No cyanosis but with trace leg edema. Neuro: Awake and alert. Procedures none A/P Problem List: (1) Hyponatremia ICD Code: E87.1 Status: Acute (2) Humerus fracture ICD Code: S42.309A Status: Chronic (3) Chronic alcohol abuse ICD Code: F10.10 Status: Chronic Assessment and Plan Acute respiratory failure: Secondary to COPD and mycoplasma pneumonia/ and fluid overload improving continue supplemental oxygen as needed. Improving continue antibiotics Zosyn and Zithromax per ID, taper steroids because of negative fluid balance will hold off with IV Bumex sepsis due to Left lower extremity cellulitis and pneumonia: Stable. Continue antibiotics Hyponatremia, mild: Resolved. Continue to monitor. RUQ Abdominal Pain: LFTs minimally elevated. Liver U/S with trace pericholecystic fluid and borderline gallbladder wall thickening. LFTs wnl. Checked HIDA scan, essentially unremarkable. Generalized weakness: suspect secondary to hyponatremia or infection as above. Imaging/labs reviewed: Head CT normal. UDS positive for benzodiazepines. Consulted PT. Neuro checks Humerus fracture, chronic: Outpatient orthopedic follow-up as arranged. Continue sling. ETOH abuse: Withdrawal precautions. continue librium/ ativan/ thiamine- restraints as needed. hypokalemia; replace as needed. Tobacco abuse: Nicotine patch. Atrial flutter with RVR. Preserved ejection fraction. Converted to sinus rhythm Status post IV metoprolol IV Cardizem and drip. Ct Cardizem and beta vincenzo. [id number] score is low. Continue Asa . Not a good candidate for anticoagulation anyway secondary to alcohol use. Consulted cardiology Metabolic encephalopathy secondary to above. Improving. Continue Haldol. EKG reviewed QTc not prolonged. Consulted psychiatry DVT prophylaxis: Lovenox Discharge Planning Stable for transfer to telemetry Problem Qualifiers (1) Humerus fracture: Ken Schuster MD Dec 10, 2016 11:31
[2016-12-10] MEDS: AZITHROMYCIN 250 MG TAB PO SCH (13:35)
--- NOTE | 2016-12-10 19:14 | HHI.PR ---
Subjective Remarks 56 YOWM with COPD,Bilat lung infilt Has cough and sp Desaturates Weaned to NC Up in chair Good appetite. Objective Vital Signs Vital Signs Date Time Temp Pulse Resp B/P Pulse Ox O2 Delivery O2 Flow Rate FiO2 12/10/16 18:00 65 12/10/16 16:00 97.9 68 20 121/65 98 12/10/16 16:00 86 12/10/16 14:35 18 12/10/16 14:00 74 12/10/16 12:00 86 12/10/16 12:00 98.0 80 18 113/57 99 12/10/16 10:00 70 12/10/16 08:25 96 Nasal Cannula 3.50 12/10/16 08:00 97.9 70 18 115/66 98 12/10/16 08:00 76 12/10/16 07:00 99 Nasal Cannula 5.00 12/10/16 06:00 70 12/10/16 04:00 77 12/10/16 04:00 77 17 96/68 96 12/10/16 02:00 53 12/10/16 00:00 56 12/10/16 00:00 98.2 56 15 103/53 97 12/09/16 22:00 63 12/09/16 20:00 94 Nasal Cannula 4.00 12/09/16 20:00 98.3 76 21 118/53 98 12/09/16 20:00 76 I/O 12/09/16 12/09/16 12/09/16 12/10/16 12/10/16 12/10/16 07:00 15:00 23:00 07:00 15:00 23:00 Intake Total 3086 ml 1708 ml 1227 ml 160 ml 480 ml Output Total 1000 ml 1950 ml 650 ml 1500 ml 1400 ml Balance 2086 ml -242 ml 577 ml -1340 ml -920 ml Intake Oral 2950 ml 1560 ml 1050 ml 100 ml 480 ml IV Total 136 ml 148 ml 177 ml 60 ml 0 ml Output Urine Total 1000 ml 1950 ml 650 ml 1500 ml 1400 ml # Voids 1 # Bowel Movements 1 2 1 0 1 Result Diagram: 12/10/1613 12/10/16 0613 Objective Remarks GENERAL: WBWN Male mod sob SKIN: Warm and dry. HEAD: Normocephalic. EYES: No scleral icterus. No injection or drainage. NECK: Supple, trachea midline. No JVD or lymphadenopathy. CARDIOVASCULAR: Regular rate and rhythm without murmurs, gallops, or rubs. RESPIRATORY: Breath sounds equal bilaterally. No accessory muscle use. Exp rhonchi GASTROINTESTINAL: Abdomen soft, non-tender, nondistended. MUSCULOSKELETAL: No cyanosis, or edema. BACK: Nontender without obvious deformity. No CVA tenderness. A/P Assessment and Plan COPD Exac Resp Insuff Bilat Pn ETOH use Nicotine use PLAN: Supplement 02 to keep sat >90% Aerosol nebs Abx per ID Pred 40 mg daily Acapella q 1 hr Monitor lytes Diamox 250 mg daily Cardiazem 90 mg q 6 hrs metoprolol 25 mg po q 6 hrs Stable to tr to floor from Pulm standpoint. Monty Crain MD Dec 10, 2016 19:14
[2016-12-10] MEDS: HALOPERIDOL 2 MG TAB PO SCH (19:40)
--- NOTE | 2016-12-10 22:59 | HHI.PR ---
Subjective Remarks Feeling better Objective Vital Signs Date Time Temp Pulse Resp B/P Pulse Ox O2 Delivery O2 Flow Rate FiO2 12/10/16 20:00 71 12/10/16 20:00 97.8 71 16 126/66 97 12/10/16 19:00 99 Nasal Cannula 5.00 12/10/16 18:00 65 12/10/16 16:00 97.9 68 20 121/65 98 12/10/16 16:00 86 12/10/16 14:35 18 12/10/16 14:00 74 12/10/16 12:00 86 12/10/16 12:00 98.0 80 18 113/57 99 12/10/16 10:00 70 12/10/16 08:25 96 Nasal Cannula 3.50 12/10/16 08:00 97.9 70 18 115/66 98 12/10/16 08:00 76 12/10/16 07:00 99 Nasal Cannula 5.00 12/10/16 06:00 70 12/10/16 04:00 77 12/10/16 04:00 77 17 96/68 96 12/10/16 02:00 53 12/10/16 00:00 56 12/10/16 00:00 98.2 56 15 103/53 97 I/O 12/09/16 12/09/16 12/09/16 12/10/16 12/10/16 12/10/16 07:00 15:00 23:00 07:00 15:00 23:00 Intake Total 3086 ml 1708 ml 1227 ml 160 ml 480 ml 650 ml Output Total 1000 ml 1950 ml 650 ml 1500 ml 1400 ml 500 ml Balance 2086 ml -242 ml 577 ml -1340 ml -920 ml 150 ml Intake Oral 2950 ml 1560 ml 1050 ml 100 ml 480 ml 650 ml IV Total 136 ml 148 ml 177 ml 60 ml 0 ml Output Urine Total 1000 ml 1950 ml 650 ml 1500 ml 1400 ml 500 ml # Voids 1 # Bowel Movements 1 2 1 0 1 1 Result Diagram: 12/10/1613 12/10/1613 Imaging Alert, fully oriented, out of bed Lungs: ventilated Heart: S1, S2 regular Abdomen: soft, no mass Ext: no edema Last Impressions Chest X-Ray 12/10/16 0000 Signed Impressions: Service Date/Time: Saturday, December 10, 2016 09:25 - CONCLUSION: Improving aeration Jose Juan Walden MD Lower Extremity Ultrasound 11/25/16 0000 Signed Impressions: Service Date/Time: Friday, November 25, 2016 13:42 - CONCLUSION: 1. No DVT. 2. Multiple large lymph nodes in the left groin the largest measuring 3.6 cm. Johnson Riggins MD Chest CT 11/24/1624 Signed Impressions: Service Date/Time: Thursday, November 24, 2016 08:44 - CONCLUSION: 1. Diffuse bilateral airspace disease with air bronchograms greater within the upper lobes. This could be multilobar pneumonia versus edema. 2. Small bilateral pleural effusions. 3. Coronary artery calcifications and nonspecific mediastinal adenopathy. 4. Enlargement of the pulmonary trunk suggesting arterial hypertension. Johnson Riggins MD Hepatobiliary Scan Nuclear Medicine 11/23/16 0000 Signed Impressions: Service Date/Time: Wednesday, November 23, 2016 12:49 - CONCLUSION: 1. There is no evidence for cystic duct or common duct obstruction. 2. Moderate biliary enteric reflux. Huber Aguilar MD FACR Liver Ultrasound 11/22/16 0000 Signed Impressions: Service Date/Time: November 16:50 - CONCLUSION: 1. Mildly enlarged and heterogeneous liver without a focal hepatic lesion. No perceptible hepatic nodularity. 2. Trace pericholecystic fluid and borderline gallbladder wall thickening. These findings are demonstrated in the setting of no illicited sonographic Greenberg sign and presumably on the basis of right heart dysfunction or liver disease. No gallstones or ductal dilatation demonstrated. Jose Juan Santillan MD Head CT 11/19/161914 Signed Impressions: Service Date/Time: Saturday, November 19, 2016 20:22 - CONCLUSION: Normal examination for a patient of this age. No significant change has occurred. Trae Jarrett MD Cervical Spine CT 11/19/161914 Signed Impressions: Service Date/Time: Saturday, November 19, 2016 20:22 - CONCLUSION: 1. Moderate degenerative disc disease. No acute bony abnormalities. Trae Jarrett MD Current Medications Medications (Trade) Dose Ordered Sig/Mike Route Start Time Stop Time Status Last Admin (NS Flush) 2 ml UNSCH PRN FLUSH 11/19/16 23:30 12/04/16 12:38 (NS Flush) 2 ml BID FLUSH 11/20/16 09:00 12/10/16 08:21 (Narcan Inj) 0.4 mg UNSCH PRN IV 11/19/16 23:30 (Romazicon Inj) 0.2 mg Q1M PRN IV PUSH 11/19/16 23:30 (Ativan) 1 mg Q4H PRN PO 11/19/16 23:30 (Ativan Inj) 1 mg Q4H PRN IV PUSH 11/19/16 23:30 12/07/16 00:35 (Ativan) 2 mg Q2H PRN PO 11/19/16 23:30 (Ativan Inj) 2 mg Q2H PRN IV PUSH 11/19/16 23:30 12/07/16 06:44 (Ativan Inj) 2 mg Q1H PRN IV PUSH 11/19/16 23:30 11/29/16 21:02 (Ativan Inj) 2 mg Q15M PRN IV PUSH 11/19/16 23:30 (Vitamin B1) 100 mg DAILY PO 11/20/16 09:00 12/10/16 08:13 (Lovenox Inj) 30 mg Q24H SQ 11/20/16 09:00 12/10/16 08:21 (Percocet 5-325 Mg) 1 tab Q6H PRN PO 11/24/16 10:30 12/10/16 18:22 (Morphine Inj) 2 mg Q3H PRN IV PUSH 11/24/16 10:30 11/26/16 01:53 Miscellaneous Information Patient in critical care unit? Ass... Q361D XX 11/25/16 22:15 (Mucinex Er) 600 mg BID PO 11/25/16 23:30 12/10/16 19:40 (Bumex Inj) 1 mg DAILY IV PUSH 11/28/16 09:00 Hold 12/01/16 07:53 (D50w (Vial) Inj) 25 ml UNSCH PRN IV PUSH 11/27/16 13:45 Glucagon 1 mg 1 mg UNSCH PRN OTHER 11/27/16 13:45 Potassium Chloride 100 ml @ 50 mls/hr Q2H PRN IV 11/29/16 09:15 (KCl 20 Meq Premix Inj) 100 ml @ 50 mls/hr Q2H PRN IV 11/29/16 09:15 Potassium Chloride 40 meq 40 meq UNSCH PRN PO/TUBE 11/29/16 09:15 11/29/16 14:19 Potassium Chloride 100 ml @ 25 mls/hr UNSCH PRN IV 11/29/16 09:15 Potassium Chloride 100 ml @ 50 mls/hr Q2H PRN IV 11/29/16 09:15 (Magnesium Sulfate Inj/NS Inj) 100 ml @ 50 mls/hr UNSCH PRN IV 11/29/16 09:15 Magnesium Oxide 800 mg 800 mg UNSCH PRN PO 11/29/16 09:15 (Magnesium Sulfate Inj/NS Inj) 100 ml @ 50 mls/hr UNSCH PRN IV 11/29/16 09:15 Potassium Phosphate 2000 mg 2,000 mg Q4H PRN PO 11/29/16 09:15 (Sodium Phosphate Inj/NS 250 ml Inj) 250 ml @ 42 mls/hr UNSCH PRN IV 11/29/16 09:15 (KCl 40 Meq/30 ml Liq) 40 meq UNSCH PRN PO/TUBE 11/29/16 09:15 Potassium Phosphate 2000 mg 2,000 mg UNSCH PRN PO/TUBE 11/29/16 09:15 (Potassium Phosphate Inj/NS 250 ml Inj) 260 ml @ 42 mls/hr UNSCH PRN IV 11/29/16 09:15 (Lac-Hydrin 12% Lotion) 1 applic BID TOPICAL 11/30/16 21:00 12/10/16 19:41 (Lopressor Inj) 2.5 mg Q6H PRN IV PUSH 12/01/16 19:00 12/09/16 10:35 (Cardizem) 90 mg QID PO 12/05/16 09:00 12/10/16 19:40 Metoprolol Tartrate 25 mg 25 mg Q6HR PO 12/05/16 00:00 12/10/16 18:22 (Cardizem Inj/NS Inj) 125 ml @ 0 mls/hr TITRATE PRN IV 12/05/16 11:45 12/09/16 14:10 (Ecotrin Ec) 81 mg DAILY PO 12/06/16 09:00 12/10/16 08:13 (Haldol Inj) 2 mg Q6H PRN IM 12/06/16 09:45 12/08/16 03:43 (Haldol) 1 mg TID@08,13,18 PO 12/08/16 13:00 12/10/16 18:22 (Haldol) 2 mg DAILY@22 PO 12/08/16 22:00 12/10/16 19:40 (Zithromax) 500 mg Q24H PO 12/10/16 12:00 12/17/16 11:59 12/10/16 13:35 (Deltasone) 20 mg DAILY PO 12/11/16 09:00 12/14/16 08:59 (Deltasone) 10 mg DAILY PO 12/14/16 09:00 12/17/16 08:59 Assessment and Plan Problem List: (1) Respiratory failure Status: Acute Plan: No significant SOB Doing better (2) Atrial flutter Status: Acute Plan: In sinus rhythm. On cardizem and metoprolol. HR control. Continue with current management Desean Shabazz MD Dec 10, 2016 22:58
[2016-12-11] VITALS (9 sets, daily range): BP systolic 93–122; BP diastolic 60–63; PULSE 56–86; RESP 16–20; TEMP 95.9–97.5; O2SAT 93–100
[2016-12-11] MEDS: METOPROLOL TARTRATE 25 MG TAB PO SCH ×3 (06:00→18:46)
[2016-12-11] MEDS: predniSONE 20 MG TAB PO SCH (08:39)
[2016-12-11] MEDS: DILTIAZEM HCL 90 MG TAB PO SCH ×5 (08:41→22:25)
[2016-12-11] MEDS: THIAMINE HCL 100 MG TAB PO SCH (08:41)
[2016-12-11] MEDS: ASPIRIN EC 81 MG TABEC PO SCH (08:41)
[2016-12-11] MEDS: guaiFENesin E.R. 600 MG TAB PO SCH ×2 (08:42→22:25)
[2016-12-11] MEDS: ENOXAPARIN SODIUM 30 MG/0.3 ML SYRINGE SQ SCH (08:42)
[2016-12-11] MEDS: SODIUM CHLORIDE 0.9% FLUSH 5 ML FLUSH FLUSH SCH ×2 (08:45→22:25)
[2016-12-11] MEDS: HALOPERIDOL 1 MG TAB PO SCH ×3 (10:27→18:50)
--- NOTE | 2016-12-11 10:48 | HHI.PR ---
Subjective Remarks Follow-up flutter and encephalopathy. Patient awake and less confused. Has no complaints. Sinus rhythm on telemetry. Discussed with RN and pulmonary Objective Vitals Vital Signs Date Time Temp Pulse Resp B/P Pulse Ox O2 Delivery O2 Flow Rate FiO2 12/11/16 10:36 96 Nasal Cannula 2.00 12/11/16 08:00 96.8 72 20 95/62 96 12/11/16 04:00 97.4 56 19 122/62 100 12/11/16 03:28 Nasal Cannula 2.00 12/11/16 00:00 97.2 65 16 105/62 96 12/11/16 00:00 65 12/10/16 20:00 71 12/10/16 20:00 97.8 71 16 126/66 97 12/10/16 19:00 99 Nasal Cannula 5.00 12/10/16 18:00 65 12/10/16 16:00 97.9 68 20 121/65 98 12/10/16 16:00 86 12/10/16 14:35 18 12/10/16 14:00 74 12/10/16 12:00 86 12/10/16 12:00 98.0 80 18 113/57 99 I/O 12/10/16 12/10/16 12/10/16 12/11/16 12/11/16 12/11/16 07:00 15:00 23:00 07:00 15:00 23:00 Intake Total 160 ml 480 ml 650 ml Output Total 1500 ml 1400 ml 500 ml 400 ml Balance -1340 ml -920 ml 150 ml -400 ml Intake Oral 100 ml 480 ml 650 ml IV Total 60 ml 0 ml Output Urine Total 1500 ml 1400 ml 500 ml 400 ml # Bowel Movements 0 1 1 Result Diagram: 12/10/16 0613 12/10/16 0613 Objective Remarks GENERAL: Patient is 56yo on 2 L nasal cannula SKIN: Warm and dry. HEAD: Normocephalic. EYES: No scleral icterus. No injection or drainage. NECK: Supple, trachea midline. No JVD or lymphadenopathy. CARDIOVASCULAR: Regular rate and rhythm without murmur RESPIRATORY: Decreased breath sounds with rhonchi GASTROINTESTINAL: Abdomen soft, non-tender, nondistended. MUSCULOSKELETAL: No cyanosis but with trace leg edema. Neuro: Awake and alert. Oriented to person, place and year Procedures none A/P Problem List: (1) Hyponatremia ICD Code: E87.1 Status: Acute (2) Humerus fracture ICD Code: S42.309A Status: Chronic (3) Chronic alcohol abuse ICD Code: F10.10 Status: Chronic Assessment and Plan Acute respiratory failure: Secondary to COPD and mycoplasma pneumonia/ and fluid overload improving continue supplemental oxygen as needed. Improving continue Zithromax till December 17 status post Zosyn, taper steroids because of negative fluid balance will hold off with IV Bumex sepsis due to Left lower extremity cellulitis and pneumonia: Stable. Continue antibiotics Hyponatremia, mild: Resolved. Continue to monitor. RUQ Abdominal Pain: LFTs minimally elevated. Liver U/S with trace pericholecystic fluid and borderline gallbladder wall thickening. LFTs wnl. Checked HIDA scan, essentially unremarkable. Generalized weakness: suspect secondary to hyponatremia or infection as above. Imaging/labs reviewed: Head CT normal. UDS positive for benzodiazepines. Consulted PT. Neuro checks Humerus fracture, chronic: Outpatient orthopedic follow-up as arranged. Continue sling. ETOH abuse: Withdrawal precautions. continue librium/ ativan/ thiamine- restraints as needed. hypokalemia; replace as needed. Tobacco abuse: Nicotine patch. Atrial flutter with RVR. Preserved ejection fraction. Converted to sinus rhythm Status post IV metoprolol IV Cardizem and drip. Ct Cardizem and beta vincenzo. [id number] score is low. Continue Asa . Not a good candidate for anticoagulation anyway secondary to alcohol use. Consulted cardiology consider ablation if recurrent Metabolic encephalopathy secondary to above. Improving. Continue Haldol. EKG reviewed QTc not prolonged. Consulted psychiatry DVT prophylaxis: Lovenox Discharge Planning Needs rehabilitation but no payor source. Consult case management requests referral to [facility] Problem Qualifiers (1) Humerus fracture: Ken Schuster MD Dec 11, 2016 10:48
--- NOTE | 2016-12-11 12:54 | HHI.IDPN ---
Note Infectious Disease Note Patient is awake and alert. Clear mentation. On RA. No complaints. Afebrile. Good appetite. PAST MEDICAL HISTORY 1. Alcohol abuse. 2. Kidney surgery. 3. Myocardial infarction. ALLERGIES NO KNOWN DRUG ALLERGIES. ANTIBIOTICS Azithromycin PO. OBJECTIVE: Vital Signs Date Time Temp Pulse Resp B/P Pulse Ox O2 Delivery O2 Flow Rate FiO2 12/11/16 12:27 96.4 77 20 93/60 94 12/11/16 10:36 96 Nasal Cannula 2.00 12/11/16 08:00 96.8 72 20 95/62 96 12/11/16 04:00 97.4 56 19 122/62 100 12/11/16 03:28 Nasal Cannula 2.00 12/11/16 00:00 97.2 65 16 105/62 96 12/11/16 00:00 65 12/10/16 20:00 71 12/10/16 20:00 97.8 71 16 126/66 97 12/10/16 19:00 99 Nasal Cannula 5.00 12/10/16 18:00 65 12/10/16 16:00 97.9 68 20 121/65 98 12/10/16 16:00 86 12/10/16 14:35 18 12/10/16 14:00 74 12/10/16 12/10/16 12/11/16 15:00 23:00 07:00 Intake Total 480 ml 650 ml Output Total 1400 ml 500 ml Balance -920 ml 150 ml Intake Oral 480 ml 650 ml IV Total 0 ml Output Urine Total 1400 ml 500 ml # Bowel Movements 1 1 Laboratory Tests Test 12/10/16 06:13 White Blood Count 9.0 TH/MM3 Red Blood Count 3.13 MIL/MM3 Hemoglobin 10.2 GM/DL Hematocrit 31.0 % Mean Corpuscular Volume 99.2 FL Mean Corpuscular Hemoglobin 32.6 PG Mean Corpuscular Hemoglobin 32.9 % Concent Red Cell Distribution Width 16.0 % Platelet Count 150 TH/MM3 Mean Platelet Volume 8.2 FL Neutrophils (%) (Auto) 68.5 % Lymphocytes (%) (Auto) 20.9 % Monocytes (%) (Auto) 8.6 % Eosinophils (%) (Auto) 1.4 % Basophils (%) (Auto) 0.6 % Neutrophils # (Auto) 6.2 TH/MM3 Lymphocytes # (Auto) 1.9 TH/MM3 Monocytes # (Auto) 0.8 TH/MM3 Eosinophils # (Auto) 0.1 TH/MM3 Basophils # (Auto) 0.1 TH/MM3 CBC Comment DIFF FINAL Differential Comment Laboratory Tests Test 12/10/16 06:13 Sodium Level 141 MEQ/L Potassium Level 4.0 MEQ/L Chloride Level 102 MEQ/L Carbon Dioxide Level 32.3 MEQ/L Anion Gap 7 MEQ/L Blood Urea Nitrogen 21 MG/DL Creatinine 0.57 MG/DL Estimat Glomerular Filtration 148 ML/MIN Rate Random Glucose 92 MG/DL Calcium Level 8.2 MG/DL Magnesium Level 2.1 MG/DL IMAGING: Chest X-Ray 12/10/16 0000 Signed Impressions: Service Date/Time: Saturday, December 10, 2016 09:25 - CONCLUSION: Improving aeration Jose Juan Walden MD Chest X-Ray 12/05/16 0600 Signed Impressions: Service Date/Time: Monday, December 05, 2016 04:00 - CONCLUSION: 1. Cardiomegaly and findings of congestive heart failure. There has been no significant change when compared to the prior exam. Roby Lopez MD Chest X-Ray 12/03/16 0900 Signed Impressions: Service Date/Time: Saturday, December 03, 2016 08:50 - CONCLUSION: 1. Continued diffuse airspace disease bilaterally with small effusions and cardiomegaly. Differential considerations would include predominantly pneumonia however, there is likely some degree of congestive failure as well. Nikhil Aguilar MD Lower Extremity Ultrasound 11/25/16 0000 Signed Impressions: Service Date/Time: Friday, November 25, 2016 13:42 - CONCLUSION: 1. No DVT. 2. Multiple large lymph nodes in the left groin the largest measuring 3.6 cm. Johnson Riggins MD Chest X-Ray 11/25/16 0000 Signed Impressions: Service Date/Time: Friday, November 25, 2016 10:39 - CONCLUSION: Worsening bilateral airspace disease. Probable small left-sided pleural effusion. Johnson Riggins MD Chest CT 11/24/16 0824 Signed Impressions: Service Date/Time: Thursday, November 24, 2016 08:44 - CONCLUSION: 1. Diffuse bilateral airspace disease with air bronchograms greater within the upper lobes. This could be multilobar pneumonia versus edema. 2. Small bilateral pleural effusions. 3. Coronary artery calcifications and nonspecific mediastinal adenopathy. 4. Enlargement of the pulmonary trunk suggesting arterial hypertension. Johnson Riggins MD Hepatobiliary Scan Nuclear Medicine 11/23/16 0000 Signed Impressions: Service Date/Time: Wednesday, November 23, 2016 12:49 - CONCLUSION: 1. There is no evidence for cystic duct or common duct obstruction. 2. Moderate biliary enteric reflux. Huber Aguilar MD FACR Liver Ultrasound 11/22/16 0000 Signed Impressions: Service Date/Time: November 16:50 - CONCLUSION: 1. Mildly enlarged and heterogeneous liver without a focal hepatic lesion. No perceptible hepatic nodularity. 2. Trace pericholecystic fluid and borderline gallbladder wall thickening. These findings are demonstrated in the setting of no illicited sonographic Greenberg sign and presumably on the basis of right heart dysfunction or liver disease. No gallstones or ductal dilatation demonstrated. Jose Juan Santillan MD Head CT 11/19/161914 Signed Impressions: Service Date/Time: Saturday, November 19, 2016 20:22 - CONCLUSION: Normal examination for a patient of this age. No significant change has occurred. Trae Jarrett MD Cervical Spine CT 11/19/161914 Signed Impressions: Service Date/Time: Saturday, November 19, 2016 20:22 - CONCLUSION: 1. Moderate degenerative disc disease. No acute bony abnormalities. Trae Jarrett MD PHYSICAL EXAMINATION GENERAL: No acute distress. On nasal canula. HEENT: No icterus. Oropharynx - very poor dentition. NECK: Supple. No adenopathy LUNGS: No wheezing. Good air entry. HEART: Regular rate and rhythm, normal S1 and S2. ABDOMEN: Bowel sounds present, soft, no tenderness. EXTREMITIES: No clubbing or cyanosis. No edema. SKIN: No rash. NEUROLOGIC: Non focal. IMPRESSION 1. Cellulitis of the left lower extremity. Resolved. 2. Pneumonia - Atypical. Mycoplasma. Improved. 3. Abnormal CT scan of the chest showing diffuse bilateral airspace disease with air bronchograms. ? underlying severe pulmonary disease. RECOMMENDATIONS: Continue Zithromax PO till 12/17/16. Patient is doing well and I have nothing new to add. I will sign off now. Juancarlos Ackerman MD Dec 11, 2016 12:54
[2016-12-11] MEDS: AZITHROMYCIN 250 MG TAB PO SCH (14:15)
--- NOTE | 2016-12-11 19:33 | HHI.PR ---
Subjective Remarks 56 YOWM with COPD,Bilat lung infilt Has cough and sp Weaned to NC Up in chair Good appetite. Objective Vital Signs Vital Signs Date Time Temp Pulse Resp B/P Pulse Ox O2 Delivery O2 Flow Rate FiO2 12/11/16 17:18 62 12/11/16 16:16 97.5 86 20 110/63 93 12/11/16 12:27 96.4 77 20 93/60 94 12/11/16 10:36 96 Nasal Cannula 2.00 12/11/16 08:00 96.8 72 20 95/62 96 12/11/16 04:00 97.4 56 19 122/62 100 12/11/16 03:28 Nasal Cannula 2.00 12/11/16 00:00 97.2 65 16 105/62 96 12/11/16 00:00 65 12/10/16 20:00 71 12/10/16 20:00 97.8 71 16 126/66 97 I/O 12/10/16 12/10/16 12/10/16 12/11/16 12/11/16 12/11/16 07:00 15:00 23:00 07:00 15:00 23:00 Intake Total 160 ml 480 ml 650 ml 480 ml Output Total 1500 ml 1400 ml 500 ml 400 ml Balance -1340 ml -920 ml 150 ml 80 ml Intake Oral 100 ml 480 ml 650 ml 480 ml IV Total 60 ml 0 ml Output Urine Total 1500 ml 1400 ml 500 ml 400 ml # Voids 2 # Bowel Movements 0 1 1 1 Result Diagram: 12/10/1661212/10/16612 Objective Remarks GENERAL: WBWN Male mod sob SKIN: Warm and dry. HEAD: Normocephalic. EYES: No scleral icterus. No injection or drainage. NECK: Supple, trachea midline. No JVD or lymphadenopathy. CARDIOVASCULAR: Regular rate and rhythm without murmurs, gallops, or rubs. RESPIRATORY: Breath sounds equal bilaterally. No accessory muscle use. Exp rhonchi GASTROINTESTINAL: Abdomen soft, non-tender, nondistended. MUSCULOSKELETAL: No cyanosis, or edema. BACK: Nontender without obvious deformity. No CVA tenderness. A/P Assessment and Plan COPD Exac Resp Insuff Bilat Pn ETOH use Nicotine use PLAN: Supplement 02 to keep sat >90% Aerosol nebs Abx per ID Pred 40 mg daily Acapella q 1 hr Monitor lytes Diamox 250 mg daily Cardiazem 90 mg q 6 hrs metoprolol 25 mg po q 6 hrs Monty Crain MD Dec 11, 2016 19:33
[2016-12-11] MEDS: LACTIC ACID (AMMONIUM LACTATE) 12% LOTION 225 GM BTL TOPICAL SCH (21:00)
[2016-12-11] MEDS: HALOPERIDOL 2 MG TAB PO SCH (22:25)
[2016-12-12] VITALS (24 sets, daily range): BP systolic 88–111; BP diastolic 45–70; PULSE 60–162; RESP 16–22; TEMP 96.9–99.1; O2SAT 91–98
[2016-12-12] MEDS ORDERED: DILTIAZEM HCL 25 MG/5 ML VIAL IV ONE (05:45)
[2016-12-12] MEDS: METOPROLOL TARTRATE 25 MG TAB PO SCH ×4 (06:00→18:00)
[2016-12-12] MEDS ORDERED: DIGOXIN 0.5 MG/2 ML VIAL IV PUSH ONE ×4 (06:15→18:00)
[2016-12-12] MEDS ORDERED: DILTIAZEM HCL 25 MG/5 ML VIAL IVP ONE (08:00)
[2016-12-12] MEDS ORDERED: AMIODARONE INJ 900 MG in D5W 500 ML (EXCEL BAG) 482 ML IV SCH (08:45)
[2016-12-12] MEDS ORDERED: AMIODARONE INJ 150 MG in DEXTROSE 5% IN WATER 100ML INJ 97 ML IV ONE ×2 (08:45)
[2016-12-12] MEDS ORDERED: DILTIAZEM INJ 125 MG in SODIUM CHLORIDE 0.9% INJ 100 ML IV SCH (09:00)
[2016-12-12] MEDS: DILTIAZEM HCL 90 MG TAB PO SCH ×4 (09:00→20:56)
[2016-12-12] MEDS ORDERED: SODIUM CHLOR 0.9% 250 ML INJ 250 ML IV PRN (09:00)
[2016-12-12] MEDS ORDERED: SODIUM CHLORID 0.9% 500 ML INJ 500 ML IV ONE (09:00)
[2016-12-12] MEDS ORDERED: AMIODARONE INJ 450 MG in DEXTROSE 5% IN WATE(EXCEL) INJ 241 ML IV SCH ×2 (09:00)
--- NOTE | 2016-12-12 09:20 | HHI.PR ---
Subjective Remarks Follow-up flutter. RVR this morning unable to start Cardizem drip secondary to low BP. Patient denies dizziness, chest pain, palpitations and shortness of breath. He is on room air. Discussed with RN who called me earlier to start amiodarone drip with bolus and contact cardiology regarding possible ablation. Keep patient nothing by mouth. Objective Vitals Vital Signs Date Time Temp Pulse Resp B/P Pulse Ox O2 Delivery O2 Flow Rate FiO2 12/12/16 07:32 96 21 12/12/16 06:36 157 12/12/16 05:56 96.9 147 20 94/59 91 101/69 12/12/16 05:02 60 12/12/16 04:57 104 12/12/16 04:07 Room Air 12/12/16 04:00 12/12/16 00:00 97.5 66 18 102/61 92 12/11/16 20:00 95.9 82 18 106/61 93 12/11/16 17:18 62 12/11/16 16:25 69 12/11/16 16:16 97.5 86 20 110/63 93 12/11/16 12:27 96.4 77 20 93/60 94 12/11/16 10:36 96 Nasal Cannula 2.00 I/O 12/11/16 12/11/16 12/11/16 12/12/16 12/12/16 12/12/16 07:00 15:00 23:00 07:00 15:00 23:00 Intake Total 480 ml 480 ml 240 ml Output Total 400 ml Balance 80 ml 480 ml 240 ml Intake Oral 480 ml 480 ml 240 ml Output Urine Total 400 ml # Voids 2 3 3 # Bowel Movements 1 1 Result Diagram: 12/10/1661212/10/1613 Objective Remarks GENERAL: Patient is 56yo on room air SKIN: Warm and dry. HEAD: Normocephalic. EYES: No scleral icterus. No injection or drainage. NECK: Supple, trachea midline. No JVD or lymphadenopathy. CARDIOVASCULAR: Tachycardic RESPIRATORY: Decreased breath sounds with rhonchi GASTROINTESTINAL: Abdomen soft, non-tender, nondistended. MUSCULOSKELETAL: No cyanosis but with trace leg edema. Neuro: Awake and alert. Oriented to person, place and year Procedures none A/P Problem List: (1) Hyponatremia ICD Code: E87.1 Status: Acute (2) Humerus fracture ICD Code: S42.309A Status: Chronic (3) Chronic alcohol abuse ICD Code: F10.10 Status: Chronic Assessment and Plan Acute respiratory failure: Secondary to COPD and mycoplasma pneumonia/ and fluid overload improving continue supplemental oxygen as needed. Improving continue Zithromax till December 17 status post Zosyn, taper steroids because of negative fluid balance will hold off with IV Bumex sepsis due to Left lower extremity cellulitis and pneumonia: Stable. Continue antibiotics Hyponatremia, mild: Resolved. Continue to monitor. RUQ Abdominal Pain: LFTs minimally elevated. Liver U/S with trace pericholecystic fluid and borderline gallbladder wall thickening. LFTs wnl. Checked HIDA scan, essentially unremarkable. Generalized weakness: suspect secondary to hyponatremia or infection as above. Imaging/labs reviewed: Head CT normal. UDS positive for benzodiazepines. Consulted PT. Neuro checks Humerus fracture, chronic: Outpatient orthopedic follow-up as arranged. Continue sling. ETOH abuse: Withdrawal precautions. continue librium/ ativan/ thiamine- restraints as needed. hypokalemia; replace as needed. Tobacco abuse: Nicotine patch. Atrial flutter with RVR. Preserved ejection fraction. Recurrent atrial flutter with RVR on Cardizem and beta vincenzo. Unable to start Cardizem drip secondary to low BP. Start amiodarone drip, fluid bolus and maintenance fluid. [id number] score is low. Continue Asa . Not a good candidate for anticoagulation anyway secondary to alcohol use. Consulted cardiology for possible ablation. Keep patient nothing by mouth Metabolic encephalopathy secondary to above. Improving. Continue Haldol. EKG reviewed QTc not prolonged. Consulted psychiatry DVT prophylaxis: Lovenox Discharge Planning Needs rehabilitation but no payor source. Consult case management, [facility] has declined patient Problem Qualifiers (1) Humerus fracture: Ken Schuster MD Dec 12, 2016 09:20
[2016-12-12 10:00] LABS: AUTOMATED NEUTROPHIL # 4.2 TH/MM3 (1.8-7.7); BASOPHIL % 0.6 % (0.0-2.0); EOSINOPHIL # 0.2 TH/MM3 (0-0.4); EOSINOPHIL % 3.1 % (0.0-4.0); HEMATOCRIT 31.4 % (39.0-51.0); HEMO FLAGS DIFF FINAL; LYMPH % 26.9 % (9.0-44.0); LYMPHOCYTE # 1.9 TH/MM3 (1.0-4.8); MEAN CORPUSCULAR HEMOGLOBIN 32.7 PG (27.0-34.0); MEAN CORPUSCULAR HGB CONC 33.3 % (32.0-36.0); MONO % 9.6 % (0.0-8.0); NEUT % 59.8 % (16.0-70.0); PLATELET COUNT 191 TH/MM3 (150-450); RED CELL DISTRIBUTION WIDTH 16.6 % (11.6-17.2); WHITE BLOOD COUNT 7.1 TH/MM3 (4.0-11.0)
[2016-12-12] MEDS: THIAMINE HCL 100 MG TAB PO SCH (10:05)
[2016-12-12] MEDS: ASPIRIN EC 81 MG TABEC PO SCH (10:05)
[2016-12-12] MEDS: predniSONE 20 MG TAB PO SCH (10:06)
[2016-12-12] MEDS: SODIUM CHLORIDE 0.9% FLUSH 5 ML FLUSH FLUSH SCH ×2 (10:06→20:56)
[2016-12-12 10:25] LABS: BICARBONATE 29.7 MEQ/L (21.0-32.0); POTASSIUM 3.7 MEQ/L (3.5-5.1)
[2016-12-12] MEDS: guaiFENesin E.R. 600 MG TAB PO SCH ×2 (10:35→20:57)
[2016-12-12] MEDS: ENOXAPARIN SODIUM 30 MG/0.3 ML SYRINGE SQ SCH (10:35)
[2016-12-12] MEDS: HALOPERIDOL 1 MG TAB PO SCH ×3 (10:47→18:31)
[2016-12-12] MEDS: LACTIC ACID (AMMONIUM LACTATE) 12% LOTION 225 GM BTL TOPICAL SCH ×2 (14:03→20:58)
[2016-12-12] MEDS: SODIUM CHLOR 0.9% 1000 ML INJ 1,000 ML IV SCH (14:03)
[2016-12-12] MEDS: AZITHROMYCIN 250 MG TAB PO SCH (14:03)
--- NOTE | 2016-12-12 18:17 | HHI.PR ---
Subjective Remarks 56 YOWM with COPD,Bilat lung infilt Has cough and sp Weaned to NC Up in chair Good appetite. Developed AF with RVR Started on Amiodarone Objective Vital Signs Vital Signs Date Time Temp Pulse Resp B/P Pulse Ox O2 Delivery O2 Flow Rate FiO2 12/12/16 17:54 92 12/12/16 16:13 106 12/12/16 15:00 94 Room Air 12/12/16 15:00 98.4 83 22 101/69 98 12/12/16 15:00 116 12/12/16 14:15 140 12/12/16 13:00 128 12/12/16 12:00 136 12/12/16 11:00 94 Room Air 12/12/16 11:00 99 12/12/16 11:00 98.5 103 20 94/65 95 12/12/16 11:00 99 12/12/16 10:20 111 18 90/45 94 12/12/16 10:00 113 12/12/16 09:00 125 12/12/16 08:00 159 12/12/16 08:00 97.8 160 20 88/52 94 12/12/16 07:32 96 21 12/12/16 07:00 97.8 160 20 89/56 94 12/12/16 07:00 95 Room Air 12/12/16 07:00 162 12/12/16 06:36 157 12/12/16 05:56 96.9 147 20 94/59 91 101/69 12/12/16 05:02 60 12/12/16 04:57 104 12/12/16 04:07 Room Air 12/12/16 04:00 12/12/16 00:00 97.5 66 18 102/61 92 12/11/16 20:00 95.9 82 18 106/61 93 I/O 12/11/16 12/11/16 12/11/16 12/12/16 12/12/16 12/12/16 07:00 15:00 23:00 07:00 15:00 23:00 Intake Total 480 ml 480 ml 240 ml 1002 ml Output Total 400 ml 1500 ml Balance 80 ml 480 ml 240 ml -498 ml Intake Oral 480 ml 480 ml 240 ml 240 ml IV Total 762 ml Output Urine Total 400 ml 1500 ml # Voids 2 3 3 # Bowel Movements 1 1 1 Result Diagram: 12/12/1691912/12/16919 Objective Remarks GENERAL: WBWN Male mod sob SKIN: Warm and dry. HEAD: Normocephalic. EYES: No scleral icterus. No injection or drainage. NECK: Supple, trachea midline. No JVD or lymphadenopathy. CARDIOVASCULAR: Regular rate and rhythm without murmurs, gallops, or rubs. RESPIRATORY: Breath sounds equal bilaterally. No accessory muscle use. Exp rhonchi GASTROINTESTINAL: Abdomen soft, non-tender, nondistended. MUSCULOSKELETAL: No cyanosis, or edema. BACK: Nontender without obvious deformity. No CVA tenderness. A/P Assessment and Plan COPD Exac Resp Insuff Bilat Pn ETOH use Nicotine use AF With RVR PLAN: Supplement 02 to keep sat >90% Aerosol nebs Abx per ID Pred 40 mg daily Acapella q 1 hr Monitor lytes Diamox 250 mg daily Amiodarone drip consulted Monty Crain MD Dec 12, 2016 18:17
[2016-12-12] MEDS: HALOPERIDOL 2 MG TAB PO SCH (21:11)
[2016-12-13] VITALS (22 sets, daily range): BP systolic 98–118; BP diastolic 62–72; PULSE 49–89; RESP 16–18; TEMP 98.2–98.9; O2SAT 95–97
[2016-12-13] MEDS: SODIUM CHLOR 0.9% 1000 ML INJ 1,000 ML IV SCH ×2 (03:51→21:02)
[2016-12-13] MEDS: METOPROLOL TARTRATE 25 MG TAB PO SCH ×4 (04:18→18:00)
--- NOTE | 2016-12-13 07:45 | HHI.PR ---
Subjective Remarks Follow-up atrial flutter. Back to sinus rhythm today on amiodarone drip. Remains asymptomatic. Discussed with cardiology Dr. Shabazz, ARAM amiodarone drip and continue beta vincenzo and calcium channel vincenzo if tolerated and switch Lovenox to full dose anticoagulation. He will do EPS and possible ablation on Saturday. Objective Vitals Vital Signs Date Time Temp Pulse Resp B/P Pulse Ox O2 Delivery O2 Flow Rate FiO2 12/13/16 06:00 68 12/13/16 05:00 88 12/13/16 04:00 Room Air 12/13/16 04:00 98.2 89 16 98/62 95 12/13/16 04:00 87 12/13/16 03:00 82 12/13/16 02:00 78 12/13/16 01:00 80 12/13/16 00:00 Room Air 12/13/16 00:00 81 12/13/16 00:00 98.6 82 16 106/72 95 12/12/16 23:00 130 12/12/16 22:00 84 12/12/16 21:00 84 12/12/16 20:00 99.1 84 16 92/54 96 12/12/16 20:00 Room Air 12/12/16 20:00 84 12/12/16 20:00 84 12/12/16 18:00 83 12/12/16 17:54 92 12/12/16 16:13 106 12/12/16 15:00 94 Room Air 12/12/16 15:00 98.4 83 22 101/69 98 12/12/16 15:00 116 12/12/16 14:15 140 12/12/16 13:00 128 12/12/16 12:00 136 12/12/16 11:00 94 Room Air 12/12/16 11:00 99 12/12/16 11:00 98.5 103 20 94/65 95 12/12/16 11:00 99 12/12/16 10:20 111 18 90/45 94 12/12/16 10:00 113 12/12/16 09:00 125 12/12/16 08:00 159 12/12/16 08:00 97.8 160 20 88/52 94 I/O 12/12/16 12/12/16 12/12/16 12/13/16 12/13/1612/13/17 07:00 15:00 23:00 07:00 15:00 23:00 Intake Total 240 ml 1002 ml Output Total 1500 ml Balance 240 ml -498 ml Intake Oral 240 ml 240 ml IV Total 762 ml Output Urine Total 1500 ml # Voids 3 # Bowel Movements 1 1 Result Diagram: 12/12/1691912/12/16919 Objective Remarks GENERAL: Patient is 56yo on room air SKIN: Warm and dry. HEAD: Normocephalic. EYES: No scleral icterus. No injection or drainage. NECK: Supple, trachea midline. No JVD or lymphadenopathy. CARDIOVASCULAR: Regular rate and rhythm RESPIRATORY: Decreased breath sounds with rhonchi GASTROINTESTINAL: Abdomen soft, non-tender, nondistended. MUSCULOSKELETAL: No cyanosis but with trace leg edema. Neuro: Awake and alert. Oriented to person, place and year Procedures none A/P Problem List: (1) Hyponatremia ICD Code: E87.1 Status: Acute (2) Humerus fracture ICD Code: S42.309A Status: Chronic (3) Chronic alcohol abuse ICD Code: F10.10 Status: Chronic Assessment and Plan Acute respiratory failure: Secondary to COPD and mycoplasma pneumonia/ and fluid overload improving continue supplemental oxygen as needed. Improving continue Zithromax till December 17 status post Zosyn, taper steroids s/p IV Bumex sepsis due to Left lower extremity cellulitis and pneumonia: Stable. Continue antibiotics Hyponatremia, mild: Resolved. Continue to monitor. RUQ Abdominal Pain: LFTs minimally elevated. Liver U/S with trace pericholecystic fluid and borderline gallbladder wall thickening. LFTs wnl. Checked HIDA scan, essentially unremarkable. Generalized weakness: suspect secondary to hyponatremia or infection as above. Imaging/labs reviewed: Head CT normal. UDS positive for benzodiazepines. Consulted PT. Neuro checks Humerus fracture, chronic: Outpatient orthopedic follow-up as arranged. Continue sling. ETOH abuse: Withdrawal precautions. continue librium/ ativan/ thiamine- restraints as needed. hypokalemia; replace as needed. Tobacco abuse: Nicotine patch. Atrial flutter with RVR. Preserved ejection fraction. Recurrent atrial flutter with RVR on Cardizem and beta vincenzo. Unable to start Cardizem drip secondary to low BP. Started amiodarone drip, fluid bolus and maintenance fluid. [id number] score is low. Continue Asa . Not a good candidate for anticoagulation anyway secondary to alcohol use. Consulted cardiology for possible ablation. 12/13 Back to sinus rhythm on amiodarone drip. Remains asymptomatic. Discussed with cardiology Dr. Shabazz, AARM amiodarone drip and continue beta vincenzo and calcium channel vincenzo if tolerated and switch Lovenox to full dose anticoagulation. He will do EPS and possible ablation on Saturday. Metabolic encephalopathy secondary to above. Improving. Continue Haldol. EKG reviewed QTc not prolonged. Consulted psychiatry DVT prophylaxis: Lovenox Discharge Planning Needs rehabilitation but no payor source. Consult case management, [facility] has declined patient. Home when cleared by physical therapy and after evaluation by Dr. Shabazz Problem Qualifiers (1) Humerus fracture: Ken Schuster MD Dec 13, 2016 07:45
[2016-12-13] MEDS: ASPIRIN EC 81 MG TABEC PO SCH (08:46)
[2016-12-13] MEDS: THIAMINE HCL 100 MG TAB PO SCH (08:46)
[2016-12-13] MEDS: DILTIAZEM HCL 90 MG TAB PO SCH ×4 (08:46→21:02)
[2016-12-13] MEDS: ENOXAPARIN SODIUM 30 MG/0.3 ML SYRINGE SQ SCH (08:46)
[2016-12-13] MEDS: guaiFENesin E.R. 600 MG TAB PO SCH ×2 (08:46→21:02)
[2016-12-13] MEDS: predniSONE 20 MG TAB PO SCH (08:46)
[2016-12-13] MEDS: HALOPERIDOL 1 MG TAB PO SCH ×3 (08:46→18:00)
[2016-12-13] MEDS: LACTIC ACID (AMMONIUM LACTATE) 12% LOTION 225 GM BTL TOPICAL SCH ×2 (09:00→21:02)
[2016-12-13] MEDS: SODIUM CHLORIDE 0.9% FLUSH 5 ML FLUSH FLUSH SCH ×2 (09:00→21:02)
[2016-12-13] MEDS: AZITHROMYCIN 250 MG TAB PO SCH (13:29)
--- NOTE | 2016-12-13 17:56 | HHI.PR ---
Subjective Remarks 56 YOWM with COPD,Bilat lung infilt Has cough and sp Weaned to NC Up in chair Good appetite. Off Amiodarone Objective Vital Signs Vital Signs Date Time Temp Pulse Resp B/P Pulse Ox O2 Delivery O2 Flow Rate FiO2 12/13/16 17:00 54 12/13/16 16:30 49 12/13/16 16:00 98.4 50 18 105/69 97 12/13/16 15:00 58 12/13/16 14:00 64 12/13/16 13:00 72 12/13/16 12:05 98.9 71 16 107/64 96 12/13/16 11:00 70 12/13/16 10:00 72 12/13/16 09:00 75 12/13/16 08:05 98.7 72 16 112/63 96 12/13/16 06:00 68 12/13/16 05:00 88 12/13/16 04:00 Room Air 12/13/16 04:00 98.2 89 16 98/62 95 12/13/16 04:00 87 12/13/16 03:00 82 12/13/16 02:00 78 12/13/16 01:00 80 12/13/16 00:00 Room Air 12/13/16 00:00 81 12/13/16 00:00 98.6 82 16 106/72 95 12/12/16 23:00 130 12/12/16 22:00 84 12/12/16 21:00 84 12/12/16 20:00 99.1 84 16 92/54 96 12/12/16 20:00 Room Air 12/12/16 20:00 84 12/12/16 20:00 84 12/12/16 18:00 83 I/O 12/12/16 12/12/16 12/12/16 12/13/16 12/13/16 12/13/16 07:00 15:00 23:00 07:00 15:00 23:00 Intake Total 240 ml 1002 ml Output Total 1500 ml 800 ml Balance 240 ml -498 ml -800 ml Intake Oral 240 ml 240 ml IV Total 762 ml Output Urine Total 1500 ml 800 ml # Voids 3 2 # Bowel Movements 1 1 Result Diagram: 12/12/1691912/12/16919 Objective Remarks GENERAL: WBWN Male mod sob SKIN: Warm and dry. HEAD: Normocephalic. EYES: No scleral icterus. No injection or drainage. NECK: Supple, trachea midline. No JVD or lymphadenopathy. CARDIOVASCULAR: Regular rate and rhythm without murmurs, gallops, or rubs. RESPIRATORY: Breath sounds equal bilaterally. No accessory muscle use. Exp rhonchi GASTROINTESTINAL: Abdomen soft, non-tender, nondistended. MUSCULOSKELETAL: No cyanosis, or edema. BACK: Nontender without obvious deformity. No CVA tenderness. A/P Assessment and Plan COPD Exac Resp Insuff Bilat Pn ETOH use Nicotine use AF With RVR PLAN: Supplement 02 to keep sat >90% Aerosol nebs Abx per ID Acapella q 1 hr Monitor Monty Lopez MD Dec 13, 2016 17:56
[2016-12-13] MEDS: SODIUM CHLORIDE 0.9% FLUSH 5 ML FLUSH FLUSH PRN (21:02)
[2016-12-13] MEDS: ENOXAPARIN SODIUM 80 MG/0.8 ML SYRINGE SQ SCH (21:02)
[2016-12-13] MEDS: oxyCODONE/ACETAMINOPHEN 5 MG/325 MG TAB PO PRN (21:13)
[2016-12-13] MEDS: HALOPERIDOL 2 MG TAB PO SCH (22:00)
[2016-12-14] VITALS (25 sets, daily range): BP systolic 102–118; BP diastolic 60–80; PULSE 48–92; RESP 16–20; TEMP 97.7–98.6; O2SAT 95–99
[2016-12-14] MEDS: METOPROLOL TARTRATE 25 MG TAB PO SCH ×4 (05:07→20:47)
[2016-12-14] MEDS ORDERED: METOPROLOL TARTRATE 25 MG TAB PO SCH (06:00)
[2016-12-14] MEDS: guaiFENesin E.R. 600 MG TAB PO SCH ×2 (08:59→20:48)
[2016-12-14] MEDS: ASPIRIN EC 81 MG TABEC PO SCH (08:59)
[2016-12-14] MEDS: THIAMINE HCL 100 MG TAB PO SCH (08:59)
[2016-12-14] MEDS: ENOXAPARIN SODIUM 80 MG/0.8 ML SYRINGE SQ SCH ×2 (09:00→20:47)
[2016-12-14] MEDS: LACTIC ACID (AMMONIUM LACTATE) 12% LOTION 225 GM BTL TOPICAL SCH ×2 (09:00→20:47)
[2016-12-14] MEDS: DILTIAZEM HCL 30 MG TAB PO SCH ×3 (09:00→18:22)
[2016-12-14] MEDS: SODIUM CHLORIDE 0.9% FLUSH 5 ML FLUSH FLUSH SCH ×2 (09:01→20:45)
[2016-12-14] MEDS: HALOPERIDOL 1 MG TAB PO SCH ×3 (09:06→18:22)
[2016-12-14] MEDS: predniSONE 10 MG TAB PO SCH (09:06)
--- NOTE | 2016-12-14 09:51 | HHI.PR ---
Subjective Remarks Follow-up atrial flutter. Patient has no complaints on room air. Telemetry shows a flutter with slow ventricular response. Patient has not received CCB and BB secondary to bradycardia. He is off amiodarone drip. Discussed with RN Objective Vitals Vital Signs Date Time Temp Pulse Resp B/P Pulse Ox O2 Delivery O2 Flow Rate FiO2 12/14/16 07:30 97.7 54 16 111/80 99 12/14/16 07:30 99 Room Air 12/14/16 06:00 50 12/14/16 05:00 50 12/14/16 04:00 48 12/14/16 03:00 98.4 65 16 118/77 95 12/14/16 03:00 66 12/14/16 03:00 96 Room Air 12/14/16 02:00 50 12/14/16 01:00 56 12/14/16 00:00 97 Room Air 12/14/16 00:00 56 12/14/16 00:00 98.0 55 16 107/70 96 12/13/16 23:00 54 12/13/16 22:00 62 12/13/16 20:00 97 Room Air 12/13/16 20:00 65 12/13/16 20:00 98.2 62 16 118/72 97 12/13/16 20:00 65 12/13/16 18:00 72 12/13/16 18:00 99 Room Air 12/13/16 17:00 54 12/13/16 16:30 49 12/13/16 16:00 98.4 50 18 105/69 97 12/13/16 15:00 58 12/13/16 14:00 64 12/13/16 13:00 72 12/13/16 12:05 98.9 71 16 107/64 96 12/13/16 11:00 70 12/13/16 10:00 72 I/O 12/13/16 12/13/16 12/13/16 12/14/16 12/14/16 12/14/16 07:00 15:00 23:00 07:00 15:00 23:00 Intake Total 1588 ml Output Total 800 ml 400 ml Balance -800 ml 1188 ml Intake Oral 500 ml IV Total 1088 ml Output Urine Total 800 ml 400 ml # Voids 2 1 # Bowel Movements 0 Result Diagram: 12/12/1691912/12/16919 Imaging Last Impressions Chest X-Ray 12/10/16 0000 Signed Impressions: Service Date/Time: Saturday, December 10, 2016 09:25 - CONCLUSION: Improving aeration Jose Juan Walden MD Lower Extremity Ultrasound 11/25/16 0000 Signed Impressions: Service Date/Time: Friday, November 25, 2016 13:42 - CONCLUSION: 1. No DVT. 2. Multiple large lymph nodes in the left groin the largest measuring 3.6 cm. Johnson Riggins MD Chest CT 11/24/1624 Signed Impressions: Service Date/Time: Thursday, November 24, 2016 08:44 - CONCLUSION: 1. Diffuse bilateral airspace disease with air bronchograms greater within the upper lobes. This could be multilobar pneumonia versus edema. 2. Small bilateral pleural effusions. 3. Coronary artery calcifications and nonspecific mediastinal adenopathy. 4. Enlargement of the pulmonary trunk suggesting arterial hypertension. Johnson Riggins MD Hepatobiliary Scan Nuclear Medicine 11/23/16 Signed Impressions: Service Date/Time: Wednesday, November 23, 2016 12:49 - CONCLUSION: 1. There is no evidence for cystic duct or common duct obstruction. 2. Moderate biliary enteric reflux. Huber Aguilar MD FACR Liver Ultrasound 11/22/16 0000 Signed Impressions: Service Date/Time: November 16:50 - CONCLUSION: 1. Mildly enlarged and heterogeneous liver without a focal hepatic lesion. No perceptible hepatic nodularity. 2. Trace pericholecystic fluid and borderline gallbladder wall thickening. These findings are demonstrated in the setting of no illicited sonographic Greenberg sign and presumably on the basis of right heart dysfunction or liver disease. No gallstones or ductal dilatation demonstrated. Jose Juan Santillan MD Head CT 11/19/161914 Signed Impressions: Service Date/Time: Saturday, November 19, 2016 20:22 - CONCLUSION: Normal examination for a patient of this age. No significant change has occurred. Trae Jarrett MD Cervical Spine CT 11/19/161914 Signed Impressions: Service Date/Time: Saturday, November 19, 2016 20:22 - CONCLUSION: 1. Moderate degenerative disc disease. No acute bony abnormalities. Trae Jarrett MD Objective Remarks GENERAL: Patient is 56yo on room air SKIN: Warm and dry. HEAD: Normocephalic. EYES: No scleral icterus. No injection or drainage. NECK: Supple, trachea midline. No JVD or lymphadenopathy. CARDIOVASCULAR: Bradycardia RESPIRATORY: Decreased breath sounds with rhonchi GASTROINTESTINAL: Abdomen soft, non-tender, nondistended. MUSCULOSKELETAL: No cyanosis but with trace leg edema. Neuro: Awake and alert. Oriented to person, place and year Procedures none A/P Problem List: (1) Hyponatremia ICD Code: E87.1 Status: Acute (2) Humerus fracture ICD Code: S42.309A Status: Chronic (3) Chronic alcohol abuse ICD Code: F10.10 Status: Chronic Assessment and Plan Acute respiratory failure: Secondary to COPD and mycoplasma pneumonia/ and fluid overload improving continue supplemental oxygen as needed. Improving continue Zithromax till December 17 status post Zosyn, taper steroids s/p IV Bumex sepsis due to Left lower extremity cellulitis and pneumonia: Stable. Continue antibiotics Hyponatremia, mild: Resolved. Continue to monitor. RUQ Abdominal Pain: LFTs minimally elevated. Liver U/S with trace pericholecystic fluid and borderline gallbladder wall thickening. LFTs wnl. Checked HIDA scan, essentially unremarkable. Generalized weakness: suspect secondary to hyponatremia or infection as above. Imaging/labs reviewed: Head CT normal. UDS positive for benzodiazepines. Consulted PT. Neuro checks Humerus fracture, chronic: Outpatient orthopedic follow-up as arranged. Continue sling. ETOH abuse: Withdrawal precautions. continue librium/ ativan/ thiamine- restraints as needed. hypokalemia; replace as needed. Tobacco abuse: Nicotine patch. Atrial flutter with RVR. Preserved ejection fraction. Recurrent atrial flutter with RVR on Cardizem and beta vincenzo. Unable to start Cardizem drip secondary to low BP. Started amiodarone drip, fluid bolus and maintenance fluid. [id number] score is low. Continue Asa . Not a good candidate for anticoagulation anyway secondary to alcohol use. Consulted cardiology for possible ablation. 12/13 Back to sinus rhythm on amiodarone drip. Remains asymptomatic. Discussed with cardiology Dr. Harika DC amiodarone drip and continue beta vincenzo and calcium channel vincenzo if tolerated and switch Lovenox to full dose anticoagulation. He will do EPS and possible ablation on Saturday. 2/24 Flutter with SVR. Will decrease CCB and BB Metabolic encephalopathy secondary to above. Improving. Continue Haldol. EKG reviewed QTc not prolonged. Consulted psychiatry DVT prophylaxis: Lovenox Discharge Planning Needs rehabilitation but no payor source. Consult case management, [facility] has declined patient. Home when cleared by physical therapy and after evaluation by Dr. Shabazz Problem Qualifiers (1) Humerus fracture: Ken Schuster MD Dec 14, 2016 09:51
[2016-12-14] MEDS: AZITHROMYCIN 250 MG TAB PO SCH (12:00)
[2016-12-14] MEDS ORDERED: PILL SPLITTER OTHER PRN (12:45)
[2016-12-14] MEDS: oxyCODONE/ACETAMINOPHEN 5 MG/325 MG TAB PO PRN (13:15)
--- NOTE | 2016-12-14 19:37 | HHI.PR ---
Subjective Remarks 56 YOWM with COPD,Bilat lung infilt Has cough and sp Weaned to NC Up in chair Good appetite. Objective Vital Signs Vital Signs Date Time Temp Pulse Resp B/P Pulse Ox O2 Delivery O2 Flow Rate FiO2 12/14/16 18:00 60 12/14/16 17:00 56 12/14/16 16:00 62 12/14/16 15:02 18 12/14/16 15:00 98.2 73 18 102/69 97 12/14/16 15:00 54 12/14/16 15:00 97 Room Air 12/14/16 14:00 58 12/14/16 13:00 62 12/14/16 12:00 60 12/14/16 11:30 98.4 64 18 108/60 98 12/14/16 11:00 92 12/14/16 11:00 98 Room Air 12/14/16 10:00 64 12/14/16 09:00 64 12/14/16 08:00 56 12/14/16 07:30 97.7 54 16 111/80 99 12/14/16 07:30 99 Room Air 12/14/16 07:00 66 12/14/16 06:00 50 12/14/16 05:00 50 12/14/16 04:00 48 12/14/16 03:00 98.4 65 16 118/77 95 12/14/16 03:00 66 12/14/16 03:00 96 Room Air 12/14/16 02:00 50 12/14/16 01:00 56 12/14/16 00:00 97 Room Air 12/14/16 00:00 56 12/14/16 00:00 98.0 55 16 107/70 96 12/13/16 23:00 54 12/13/16 22:00 62 12/13/16 20:00 97 Room Air 12/13/16 20:00 65 12/13/16 20:00 98.2 62 16 118/72 97 12/13/16 20:00 65 I/O 12/13/16 12/13/16 12/13/16 12/14/16 12/14/16 12/14/16 07:00 15:00 23:00 07:00 15:00 23:00 Intake Total 1588 ml Output Total 800 ml 400 ml Balance -800 ml 1188 ml Intake Oral 500 ml IV Total 1088 ml Output Urine Total 800 ml 400 ml # Voids 2 1 # Bowel Movements 0 Result Diagram: 12/12/1691912/12/16919 Objective Remarks GENERAL: WBWN Male mod sob SKIN: Warm and dry. HEAD: Normocephalic. EYES: No scleral icterus. No injection or drainage. NECK: Supple, trachea midline. No JVD or lymphadenopathy. CARDIOVASCULAR: Regular rate and rhythm without murmurs, gallops, or rubs. RESPIRATORY: Breath sounds equal bilaterally. No accessory muscle use. Exp rhonchi GASTROINTESTINAL: Abdomen soft, non-tender, nondistended. MUSCULOSKELETAL: No cyanosis, or edema. BACK: Nontender without obvious deformity. No CVA tenderness. A/P Assessment and Plan COPD Exac Resp Insuff Bilat Pn ETOH use Nicotine use AF With RVR PLAN: Supplement 02 to keep sat >90% Aerosol nebs Abx per ID Acapella q 1 hr Monitor lytes Stable pulm Avaiable prn over weekend. Monty Crain MD Dec 14, 2016 19:37
[2016-12-14] MEDS: HALOPERIDOL 2 MG TAB PO SCH (20:47)
[2016-12-15] VITALS (15 sets, daily range): BP systolic 108–129; BP diastolic 63–74; PULSE 55–90; RESP 18–20; TEMP 97.4–98.5; O2SAT 95–98
[2016-12-15] MEDS: HALOPERIDOL LACTATE 5 MG/ML AMP IM PRN ×2 (03:36→21:47)
[2016-12-15] MEDS: METOPROLOL TARTRATE 25 MG TAB PO SCH ×3 (05:25→20:49)
[2016-12-15] MEDS: HALOPERIDOL 1 MG TAB PO SCH ×3 (08:00→18:24)
--- NOTE | 2016-12-15 08:43 | HHI.PR ---
Subjective Remarks in no acute distress. denies pain. afebrile. no new complaints. Objective Vitals Vital Signs Date Time Temp Pulse Resp B/P Pulse Ox O2 Delivery O2 Flow Rate FiO2 12/15/16 07:48 90 12/15/16 07:48 Room Air 12/15/16 06:00 55 12/15/16 05:00 56 12/15/16 04:00 98.1 62 18 108/63 96 12/15/16 04:00 97 Room Air 12/15/16 04:00 62 12/15/16 03:00 61 12/15/16 02:00 60 12/15/16 01:00 67 12/15/16 00:00 97 Room Air 12/15/16 00:00 70 12/15/16 00:00 98.4 70 20 129/74 95 12/14/16 23:00 53 12/14/16 22:00 56 12/14/16 21:00 55 12/14/16 20:00 97 Room Air 12/14/16 20:00 98.6 60 20 113/74 96 12/14/16 20:00 60 12/14/16 18:00 60 12/14/16 17:00 56 12/14/16 16:00 62 12/14/16 15:02 18 12/14/16 15:00 98.2 73 18 102/69 97 12/14/16 15:00 54 12/14/16 15:00 97 Room Air 12/14/16 14:00 58 12/14/16 13:00 62 12/14/16 12:00 60 12/14/16 11:30 98.4 64 18 108/60 98 12/14/16 11:00 92 12/14/16 11:00 98 Room Air 12/14/16 10:00 64 12/14/16 09:00 64 I/O 12/14/16 12/14/16 12/14/16 12/15/16 12/15/16 12/15/16 07:00 15:00 23:00 07:00 15:00 23:00 Intake Total 1588 ml 490 ml 0 ml Output Total 400 ml 900 ml Balance 1188 ml -410 ml 0 ml Intake Oral 500 ml 480 ml IV Total 1088 ml 10 ml 0 ml Output Urine Total 400 ml 900 ml # Voids 1 # Bowel Movements 0 1 Result Diagram: 2/22/17 0920 12/12/1620 Imaging Last Impressions Chest X-Ray 12/10/16 0000 Signed Impressions: Service Date/Time: Saturday, December 10, 2016 09:25 - CONCLUSION: Improving aeration Jose Juan Walden MD Lower Extremity Ultrasound 11/25/16 0000 Signed Impressions: Service Date/Time: Friday, November 25, 2016 13:42 - CONCLUSION: 1. No DVT. 2. Multiple large lymph nodes in the left groin the largest measuring 3.6 cm. Johnson Riggins MD Chest CT 11/24/16 0824 Signed Impressions: Service Date/Time: Thursday, November 24, 2016 08:44 - CONCLUSION: 1. Diffuse bilateral airspace disease with air bronchograms greater within the upper lobes. This could be multilobar pneumonia versus edema. 2. Small bilateral pleural effusions. 3. Coronary artery calcifications and nonspecific mediastinal adenopathy. 4. Enlargement of the pulmonary trunk suggesting arterial hypertension. Johnson Riggins MD Hepatobiliary Scan Nuclear Medicine 11/23/16 0000 Signed Impressions: Service Date/Time: Wednesday, November 23, 2016 12:49 - CONCLUSION: 1. There is no evidence for cystic duct or common duct obstruction. 2. Moderate biliary enteric reflux. Huber Aguilar MD FACR Liver Ultrasound 11/22/16 0000 Signed Impressions: Service Date/Time: November 16:50 - CONCLUSION: 1. Mildly enlarged and heterogeneous liver without a focal hepatic lesion. No perceptible hepatic nodularity. 2. Trace pericholecystic fluid and borderline gallbladder wall thickening. These findings are demonstrated in the setting of no illicited sonographic Greenberg sign and presumably on the basis of right heart dysfunction or liver disease. No gallstones or ductal dilatation demonstrated. Jose Juan Santillan MD Head CT 11/19/161914 Signed Impressions: Service Date/Time: Saturday, November 19, 2016 20:22 - CONCLUSION: Normal examination for a patient of this age. No significant change has occurred. Trae Jarrett MD Cervical Spine CT 11/19/161914 Signed Impressions: Service Date/Time: Saturday, November 19, 2016 20:22 - CONCLUSION: 1. Moderate degenerative disc disease. No acute bony abnormalities. Trae Jarrett MD Objective Remarks GENERAL: This is a well-nourished, well-developed patient, in no apparent distress. CARDIOVASCULAR: Regular rate and regular rhythm without murmurs, gallops, or rubs. RESPIRATORY: bilateral rhonchi GASTROINTESTINAL: Abdomen soft, non-tender, nondistended. Normal, active bowel sounds MUSCULOSKELETAL: Extremities with mild bilateral pedal edema NEURO: awake and alert- oriented to person, place and partly to time. Procedures none Medications and IVs Current Medications IV Flush 2 ml 2 ml UNSCH PRN IVF FLUSH AFTER USING IV ACCESS; Start 11/19/16 at 19:15; Stop 11/20/16 at 06:27; Status DC Sodium Chloride 1,000 ml @ 1,000 mls/hr Q1H ONCE IV Last administered on 20:39; Start 11/19/16 at 19:15; Stop 11/19/16 at 20:14; Status DC Sodium Chloride (NS 1000 ml Inj) 1,000 ml @ 70 mls/hr [id number] IV Last administered on 11/25/16 05:26; Start 11/19/16 at 23:24; Stop 11/25/16 at 10:23; Status DC IV Flush (NS Flush) 2 ml UNSCH PRN FLUSH FLUSH AFTER USING IV ACCESS Last administered on 12/13/16 21:02; Start 11/19/16 at 23:30 IV Flush (NS Flush) 2 ml BID FLUSH Last administered on 12/14/16 20:45; Start 11/20/16 at 09:00 Naloxone HCl (Narcan Inj) 0.4 mg UNSCH PRN IV SEE LABEL COMMENTS; Start at 23:30 Flumazenil (Romazicon Inj) 0.2 mg Q1M PRN IV PUSH SEE LABEL COMMENTS; Start at 23:30 Lorazepam (Ativan) 1 mg Q4H PRN PO CIWA 8 - 10; Start 11/19/16 at 23:30 Lorazepam (Ativan Inj) 1 mg Q4H PRN IV PUSH CIWA 8 - 10 Last administered on 00:35; Start 11/19/16 at 23:30 Lorazepam (Ativan) 2 mg Q2H PRN PO CIWA 11-14; Start 11/19/16 at 23:30 Lorazepam (Ativan Inj) 2 mg Q2H PRN IV PUSH CIWA 11-14 Last administered on 06:44; Start 11/19/16 at 23:30 Lorazepam (Ativan Inj) 2 mg Q1H PRN IV PUSH CIWA 15-20 Last administered on 11/29 21:02; Start 11/19/16 at 23:30 Lorazepam (Ativan Inj) 2 mg Q15M PRN IV PUSH CIWA > 20; Start 11/19/16 at 23:30 Thiamine HCl 100 mg 100 mg DAILY PO Last administered on 12/14/16 08:59; Start 11/20/16 at 09:00 Thiamine HCl/ Sodium Chloride (Thiamine Inj/NS Inj) 101 ml @ 101 mls/hr ONCE ONCE IV Last administered on 11/19/16 23:49; Start 11/19/16 at 23:45; Stop at 00:44; Status DC Enoxaparin Sodium (Lovenox Inj) 30 mg Q24H SQ Last administered on 12/13/16 08 :46; Start 11/20/16 at 09:00; Stop 12/13/16 at 11:06; Status DC Albuterol Sulfate 1.25 mg 1.25 mg ONCE ONCE NEB Last administered on 19:17; Start 11/20/16 at 17:45; Stop 11/20/16 at 17:50; Status DC Vancomycin HCl 1500 mg/Sodium Chloride 515 ml @ 257.5 mls/ hr ONCE ONCE IV Last administered on 11/21/16 10:58; Start 11/21/16 at 10:00; Stop 11/21/16 at 11: 59; Status DC Pharmacy Profile Note 0 ml @ 0 mls/hr UNSCH OTHER ; Start 11/21/16 at 09:15; Stop 11/30/16 at 05:51; Status DC Vancomycin HCl/ Sodium Chloride (Vancomycin Inj/ NS 500 ml Inj) 515 ml @ 250 mls/hr Q12H IV Last administered on 11/27/16 16:26; Start 11/21/16 at 23:00; Stop 11/27/16 at 20:40; Status DC Miscellaneous Information SPECIFIC LAB TO BE DRAWN:VANCOMYCIN TROUGH DATE TO... ONCE ONCE XX Last administered on 11/23/16 10:45; Start 11/23/16 at 10:45; Stop 11/23/16 at 10:46; Status DC Levofloxacin/ Dextrose 150 ml @ 100 mls/hr Q24H IV Last administered on 10:47; Start 11/22/16 at 12:00; Stop 11/23/16 at 11:51; Status DC Piperacillin Sod/ Tazobactam Sod (Zosyn 4.5 Gm Premix) 100 ml @ 200 mls/hr Q6H IV Last administered on 12/10/16 05:25; Start 11/22/16 at 12:00; Stop 12/10/16 at 09:28; Status DC Folic Acid (Folate) 1 mg DAILY PO Last administered on 11/27/16 08:44; Start at 09:00; Stop 11/28/16 at 08:59; Status DC Multivitamins/ Minerals Therapeutic (Theragran M Tab) 1 tab DAILY PO Last administered on 11/27/16 08:44; Start 11/23/16 at 09:00; Stop 11/28/16 at 08:59; Status DC Albuterol/ Ipratropium (Duoneb Neb) 1 ampule ONCE ONCE NEB Last administered on 11/23/16 12:09; Start 11/23/16 at 11:15; Stop 11/23/16 at 11:16; Status DC Albuterol/ Ipratropium (Duoneb Neb) 1 ampule Q6HR WHILE AWAKE NEB NEB Last administered on 11/24/16 19:31; Start 11/23/16 at 14:00; Stop 11/25/16 at 11:17; Status DC Sincalide (Kinevac Inj) 1.7 mcg STK-MED ONCE IV Last administered on 11/23/16 14:27; Start 11/23/16 at 14:27; Stop 11/23/16 at 14:28; Status DC Methylprednisolone Sodium Succinate (SoluMEDROL INJ) 125 mg ONCE ONCE IV PUSH Last administered on 11/23/16 16:37; Start 11/23/16 at 16:30; Stop 11/23/16 at 16: 31; Status DC Methylprednisolone Sodium Succinate (SoluMEDROL INJ) 60 mg Q6H IV PUSH Last administered on 11/24/16 06:17; Start 11/23/16 at 23:00; Stop 11/24/16 at 09:46; Status DC Albuterol Sulfate (Albuterol Neb) 1.25 mg Q2HR NEB PRN NEB SOB/WHEEZING Last administered on 12/08/16 03:48; Start 11/24/16 at 07:15 Nicotine (Habitrol 14 Mg Patch.24 Hr) 1 patch DAILY TD Last administered on 07:51; Start 11/24/16 at 09:45; Stop 12/01/16 at 14:42; Status DC Methylprednisolone Sodium Succinate (SoluMEDROL INJ) 40 mg Q6H IV PUSH Last administered on 11/25/16 05:31; Start 11/24/16 at 11:00; Stop 11/25/16 at 11:17; Status DC Miscellaneous Information 1 HS TD Last administered on 11/30/16 19:57; Start 11/24/16 at 21:00; Stop 12/01/16 at 14:42; Status DC Oxycodone/ Acetaminophen (Percocet 5-325 Mg) 1 tab Q6H PRN PO PAIN SCALE 6 TO 10 Last administered on 12/14/16 13:15; Start 11/24/16 at 10:30 Morphine Sulfate 2 mg 2 mg Q3H PRN IV PUSH BREAKTHROUGH PAIN Last administered on 11/26/16 01:53; Start 11/24/16 at 10:30 Sodium Chloride 500 ml @ 500 mls/hr BOLUS ONCE IV Last administered on 17:20; Start 11/24/16 at 16:30; Stop 11/24/16 at 17:29; Status DC Sodium Chloride (NS 1000 ml Inj) 1,000 ml @ 999 mls/hr BOLUS ONCE IV Last administered on 11/24/16 19:02; Start 11/24/16 at 17:30; Stop 11/24/16 at 18:30; Status DC Albuterol/ Ipratropium (Duoneb Neb) 1 ampule Q4HR WHILE AWAKE NEB NEB Last administered on 11/28/16 20:30; Start 11/25/16 at 12:00; Stop 11/29/16 at 12:00; Status DC Methylprednisolone Sodium Succinate (SoluMEDROL INJ) 60 mg Q6H IV PUSH Last administered on 11/30/16 11:27; Start 11/25/16 at 17:00; Stop 11/30/16 at 13:54 ; Status DC Miscellaneous Information Patient in critical care unit? Ass... [id number] ; Start 11/25/16 at 22:15 Chlorhexidine Gluconate (Chlorhexidine 2% Cloth) 3 pack DAILY@04 TOP Last administered on 11/30/16 04:00; Start 11/26/16 at 04:00; Stop 11/30/16 at 04:01 ; Status DC Chlorhexidine Gluconate (Chlorhexidine 2% Cloth) 3 pack UNSCH PRN TOP HYGIENIC CARE; Start 11/25/16 at 22:30; Stop 11/30/16 at 22:15; Status DC Guaifenesin (Mucinex Er) 600 mg BID PO Last administered on 12/14/16 20:48; Start 11/25/16 at 23:30 Diphenhydramine HCl (Benadryl) 25 mg ONCE ONCE PO Last administered on 00:13; Start 11/25/16 at 23:30; Stop 11/25/16 at 23:31; Status DC Miscellaneous Information SPECIFIC LAB TO BE DRAWN:VANCO TROUGH DATE... ONCE ONCE XX ; Start 11/27/16 at 10:45; Stop 11/27/16 at 10:46; Status DC Azithromycin/ Sodium Chloride (Zithromax Inj/ NS 250 ml Inj) 250 ml @ 250 mls/ hr Q24H IV Last administered on 12/09/16 12:25; Start 11/26/16 at 13:00; Stop 12/10/16 at 09:28; Status DC Bumetanide (Bumex Inj) 2 mg ONCE ONCE IV PUSH Last administered on 11/27/16 08 :44; Start 11/27/16 at 07:45; Stop 11/27/16 at 08:06; Status DC Bumetanide (Bumex Inj) 1 mg DAILY IV PUSH Last administered on 12/01/16 07:53 ; Start 11/28/16 at 09:00; Stop 12/12/16 at 08:52; Status DC Potassium Chloride (KCl) 20 meq DAILY PO Last administered on 12/03/16 09:00; Start 11/27/16 at 09:00; Stop 12/03/16 at 10:47; Status DC Dextrose (D50w (Vial) Inj) 25 ml UNSCH PRN IV PUSH HYPOGLYCEMIA-SEE COMMENTS; Start 11/27/16 at 13:45 Glucagon (Glucagon Inj) 1 mg UNSCH PRN OTHER HYPOGLYCEMIA-SEE COMMENTS; Start 11/27/16 at 13:45 Insulin Human Regular 1 1 Q6H SQ ; Start 11/27/16 at 14:00; Stop 11/30/16 at 05: 51; Status DC Levofloxacin/ Dextrose 150 ml @ 100 mls/hr Q24H IV Last administered on 14:58; Start 11/27/16 at 16:00; Stop 12/02/16 at 14:53; Status DC Vancomycin HCl 1500 mg/Sodium Chloride 515 ml @ 250 mls/hr Q24H IV ; Start 11/27 at 17:00; Status Cancel Vancomycin HCl/ Sodium Chloride (Vancomycin Inj/ NS 500 ml Inj) 515 ml @ 250 mls/hr Q24H IV ; Start 11/28/16 at 17:00; Stop 11/28/16 at 17:00; Status DC Miscellaneous Information SPECIFIC LAB TO BE DRAWN:VANCO TROUGH DATE TO BE DR... ONCE ONCE XX ; Start 11/30/16 at 17:45; Stop 11/30/16 at 17:45; Status DC Vancomycin HCl 1500 mg/Sodium Chloride 515 ml @ 250 mls/hr Q18H IV Last administered on 11/30/16 04:31; Start 11/28/16 at 12:00; Stop 11/30/16 at 05:51 ; Status DC Dexmedetomidine HCl (Precedex Inj) 50 ml @ 0 mls/hr TITRATE IV ; Start 11/29/16 at 05:15; Stop 11/30/16 at 13:54; Status DC Chlordiazepoxide (Librium) 25 mg Taper Q8H PO Last administered on 12/02/16 23 :32; Start 11/29/16 at 07:00; Stop 12/03/16 at 14:00; Status DC Chlordiazepoxide 5 mg 5 mg Taper Q8H PO Last administered on 12/06/16 23:05; Start 12/03/16 at 07:00; Stop 12/07/16 at 06:59; Status DC Potassium Chloride 100 ml @ 50 mls/hr Q2H PRN IV For Potassium 2.8 - 3.2 mEq/L ; Start 11/29/16 at 09:15; Stop 12/11/16 at 15:03; Status DC Potassium Chloride (KCl 20 Meq Premix Inj) 100 ml @ 50 mls/hr Q2H PRN IV For Potassium 2.8 - 3.2 mEq/L; Start 11/29/16 at 09:15; Stop 12/11/16 at 15:03; Status DC Potassium Chloride 40 meq 40 meq UNSCH PRN PO/TUBE For Potassium 3.3 - 3.5 mEq/ L Last administered on 11/29/16t 14:19; Start 11/29/16 at 09:15; Stop 12/11/16 at 15:04; Status DC Potassium Chloride 100 ml @ 25 mls/hr UNSCH PRN IV For Potassium 3.3 - 3.5 mEq /L; Start 11/29/16 at 09:15; Stop 12/11/16 at 15:04; Status DC Potassium Chloride 100 ml @ 50 mls/hr Q2H PRN IV For Potassium 3.3 - 3.5 mEq/L ; Start 11/29/16 at 09:15; Stop 12/11/16 at 15:04; Status DC Magnesium Sulfate/ Sodium Chloride (Magnesium Sulfate Inj/NS Inj) 100 ml @ 50 mls/hr UNSCH PRN IV For Magnesium 0.9 - 1.1 mg/dL; Start 11/29/16 at 09:15; Stop 12/11/16 at 15:04; Status DC Magnesium Oxide 800 mg 800 mg UNSCH PRN PO For Magnesium 1.2 - 1.6 mg/dL; Start 11/29/16 at 09:15; Stop 12/11/16 at 15:05; Status DC Magnesium Sulfate/ Sodium Chloride (Magnesium Sulfate Inj/NS Inj) 100 ml @ 50 mls/hr UNSCH PRN IV For Magnesium 1.2 - 1.6 mg/dL; Start 11/29/16 at 09:15; Stop 12/11/16 at 15:05; Status DC Potassium Phosphate 2000 mg 2,000 mg Q4H PRN PO For Phosphorus < 2.5 mg/dL; Start 11/29/16 at 09:15; Stop 12/11/16 at 15:05; Status DC Sodium Phosphate/ Sodium Chloride (Sodium Phosphate Inj/NS 250 ml Inj) 250 ml @ 42 mls/hr UNSCH PRN IV For Phosphorus < 2.5 mg/dL; Start 11/29/16 at 09:15; Stop 12/11/16 at 15:05; Status DC Potassium Chloride (KCl 40 Meq/30 ml Liq) 40 meq UNSCH PRN PO/TUBE SEE LABEL COMMENTS; Start 11/29/16 at 09:15; Stop 12/11/16 at 15:06; Status DC Potassium Phosphate 2000 mg 2,000 mg UNSCH PRN PO/TUBE SEE LABEL COMMENTS; Start 11/29/16 at 09:15; Stop 12/11/16 at 15:06; Status DC Potassium Phosphate/Sodium Chloride (Potassium Phosphate Inj/NS 250 ml Inj) 260 ml @ 42 mls/hr UNSCH PRN IV SEE LABEL COMMENTS; Start 11/29/16 at 09:15; Stop 12/11/16 at 15:06; Status DC Haloperidol Lactate (Haldol Inj) 5 mg ONCE ONCE IV Last administered on 09:57; Start 11/29/16 at 10:00; Stop 11/29/16 at 10:01; Status DC Diphenhydramine HCl (Benadryl Inj) 50 mg ONCE ONCE IV PUSH Last administered on 11/29/16 09:57; Start 11/29/16 at 10:00; Stop 11/29/16 at 10:01; Status DC Insulin Human Regular (NovoLIN R SUPPLEMENTAL SCALE) 1 Q6H SQ Last administered on 12/07/16 00:31; Start 11/30/16 at 06:00; Stop 12/08/16 at 08:46 ; Status DC Albuterol/ Ipratropium (Duoneb Neb) 1 ampule Q4HR WHILE AWAKE NEB NEB Last administered on 12/04/16 07:59; Start 11/30/16 at 08:00; Stop 12/04/16 at 08:00 ; Status DC Haloperidol Lactate (Haldol Inj) 5 mg NOW ONCE IV Last administered on 08:07; Start 11/30/16 at 07:30; Stop 11/30/16 at 07:31; Status DC Diphenhydramine HCl 50 mg 50 mg NOW ONCE IV Last administered on 11/30/16 08: 07; Start 11/30/16 at 07:30; Stop 11/30/16 at 07:31; Status DC Potassium Chloride/Sodium Chloride (NS + KCl 20 Meq Inj) 1,000 ml @ 60 mls/hr [id number] IV Last administered on 12/03/16 03:40; Start 11/30/16 at 09:00; Stop 12/03/16 at 10:47; Status DC Metoprolol Tartrate (Lopressor Inj) 5 mg STK-MED ONCE .ROUTE Last administered on 11/30/16 11:27; Start 11/30/16 at 09:45; Stop 11/30/16 at 09:46; Status DC Metoprolol Succinate 12.5 mg 12.5 mg DAILY PO Last administered on 12/03/16 09 :32; Start 11/30/16 at 11:00; Stop 12/03/16 at 10:48; Status DC Sodium Chloride (NS 1000 ml Inj) 1,000 ml @ 999 mls/hr BOLUS ONCE IV Last administered on 11/30/16 10:15; Start 11/30/16 at 10:15; Stop 11/30/16 at 11:15 ; Status DC Methylprednisolone Sodium Succinate (SoluMEDROL INJ) 40 mg Q8HR IV PUSH Last administered on 12/04/16 06:38; Start 11/30/16 at 14:00; Stop 12/04/16 at 07:37 ; Status DC Lactic Acid (Lac-Hydrin 12% Lotion) 1 applic BID TOPICAL Last administered on 20:47; Start 11/30/16 at 21:00 Albumin Human 25 gm 25 gm Q12HR IV Last administered on 12/03/16 09:32; Start 11/30/16 at 21:00; Stop 12/03/16 at 10:48; Status DC Diltiazem HCl/ Sodium Chloride (Cardizem Inj/NS Inj) 125 ml @ 0 mls/hr TITRATE IV Last administered on 12/03/16 06:01; Start 11/30/16 at 15:45; Stop at 12:38; Status DC Metoprolol Tartrate (Lopressor Inj) 5 mg Q6H IV PUSH Last administered on 06:37; Start 11/30/16 at 19:00; Stop 12/01/16 at 14:38; Status DC Digoxin (Lanoxin Inj) 0.5 mg NOW ONCE IV PUSH Last administered on 11/30/16 19:18; Start 11/30/16 at 19:00; Stop 11/30/16 at 19:01; Status DC Metoprolol Tartrate 2.5 mg 2.5 mg Q6H PRN IV PUSH HR>100 Last administered on 10:35; Start 12/01/16 at 19:00 Sodium Chloride 1,000 ml @ 999 mls/hr BOLUS ONCE IV Last administered on 12/01 14:59; Start 12/01/16 at 14:45; Stop 12/01/16 at 15:45; Status DC Sodium Chloride (NS 1000 ml Inj) 1,000 ml @ 999 mls/hr BOLUS ONCE IV Last administered on 12/01/16 15:49; Start 12/01/16 at 14:45; Stop 12/01/16 at 15:45 ; Status DC Nicotine (Habitrol 21 Mg Patch.24 Hr) 1 patch DAILY TD Last administered on 08:21; Start 12/01/16 at 14:45; Stop 12/07/16 at 09:01; Status DC Metoprolol Tartrate (Lopressor Inj) 5 mg NOW ONCE IV PUSH ; Start 12/02/16 at 12:00; Stop 12/02/16 at 12:01; Status DC Bumetanide (Bumex Inj) 1 mg ONCE ONCE IV PUSH Last administered on 12/03/16 11:26; Start 12/03/16 at 10:45; Stop 12/03/16 at 11:08; Status DC Diltiazem HCl (Cardizem) 60 mg QID PO Last administered on 12/04/16 20:47; Start 12/03/16 at 13:00; Stop 12/04/16 at 23:24; Status DC Bumetanide (Bumex Inj) 1 mg ONCE ONCE IV PUSH Last administered on 12/03/16 12:48; Start 12/03/16 at 12:30; Stop 12/03/16 at 12:33; Status DC Methylprednisolone Sodium Succinate (SoluMEDROL INJ) 40 mg Q12H IV PUSH Last administered on 12/06/16 05:56; Start 12/04/16 at 18:00; Stop 12/06/16 at 14:27 ; Status DC Bumetanide (Bumex Inj) 2 mg ONCE ONCE IV PUSH Last administered on 12/04/16 11:10; Start 12/04/16 at 11:00; Stop 12/04/16 at 11:01; Status DC Diltiazem HCl (Cardizem Inj) 10 mg NOW ONCE IV Last administered on 12/04/16 20:46; Start 12/04/16 at 20:30; Stop 12/04/16 at 20:31; Status DC Diltiazem HCl (Cardizem) 90 mg QID PO Last administered on 12/13/16 21:02; Start 12/05/16 at 09:00; Stop 12/14/16 at 05:09; Status DC Diltiazem HCl (Cardizem Inj) 10 mg ONCE ONCE IV Last administered on 00:16; Start 12/04/16 at 23:30; Stop 12/04/16 at 23:40; Status DC Metoprolol Tartrate 25 mg 25 mg Q6HR PO Last administered on 12/11/16 18:46; Start 12/05/16 at 00:00; Stop 12/14/16 at 05:09; Status DC Diltiazem HCl/ Sodium Chloride (Cardizem Inj/NS Inj) 125 ml @ 0 mls/hr TITRATE PRN IV RVR > 120 for 20 mins Last administered on 12/09/16 14:10; Start at 11:45; Stop 12/12/16 at 08:35; Status DC Bumetanide (Bumex Inj) 1 mg ONCE ONCE IV PUSH Last administered on 12/05/16 18:51; Start 12/05/16 at 18:45; Stop 12/05/16 at 18:46; Status DC Aspirin (Ecotrin Ec) 81 mg DAILY PO Last administered on 12/14/16 08:59; Start 12/06/16 at 09:00 Haloperidol Lactate (Haldol Inj) 2 mg Q6H PRN IM AGITATION Last administered on 12/15/16 03:36; Start 12/06/16 at 09:45 Haloperidol (Haldol) 1 mg BID PO Last administered on 12/08/16 09:59; Start at 09:45; Stop 12/08/16 at 13:00; Status DC Prednisone (Deltasone) 40 mg DAILY PO Last administered on 12/10/16 08:13; Start 12/06/16 at 15:00; Stop 12/10/16 at 13:22; Status DC Bumetanide (Bumex Inj) 1 mg ONCE ONCE IV PUSH Last administered on 12/07/16 12:37; Start 12/07/16 at 12:15; Stop 12/07/16 at 12:16; Status DC Haloperidol (Haldol) 1 mg TID@08,,18 PO Last administered on 12/14/16 18:22 ; Start 12/08/16 at 13:00 Haloperidol (Haldol) 2 mg DAILY@22 PO Last administered on 12/14/16 20:47; Start 12/08/16 at 22:00 Bumetanide (Bumex Inj) 1 mg ONCE ONCE IV PUSH ; Start 12/08/16 at 12:15; Stop 12/08/16 at 12:16; Status DC Diltiazem HCl (Cardizem Inj) 25 mg STK-MED ONCE .ROUTE Last administered on 12:25; Start 12/09/16 at 12:19; Stop 12/09/16 at 12:20; Status DC Bumetanide (Bumex Inj) 1 mg ONCE ONCE IV PUSH Last administered on 12/09/16 14:10; Start 12/09/16 at 15:30; Stop 12/09/16 at 15:31; Status DC Diltiazem HCl (Cardizem Inj) 10 mg ONCE ONCE IV ; Start 12/09/16 at 13:15; Stop 12/09/16 at 13:16; Status DC Azithromycin (Zithromax) 500 mg Q24H PO Last administered on 12/14/16 12:00; Start 12/10/16 at 12:00; Stop 12/17/16 at 11:59 Prednisone (Deltasone) 20 mg DAILY PO Last administered on 12/13/16 08:46; Start 12/11/16 at 09:00; Stop 12/14/16 at 08:59; Status DC Prednisone (Deltasone) 10 mg DAILY PO Last administered on 12/14/16 09:06; Start 12/14/16 at 09:00; Stop 12/17/16 at 08:59 Diltiazem HCl (Cardizem Inj) 15 mg ONCE ONCE IV ; Start 12/12/16 at 05:45; Stop 12/12/16 at 05:46; Status DC Digoxin (Lanoxin Inj) 0.5 mg ONCE ONCE IV PUSH Last administered on 12/12/16 06:17; Start 12/12/16 at 06:15; Stop 12/12/16 at 06:16; Status DC Digoxin (Lanoxin Inj) 0.5 mg ONCE ONCE IV PUSH ; Start 12/12/16 at 06:45; Stop 12/12/16 at 06:46; Status Cancel Digoxin (Lanoxin Inj) 0.5 mg ONCE ONCE IV PUSH Last administered on 12/12/16 06:55; Start 12/12/16 at 07:00; Stop 12/12/16 at 07:01; Status DC Diltiazem HCl 15 mg 15 mg ONCE ONCE IVP ; Start 12/12/16 at 08:00; Stop at 08:17; Status DC Diltiazem HCl 125 mg/Sodium Chloride 125 ml @ 0 mls/hr TITRATE IV ; Start at 09:00 Amiodarone HCl 150 mg/Dextrose 100 ml @ 100 mls/hr ONCE ONCE IV Last administered on 12/12/16 10:05; Start 12/12/16 at 08:45; Stop 12/12/16 at 09:44 ; Status DC Amiodarone HCl 900 mg/Dextrose 500 ml @ 0 mls/hr CONTINUOUS IV ; Start 12/12/16 at 08:45; Stop 12/12/16 at 08:51; Status DC Amiodarone HCl 450 mg/Dextrose 250 ml @ 0 mls/hr CONTINUOUS IV Last administered on 12/13/16 14:26; Start 12/12/16 at 09:00; Stop 12/14/16 at 05:08 ; Status DC Sodium Chloride 500 ml @ 500 mls/hr BOLUS ONCE IV Last administered on 10:06; Start 12/12/16 at 09:00; Stop 12/12/16 at 09:59; Status DC Sodium Chloride 250 ml @ 250 mls/hr Q4HR PRN IV SBP < 90 or MAP < 60; Start at 09:00 Sodium Chloride (NS 1000 ml Inj) 1,000 ml @ 70 mls/hr [id number] IV Last administered on 12/13/16 21:02; Start 12/12/16 at 12:30; Stop 12/14/16 at 05:08 ; Status DC Digoxin (Lanoxin Inj) 0.5 mg NOW ONCE IV PUSH ; Start 12/12/16 at 18:00; Stop 12/12/16 at 18:01; Status DC Enoxaparin Sodium (Lovenox Inj) 70 mg Q12HR SQ Last administered on 12/14/16 20:47; Start 12/13/16 at 21:00 Diltiazem HCl (Cardizem) 30 mg QID PO ; Start 12/14/16 at 09:00; Stop 12/14/16 at 12:34; Status DC Metoprolol Tartrate (Lopressor) 12.5 mg Q6HR PO ; Start 12/14/16 at 06:00; Stop 12/14/16 at 12:34; Status DC Diltiazem HCl (Cardizem) 30 mg TID PO Last administered on 12/14/16 18:22; Start 12/14/16 at 13:00 Metoprolol Tartrate (Lopressor) 12.5 mg Q8HR PO Last administered on 12/15/16 05:25; Start 12/14/16 at 14:00 Miscellaneous (Pill Splitter) 1 ea UNSCH PRN OTHER SEE LABEL COMMENTS; Start at 12:45 A/P Assessment and Plan A/P Acute respiratory failure: Secondary to COPD and mycoplasma pneumonia/ and fluid overload improving continue supplemental oxygen as needed. Improving continue Zithromax till December 17 status post Zosyn, taper steroids s/p IV Bumex sepsis due to Left lower extremity cellulitis and pneumonia: Stable. Continue antibiotics Hyponatremia, mild: Resolved. Continue to monitor. RUQ Abdominal Pain: LFTs minimally elevated. Liver U/S with trace pericholecystic fluid and borderline gallbladder wall thickening. LFTs wnl. Checked HIDA scan, essentially unremarkable. Generalized weakness: suspect secondary to hyponatremia or infection as above. Imaging/labs reviewed: Head CT normal. UDS positive for benzodiazepines. Consulted PT. Neuro checks Humerus fracture, chronic: Outpatient orthopedic follow-up as arranged. Continue sling. ETOH abuse: Withdrawal precautions. continue librium/ ativan/ thiamine- restraints as needed. hypokalemia; replace as needed. Tobacco abuse: Nicotine patch. Atrial flutter with RVR. Preserved ejection fraction. Recurrent atrial flutter with RVR on Cardizem and beta vincenzo. Started amiodarone drip, fluid bolus and maintenance fluid. [id number] score is low. Continue Asa . Not a good candidate for anticoagulation anyway secondary to alcohol use. Consulted cardiology; for possible ablation on Saturday. on full dose Lovenox. Metabolic encephalopathy secondary to above. Improving. Continue Haldol. EKG reviewed QTc not prolonged. Consulted psychiatry. DVT prophylaxis: Lovenox Discharge Planning dc planning to SNF when cleared by cardiology. Lilly Krause MD Dec 15, 2016 08:42
[2016-12-15] MEDS: LACTIC ACID (AMMONIUM LACTATE) 12% LOTION 225 GM BTL TOPICAL SCH ×2 (09:00→20:47)
[2016-12-15] MEDS: SODIUM CHLORIDE 0.9% FLUSH 5 ML FLUSH FLUSH SCH ×2 (09:00→20:47)
[2016-12-15] MEDS: ASPIRIN EC 81 MG TABEC PO SCH (09:12)
[2016-12-15] MEDS: DILTIAZEM HCL 30 MG TAB PO SCH ×3 (09:13→18:23)
[2016-12-15] MEDS: guaiFENesin E.R. 600 MG TAB PO SCH ×2 (09:13→20:49)
[2016-12-15] MEDS: predniSONE 10 MG TAB PO SCH (09:13)
[2016-12-15] MEDS: THIAMINE HCL 100 MG TAB PO SCH (09:13)
[2016-12-15] MEDS: ENOXAPARIN SODIUM 80 MG/0.8 ML SYRINGE SQ SCH ×2 (09:13→20:47)
[2016-12-15] MEDS: AZITHROMYCIN 250 MG TAB PO SCH (13:12)
[2016-12-15] MEDS: oxyCODONE/ACETAMINOPHEN 5 MG/325 MG TAB PO PRN (16:40)
[2016-12-15] MEDS: HALOPERIDOL 2 MG TAB PO SCH (20:46)
[2016-12-16] VITALS (24 sets, daily range): BP systolic 92–119; BP diastolic 52–68; PULSE 54–90; RESP 18–20; TEMP 98.1–98.6; O2SAT 96–100
[2016-12-16] MEDS: oxyCODONE/ACETAMINOPHEN 5 MG/325 MG TAB PO PRN ×3 (05:53→18:32)
[2016-12-16] MEDS: METOPROLOL TARTRATE 25 MG TAB PO SCH ×3 (05:53→20:05)
[2016-12-16] MEDS: predniSONE 10 MG TAB PO SCH (08:29)
[2016-12-16] MEDS: guaiFENesin E.R. 600 MG TAB PO SCH ×2 (08:29→20:03)
[2016-12-16] MEDS: SODIUM CHLORIDE 0.9% FLUSH 5 ML FLUSH FLUSH SCH ×2 (08:29→20:04)
[2016-12-16] MEDS: THIAMINE HCL 100 MG TAB PO SCH (08:29)
[2016-12-16] MEDS: ASPIRIN EC 81 MG TABEC PO SCH (08:29)
[2016-12-16] MEDS: ENOXAPARIN SODIUM 80 MG/0.8 ML SYRINGE SQ SCH ×2 (08:30→20:03)
[2016-12-16] MEDS: LACTIC ACID (AMMONIUM LACTATE) 12% LOTION 225 GM BTL TOPICAL SCH ×2 (08:30→20:04)
[2016-12-16] MEDS: HALOPERIDOL 1 MG TAB PO SCH ×3 (08:33→17:40)
[2016-12-16] MEDS: DILTIAZEM HCL 30 MG TAB PO SCH ×3 (08:36→17:40)
[2016-12-16] MEDS: AZITHROMYCIN 250 MG TAB PO SCH (11:54)
--- NOTE | 2016-12-16 14:36 | HHI.PR ---
Objective Vitals Vital Signs Date Time Temp Pulse Resp B/P Pulse Ox O2 Delivery O2 Flow Rate FiO2 12/16/16 14:00 70 12/16/16 13:00 61 12/16/16 12:00 83 12/16/16 11:00 99 Room Air 12/16/16 11:00 90 12/16/16 11:00 98.5 70 18 95/58 99 12/16/16 10:00 71 12/16/16 09:00 72 12/16/16 08:00 54 12/16/16 07:00 64 12/16/16 07:00 100 Room Air 12/16/16 07:00 98.6 64 18 92/60 100 12/16/16 06:00 72 12/16/16 05:00 69 12/16/16 04:00 65 12/16/16 03:53 Room Air 12/16/16 03:53 98.4 65 18 116/67 97 12/16/16 03:00 67 12/16/16 02:00 59 12/16/16 01:00 66 12/16/16 00:00 Room Air 12/16/16 00:00 98.2 75 18 107/63 96 12/16/16 00:00 75 12/15/16 23:00 67 12/15/16 22:00 64 12/15/16 21:00 59 12/15/16 20:00 72 12/15/16 20:00 98.5 72 18 114/64 97 12/15/16 20:00 97 Room Air 12/15/16 16:15 98.0 78 18 126/68 98 12/15/16 15:52 Room Air I/O 12/15/16 12/15/16 12/15/16 12/16/16 12/16/16 12/16/16 07:00 15:00 23:00 07:00 15:00 23:00 Intake Total 490 ml 0 ml 960 ml 510 ml Output Total 900 ml 950 ml Balance -410 ml 0 ml 960 ml -440 ml Intake Oral 480 ml 960 ml 500 ml IV Total 10 ml 0 ml 0 ml 10 ml Output Urine Total 900 ml 950 ml # Voids 3 # Bowel Movements 1 0 Result Diagram: 12/12/1691912/12/16919 Procedures none A/P Problem List: (1) Hyponatremia ICD Code: E87.1 Status: Acute (2) Humerus fracture ICD Code: S42.309A Status: Chronic (3) Chronic alcohol abuse ICD Code: F10.10 Status: Chronic Assessment and Plan Acute respiratory failure: Secondary to COPD and mycoplasma pneumonia/ and fluid overload improving continue supplemental oxygen as needed. Improving continue Zithromax till December 17 status post Zosyn, taper steroids s/p IV Bumex sepsis due to Left lower extremity cellulitis and pneumonia: Stable. Continue antibiotics Hyponatremia, mild: Resolved. Continue to monitor. RUQ Abdominal Pain: LFTs minimally elevated. Liver U/S with trace pericholecystic fluid and borderline gallbladder wall thickening. LFTs wnl. Checked HIDA scan, essentially unremarkable. Generalized weakness: suspect secondary to hyponatremia or infection as above. Imaging/labs reviewed: Head CT normal. UDS positive for benzodiazepines. Consulted PT. Neuro checks Humerus fracture, chronic: Outpatient orthopedic follow-up as arranged. Continue sling. ETOH abuse: Withdrawal precautions. continue librium/ ativan/ thiamine- restraints as needed. hypokalemia; replace as needed. Tobacco abuse: Nicotine patch. Atrial flutter with RVR. Preserved ejection fraction. Recurrent atrial flutter with RVR on Cardizem and beta vincenzo. s/p amiodarone. patient was put on ASA and lovenox. pending recommendation from EP, Dr. Shabazz? Metabolic encephalopathy secondary to above. Improving. Continue Haldol. EKG reviewed QTc not prolonged. Consulted psychiatry. DVT prophylaxis: Lovenox dc pending clearance from route agent. Problem Qualifiers (1) Humerus fracture: Valery Sánchez MD Dec 16, 2016 14:36 (1) Humerus fracture: Valery Sánchez MD Dec 16, 2016 14:36
[2016-12-16] MEDS: HALOPERIDOL 2 MG TAB PO SCH (20:03)
[2016-12-17] VITALS (16 sets, daily range): BP systolic 106–115; BP diastolic 66–74; PULSE 54–96; RESP 18–20; TEMP 97.8–98.6; O2SAT 97–99
[2016-12-17] MEDS: oxyCODONE/ACETAMINOPHEN 5 MG/325 MG TAB PO PRN ×3 (03:50→16:48)
[2016-12-17] MEDS: HALOPERIDOL LACTATE 5 MG/ML AMP IM PRN (03:50)
[2016-12-17] MEDS: METOPROLOL TARTRATE 25 MG TAB PO SCH ×2 (05:37→14:14)
[2016-12-17] MEDS: DILTIAZEM HCL 30 MG TAB PO SCH ×2 (09:00→14:14)
[2016-12-17] MEDS: guaiFENesin E.R. 600 MG TAB PO SCH (09:44)
[2016-12-17] MEDS: ENOXAPARIN SODIUM 80 MG/0.8 ML SYRINGE SQ SCH (09:44)
[2016-12-17] MEDS: HALOPERIDOL 1 MG TAB PO SCH ×2 (09:44→14:14)
[2016-12-17] MEDS: SODIUM CHLORIDE 0.9% FLUSH 5 ML FLUSH FLUSH SCH (09:44)
[2016-12-17] MEDS: THIAMINE HCL 100 MG TAB PO SCH (09:44)
[2016-12-17] MEDS: ASPIRIN EC 81 MG TABEC PO SCH (09:45)
[2016-12-17] MEDS: LACTIC ACID (AMMONIUM LACTATE) 12% LOTION 225 GM BTL TOPICAL SCH (09:45)
[2016-12-17] MEDS ORDERED: VITA100T2 PO (13:21)
[2016-12-17] MEDS ORDERED: ASPI81TA11 PO (13:21)
[2016-12-17] MEDS ORDERED: METO25TA3 PO (13:21)
[2016-12-17] MEDS ORDERED: DILT31TA PO (13:21)
--- NOTE | 2016-12-17 13:21 | HHI.DCPOC ---
Discharge Care Plan Diagnosis: (1) Atrial flutter (2) Hyponatremia (3) Right humeral fracture (4) Respiratory failure Goals to Promote Your Health * To prevent worsening of your condition and complications * To maintain your health at the optimal level Directions to Meet Your Goals Take your medications as prescribed Follow your dietary instruction Follow activity as directed Keep your appointments as scheduled Take your immunizations and boosters as scheduled If your symptoms worsen call your PCP, if no PCP go to Urgent Care Center or Emergency Room Smoking is Dangerous to Your Health. Avoid second hand smoke Call the 24-hour hour crisis hotline for domestic abuse at Valery Sánchez MD Dec 17, 2016 13:21
--- NOTE | 2016-12-17 13:22 | HHI.DS ---
Discharge Summary Admission Date Nov 22, 2016 at 18:19 Discharge Date: Dec 17, 2016 Admitting Diagnosis acute respiratory failure Symptomatic Hyponatremia COPD exacerbation alcoholism (1) Respiratory failure ICD Code: J96.90 Diagnosis: Principal (2) Hyponatremia ICD Code: E87.1 Diagnosis: Principal (3) Chronic alcohol abuse ICD Code: F10.10 Diagnosis: Secondary (4) Right humeral fracture ICD Code: S42.301A Diagnosis: Secondary (5) Atrial flutter ICD Code: I48.92 Diagnosis: Principal (6) History of alcohol abuse ICD Code: Z87.898 Diagnosis: Secondary (7) Altered mental status ICD Code: R41.82 Diagnosis: Secondary Procedures none Brief History - From Admission History taken from patient and ED physician. 56 y/o male with a history of ETOH abuse and MN was brought in by [facility] after a bystander saw him crawling in the [place]. Patient is homeless. Patient states he was sitting on the side of a curb and a bystander call [facility] because he was feeling weak all over. He states he was having fevers and chills but did not take his temperature. He denies any chest pain, sob, nausea or vomiting. He states he does drink a 12 pack of beer a day, but today he was to week to drink. Patient does not have a pcp, and has not followed up with ortho for right humerus fracture. Imaging Last Impressions Chest X-Ray 12/10/16 0000 Signed Impressions: Service Date/Time: Saturday, December 10, 2016 09:25 - CONCLUSION: Improving aeration Jose Juan Walden MD Lower Extremity Ultrasound 11/25/16 0000 Signed Impressions: Service Date/Time: Friday, November 25, 2016 13:42 - CONCLUSION: 1. No DVT. 2. Multiple large lymph nodes in the left groin the largest measuring 3.6 cm. Johnson Riggins MD Chest CT 11/24/16 0824 Signed Impressions: Service Date/Time: Thursday, November 24, 2016 08:44 - CONCLUSION: 1. Diffuse bilateral airspace disease with air bronchograms greater within the upper lobes. This could be multilobar pneumonia versus edema. 2. Small bilateral pleural effusions. 3. Coronary artery calcifications and nonspecific mediastinal adenopathy. 4. Enlargement of the pulmonary trunk suggesting arterial hypertension. Johnson Riggins MD Hepatobiliary Scan Nuclear Medicine 11/23/16 0000 Signed Impressions: Service Date/Time: Wednesday, November 23, 2016 12:49 - CONCLUSION: 1. There is no evidence for cystic duct or common duct obstruction. 2. Moderate biliary enteric reflux. Huber Aguilar MD FACR Liver Ultrasound 11/22/16 Signed Impressions: Service Date/Time: November 16:50 - CONCLUSION: 1. Mildly enlarged and heterogeneous liver without a focal hepatic lesion. No perceptible hepatic nodularity. 2. Trace pericholecystic fluid and borderline gallbladder wall thickening. These findings are demonstrated in the setting of no illicited sonographic Greenberg sign and presumably on the basis of right heart dysfunction or liver disease. No gallstones or ductal dilatation demonstrated. Jose Juan Santillan MD Head CT 11/19/161914 Signed Impressions: Service Date/Time: Saturday, November 19, 2016 20:22 - CONCLUSION: Normal examination for a patient of this age. No significant change has occurred. Trae Jarrett MD Cervical Spine CT 11/19/161914 Signed Impressions: Service Date/Time: Saturday, November 19, 2016 20:22 - CONCLUSION: 1. Moderate degenerative disc disease. No acute bony abnormalities. Trae Jarrett MD PE at Discharge GENERAL: Patient is 56yo on room air SKIN: Warm and dry. HEAD: Normocephalic. EYES: No scleral icterus. No injection or drainage. NECK: Supple, trachea midline. No JVD or lymphadenopathy. CARDIOVASCULAR: Bradycardia RESPIRATORY: Decreased breath sounds with rhonchi GASTROINTESTINAL: Abdomen soft, non-tender, nondistended. MUSCULOSKELETAL: No cyanosis but with trace leg edema. Neuro: Awake and alert. Oriented to person, place and year Pt update on day of discharge Patient has no complaints. He was anxious to go home. [place] becuase he will trip over limps. Otherwise patient is doing well. Denied any CP, SOB, palpitations, lightheadedness or dizziness. Hospital Course Acute respiratory failure -Secondary to COPD and mycoplasma pneumonia/ and fluid overload -patient was treated with nebulizes, steroids that was tapered, and azithromycin until day of discharge on and IV bumex with resolution symptoms. sepsis due to Left lower extremity cellulitis and pneumonia -infectious disease was consulted. -patient was treated empirically with vancomycin, zosyn and levaquin. Patient competed course of antibiotics while hospitalized. Hyponatremia, mild -resolved with IVFs. RUQ Abdominal Pain - LFTs minimally elevated which was most likely due to alcohol. work up was done to r/o other etiology such as Liver U/S with trace pericholecystic fluid and borderline gallbladder wall thickening. LFTs wnl. Checked HIDA scan, essentially unremarkable. Humerus fracture, chronic: Outpatient orthopedic follow-up as arranged. Continue sling. ETOH abuse: Withdrawal precautions. Patient was on ciwa protocol while hospitalized. Atrial flutter with RVR. Preserved ejection fraction. Recurrent atrial flutter with RVR on Cardizem and beta vincenzo. Pie Crim[employer] Dr. Shabazz consulted. he was also given a trial of amiodarone. He converted back to sinus while hospitalized. patient was put on ASA and lovenox while hospitalized. he was educated extensively on the risk, benefits and side effects of anticoagulation. Due to patient's compliance, alcoholism and hx of multiple falls patient declined being put on any anticoagulation. He decline any further intervention. Dr. Shabazz stated since patient has poor compliance and is back in sinus rhythm no further intervention needed at the moment. Metabolic encephalopathy secondary to above. - Consulted psychiatry and cleared patient. Pt Condition on Discharge: Stable Discharge Disposition: Discharge Home Discharge Time: <= 30 minutes Discharge Instructions DIET: Follow Instructions for: Heart Healthy Diet Activities you can perform: Regular-No Restrictions Other Activity Instructions: continue to keep right arm in sling as directed by your Orthopedic physician. Please follow up with him in regards to your right arm. Follow up Referrals: Cardiology - 2 Weeks with Desean Shabazz MD Orthopedics - 2 Weeks PCP Follow-up - 1 Week PCP Follow-up New Medications: Aspirin DR (Aspirin EC) 81 Mg Tabdr 81 MG PO DAILY atrial flutter #30 Ref 0 TAB Diltiazem (Cardizem) 30 Mg Tab 30 MG PO TID atrial flutter Days 30 Ref 0 TAB Metoprolol Tartrate (Metoprolol Tartrate) 25 Mg Tab 12.5 MG PO Q8HR atrial flutter #90 Ref 0 TAB Thiamine (Vitamin B-1) 100 Mg Tab 100 MG PO DAILY thiamine deficient #30 Ref 0 TAB Discontinued Medications: Hydrocodone-Acetaminophen (Lortab) 5-325 Mg Tab 1 TAB PO Q6H PRN PAIN #12 Ref 0 TAB Valery Sánchez MD Dec 17, 2016 13:21
--- NOTE | 2016-12-17 15:53 | HHI.PR ---
Subjective Remarks 56 YOWM with COPD,Bilat lung infilt Has cough and sp Up in chair Good appetite. On RA Denies sob Objective Vital Signs Vital Signs Date Time Temp Pulse Resp B/P Pulse Ox O2 Delivery O2 Flow Rate FiO2 12/17/16 13:00 58 12/17/16 12:00 96 12/17/16 11:00 59 12/17/16 11:00 99 Room Air 12/17/16 11:00 97.8 56 20 110/68 99 12/17/16 10:00 71 12/17/16 09:00 69 12/17/16 08:00 62 12/17/16 07:00 57 12/17/16 07:00 99 Room Air 12/17/16 07:00 98.3 54 18 106/66 99 12/17/16 06:00 67 12/17/16 05:00 62 12/17/16 04:00 98.2 60 18 114/74 97 12/17/16 04:00 60 12/17/16 04:00 Room Air 12/17/16 03:00 69 12/17/16 02:00 63 12/17/16 01:00 65 12/17/16 00:00 Room Air 12/17/16 00:00 77 12/17/16 00:00 98.6 77 18 115/66 98 12/16/16 23:00 65 12/16/16 22:00 66 12/16/16 21:00 60 12/16/16 20:00 Room Air 12/16/16 20:00 98.1 61 20 119/52 97 12/16/16 20:00 61 12/16/16 18:00 60 12/16/16 17:00 61 12/16/16 16:00 66 I/O 12/16/16 12/16/16 12/16/16 12/17/16 12/17/16 12/17/16 07:00 15:00 23:00 07:00 15:00 23:00 Intake Total 510 ml 1200 ml 970 ml Output Total 950 ml 700 ml 1100 ml Balance -440 ml 500 ml -130 ml Intake Oral 500 ml 1200 ml 960 ml IV Total 10 ml 10 ml Output Urine Total 950 ml 700 ml 1100 ml # Bowel Movements 0 2 0 Objective Remarks GENERAL: WBWN Male mod sob SKIN: Warm and dry. HEAD: Normocephalic. EYES: No scleral icterus. No injection or drainage. NECK: Supple, trachea midline. No JVD or lymphadenopathy. CARDIOVASCULAR: Regular rate and rhythm without murmurs, gallops, or rubs. RESPIRATORY: Breath sounds equal bilaterally. No accessory muscle use. Exp rhonchi GASTROINTESTINAL: Abdomen soft, non-tender, nondistended. MUSCULOSKELETAL: No cyanosis, or edema. BACK: Nontender without obvious deformity. No CVA tenderness. A/P Assessment and Plan COPD Exac Resp Insuff Bilat Pn improved ETOH use Nicotine use AF PLAN: Aerosol nebs Abx per ID Acapella q 1 hr Monitor lytes Stable pulm DC palns underway Monty Crain MD Dec 17, 2016 15:53
== END 2016-12-17 17:42 | disposition home or self-care (01) | DRG 871 ==
LOC: NEPA 18:50 → NEDA 23:26 → INTOOBSV 23:26 → NEPGCP 11-20 01:01 → OBSVTOIN 11-22 18:19 → HIMW 11-25 18:19 → N05A 12-11 03:10 → N05B 12-12 02:41 → HCIS 12-12 08:07
PROVIDERS: ADMIT Family Medicine; ATTEND Family Medicine
DX: A41.9 Sepsis, unspecified organism (principal); J15.7 Pneumonia due to Mycoplasma pneumoniae; G93.41 Metabolic encephalopathy; J96.01 Acute respiratory failure with hypoxia; J96.02 Acute respiratory failure with hypercapnia; F10.231 Alcohol dependence with withdrawal delirium; E46 Unspecified protein-calorie malnutrition; E87.2 Acidosis; I50.9 Heart failure, unspecified; L03.116 Cellulitis of left lower limb; E87.1 Hypo-osmolality and hyponatremia; I48.92 Unspecified atrial flutter; J44.0 Chronic obstructive pulmonary disease with (acute) lower respiratory infection; J44.1 Chronic obstructive pulmonary disease with (acute) exacerbation; I25.2 Old myocardial infarction; I25.10 Atherosclerotic heart disease of native coronary artery without angina pectoris; S42.211D Unspecified displaced fracture of surgical neck of right humerus, subsequent encounter for fracture with routine healing; D64.9 Anemia, unspecified; E87.6 Hypokalemia; E86.0 Dehydration; R00.1 Bradycardia, unspecified; R59.0 Localized enlarged lymph nodes; R10.11 Right upper quadrant pain; F17.210 Nicotine dependence, cigarettes, uncomplicated; Y90.0 Blood alcohol level of less than 20 mg/100 ml; Z68.26 Body mass index [BMI] 26.0-26.9, adult; Z78.1 Physical restraint status; Z59.0 Homelessness; Z91.81 History of falling
CPT/HCPCS: 36600; 70450; 71010; 71250; 72125; 76705; 76937; 78227; 80048; 80053; 80202; 80307; 80320; 82805; 82948; 83036; 83605; 83615; 83735; 83880; 83930; 83935; 84100; 84300; 84443; 85025; 86403; 86703; 86738; 87015; 87040; 87070; 87102; 87116; 87205; 87206; 87641; 87804; 93005; 93306; 93971; 94002; 94640; 94664; 94667; 94668; 96360; A9537; G0378; J0282; J0456; J1160; J1200; J1630; J1650; J1956; J2060; J2270; J2543; J2805; J2920; J2930; J3370; J3411; J3480; J7030; J7040; J7050; J7060; J7512; J7613; P9045

== ENCOUNTER 2016-12-21 21:13 | Emergency (ER) | payer OTHER ==
[~2016-12-21] VITALS: Ht 180.3 cm; Wt 70.0 kg
[~2016-12-21 21:13] MED LIST changes: +ASPI81TA11 PO; +DILT31TA PO; -HYDR-3533 PO; +METO25TA3 PO; +VITA100T2 PO
[2016-12-21 21:22] VITALS: BP 149/95; PULSE 82; RESP 14; TEMP 97.6; O2SAT 94
[2016-12-22] MEDS ORDERED: SODIUM CHLORIDE 0.9% FLUSH 5 ML FLUSH IVF PRN (00:30)
--- NOTE | 2016-12-22 01:05 | RADRPT ---
EXAM DATE/TIME: 12/22/2016 00:52 [facility] COMPARISON: CHEST SINGLE AP, December 10, 2016, 9:25. INDICATIONS : Shortness of breath. MEDICAL HISTORY : Myocardial infarction. Cardiovascular disease. Seizures SURGICAL HISTORY : None. ENCOUNTER: Initial ACUITY: 1 day PAIN SCORE: 0/10 LOCATION: Left chest FINDINGS: Course interstitial prominence is present throughout both lungs. This is most notable in the lateral left midlung. The cardiomediastinal contours are grossly stable. A comminuted fracture of the right r ight humeral neck is again noted. CONCLUSION: Diffuse coarse interstitial infiltrate Jose Juan Walden MD on December 22, 2016 at 1:02 Board Certified Radiologist. This report was verified electronically.
[2016-12-22] MEDS ORDERED: LORazepam 2 MG/ML VIAL IV PUSH ONE (02:30)
[2016-12-22 03:51] VITALS: PULSE 76; RESP 18; O2SAT 76
[2016-12-22 03:52] VITALS: PULSE 75; RESP 18; O2SAT 94
[2016-12-22 04:41] LABS: ANION GAP 10 MEQ/L (5-15); AST (GOT) 40 U/L (15-37); BICARBONATE 25.9 MEQ/L (21.0-32.0); BLOOD UREA NITROGEN 4 MG/DL (7-18); CHLORIDE 106 MEQ/L (98-107); GLOMERULAR FILTRATION RATE 151 ML/MIN (>89); POTASSIUM 4.4 MEQ/L (3.5-5.1); SODIUM (NA) 142 MEQ/L (136-145)
[2016-12-22 04:43] LABS: AUTOMATED NEUTROPHIL # 2.7 TH/MM3 (1.8-7.7); BASOPHIL # 0.1 TH/MM3 (0-0.2); BASOPHIL % 1.3 % (0.0-2.0); EOSINOPHIL # 0.2 TH/MM3 (0-0.4); EOSINOPHIL % 3.7 % (0.0-4.0); HEMATOCRIT 29.6 % (39.0-51.0); HEMO FLAGS DIFF FINAL; LYMPH % 31.3 % (9.0-44.0); LYMPHOCYTE # 1.6 TH/MM3 (1.0-4.8); MEAN CELL VOLUME 98.6 FL (80.0-100.0); MEAN CORPUSCULAR HEMOGLOBIN 33.4 PG (27.0-34.0); MEAN CORPUSCULAR HGB CONC 33.8 % (32.0-36.0); MONO % 10.6 % (0.0-8.0); NEUT % 53.1 % (16.0-70.0); PLATELET COUNT 202 TH/MM3 (150-450); RED BLOOD COUNT 3.01 MIL/MM3 (4.50-5.90); RED CELL DISTRIBUTION WIDTH 17.3 % (11.6-17.2); WHITE BLOOD COUNT 5.1 TH/MM3 (4.0-11.0)
[2016-12-22 04:44] LABS: ALKALINE PHOSPHATASE 166 U/L (45-117); ALT (GPT) 58 U/L (12-78); TOTAL BILIRUBIN ADULT 0.4 MG/DL (0.2-1.0)
[2016-12-22] MEDS ORDERED: BACT800T5 PO (04:51)
--- NOTE | 2016-12-22 04:51 | PD ---
HPI Chief Complaint: Musculoskeletal Complaint Time Seen by Provider: 23:14 Travel History International Travel<30 days: No Contact w/Intl Traveler<30days: No Traveled to known affect area: No History of Present Illness HPI Patient 56-year-old male presents emergency Department bilateral lower extremity swelling states for the past week which gradually getting worse. Patient also has noticed some redness to his right lower extremity. Of note patient presented emergency department for similar circumstances in the past diagnosed cellulitis. Patient also states that he usually drinks fairly heavily but has not had a fair amount to drink recently. He is oriented completely. Denies any fever or abdominal pain nausea vomiting diarrhea constipation chest pain shortness of breath. PFSH Past Medical History Arthritis: No Asthma: No Autoimmune Disease: No Blood Disorders: No Anxiety: No Depression: No Heart Rhythm Problems: No Cancer: No Cardiovascular Problems: Yes High Cholesterol: No Chemotherapy: No Chest Pain: Yes (04/06/08 NEG STRESS TEST) Congestive Heart Failure: No COPD: No Cerebrovascular Accident: No Diabetes: No Diminished Hearing: No Endocrine: No GERD: No Genitourinary: No Hiatal Hernia: No Immune Disorder: No Kidney Stones: No Musculoskeletal: Yes (HISTORY OF WEAKNESS AND FALLS) Neurologic: Yes (ETOH SEIZURES) Psychiatric: No Reproductive: No Respiratory: No Migraines: No Myocardial Infarction: Yes (X2) Radiation Therapy: No Renal Failure: No Seizures: Yes (ETOH SEIZURES) Sickle Cell Disease: No Sleep Apnea: No Thyroid Disease: No Ulcer: No Past Surgical History Abdominal Surgery: No AICD: No Arteriovenous Shunt: No Cardiac Surgery: No Ear Surgery: No Endocrine Surgery: No Eye Surgery: No Genitourinary Surgery: Yes (STS KIDNEY SURGERY.) Gynecologic Surgery: No Insulin Pump: No Joint Replacement: No Oral Surgery: No Pacemaker: No Thoracic Surgery: No Other Surgery: Yes (renal surgery as a child) Social History Alcohol Use: Yes (CASE OF BEER DAILY) Tobacco Use: Yes (1/2 PPD) Substance Use: No Allergies-Medications (Allergen,Severity, Reaction): Coded Allergies: *MDRO Multi-Drug Resistant Organism (Verified Adverse Reaction, Unknown, MRSA, 12/21/16) MRSA PCR screen POSITIVE - 11/25/16 Reported Meds & Prescriptions Reported Meds & Active Scripts Active Bactrim DS (Sulfamethoxazole-Trimethoprim) 800-160 Mg Tab 1 Tab PO BID 7 Days Vitamin B-1 (Thiamine HCl) 100 Mg Tab 100 Mg PO DAILY Metoprolol Tartrate 25 Mg Tab 12.5 Mg PO Q8HR Cardizem (Diltiazem HCl) 30 Mg Tab 30 Mg PO TID 30 Days Aspirin EC (Aspirin) 81 Mg Tabdr 81 Mg PO DAILY Review of Systems Except as stated in HPI: all other systems reviewed are Neg Physical Exam Narrative GENERAL: Well-developed well-nourished no apparent distress SKIN: Warm and dry. He is some mild anterior cellulitis of the right lower extremity as well as left lower extremity was slightly more on the right lower extremity. Fairly unimpressive cellulitis.. No abscess identified. No induration. HEAD: Atraumatic. Normocephalic. EYES: Pupils equal and round. No scleral icterus. No injection or drainage. ENT: No nasal bleeding or discharge. Mucous membranes pink and moist. NECK: Trachea midline. No JVD. CARDIOVASCULAR: Regular rate and rhythm. No murmur appreciated. RESPIRATORY: No accessory muscle use. Clear to auscultation. Breath sounds equal bilaterally. GASTROINTESTINAL: Abdomen soft, non-tender, nondistended. Hepatic and splenic margins not palpable. MUSCULOSKELETAL: No obvious deformities. No clubbing. No cyanosis. 2+ pitting edema bilaterally from the anterior tibial prominence distally. NEUROLOGICAL: Awake and alert. No obvious cranial nerve deficits. Motor grossly within normal limits. Normal speech. Some mild bilateral upper extremity tremor particularly in the hands consistent with early alcohol withdrawal. There is no confabulation, no altered mental status. PSYCHIATRIC: Appropriate mood and affect; insight and judgment normal. Data Data Last Documented VS Vital Signs Date Time Temp Pulse Resp B/P Pulse Ox O2 Delivery O2 Flow Rate FiO2 12/22/16 09:07 99/62 95 12/22/16 07:44 88 18 Room Air 12/21/16 21:22 97.6 Orders Complete Blood Count With Diff (12/22/16 00:21) Comprehensive Metabolic Panel (12/22/16 00:21) B-Type Natriuretic Peptide (12/22/16 00:21) Iv Access Insert/Monitor (12/22/16 00:21) Ecg Monitoring (12/22/16 00:21) Oximetry (12/22/16 00:21) Sodium Chloride 0.9% Flush (Ns Flush) (12/22/16 00:30) Chest, Pa & Lat (12/22/16 ) Lorazepam Inj (Ativan Inj) (12/22/16 02:30) Sulfamet-Trimeth Ds 800-160 Mg (Bactrim (12/22/16 05:00) Labs Laboratory Tests Test 12/22/16 12/22/16 02:15 04:00 B-Type Natriuretic Peptide 83 PG/ML White Blood Count 5.1 TH/MM3 Red Blood Count 3.01 MIL/MM3 Hemoglobin 10.0 GM/DL Hematocrit 29.6 % Mean Corpuscular Volume 98.6 FL Mean Corpuscular Hemoglobin 33.4 PG Mean Corpuscular Hemoglobin 33.8 % Concent Red Cell Distribution Width 17.3 % Platelet Count 202 TH/MM3 Mean Platelet Volume 7.3 FL Neutrophils (%) (Auto) 53.1 % Lymphocytes (%) (Auto) 31.3 % Monocytes (%) (Auto) 10.6 % Eosinophils (%) (Auto) 3.7 % Basophils (%) (Auto) 1.3 % Neutrophils # (Auto) 2.7 TH/MM3 Lymphocytes # (Auto) 1.6 TH/MM3 Monocytes # (Auto) 0.5 TH/MM3 Eosinophils # (Auto) 0.2 TH/MM3 Basophils # (Auto) 0.1 TH/MM3 CBC Comment DIFF FINAL Differential Comment Sodium Level 142 MEQ/L Potassium Level 4.4 MEQ/L Chloride Level 106 MEQ/L Carbon Dioxide Level 25.9 MEQ/L Anion Gap 10 MEQ/L Blood Urea Nitrogen 4 MG/DL Creatinine 0.56 MG/DL Estimat Glomerular Filtration 151 ML/MIN Rate Random Glucose 64 MG/DL Calcium Level 9.1 MG/DL Total Bilirubin 0.4 MG/DL Aspartate Amino Transf 40 U/L (AST/SGOT) Alanine Aminotransferase 58 U/L (ALT/SGPT) Alkaline Phosphatase 166 U/L Total Protein 7.3 GM/DL Albumin 3.3 GM/DL [facility] Medical Decision Making Medical Screen Exam Complete: Yes Emergency Medical Condition: Yes Differential Diagnosis Cellulitis, edema, DVT unlikely, CHF, liver disease. Narrative Course Patient roomed in the emergency department, he did exhibit a mild tremor was given some Ativan. Patient did not have any delirium no fevers and this represents an early withdrawal. Cellulitis fairly mild right greater than left lower extremity. Patient has no obvious edema of his lungs is no shortness of breath. No chest pain. He is not anasarca this. He will be stable for discharge. After the Ativan he is sleeping soundly in no apparent distress. Will be allowed to sleep it off in the emergency department until clinical assessment by nursing states that he is at a point where he can be safely discharged after reassessment. Diagnosis Primary Impression: Cellulitis Qualified Code: L03.115 - Cellulitis of right lower extremity Med/Other Pt SpecificInfo: Prescription(s) given Scripts Sulfamethoxazole-Trimethoprim (Bactrim DS)800-160 Mg Tab1 Tab PO BID 7 Days Ref 0 Prov:Abilio Kothari MD 12/22/16 Disposition: DISCHARGE HOME Condition: Stable Abilio Kothari MD Dec 22, 2016 04:51
[2016-12-22] MEDS ORDERED: SULFAMETHOXAZOLE-TRIMETHOPRIM DS 800-160 MG TAB PO ONE (05:00)
[2016-12-22 07:44] VITALS: BP 95/57; PULSE 88; RESP 18; O2SAT 95
[2016-12-22 09:07] VITALS: BP 99/62
== END 2016-12-22 09:08 | disposition home or self-care (01) ==
LOC: NEPE 21:13
DX: L03.115 Cellulitis of right lower limb (principal)
CPT/HCPCS: 71020; 80053; 83880; 85025; 96374; 99284; J2060